=== PATIENT | female | born 1945 | race Caucasian/White ===

== ENCOUNTER → 2020-03-20 09:36 | Outpatient (CLI) | payer OTHER, SELFPAY ==
--- NOTE | ~2020-03-20 | MR_ITS ---
EXAMINATION: MR lumbar spine wo con EXAM DATE: 03/20/2020 10:17 INDICATION: Low pain for several months. TECHNIQUE: Multi-sequential, multiplanar MR images of the lumbar spine were obtained without contrast . Sagittal T1, T2, T2 fat saturation images. Axial T2 weighted images. There is no prior study for comparison. FINDINGS: The right kidney is not identified. There is heterogeneous signal intensity right adrenal m ass measuring about 3 x 5 cm (measurements in 2016 about 3.5 x 2.7 cm). This has been a chronic mass, but adrenal masses are sometimes resected if reaching the size. There is moderate to severe disc disease L1-L4, moderate at L4-5. Multilevel endplate degenerative si gnal change mostly at L2-3. Small to moderate endplate osteophytes. The conus medullaris terminates a t the L1/2 level and has normal signal intensity and morphology. There is 4 mm anterolisthesis L4 on L5. Level by level evaluation: T12-L1: Disc does not extend beyond the endplate margin. Facet arthropathy: Mild. Neural foraminal stenosis: No stenosis. Central canal stenosis: No stenosis. L1-L2: There is a moderate diffuse disc bulge. Facet arthropathy: Mild to moderate. Neural foraminal stenosis: Moderate right, mild to moderate left. Central canal stenosis: Mild. L2-L3: There is a moderate to large diffuse disc bulge. Facet arthropathy: Moderate. Neural foraminal stenosis: Mild to moderate bilateral. Central canal stenosis: Mild to moderate. L3-L4: There is a moderate to large diffuse disc bulge, with superimposed left central extrusion, karen e inferior migration causing mass effect on the left lateral recess. Facet arthropathy: Moderate. Neural foraminal stenosis: Moderate left, mild to moderate right. Central canal stenosis: Mild to moderate, mostly left lateral recess. L4-L5: There is a moderate diffuse disc bulge. Facet arthropathy: Moderate to severe . Ligamentum flavum enlargement. Neural foraminal stenosis: Moderate left, mild to moderate right. Central canal stenosis: Moderate. L5-S1: There is a mild diffuse disc bulge. Facet arthropathy: Severe. Neural foraminal stenosis: Mild right. Central canal stenosis: No stenosis. IMPRESSION: 1. Increase in size of right adrenal 5 cm mass, most likely benign histology but adrenal masses are sometimes resected if reaching this size. 2. Moderate to severe lumbar spondylosis. Reviewed, dictated and finalized at location A. IMPRESSION: 1. Increase in size of right adrenal 5 cm mass, most likely benign histology b ut adrenal masses are sometimes resected if reaching this size. 2. Moderate to severe lumbar spondylosis.
== END ==
PROVIDERS: PCP Emergency Medicine; Visit Provider Nurse Practitioner Adult Health
DX: M47.816 Spondylosis without myelopathy or radiculopathy, lumbar region (principal); E27.9 Disorder of adrenal gland, unspecified
CPT/HCPCS: 72148

== ENCOUNTER → 2020-10-05 05:04 | Outpatient (CLI) | payer OTHER, SELFPAY ==
[2020-10-05 19:22] LABS: SARS-CoV-2 RNA PCR Negative
== END ==
PROVIDERS: PCP Emergency Medicine; Visit Provider Specialist
DX: Z01.812 Encounter for preprocedural laboratory examination (principal); Z20.822 Contact with and (suspected) exposure to COVID-19
CPT/HCPCS: C9803; U0003; U0005

== ENCOUNTER 2020-10-08 02:12 | Day surgery (SDC) | payer OTHER, SELFPAY ==
[2020-10-08] VITALS (8 sets, daily range): BP systolic 109–170; BP diastolic 49–103; PULSE 61–118; RESP 14–19; TEMP 36.9; O2SAT 95–100; BMI 27.8
--- NOTE | 2020-10-08 | ECG_ITS ---
Measurements Intervals [place] Rate: 65 P: 57 [place]: 154 QRS: 5 QRSD: 97 T: 53 QT: 440 QTc: 458 Interpretive Statements SINUS RHYTHM SUPRAVENTRICULAR TRIGEMINY ANTEROSEPTAL INFARCT, AGE INDETERMINATE ABNORMAL ECG Electronically Signed On 10-08-2020 10:49:22 CDT by Raymond Hamlin D.O.
--- NOTE | 2020-10-08 08:30 | ECG_ITS ---
Measurements Intervals [place] Rate: 93 P: [place]: 0 QRS: -1 QRSD: 100 T: 33 QT: 350 QTc: 436 Interpretive Statements ATRIAL FIBRILLATION ANTEROSEPTAL INFARCT, AGE INDETERMINATE BORDERLINE ST-T WAVE ABNORMALITY- HIGH LATERAL LEADS BASELINE ARTIFACT- I, III, AVL, AVF ABNORMAL ECG Electronically Signed On 10-08-2020 10:05:34 CDT by Raymond Hamlin D.O.
[2020-10-08 09:44] LABS: Anion Gap 3 mmol/L (8-16); Blood Urea Nitrogen 9 mg/dL (7-17); Calcium 9.1 mg/dL (8.4-10.2); Carbon Dioxide 28 mmol/L (22-30); Chloride 107 mmol/L (98-107); Estimated Glomerular Filt Rate 48; Glucose 95 mg/dL (65-105); Magnesium 1.8 mg/dL (1.6-2.3); Sodium 138 mmol/L (137-145)
--- NOTE | 2020-10-08 10:10 | WPDMODSED ---
Moderate Sedation Note-Pt Data Patient Data Diagnosis: Recurrent/persistent atrial fibrillation Present Complaint: Fatigue/dyspnea Procedure to be performed/Plan: DC cardioversion Allergies Allergy/AdvReac Type Severity Reaction Status Date / Time nitrofurantoin Allergy Mild Hives Verified 10/05/20 17:10 Home Medications Medication Instructions Recorded Confirmed Type apixaban [Eliquis] 5 mg PO BID 05/14/19 10/05/20 History clopidogrel [Plavix] 75 mg PO DAILY 05/14/19 10/05/20 History levothyroxine 88 mcg tablet See Rx Instructions .ROUTE 04/23/20 10/05/20 Rx .COMPLEX #90 tablet losartan 100 mg tablet 100 mg PO DAILY #90 tablet 05/28/20 10/05/20 Rx isosorbide mononitrate 30 mg 30 mg PO DAILY 09/07/20 10/05/20 History tablet,extended release 24 hr rosuvastatin 10 mg tablet 10 mg PO QHS tablet 09/07/20 10/05/20 History sotalol 120 mg PO BID 10/05/20 10/08/20 History Current Medications: Active Medications Sodium Chloride (Normal Saline Iv) 1,000 mls @ 30 mls/hr IV CONT .Q24H SHIRLEY Sedation/Anesthesia: No previous sedation/anesthesia problems (including family history). [facility] Past Medical History Medical History (Updated 08/06/20 @ 11:18 by Juan Whyte MD) ASHD (arteriosclerotic heart disease) Chronic back pain HLD (hyperlipidemia) HTN (hypertension) Hypothyroidism (acquired) PVD (peripheral vascular disease) Surgical History Surgical History History of vascular surgery Rt Leg Family History Family History Mother Family history of Parkinson's disease Patient's mother is Father Family history of heart disease in male family member before age 55, Onset Age: 82 Patient's father is Family history of cardiovascular disease, Onset Age: 81 Family history of kidney disease Social History Social History Smoking status: Never smoker Alcohol intake: never Mod Sed Physical Exam Physical Exam Pre Procedural Exam: Normal: Appearance, Neck, Throat, Airway, Lungs, Heart Size, Neuro Exam and Extremities and Variation: Heart Rate and Heart Rhythm (Tachycardic irregularly irregular) Hours since solid foods: 12 Hours since liquid intake: 12 Internal Medicine - PN: Obj Da Vital Signs Vital Signs: Vital Signs - 24 hr 10/08/20 09:00 Temperature 36.9 C Pulse Rate 100 Respiratory Rate 15 Blood Pressure 160/94 H Pulse Oximetry 95 Meds/Results Medications: Active Medications Generic Name Dose Route Start Last Admin Trade Name Freq PRN Reason Stop Dose Admin Sodium Chloride 1,000 mls @ 30 mls/hr 10/08/20 08:20 Normal Saline Iv IV CONT .Q24H SHIRLEY Labs CBC & Chem 7: 10/08/20 09:17 Labs: Laboratory Results - last 24 hr 10/08/20 09:17 Sodium 138 Potassium 4.0 Chloride 107 Carbon Dioxide 28 Anion Gap 3 L BUN 9 Creatinine 1.10 H Estim Creat Clear Calc Not Reportable Estimated GFR 48 L Glucose 95 Calcium 9.1 Magnesium 1.8 ASA Classification/Sedation ASA Classification/Sedation ASA Class: II Emergent: No Risks: Risks, benefits and alternatives explained and patient/family accepted plan for sedation. Patient re-evaluated immediately prior to sedation.
--- NOTE | 2020-10-08 10:18 | WPDCARDPROC ---
Cardiac Cath Procedure Note Date of procedure:: 10/08/20 Performing physician:: Juan Mckeon MD Indication:: Recurrent persistent atrial fibrillation. Brief clinical history:: This is a 75-year-old woman with a history of atrial fibrillation which has been treated with sotalol with success in maintaining sinus rhythm. She was hospitalized elsewhere recently and was taken off of her medication replaced with rate control with metoprolol. With metoprolol she has not been feeling well reports symptoms of fatigue and some exertional dyspnea desires to attempt to restore sinus rhythm. She has been placed back on sotalol and admitted this morning for an attempt at electrical cardioversion Procedure Procedure performed:: DC cardioversion Sedation/Medication given:: Propofol in aliquots total dosage of 70 mg Estimated blood loss:: No blood loss Procedure note:: Patient was brought to the cardiac catheterization lab preop holding area where she was in the postabsorptive state placed in the supine position and had defibrillator patches placed in the AP position. Following this she was since sedated with propofol in aliquots a total of 70 mg was given which provided excellent procedural sedation. After this I delivered 1 electrical countershock at 200 joules x1 shock in a synchronized fashion which restored normal sinus rhythm. Findings:: Successful uncomplicated DC cardioversion of atrial fib to sinus rhythm using 1 shock at 200 joules. Conclusion:: As above. Patient will be recovered from sedation and followed up in the office next week to see if sinus rhythm is being maintained Juan Mckeon MD [facility]
--- NOTE | 2020-10-08 10:19 | SUR.PHASEII ---
BEGIN PHASE II RECOVERY S/P CV W/ DR. CHAPA. POST EKG BEING OBTAINED. WAKING UP AT THIS TIME. AROUSABLE. DENIES PAIN OR SOB. VSS. MONITOR SR W/ PAC'S. WILL CONTINUE TO MONITOR.
--- NOTE | 2020-10-08 12:15 | SUR.PHASEII ---
DISCHARGE INSTRUCTIONS GIVEN AND REVIEWED W/ PT. QUESTIONS ANSWERED. VOICED UNDERSTANDING OF ALL. DISCHARGED HOME, OUT VIA WC TO 'S WAITING CAR W/ ALL PERSONAL BELONGINGS AND DISCHARGE PACKET. VOICES NO C/O. NO DISTRESS NOTED.
== END 2020-10-08 12:15 | disposition home or self-care (01) ==
PROVIDERS: PCP Emergency Medicine; Visit Provider Specialist
PROC: 5A2204Z Restoration of Cardiac Rhythm, Single (ICD-10-PCS; principal; 2020-10-08 10:00)
DX: I48.19 Other persistent atrial fibrillation (principal); Z79.01 Long term (current) use of anticoagulants; I25.10 Atherosclerotic heart disease of native coronary artery without angina pectoris; E78.5 Hyperlipidemia, unspecified; I73.9 Peripheral vascular disease, unspecified; E03.9 Hypothyroidism, unspecified; I25.2 Old myocardial infarction; I47.1 Supraventricular tachycardia; R53.83 Other fatigue
CPT/HCPCS: 36415; 80048; 83735; 92960; 93005; C9803; J2704; J7040; U0003; U0005

== ENCOUNTER → 2020-12-14 06:51 | Outpatient (CLI) | payer OTHER, SELFPAY ==
[2020-12-14 19:50] LABS: SARS-CoV-2 RNA PCR Negative
== END ==
PROVIDERS: PCP Emergency Medicine; Visit Provider Emergency Medicine
DX: Z01.812 Encounter for preprocedural laboratory examination (principal); Z20.822 Contact with and (suspected) exposure to COVID-19
CPT/HCPCS: C9803; U0003; U0005

== ENCOUNTER 2021-04-19 10:45 | Emergency (ER) | payer OTHER, SELFPAY ==
--- NOTE | ~2021-04-19 | XR_ITS ---
EXAMINATION: XR chest 2V DATE: 04/19/2021 11:46 INDICATION: Chest pain. Atrial fibrillation. TECHNIQUE: PA and lateral views of the chest were obtained. COMPARISON: Chest radiograph dated 05/03/2019 FINDINGS: The lungs remain clear with no focal airspace opacities, pulmonary edema, pleural effusion or pneumot horax. The cardiomediastinal silhouette is normal. Coronary artery calcifications and possible stenti ng. Dense capsular calcification of bilateral breast implants. Cholecystectomy clips in right upper q uadrant. Moderate thoracic and lower cervical spondylosis. IMPRESSION: 1. No acute cardiopulmonary disease. Reviewed, dictated and finalized at location A.
[2021-04-19 10:57] VITALS: BP 148/84; PULSE 87; RESP 20; TEMP 36.7; O2SAT 99
--- NOTE | 2021-04-19 11:03 | ECG_ITS ---
Measurements Intervals [place] Rate: 82 P: [place]: 0 QRS: 35 QRSD: 98 T: 62 QT: 346 QTc: 406 Interpretive Statements SINUS RHYTHM CHANGES TO ATRIAL FIBRILLATION ATRIAL AND VENTRICULAR PREMATURE COMPLEXES CANNOT RULE OUT SEPTAL INFARCT, AGE INDETERMINATE ABNORMAL ECG Electronically Signed On 04-19-2021 11:26:56 CDT by Raymond Hamlin D.O.
[2021-04-19 11:29] LABS: Basophils Percent Auto 0.3 % (0.2-1.2); Eosinophils Absolute Auto 0.1 K/mm3 (0-0.3); Eosinophils Percent Auto 1.5 % (0-4.4); Hematocrit 34.1 % (37.0-47.0); Hemoglobin 10.8 g/dL (12.0-15.0); Immature Granulocyte Absolute 0.04 K/mm3 (0.00-0.031); Immature Granulocyte Percent A 0.4 % (0-0.5); Lymphocytes Absolute Auto 1.15 K/mm3 (0.9-3.2); Lymphocytes Percent Auto 12.9 % (18.3-44.2); Mean Corpuscular HGB Conc 31.7 g/dl (32-36); Mean Corpuscular Hemoglobin 27.3 pg (26-34); Mean Corpuscular Volume 86.1 fl (80-100); Mean Platelet Volume 9.3 fl (7.4-10.4); Monocytes Absolute Auto 0.7 K/mm3 (0.1-0.6); Monocytes Percent Auto 7.6 % (2.6-8.5); Neutrophils Absolute Auto 6.9 K/mm3 (1.3-6.7); Neutrophils Percent Auto 77.3 % (45.5-73.1); Platelet Count Result 316 k/mm3 (150-375); Red Blood Count 3.96 M/mm3 (4.2-5.4); Red Cell Distribution Width 16.6 % (11.5-14.5); White Blood Count 8.9 K/mm3 (4.5-10.0)
[2021-04-19 11:37] LABS: INR 1.2; Prothrombin Time 15.3 Seconds (11.1-14.7)
[2021-04-19 11:38] LABS: Partial Thromboplastin Time 29.2 SECONDS (22.3-36.8)
[2021-04-19 11:47] LABS: Anion Gap 7 mmol/L (8-16); Blood Urea Nitrogen 10 mg/dL (7-17); Calcium 9.1 mg/dL (8.4-10.2); Carbon Dioxide 26 mmol/L (22-30); Chloride 103 mmol/L (98-107); Estimated CRCL calculation 40 ml/min; Estimated Glomerular Filt Rate 54; Glucose 121 mg/dL (65-110); Potassium 3.9 mmol/L (3.4-5.0); Sodium 136 mmol/L (137-145)
[2021-04-19 11:59] LABS: Troponin I < 0.012 ng/mL (0.000-0.034)
--- NOTE | 2021-04-19 12:39 | ED.ARRPALP ---
HPI - Arrhythmia/Palpitations General Chief Complaint: Arrhythmia/Palpitations Stated Complaint: fast heart rate Time Seen by Provider: 04/19/21 11:05 Source: patient History of Present Illness HPI narrative: Patient presents with palpitations. She reports a history of A. fib with RVR she has had a prior ablation several months ago was doing well recently discontinued her beta-megan in discussion with her pole shaver helper. Since then she has been having intermittent episodes of palpitations and had a plan to see her pole shaver helper this afternoon and have an EKG performed. this morning she had 2 episodes of a racing heart and feeling lightheaded which were more severe so she came to the ER for evaluation. She rested and her symptoms improved and she is feeling much better on arrival to the ER. She denies any chest pain, shortness of breath, active lightheadedness. She thinks she had a A. fib attack as she has had those before. Related Data Home Medications Medication Instructions Recorded Confirmed Eliquis 5 mg PO BID 05/14/19 03/28/21 clopidogrel [Plavix] 75 mg PO DAILY 05/14/19 03/28/21 isosorbide mononitrate 30 mg 30 mg PO DAILY 09/07/20 03/28/21 tablet,extended release 24 hr rosuvastatin 10 mg tablet 10 mg PO QHS tablet 09/07/20 03/28/21 sotalol 120 mg PO BID 10/05/20 03/28/21 Allergies Allergy/AdvReac Type Severity Reaction Status Date / Time nitrofurantoin Allergy Mild Hives Verified 03/27/21 13:38 Review of Systems Review of Systems: CONSTITUTIONAL: Denies fever, chills, or sweats. EYES: Denies visual changes, redness, or discharge. ENT: Denies rhinorrhea, congestion, sore throat, or otalgia. CARDIOVASCULAR: Denies chest pain, palpitations, or edema. RESPIRATORY: Denies cough GASTROINTESTINAL: Denies abdominal pain, nausea, vomiting, or diarrhea. GENITOURINARY: Denies dysuria or hematuria. SKIN: Denies rash or itching. MUSCULOSKELETAL: Denies back pain, joint pain, or myalgia. NEUROLOGIC: Denies headache, numbness, or weakness. PSYCHIATRIC: Denies anxiety or depression. [facility] Past Medical History Medical History (Updated 04/19/21 @ 12:46 by Shukri Bravo MD) ASHD (arteriosclerotic heart disease) Chronic back pain HLD (hyperlipidemia) HTN (hypertension) Hypothyroidism (acquired) PVD (peripheral vascular disease) Surgical History Surgical History History of vascular surgery Rt Leg Family History Family History Mother Family history of Parkinson's disease Patient's mother is Father Family history of heart disease in male family member before age 55, Onset Age: 82 Patient's father is Family history of cardiovascular disease, Onset Age: 81 Family history of kidney disease Social History Social History Smoking status: Never smoker Alcohol intake: never Exam Narrative: GENERAL: Well-appearing, well-nourished, and in no acute distress. HEAD: Normocephalic, atraumatic. EYES: PERRLA and EOMI. ENT: Nares clear, no rhinorrhea or epistaxis. Mucous membranes moist. NECK: Supple. No masses. No JVD CHEST: Clear to auscultation. No respiratory distress. No wheezes rales or rhonchi HEART: Regular rhythm normal rate. No murmur heard. Normal peripheral pulses. EXTREMITIES: Normal range of motion. No edema. SKIN: Warm, dry, no rash. NEURO: No focal deficits. Alert and oriented x3. PSYCH: Normal mood and affect. Course Reevaluation(s) Reevaluation #1: Patient continues to feel well results and plan reviewed with patient. Patient comfortable outpatient plan will follow up with her pole shaver helper. Date: 04/19/21 Time: 12:44 Vital Signs Vital signs: Vital Signs Temperature 36.7 C 04/19/21 10:57 Pulse Rate 87 04/19/21 10:57 Respiratory Rate 20 04/19/21 10:57 Blood Pressure 148/84 H 04/19/21 10:5
[2021-04-19 12:58] VITALS: BP 146/56; PULSE 84; RESP 18; O2SAT 100
== END 2021-04-19 13:00 | disposition home or self-care (01) ==
PROVIDERS: Emergency Provider Emergency Medicine; PCP Emergency Medicine
DX: I48.20 Chronic atrial fibrillation, unspecified (principal); I25.10 Atherosclerotic heart disease of native coronary artery without angina pectoris; E78.5 Hyperlipidemia, unspecified; I10 Essential (primary) hypertension; E03.9 Hypothyroidism, unspecified; I73.9 Peripheral vascular disease, unspecified; Z79.01 Long term (current) use of anticoagulants; Z79.02 Long term (current) use of antithrombotics/antiplatelets; I49.3 Ventricular premature depolarization; I49.1 Atrial premature depolarization; R94.31 Abnormal electrocardiogram [ECG] [EKG]
CPT/HCPCS: 36415; 71046; 80048; 84484; 85025; 85610; 85730; 93005; 99284

== ENCOUNTER → 2022-05-16 12:22 | Outpatient (CLI) | payer OTHER, SELFPAY ==
--- NOTE | ~2022-05-16 | MR_ITS ---
. EXAMINATION: MR lumbar spine wo con DATE: 05/16/2022 12:54 INDICATION: Lumbar radiculopathy. TECHNIQUE: Magnetic resonance imaging (MRI) of the lumbar spine was performed without intravenous con trast. Sequences included sagittal T2-weighted FSE, sagittal T2-weighted FS FSE, sagittal T1-weighted FSE, and axial T2-weighted FSE. COMPARISON: Lumbar spine MRI 03/20/2020, CT abdomen and pelvis 08/29/2015 FINDINGS: There is no areas dextroscoliosis of lumbar spine. There is 5 mm anterolisthesis of L4 on L 5. Vertebral body heights are normal. There is severely decreased disc height from L1-L2 through L4-L 5. The distal spinal cord signal intensity is normal. The conus medullaris is at L1. There is a 5.1 c m mass of right adrenal gland that previously measured 3.7 cm on 08/29/15, consistent with an adenoma. The following disc levels are specifically discussed: L1-L2: The disc is bulging and has an annular fissure. There is severe right and mild left facet join t osteoarthritis. There is moderate right and mild left neural foraminal stenosis. There is mild cent ral canal stenosis. L2-L3: The disc is bulging and has an annular fissure. There is moderate bilateral facet joint osteoa rthritis. There is moderate right and mild left neural foraminal stenosis. There is mild central gita l stenosis. L3-L4: The disc is bulging and has an annular fissure. There is severe bilateral facet joint osteoart hritis. There is mild right and moderate left neural foraminal stenosis. There is mild central canal stenosis. L4-L5: The disc is bulging and has an annular fissure. There is severe bilateral facet joint osteoart hritis. There is mild bilateral neural foraminal stenosis. There is mild central canal stenosis. L5-S1: The disc does not extend beyond the endplate margin. There is severe bilateral facet joint ost eoarthritis. There is mild bilateral neural foraminal stenosis. There is no central canal stenosis. IMPRESSION: 1. Severe lumbar spondylosis, stable from 03/20/2020. 2. 5.1 cm right adrenal mass, increased from 3.7 cm on 08/29/2015, consistent with an adenoma. Reviewed, dictated and finalized at location A. A IMPRESSION: 1. Severe lumbar spondylosis, stable from 03/20/2020. 2. 5.1 cm right adrenal mass, increased from 3.7 cm on 08/29/2015, consistent wi th an adenoma.
== END ==
PROVIDERS: PCP Emergency Medicine; Visit Provider Nurse Practitioner Family
DX: M54.16 Radiculopathy, lumbar region (principal); M43.06 Spondylolysis, lumbar region; E27.9 Disorder of adrenal gland, unspecified
CPT/HCPCS: 72148

== ENCOUNTER 2023-11-02 12:43 | Outpatient (CLI) | payer OTHER, SELFPAY ==
--- NOTE | ~2023-11-02 | XR_ITS ---
Right Knee Technique: AP, lateral, and sunrise views were obtained. Clinical History: Osteoarthritis Findings: No fracture or dislocation is seen. Osseous alignment is anatomic. Minimal spurring of the patella and medial joint line. Extensive vascular stent present in the distal thigh and popliteal reg ion. No joint effusion is seen. Impression: Mild degenerative change, as above. Extensive vascular stenting the distal thigh and knee. Reviewed, dictated and finalized at location M. Impression: Mild degenerative change, as above. Extensive vascular stenting the distal thigh and knee.
== END 2023-11-02 12:44 | disposition home or self-care (01) ==
PROVIDERS: PCP Emergency Medicine; Visit Provider Orthopaedic Surgery
DX: M17.0 Bilateral primary osteoarthritis of knee (principal)
CPT/HCPCS: 73564

== ENCOUNTER 2023-11-16 08:12 | Outpatient (CLI) | payer OTHER, SELFPAY ==
[2023-11-16 11:40] LABS: Vitamin D 25 Hydroxy 33.4 ng/mL
[2023-11-16 13:52] LABS: Alanine Aminotransferase 18 U/L (6-35); Alkaline Phosphatase 108 U/L (38-126); Anion Gap 5 mmol/L (4-12); Aspartate Amino Transferase 31 U/L (14-36); Bilirubin,Total 0.8 mg/dL (0.2-1.3); Blood Urea Nitrogen 13 mg/dL (7-17); Calcium 9.2 mg/dL (8.4-10.2); Carbon Dioxide 25 mmol/L (22-30); Chloride 103 mmol/L (98-107); Cholesterol 111 mg/dL (0-200); Estimated Glomerular Filt Rate 60; Glucose 86 mg/dL (65-110); HDL Direct 61 mg/dL; Potassium 4.2 mmol/L (3.4-5.0); Sodium 133 mmol/L (137-145); Triglycerides 76 mg/dL (<150)
[2023-11-16 14:00] LABS: LDL Cholesterol Direct 49 mg/dL
== END 2023-11-16 08:13 | disposition home or self-care (01) ==
PROVIDERS: PCP Emergency Medicine; Visit Provider Internal Medicine Hematology & Oncology
DX: E55.9 Vitamin D deficiency, unspecified (principal); E78.5 Hyperlipidemia, unspecified
CPT/HCPCS: 36415; 80053; 80061; 82306; 84443

== ENCOUNTER 2023-11-24 16:31 | Outpatient (CLI) | payer OTHER, SELFPAY ==
--- NOTE | ~2023-11-24 | CT_ITS ---
EXAMINATION: CT abdomen pelvis wo con DATE: 11/24/2023 16:49 INDICATION: Unspecified abdominal pain TECHNIQUE: Computed tomography (CT) of the abdomen and pelvis was performed without intravenous contr ast. Automated exposure control and iterative reconstruction technique were employed. The dose-length product was 424.09 mGy-cm. COMPARISON: No prior imaging studies available for comparison. Correlation is made with reports from abdomen MRI study dated 12/24/2013 and PET/CT dated 05/01/2011 FINDINGS: Mild discoid atelectasis at the bilateral lung bases. Heart size normal. Atherosclerotic coronary art iram calcifications. Dense capsular calcifications at the periphery of a partially visualized bilatera l breast implants. A couple low-attenuation hepatic cysts the largest measuring 3.4 cm. Calcified gal lstone within the normal nondilated gallbladder with no wall thickening or pericholecystic inflammato ry stranding to suggest acute cholecystitis. Spleen and left kidney are normal. Postoperative change of prior right nephrectomy. There is a 5.3 x 3.7 cm right adrenal mass with heterogeneous attenuation , in places of less than 10 HU and with scattered coarse calcifications. There is similar to the desc ription on the prior PET/CT in 2010 at which time the mass measured 2.9 cm which increased to 3.4 cm on MRI dated 12/24/2013 at which time macroscopic fat was observed consistent with an adenoma. Additio nal unchanged relatively low-density thickening of the left adrenal gland consistent with additional small adenoma/adenomas. Atherosclerotic calcification versus more likely postoperative suture line al carine the right side of the head of the otherwise normal pancreas. There is moderate colonic diverticul osis with a sigmoid predominance. There is no adjacent inflammatory change to suggest diverticulitis . The junction of the descending and sigmoid colon extends into a small indirect left inguinal hernia . No associated obstruction or inflammatory changes. Small bowel and appendix are normal. Bladder is normal. The uterus is not identified and has likely been surgically resected. No free intraperitoneal gas or fluid. No pathologically enlarged abdominal or pelvic lymphadenopathy. There is calcified ath erosclerosis of the aorta and many of the other arteries. Severe lumbar spondylosis. IMPRESSION: 1. No acute intra-abdominal/pelvic process. 2. Cholelithiasis. 3. Bilateral adrenal adenomas, the larger on the right which has increased from 3.4 cm in 2013 to cur rently measuring 5.3 cm. 4. Short segment of nonobstructed colon at the junction of the descending and sigmoid colon extends i nto a small left inguinal hernia. 5. Diverticulosis. Reviewed, dictated and finalized at location A. IMPRESSION: 1. No acute intra-abdominal/pelvic process. 2. Cholelithiasis. 3. Bilateral adrenal adenomas, the larger on the right which has increased from 3.4 cm in 2014 to currently measuring 5.3 cm. 4. Short segment of nonobstructed colon at the junction of the descending and s igmoid colon extends into a small left inguinal hernia. 5. Diverticulosis.
== END 2023-11-24 16:32 | disposition home or self-care (01) ==
PROVIDERS: PCP Emergency Medicine; Visit Provider Emergency Medicine
DX: K80.20 Calculus of gallbladder without cholecystitis without obstruction (principal); K57.30 Diverticulosis of large intestine without perforation or abscess without bleeding; K40.90 Unilateral inguinal hernia, without obstruction or gangrene, not specified as recurrent; D35.02 Benign neoplasm of left adrenal gland; D35.01 Benign neoplasm of right adrenal gland
CPT/HCPCS: 74176

== ENCOUNTER 2024-01-12 08:03 | Outpatient (CLI) | payer OTHER, SELFPAY ==
[2024-01-12 12:50] LABS: Thyroid Stimulating Hormone 0.264 uIU/mL (0.465-4.680)
== END 2024-01-12 08:04 | disposition home or self-care (01) ==
PROVIDERS: PCP Emergency Medicine; Visit Provider Internal Medicine Hematology & Oncology
DX: E03.9 Hypothyroidism, unspecified (principal)
CPT/HCPCS: 36415; 84443

== ENCOUNTER 2024-02-08 08:02 | Outpatient (CLI) | payer OTHER, SELFPAY | END 2024-02-08 08:03 | disposition home or self-care (01) | LOC: ANHLAB 08:05 | PROVIDERS: PCP Emergency Medicine; Visit Provider Internal Medicine Hematology & Oncology | DX: E03.9 Hypothyroidism, unspecified (principal); R79.89 Other specified abnormal findings of blood chemistry | CPT/HCPCS: 36415; 84443 ==

== ENCOUNTER 2024-04-12 08:17 | Outpatient (CLI) | payer OTHER, SELFPAY ==
[2024-04-12 09:50] LABS: Alanine Aminotransferase 17 U/L (6-35); Albumin Level 3.8 g/dL (3.5-5.1); Alkaline Phosphatase 78 U/L (38-126); Anion Gap 4 mmol/L (4-12); Aspartate Amino Transferase 23 U/L (14-36); Bilirubin,Total 0.6 mg/dL (0.2-1.3); Blood Urea Nitrogen 12 mg/dL (7-17); Carbon Dioxide 29 mmol/L (22-30); Chloride 100 mmol/L (98-107); Cholesterol 103 mg/dL (0-200); Estimated Glomerular Filt Rate 60; Glucose 92 mg/dL (65-110); HDL Direct 50 mg/dL; Sodium 133 mmol/L (137-145); Triglycerides 102 mg/dL (<150)
[2024-04-12 10:20] LABS: Thyroid Stimulating Hormone 0.495 uIU/mL (0.465-4.680)
[2024-04-12 11:03] LABS: LDL Cholesterol Direct < 30 mg/dL
[2024-04-12 11:23] LABS: Vitamin D 25 Hydroxy 35.1 ng/mL
== END 2024-04-12 08:18 | disposition home or self-care (01) ==
LOC: ANHLAB 08:20
PROVIDERS: PCP Emergency Medicine; Visit Provider Internal Medicine Hematology & Oncology
DX: E55.9 Vitamin D deficiency, unspecified (principal); E03.9 Hypothyroidism, unspecified; E78.2 Mixed hyperlipidemia
CPT/HCPCS: 36415; 80053; 80061; 82306; 84443

== ENCOUNTER 2024-04-14 05:46 | Emergency (ER) | payer OTHER, SELFPAY ==
--- NOTE | ~2024-04-14 | XR_ITS ---
Clinical Indication: Chest pain PA and lateral views of the chest: Comparison: 04/19/2021 Findings: The lungs are clear, without evidence of focal consolidation or pleural effusion. Cardiome diastinal silhouette is within normal limits. Bones and soft tissues are unremarkable. Impression: Normal chest. Reviewed, dictated and finalized at location . Impression: Normal chest.
--- NOTE | 2024-04-14 05:47 | ECG_ITS ---
Test Date: 2024-04-14 05:55:11 Measurements Intervals [place] Rate: 74 P: 0 [place]: 0 QRS: 12 QRSD: 102 T: 77 QT: 374 QTc: 417 Interpretive Statements SINUS RHYTHM WITH PACS PREVIOUS ANTEROSEPTAL INFARCTION ABNORMAL ECG No previous ECG available for comparison Electronically Signed On 04-14-2024 07:58:27 CDT by Juan Mckeon M.D.
[2024-04-14 05:48] VITALS: BP 148/69; PULSE 66; RESP 15; TEMP 36.1; O2SAT 100
[2024-04-14 06:05] VITALS: PULSE 66
[2024-04-14 06:08] LABS: Basophils Percent Auto 0.3 % (0.2-1.2); Eosinophils Absolute Auto 0.2 K/mm3 (0-0.3); Eosinophils Percent Auto 1.9 % (0-4.4); Hematocrit 40.7 % (37.0-47.0); Hemoglobin 13.8 g/dL (12.0-15.0); Immature Granulocyte Absolute 0.02 K/mm3 (0.00-0.031); Immature Granulocyte Percent A 0.2 % (0-0.5); Lymphocytes Absolute Auto 1.15 K/mm3 (0.9-3.2); Lymphocytes Percent Auto 12.1 % (18.3-44.2); Mean Corpuscular HGB Conc 33.9 g/dl (32-36); Mean Corpuscular Hemoglobin 32.1 pg (26-34); Mean Corpuscular Volume 94.7 fl (80-100); Mean Platelet Volume 9.4 fl (7.4-10.4); Monocytes Percent Auto 10.6 % (2.6-8.5); Neutrophils Absolute Auto 7.1 K/mm3 (1.3-6.7); Neutrophils Percent Auto 74.9 % (45.5-73.1); Platelet Count Result 301 k/mm3 (150-375); Red Cell Distribution Width 13.3 % (11.5-14.5); White Blood Count 9.5 K/mm3 (4.5-10.0)
[2024-04-14 06:20] LABS: Alanine Aminotransferase 17 U/L (6-35); Albumin Level 3.8 g/dL (3.5-5.1); Alkaline Phosphatase 71 U/L (38-126); Anion Gap 5 mmol/L (4-12); Aspartate Amino Transferase 30 U/L (14-36); Blood Urea Nitrogen 9 mg/dL (7-17); Calcium 8.9 mg/dL (8.4-10.2); Carbon Dioxide 27 mmol/L (22-30); Chloride 100 mmol/L (98-107); Estimated CRCL calculation 54 ml/min; Estimated Glomerular Filt Rate > 60; Glucose 101 mg/dL (65-110); Lipase 144 U/L (23-300); Potassium 4.6 mmol/L (3.4-5.0); Sodium 132 mmol/L (137-145)
[2024-04-14 06:22] LABS: INR 1.1; Prothrombin Time 14.4 Seconds (11.1-14.7)
[2024-04-14 06:23] LABS: Partial Thromboplastin Time 25.3 Seconds (22.3-36.8)
[2024-04-14 06:31] LABS: Troponin I < 0.012 ng/mL (0.000-0.034)
[2024-04-14 06:34] VITALS: BP 150/66; PULSE 67; RESP 14; O2SAT 100
[2024-04-14 06:35] VITALS: O2SAT 100
[2024-04-14 07:25] VITALS: BP 144/60; PULSE 58; RESP 20; O2SAT 100
--- NOTE | 2024-04-14 07:40 | ED.CHESTPAIN ---
HPI - Chest Pain General Chief Complaint: Chest Pain Stated Complaint: chest pain Time Seen by Provider: 04/14/24 07:03 History of Present Illness HPI narrative: Patient presents here with intermittent chest over last 3 days, usually when she wakes up she will have some tightness with some heaviness of her arms, but when she sits up the pain goes away. Sometimes it will come back while she is moving around throughout the day, and then overweight. Not in any pain right now. Has been taking her medications as prescribed. Related Data Home Medications Medication Instructions Recorded Confirmed apixaban 5 mg tablet (Eliquis) 5 mg PO BID 05/14/19 11/17/23 clopidogrel 75 mg tablet (Plavix) 75 mg PO DAILY 05/14/19 11/17/23 isosorbide mononitrate 30 mg 30 mg PO DAILY 09/07/20 11/17/23 tablet,extended release 24 hr rosuvastatin 10 mg tablet 10 mg PO QHS 09/07/20 11/17/23 amlodipine 10 mg tablet 10 mg PO DAILY 04/30/21 11/17/23 sotalol 80 mg tablet See Rx Instructions .Route .COMPLEX 10/29/21 11/17/23 nitroglycerin 0.4 mg sublingual 0.4 mg sublingual Q5M PRN 08/11/22 11/17/23 tablet Allergies Allergy/AdvReac Type Severity Reaction Status Date / Time nitrofurantoin Allergy Mild Hives Verified 04/14/24 05:47 Review of Systems Review of Systems: All systems reviewed & are unremarkable except as noted in HPI and below PMFSH Past Medical History Medical History (Updated 04/14/24 @ 09:38 by Gin Fish MD) Arterial occlusive disease ASHD (arteriosclerotic heart disease) CAD in [place] artery Chronic a-fib Chronic back pain Chronic diastolic heart failure Colon cancer screening Dysuria Emphysema, unspecified Gastroesophageal reflux disease without esophagitis Hematuria, unspecified History of smoking 30 or more pack years HLD (hyperlipidemia) HTN (hypertension) Hypothyroidism (acquired) 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 current use of antithrombotics/antiplatelets [place], acute, non ST segment elevation Other obesity due to excess calories PAD (peripheral artery disease) Patient had no falls in past year PVD (peripheral vascular disease) Right anterior knee pain Spinal stenosis of lumbar region without neurogenic claudication Synovial cyst of popliteal space [Noel], right knee Tear of meniscus of right knee Tobacco abuse Surgical History Surgical History (Updated 01/19/24 @ 15:49 by Dulce Dinh MA) H/O heart artery stent H/O kidney removal H/O thyroidectomy History of vascular surgery Rt Leg Family History Family History Mother Family history of Parkinson's disease Patient's mother is Father Family history of heart disease in male family member before age 55, Onset Age: 82 Patient's father is Family history of cardiovascular disease, Onset Age: 81 Family history of kidney disease Social History Social History Smoking status: Never smoker Alcohol intake: never Do You Feel Safe in your Home?: Yes Lack of Transportation: No Lack of Food: Never True Current Housing: I Have Housing Concerned About Future Housing: No Difficulty Paying Gas/Electric Bills: No Difficulty Paying for Meds: No Currently Unemployed: No Education: High School Diploma/GED Difficulty w/ Childcare or Family Care: No Exam Narrative: EXAMINATION OF ORGAN SYSTEMS/BODY AREAS: Constitutional: Vital signs per nursing GENERAL:[No acute distress, non-toxic appearing.] HEAD: Normal with no signs of head trauma. EYES: EOMI, conjunctiva normal ENT: Hearing grossly intact LUNGS: Nonlabored breathing. clear to auscultation bilaterally HEART: [Regular rate and rhythm] ABD: [Soft], [nontender to palpation] EXT: Normal range of motion SKIN: [No rashes or lesions.] NEURO: [Alert and oriented x 3. No gross focal sensory or strength deficits.] PSYCH: Normal affect Course Vital Signs
--- NOTE | 2024-04-14 08:37 | ECG_ITS ---
Test Date: 2024-04-14 08:43:46 Measurements Intervals [place] Rate: 93 P: 95 TX: 189 QRS: -5 QRSD: 104 T: 88 QT: 350 QTc: 437 Interpretive Statements SINUS RHYTHM PREVIOUS ANTEROSEPTAL INFARCTION ABNORMAL ECG Compared to ECG 04/14/2024 05:55:11 NO DIFFERENCE Electronically Signed On 04-14-2024 16:03:33 CDT by Juan Mckeon M.D.
[2024-04-14 09:15] LABS: Troponin I 0.016 ng/mL (0.000-0.034)
[2024-04-14 09:21] VITALS: BP 104/74; PULSE 62; RESP 19; O2SAT 99
== END 2024-04-14 09:53 | disposition home or self-care (01) ==
PROVIDERS: Emergency Medicine; Emergency Provider Emergency Medicine; PCP Emergency Medicine
DX: I25.10 Atherosclerotic heart disease of native coronary artery without angina pectoris (principal); I48.20 Chronic atrial fibrillation, unspecified; I50.32 Chronic diastolic (congestive) heart failure; I11.0 Hypertensive heart disease with heart failure; I25.2 Old myocardial infarction; I73.9 Peripheral vascular disease, unspecified; J43.9 Emphysema, unspecified; E89.0 Postprocedural hypothyroidism; E78.5 Hyperlipidemia, unspecified; Z95.5 Presence of coronary angioplasty implant and graft; Z79.01 Long term (current) use of anticoagulants; Z79.02 Long term (current) use of antithrombotics/antiplatelets; Z79.899 Other long term (current) drug therapy; R94.31 Abnormal electrocardiogram [ECG] [EKG]
CPT/HCPCS: 36415; 71046; 80053; 83690; 84484; 85025; 85610; 85730; 93005; 99284

== ENCOUNTER 2024-07-02 18:38 | Inpatient (IN) | payer OTHER, SELFPAY ==
--- NOTE | ~2024-07-02 | XR_ITS ---
Clinical Indication: Pneumonia PA and lateral views of the chest: Comparison: 07/02/2024 Findings: Interval improvement in pulmonary edema pattern since prior exam. Cardiomediastinal silhou ette is within normal limits. Bones and soft tissues are unremarkable. Impression: Interval improvement in pulmonary edema pattern since prior exam. Reviewed, dictated and finalized at [facility]. EAN GROWER Impression: Interval improvement in pulmonary edema pattern since prior exam.
--- NOTE | ~2024-07-02 | XR_ITS ---
XR chest 1V portable Ordering provider: Yunior Rodriges MD History: 78 years Female with . dyspnea . Comparison: April 14, 2024 FINDINGS: Bilateral Breast implants. MEDIASTINUM: The cardiac silhouette is not enlarged. LUNGS: No effusions or pneumothorax. Opacification in the perihilar and in the lower lobe areas is se en suggestive of pneumonia. Underlying fibrotic changes is not excluded. OTHER: No free air under the diaphragm. IMPRESSION: Bilateral pneumonia. Reviewed, dictated and finalized at location A. IR MILLER IMPRESSION: Bilateral pneumonia.
[2024-07-02 18:41] VITALS: BP 197/70; PULSE 84; RESP 24; TEMP 36.8; O2SAT 95
--- NOTE | 2024-07-02 18:41 | ECG_ITS ---
Test Date: 2024-07-02 18:56:07 Measurements Intervals [place] Rate: 78 P: 69 ID: [id number] QRS: 42 QRSD: 106 T: 17 QT: 356 QTc: 407 Interpretive Statements SINUS RHYTHM WITH OCCASIONAL SUPRAVENTRICULAR PREMATURE COMPLEXES ANTEROSEPTAL MYOCARDIAL INFARCTION , OF INDETERMINATE AGE [40+ ms Q WAVE IN V1-V4] ABNORMAL ECG Electronically Signed On 07-03-2024 08:57:08 [employer] by Dutch Salazar M.D.
[2024-07-02 19:27] VITALS: O2SAT 95
[2024-07-02 19:27] LABS: Basophils Percent Auto 0.1 % (0.2-1.2); Eosinophils Percent Auto 0.2 % (0-4.4); Hematocrit 35.1 % (37.0-47.0); Immature Granulocyte Absolute 0.06 K/mm3 (0.00-0.031); Immature Granulocyte Percent A 0.4 % (0-0.5); Lymphocytes Absolute Auto 0.74 K/mm3 (0.9-3.2); Lymphocytes Percent Auto 4.9 % (18.3-44.2); Mean Corpuscular HGB Conc 34.2 g/dl (32-36); Mean Corpuscular Hemoglobin 31.5 pg (26-34); Mean Corpuscular Volume 92.1 fl (80-100); Mean Platelet Volume 9.2 fl (7.4-10.4); Monocytes Absolute Auto 1.8 K/mm3 (0.1-0.6); Monocytes Percent Auto 11.9 % (2.6-8.5); Neutrophils Absolute Auto 12.5 K/mm3 (1.3-6.7); Neutrophils Percent Auto 82.5 % (45.5-73.1); Platelet Count Result 248 k/mm3 (150-375); Red Blood Count 3.81 M/mm3 (4.2-5.4); Red Cell Distribution Width 13.3 % (11.5-14.5); White Blood Count 15.1 K/mm3 (4.5-10.0)
[2024-07-02 19:36] LABS: Alanine Aminotransferase 16 U/L (6-35); Albumin Level 3.5 g/dL (3.5-5.1); Alkaline Phosphatase 84 U/L (38-126); Anion Gap 1 mmol/L (4-12); Aspartate Amino Transferase 22 U/L (14-36); Bilirubin,Total 1.2 mg/dL (0.2-1.3); Blood Urea Nitrogen 13 mg/dL (7-17); Calcium 8.4 mg/dL (8.4-10.2); Carbon Dioxide 26 mmol/L (22-30); Chloride 100 mmol/L (98-107); Estimated CRCL calculation 54 ml/min; Estimated Glomerular Filt Rate > 60; Glucose 117 mg/dL (65-110); Potassium 3.9 mmol/L (3.4-5.0); Sodium 127 mmol/L (137-145)
[2024-07-02 19:44] LABS: INR 1.3; Prothrombin Time 16.8 Seconds (11.1-14.7)
[2024-07-02 19:45] LABS: Partial Thromboplastin Time 34.7 Seconds (22.3-36.8)
[2024-07-02 19:48] LABS: NT Pro B Type Natriuretic Pept 2820 pg/mL (19.9-100); Troponin I < 0.012 ng/mL (0.000-0.034)
[2024-07-02 20:03] LABS: Influenza A QL RT-PCR Negative (Negative); Influenza B QL RT-PCR Negative (Negative); RSV RNA, RT-PCR Negative (Negative); SARS-CoV-2 RNA PCR Negative (Negative)
--- NOTE | 2024-07-02 20:28 | ED_ITS ---
HPI - General Adult General Chief complaint: Shortness of Breath/Dyspnea Stated complaint: i cant breath Time Seen by Provider: 07/02/24 19:03 History of Present Illness HPI narrative: Patient is a 78-year-old female who presents emergency department with chief complaint of shortness of breath. The patient reports he has been having and dyspnea on exertion reports that she only walk about 2 steps without getting winded the patient reports that she can no longer lay flat reports that she has had a dry cough denies fever reports that she has prior history of cardiac disease has 5 stents in her heart Related Data Home Medications ?Medication ?Instructions ?Recorded ?Confirmed ?Last Taken ?Type apixaban 5 mg tablet (Eliquis) 5 mg PO BID 05/14/19 07/02/24 07/01/24 History clopidogrel 75 mg tablet (Plavix) 75 mg PO DAILY 05/14/19 07/02/24 07/01/24 History isosorbide mononitrate 30 mg 60 mg PO DAILY 09/07/20 07/02/24 07/01/24 History tablet,extended release 24 hr rosuvastatin 10 mg tablet 10 mg PO QHS 09/07/20 07/02/24 07/01/24 History amlodipine 10 mg tablet 10 mg PO DAILY 04/30/21 07/02/24 07/01/24 History sotalol 80 mg tablet 40 mg PO BID 10/29/21 07/02/24 07/01/24 History nitroglycerin 0.4 mg sublingual 0.4 mg sublingual Q5M PRN chest 08/11/22 07/02/24 Unknown History tablet pain losartan 100 mg tablet 100 mg PO QNOON 07/02/24 07/02/24 07/01/24 History triamcinolone acetonide 0.1 % See Rx Instructions .Route 07/02/24 07/02/24 Unknown History topical cream .COMPLEX PRN pain Allergies Allergy/AdvReac Type Severity Reaction Status Date / Time nitrofurantoin Allergy Mild Hives Verified 05/27/24 08:44 Review of Systems 2 Review of Systems: A 10 system review of systems was completed on the patient and is negative except for what is stated in the HPI. Nursing and ancillary documentation was reviewed. 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/antiplatelets History of smoking 30 or more pack years Hematuria, unspecified Gastroesophageal reflux disease without esophagitis Dysuria Colon cancer screening Chronic diastolic heart failure Chronic a-fib CAD in [place] artery Arterial occlusive disease HTN (hypertension) HLD (hyperlipidemia) Hypothyroidism (acquired) PVD (peripheral vascular disease) ASHD (arteriosclerotic heart disease) Surgical History Surgical History H/O thyroidectomy H/O kidney removal H/O heart artery stent History of vascular surgery Rt Leg Family History Family History Mother Family history of Parkinson's disease Patient's mother is Father Family history of heart disease in male family member before age 55, Onset Age: 82 Patient's father is Family history of cardiovascular disease, Onset Age: 81 Family history of kidney disease Social History Social History Smoking packs per day: 0.5 Smoking cigarettes per day: 10.0 Smoking status: Current every day smoker Tobacco type: cigarettes Alcohol intake: never Substance use: never Do You Feel Safe in your Home?: Yes Lack of Transportation: No Lack of Food: Never True Current Housing: I Have Housing Concerned About Future Housing: No Difficulty Paying Gas/Electric Bills: No Difficulty Paying for Meds: No Currently Unemployed: No Education: High School Diploma/GED Difficulty w/ Childcare or Family Care: No Spiritual care concerns: No Exam 2 Narrative: GENERAL: Well-appearing, well-nourished, and in no acute distress. HEAD: Normocephalic, atraumatic. EYES: PERRLA and EOMI. ENT: Nares clear, no rhinorrhea or epistaxis. Mucous membranes moist. NECK: Supple. CHEST: Clear to auscultation. No respiratory distress. HEART: Regular rate and rhythm. No murmur heard. Normal peripheral pulses. ABDOMEN: Soft, nontender, nondistended, normal active bowel sounds. EXTREMITIES: Normal range of motion. No edema. SKIN: Warm, dry, no rash. NEURO: No focal deficits. Alert and oriented x3. PSYCH: Normal mood and affect. Course Vital Signs Vital signs: Vital Signs Temperature 36.8 C 07/02/24 18:41 Pulse Rate 84 07/02/24 18:41 Respiratory Rate 24 H 07/02/24 18:41 Blood Pressure 197/70 H 07/02/24 18:41 Pulse Oximetry 95 07/02/24 18:41 Oxygen Delivery Room Air 07/02/24 18:41 Temperature 36.7 C 07/03/24 14:00 Pulse Rate 93 07/03/24 16:00 Respiratory Rate 16 07/03/24 14:00 Blood Pressure 136/86 07/03/24 14:00 Pulse Oximetry 100 07/03/24 14:00 Oxygen Delivery Room Air 07/03/24 09:30 Medical Decision Making MDM Narrative Medical decision making narrative: Differential diagnosis includes CHF, pneumonia, upper respiratory infection, ACS EKG showed sinus rhythm without evidence of ST elevation or ST depression. COVID flu RSV were negative troponin was negative BNP was 2820 CBC showed white count of 15.1 Chest x-ray showed findings that the radiologist was concerned for possible pneumonia Vital Signs Vital Signs: Vital Signs Temperature 36.8 C 07/02/24 18:41 Pulse Rate 84 07/02/24 18:41 Respiratory Rate 24 H 07/02/24 18:41 Blood Pressure 197/70 H 07/02/24 18:41 Pulse Oximetry 95 07/02/24 18:41 Oxygen Delivery Room Air 07/02/24 18:41 Temperature 36.7 C 07/03/24 14:00 Pulse Rate 93 07/03/24 16:00 Respiratory Rate 16 07/03/24 14:00 Blood Pressure 136/86 07/03/24 14:00 Pulse Oximetry 100 07/03/24 14:00 Oxygen Delivery Room Air 07/03/24 09:30 Lab Data 07/02/24 19:21 07/02/24 19:21 Labs: Lab Results 07/02/24 Range/Units 19:21 WBC 15.1 H (4.5-10.0) K/mm3 RBC 3.81 L (4.2-5.4) M/mm3 Hgb 12.0 (12.0-15.0) g/dL Hct 35.1 L (37.0-47.0) % MCV 92.1 (80-100) fl MCH 31.5 (26-34) pg MCHC 34.2 (32-36) g/dl RDW 13.3 (11.5-14.5) % Plt Count 248 (150-375) k/mm3 MPV 9.2 (7.4-10.4) fl Immature Gran % (Auto) 0.4 (0-0.5) % Neut % (Auto) 82.5 H (45.5-73.1) % Lymph % (Auto) 4.9 L (18.3-44.2) % [place] % (Auto) 11.9 H (2.6-8.5) % Eos % (Auto) 0.2 (0-4.4) % Baso % (Auto) 0.1 L (0.2-1.2) % Lymph # (Auto) 0.74 L (0.9-3.2) K/mm3 [place] # (Auto) 1.8 H (0.1-0.6) K/mm3 Eos # (Auto) 0.0 (0-0.3) K/mm3 Baso # (Auto) 0.0 (0.0-0.1) K/mm3 Abs Immat Gran (auto) 0.06 H (0.00-0.031) K/mm3 Absolute Neuts (auto) 12.5 H (1.3-6.7) K/mm3 Absolute Nucleated RBC 0.000 (0.0-0.012) K/mm3 Nucleated RBC % 0.0 (0.0-0.2) % PT 16.8 H (11.1-14.7) Seconds INR 1.3 APTT 34.7 (22.3-36.8) Seconds Sodium 127 L (137-145) mmol/L Potassium 3.9 (3.4-5.0) mmol/L Chloride 100 (98-107) mmol/L Carbon Dioxide 26 (22-30) mmol/L Anion Gap 1 L (4-12) mmol/L BUN 13 (7-17) mg/dL Creatinine 0.70 (0.7-1.0) mg/dL Estim Creat Clear Calc 54 ml/min Estimated GFR > 60 (59 - ) Glucose 117 H (65-110) mg/dL Calcium 8.4 (8.4-10.2) mg/dL Total Bilirubin 1.2 (0.2-1.3) mg/dL AST 22 (14-36) U/L ALT 16 (6-35) U/L Alkaline Phosphatase 84 (38-126) U/L Troponin I < 0.012 (0.000-0.034) ng/mL NT-Pro-B Natriuret Pep 2820 H (19.9-100) pg/mL Total Protein 6.0 L (6.3-8.2) g/dL Albumin 3.5 (3.5-5.1) g/dL Influenza A (RT-PCR) Negative (Negative) Influenza B (RT-PCR) Negative (Negative) RSV (RT-PCR) Negative (Negative) SARS-CoV-2 RNA (RT-PCR) Negative (Negative) Discharge Plan Discharge Clinical Impression: Pneumonia Patient Disposition: Still a Patient Condition: Stable
--- NOTE | 2024-07-02 20:29 | PC.NURSE ---
pt 94% on room air with walking spO2
--- NOTE | 2024-07-02 20:59 | P.HP_ITS ---
H&P: HPI History of Present Illness Date/Time: 07/02/24 20:59 Chief Complaint: Shortness of breath Narrative: This is an 78-year-old female with past medical history significant for hypertension, atrial fibrillation rate controlled anticoagulated, emphysema, spinal stenosis tobacco dependence, peripheral artery disease, GERD, coronary artery disease, chronic back pain. Patient presents to the emergency room due to worsening shortness of breath for the last 2 days or so. Patient has some chills, denies sputum production, has had poor per orally intake. Preliminary workup was significant for chest x-ray with bilateral infiltrates. Patient has been admitted for further evaluation management and treatment. XR chest 1V portable Ordering provider: Yunior Rodriges MD History: 78 years Female with . dyspnea . Comparison: April 14, 2024 FINDINGS: Bilateral Breast implants. MEDIASTINUM: The cardiac silhouette is not enlarged. LUNGS: No effusions or pneumothorax. Opacification in the perihilar and in the lower lobe areas is seen suggestive of pneumonia. Underlying fibrotic changes is not excluded. OTHER: No free air under the diaphragm. IMPRESSION: Bilateral pneumonia. Review of Systems Review of Systems: Shortness of breath, bilateral ankle edema FOR[facility]LY [facility], LAT[facility] Past Medical History Medical History (Updated 07/03/24 @ 01:51 by Erick Early MD) Chronic back pain Atypical chest pain Emphysema, unspecified Spinal stenosis of lumbar region without neurogenic claudication Tear of meniscus of right knee Tobacco abuse Synovial cyst of popliteal space [Noel], right knee Right anterior knee pain Patient had no falls in past year PAD (peripheral artery disease) Other obesity due to excess calories [place], acute, non ST segment elevation [facility] current use of antithrombotics/antiplatelets History of smoking 30 or more pack years Hematuria, unspecified Gastroesophageal reflux disease without esophagitis Dysuria Colon cancer screening Chronic diastolic heart failure Chronic a-fib CAD in [place] artery Arterial occlusive disease HTN (hypertension) HLD (hyperlipidemia) Hypothyroidism (acquired) PVD (peripheral vascular disease) ASHD (arteriosclerotic heart disease) Surgical History Surgical History H/O thyroidectomy H/O kidney removal H/O heart artery stent History of vascular surgery Rt Leg Family History Family History Mother Family history of Parkinson's disease Patient's mother is Father Family history of heart disease in male family member before age 55, Onset Age: 82 Patient's father is Family history of cardiovascular disease, Onset Age: 81 Family history of kidney disease Social History Social History Smoking status: Never smoker Alcohol intake: never Do You Feel Safe in your Home?: Yes Lack of Transportation: No Lack of Food: Never True Current Housing: I Have Housing Concerned About Future Housing: No Difficulty Paying Gas/Electric Bills: No Difficulty Paying for Meds: No Currently Unemployed: No Education: High School Diploma/GED Difficulty w/ Childcare or Family Care: No Meds Home Medications and Allergies Home Medications ?Medication ?Instructions ?Recorded ?Confirmed ?Type apixaban 5 mg tablet (Eliquis) 5 mg PO BID 05/14/19 07/02/24 History clopidogrel 75 mg tablet (Plavix) 75 mg PO DAILY 05/14/19 07/02/24 History isosorbide mononitrate 30 mg 60 mg PO DAILY 09/07/20 07/02/24 History tablet,extended release 24 hr rosuvastatin 10 mg tablet 10 mg PO QHS 09/07/20 07/02/24 History amlodipine 10 mg tablet 10 mg PO DAILY 04/30/21 07/02/24 History sotalol 80 mg tablet 40 mg PO BID 10/29/21 07/02/24 History nitroglycerin 0.4 mg sublingual 0.4 mg sublingual Q5M PRN chest 08/11/22 07/02/24 History tablet pain tramadol 50 mg tablet 50 mg PO Q6H PRN pain #30 tabs 04/14/24 07/02/24 Rx levothyroxine 75 mcg tablet See Rx Instructions .Route 05/13/24 07/02/24 Rx .COMPLEX #90 tabs losartan 100 mg tablet 100 mg PO QNOON 07/02/24 07/02/24 History triamcinolone acetonide 0.1 % See Rx Instructions .Route 07/02/24 07/02/24 History topical cream .COMPLEX PRN pain Allergies Allergy/AdvReac Type Severity Reaction Status Date / Time nitrofurantoin Allergy Mild Hives Verified 05/27/24 08:44 Vital Signs Vital Signs - 24 hr 07/02/24 18:41 07/02/24 19:27 Temperature 98.3 F Pulse Rate 84 Respiratory Rate 24 H Blood Pressure 197/70 H Pulse Oximetry 95 95 Oxygen Delivery Room Air Room Air Exam Narrative: Patient is sitting by the edge of the stretcher Const: General: comfortable, no acute distress, well developed, alert, awake and average body habitus Nutritional Appearance: average body habitus Orientation/consciousness: patient oriented x3 Other: Well-appearing HENMT: Head: normal to inspection, normocephalic and atraumatic Ears: hearing grossly normal bilaterally Face/Nose/Sinus: normal facial exam Face and sinus: normal facial exam Eyes: General: appearance normal, both eyes and all related structures Pupils: Equal, round and reactive pupils present EOM: EOMs intact bilaterally Neck: Neck: full ROM, no lymphadenopathy and no JVD Thyroid: thyroid normal Lymphatic: no lymphadenopathy noted Resp: Effort & Inspection: normal respiratory effort and able to speak in complete sentences Auscultation: crackles bilateral at the base Cardio: Jugular venous distension: no JVD Rate: regular rate Rhythm: regular rhythm Heart sounds: S1 normal heart sound present and S2 normal heart sound present GI: GI Palp: Yes Soft to palpation and Yes No hepatosplenomegaly present : General: Yes deferred Skin: Rashes: no rashes Wounds: no wounds Neuro: General: patient oriented x3 and CN's II-XI intact bilaterally Cranial nerves: Yes CN's II-XII intact bilaterally and Yes Equal, round and reactive pupils present Cognition (Neuro): normal cognition Speech: normal speech Gait exam (Neuro): Normal gait present Motor exam (neuro): 5/5 motor strength present throughout Extrem: General: normal to inspection, full ROM, no joint enlargement and no pedal edema H&P: Results Labs Labs: Short CBC 07/02/24 Range/Units 19:21 WBC 15.1 H (4.5-10.0) K/mm3 Hgb 12.0 (12.0-15.0) g/dL Hct 35.1 L (37.0-47.0) % Plt Count 248 (150-375) k/mm3 BMP 07/02/24 19:21 Sodium 127 L Potassium 3.9 Chloride 100 Carbon Dioxide 26 BUN 13 Creatinine 0.70 Glucose 117 H Calcium 8.4 Cardiac Enzymes 07/02/24 Range/Units 19:21 Troponin I < 0.012 (0.000-0.034) ng/mL Liver Function 07/02/24 Range/Units 19:21 Total Bilirubin 1.2 (0.2-1.3) mg/dL AST 22 (14-36) U/L ALT 16 (6-35) U/L Alkaline Phosphatase 84 (38-126) U/L Albumin 3.5 (3.5-5.1) g/dL Assessment and Plan Assessment and plan (1) Pneumonia: Code(s): J18.9 - Pneumonia, unspecified organism Status: Acute Assessment and Plan: Admit to general medical floor Patient started on Rocephin Zithromax Await cultures (2) CAD in [place] artery: Code(s): I25.10 - Atherosclerotic heart disease of [place] coronary artery without angina pectoris Status: Acute Assessment and Plan: Chest pain-free (3) Chronic a-fib: Code(s): I48.20 - Chronic atrial fibrillation, unspecified Status: Acute Assessment and Plan: Continue sotalol Continue Eliquis (4) Tobacco abuse: Code(s): Z72.0 - Tobacco use Status: Acute Assessment and Plan: Nicotine patch as needed (5) Emphysema, unspecified: Code(s): J43.9 - Emphysema, unspecified Status: Acute Assessment and Plan: Breathing treatments p.r.n. (6) Chronic diastolic heart failure: Code(s): I50.32 - Chronic diastolic (congestive) heart failure Status: Acute Assessment and Plan: Daily intake and output Diurese as needed (7) Chronic back pain: Code(s): M54.9 - Dorsalgia, unspecified; G89.29 - Other chronic pain Status: Acute Assessment and Plan: Tylenol p.r.n. Hospitalist MIPS Advance Care Plan I have confirmed that the patient's Advanced Care Plan is present, code status is documented, or surrogate decision maker is listed in patient medical record.: Yes Medication Reconciliation I have utilized all available resources to obtain, update and review the patients current medications (includes all prescriptions, OTC, herbals, cannabis, and nutritional supplements).: Yes
[2024-07-02] MEDS: FUROSEMIDE INJ 40 MG/4 ML VIAL IV PUSH (21:02)
[2024-07-02] MEDS: AZITHROMYCIN 500 MG/NS 250 ML 500 MG/250 ML BAG 250 MG IVPB (21:02)
[2024-07-02 22:25] VITALS: BMI 24.8
[2024-07-02 22:40] VITALS: BP 167/84; PULSE 77; RESP 16; TEMP 37.3; O2SAT 95
[2024-07-02 23:11] VITALS: BP 167/84; PULSE 77; RESP 16; TEMP 37.3
[2024-07-03] VITALS (9 sets, daily range): BP systolic 136–155; BP diastolic 74–86; PULSE 68–123; RESP 16–20; TEMP 36.7–37.6; O2SAT 95–100
[2024-07-03] MEDS: FUROSEMIDE INJ 40 MG/4 ML VIAL IV PUSH ×2 (09:24→21:16)
--- NOTE | 2024-07-03 09:30 | PM.IMPN ---
Progress Note: A&P Assessment and Plan (1) Pneumonia: Code(s): J18.9 - Pneumonia, unspecified organism Status: Acute Assessment and Plan: Admit to general medical floor Patient started on Rocephin Zithromax QTc 407 Await cultures (2) CAD in [place] artery: Code(s): I25.10 - Atherosclerotic heart disease of [place] coronary artery without angina pectoris Status: Acute Assessment and Plan: Chest pain-free (3) Chronic a-fib: Code(s): I48.20 - Chronic atrial fibrillation, unspecified Status: Acute Assessment and Plan: Continue sotalol Continue Eliquis (4) Tobacco abuse: Code(s): Z72.0 - Tobacco use Status: Acute Assessment and Plan: Nicotine patch as needed (5) Emphysema, unspecified: Code(s): J43.9 - Emphysema, unspecified Status: Acute Assessment and Plan: Breathing treatments p.r.n. (6) Chronic diastolic heart failure: Code(s): I50.32 - Chronic diastolic (congestive) heart failure Status: Acute Assessment and Plan: Daily intake and output Diurese as needed (7) Chronic back pain: Code(s): M54.9 - Dorsalgia, unspecified; G89.29 - Other chronic pain Status: Acute Assessment and Plan: Tylenol p.r.n. Plan if stable overnight-anticipate discharge home tomorrow Time Spent With Patient Time with patient: Greater than 35 minutes Subjective Date/time seen: 07/03/24 09:30 Interval history: This is an 78-year-old female with past medical history significant for hypertension, atrial fibrillation rate controlled anticoagulated, emphysema, spinal stenosis tobacco dependence, peripheral artery disease, GERD, coronary artery disease, chronic back pain. Patient presents to the emergency room due to worsening shortness of breath for the last 2 days or so. Patient has some chills, denies sputum production, has had poor per orally intake. Preliminary workup was significant for chest x-ray with bilateral infiltrates. Patient has been admitted for further evaluation management and treatment. pt is seen and examined. She reports improvement in sob. overall feeling somewhat better still weak though Review of Systems Review of Systems: Shortness of breath, bilateral ankle edema-both improving Exam Narrative: Patient is sitting in bed Const: General: comfortable, no acute distress, well developed, alert, awake and average body habitus Nutritional Appearance: average body habitus Orientation/consciousness: patient oriented x3 Other: Well-appearing HENMT: Head: normal to inspection, normocephalic and atraumatic Ears: hearing grossly normal bilaterally Face/Nose/Sinus: normal facial exam Face and sinus: normal facial exam Eyes: General: appearance normal, both eyes and all related structures Pupils: Equal, round and reactive pupils present EOM: EOMs intact bilaterally Neck: Neck: full ROM, no lymphadenopathy and no JVD Thyroid: thyroid normal Lymphatic: no lymphadenopathy noted Resp: Effort & Inspection: normal respiratory effort and able to speak in complete sentences Auscultation: crackles bilateral at the base Cardio: Jugular venous distension: no JVD Rate: regular rate Rhythm: regular rhythm Heart sounds: S1 normal heart sound present and S2 normal heart sound present : General: Yes deferred Skin: Rashes: no rashes Wounds: no wounds Neuro: General: patient oriented x3 and CN's II-XI intact bilaterally Cranial nerves: Yes CN's II-XII intact bilaterally and Yes Equal, round and reactive pupils present Cognition (Neuro): normal cognition Speech: normal speech Gait exam (Neuro): Normal gait present Motor exam (neuro): 5/5 motor strength present throughout Extrem: General: normal to inspection, full ROM, no joint enlargement and no pedal edema Objective Data Vital Signs Vital Signs: Vital Signs - 24 hr 07/02/24 18:41 07/02/24 19:27 07/02/24 22:40 Temperature 98.3 F 99.1 F Pulse Rate 84 77 Respiratory Rate 24 H 16 Blood Pressure 197/70 H 167/84 H Pulse Oximetry 95 95 95 Oxygen Delivery Room Air Room Air 07/02/24 23:11 07/02/24 23:13 07/03/24 00:00 Temperature 99.1 F Pulse Rate 77 123 H Respiratory Rate 16 Blood Pressure 167/84 H Pulse Oximetry Oxygen Delivery Room Air 07/03/24 04:00 07/03/24 05:00 Temperature 99.6 F Pulse Rate 111 H 92 Respiratory Rate 20 Blood Pressure 155/81 H Pulse Oximetry 95 Oxygen Delivery Intake/Output Intake/Output: Intake & Output 06/30/24 07/01/24 07/02/24 07/03/24 23:59 23:59 23:59 23:59 Intake Total 300 100 Output Total 900 Balance 300 -800 Meds/Results Medications: Active Medications Generic Name Dose Route Start Last Admin Trade Name Freq PRN Reason Stop Dose Admin Acetaminophen 650 mg 07/02/24 20:40 Acetaminophen 325 Mg Tablet PO Q4H PRN Mild Pain (1-3) or Fever Furosemide 40 mg 07/03/24 09:00 07/03/24 09:24 Furosemide Inj 40 Mg/4 Ml Vial IV PUSH 40 mg Q12HR SHIRLEY Administration Hydralazine HCl 10 mg 07/02/24 20:40 Hydralazine Hcl 20 Mg/Ml Vial IV PUSH Q8H PRN Blood Pressure - High Ceftriaxone Sodium 1 gm in 50 mls @ 100 mls/hr 07/03/24 21:00 Rocephin 1 Gm/Ns 50 Ml IVPB Q24H SHIRLEY Azithromycin 500 mg in 250 mls @ 250 mls/hr 07/03/24 21:00 Zithromax IVPB Q24H SHIRLEY Perflutren Lipid Microsphere 0 ml 07/02/24 20:40 Perflutren Lipid Microspheres 1.5 Ml Vial Diluted To 10 Ml Total Volume IV PUSH 07/05/24 20:41 ONCE PRN adequate visualization Protocol Radiology Results: ITS Impressions Chest X-Ray 07/02/24 19:29 IMPRESSION: Bilateral pneumonia. Labs Labs: Laboratory Results - last 24 hr 07/02/24 19:21 WBC 15.1 H RBC 3.81 L Hgb 12.0 Hct 35.1 L MCV 92.1 MCH 31.5 MCHC 34.2 RDW 13.3 Plt Count 248 MPV 9.2 Immature Gran % (Auto) 0.4 Neut % (Auto) 82.5 H Lymph % (Auto) 4.9 L Emanuel % (Auto) 11.9 H Eos % (Auto) 0.2 Baso % (Auto) 0.1 L Lymph # (Auto) 0.74 L Emanuel # (Auto) 1.8 H Eos # (Auto) 0.0 Baso # (Auto) 0.0 Abs Immat Gran (auto) 0.06 H Absolute Neuts (auto) 12.5 H Absolute Nucleated RBC 0.000 Nucleated RBC % 0.0 PT 16.8 H INR 1.3 APTT 34.7 Sodium 127 L Potassium 3.9 Chloride 100 Carbon Dioxide 26 Anion Gap 1 L BUN 13 Creatinine 0.70 Estim Creat Clear Calc 54 Estimated GFR > 60 Glucose 117 H Calcium 8.4 Total Bilirubin 1.2 AST 22 ALT 16 Alkaline Phosphatase 84 Troponin I < 0.012 NT-Pro-B Natriuret Pep 2820 H Total Protein 6.0 L Albumin 3.5 Influenza A (RT-PCR) Negative Influenza B (RT-PCR) Negative RSV (RT-PCR) Negative SARS-CoV-2 RNA (RT-PCR) Negative
[2024-07-03] MEDS: APIXABAN 5 MG TABLET PO ×2 (09:57→21:16)
[2024-07-03] MEDS: SOTALOL HCL 40 MG TABLET PO ×2 (09:57→21:15)
[2024-07-03] MEDS: LEVOTHYROXINE SODIUM 75 MCG TABLET BY MOUTH (09:57)
[2024-07-03] MEDS: LOSARTAN POTASSIUM 100 MG TABLET PO (12:18)
[2024-07-03] MEDS: ROSUVASTATIN 10 MG TABLET PO (21:16)
[2024-07-03] MEDS: AZITHROMYCIN 500 MG/NS 250 ML 500 MG/250 ML BAG 250 MG IVPB (21:16)
[2024-07-04] VITALS (10 sets, daily range): BP systolic 123–140; BP diastolic 74–89; PULSE 72–118; RESP 16–20; TEMP 36.7–37.2; O2SAT 97–99
[2024-07-04] MEDS: LEVOTHYROXINE SODIUM 75 MCG TABLET BY MOUTH (05:25)
--- NOTE | 2024-07-04 06:00 | ECHO_ITS ---
Patient Info Name: Gladys Alvarez Age: 78 years : 1945 Gender: Female Ht: 67 in Wt: 158 lbs BSA: 1.85 m2 HR: 107 bpm BP: 140 / 89 mmHg Technical Quality: Poor Exam Date: 07/04/2024 3:27 PM Exam Location: Echo Lab Patient Status: Inpatient Admit Date: 07/03/2024 Staff Ordering Physician: Sanjay Gifford MD Dba Manager: Izaiah Bustamante RDCS Attending Provider: Vale Hilliard Referring Physician: Ирина DELATORRE; Exam Type: CA echo dop color flow w con Study Info Indications - HX OF CAD - DYSPNEA ON EXERTION Complete two-dimensional, color flow and Doppler transthoracic echocardiogram is performed with contrast to opacify the left ventricle and to improve the deliniation of the left ventricle endocardial borders. Contrast/Agitated Saline Contrast/Ag. Saline: Definity Amount: 2.00 ml Existing IV Access: Yes Reason for Poor Study: poor echocardiographic windows Summary 1. Left ventricular systolic function is normal, estimated at 60-65%. 2. There is moderately increased left ventricular wall thickness. 3. The left ventricular diastolic function is abnormal. 4. Left atrial chamber dimension is mildly enlarged. 5. There is mild to moderate mitral valve regurgitation. 6. Technically difficult study due to breast implants. Left Ventricle Left ventricular chamber dimension is normal. Left ventricular systolic function is normal, estimated at 60-65%. There is moderately increased left ventricular wall thickness. Left ventricular septal wall motion is normal. The left ventricular diastolic function is abnormal. Right Ventricle Right ventricular chamber dimension is normal. Right ventricular systolic function is normal. Left Atria Left atrial chamber dimension is mildly enlarged. Right Atria Right atrial chamber dimension is normal. Aortic Valve The aortic valve is not well visualized. There is no aortic valve sclerosis. There is no aortic valve stenosis. There is no aortic valve regurgitation. Pulmonic Valve The pulmonic valve is not well visualized. There is no pulmonic valve stenosis. There is no pulmonic regurgitation. Mitral Valve The mitral valve has normal leaflets. There is no mitral valve stenosis. There is mild to moderate mitral valve regurgitation. Tricuspid Valve The tricuspid valve leaflets are normal. There is no significant tricuspid valve stenosis. There is no tricuspid valve regurgitation. Pericardium/Pleural The pericardium appears normal. There is no pericardial effusion. Inferior Vena Cava Normal inferior vena cava with >50% collapse upon inspiration consistent with Empty right atrial pressure, 10 mmHg. Aorta The aortic root size at the sinus of Valsalva is normal. The prox ascending aorta size is normal. Left Ventricular Outflow Tract Name Value Normal LVOT 2D LVOT Diameter 1.62 cm LVOT Doppler LVOT Peak Velocity 76.10 cm/s LVOT Peak Gradient 2 mmHg LVOT Mean Gradient 1 mmHg LVOT VTI 16.93 cm LVOT VTI/AV VTI Ratio 0.59 LVOT Stroke Volume 35.02 ml LVOT CO 2.90 l/min LVOT CI 1.57 L/min/m2 Pulmonic Valve Name Value Normal RVOT Doppler RVOT Peak Gradient 4 mmHg PV Doppler PV Peak Velocity 85.70 cm/s PV Peak Gradient 3 mmHg Mitral Valve Name Value Normal MV Doppler MV Peak Gradient 4 mmHg MV Mean Gradient 2 mmHg MV Decel [place] 468.77 cm/s2 MV PHT 0 s MV Area (PHT) 4.27 cm2 4.00-5.00 MV Area (Cont Eq VTI) 1.88 cm2 MV Diastolic Function MV E Peak Velocity 83.32 cm/s MV A Peak Velocity 87.25 cm/s MV E/A 0.95 MV Decel Time 0 s MV Annular TDI MV Septal e' Velocity 8.09 cm/s >=8.00 MV E/e' (Septal) 10.30 <=8.00 MV Lateral e' Velocity 2.78 cm/s >=10.00 MV E/e' (Lateral) 29.95 <=8.00 MV e' Average 5.43 MV E/e' (Average) 20.13 Tricuspid Valve Name Value Normal Estimated PAP/RSVP RA Pressure 10 mmHg <=5 TV Annular TDI TV Lateral Griselda s' Velocity 15.40 cm/s 9.50-18.70 Aortic Valve Name Value Normal AV Doppler AV Peak Velocity 138.00 cm/s AV Peak Gradient 6 mmHg AV Mean Gradient 4 mmHg AV VTI 28.45 cm AV Area (Cont Eq VTI) 1.23 cm2 >=3.00 AV Area (Cont Eq Tylor) 1.14 cm2 AV V1/V2 Ratio 0.55 AV Regurgitation 2D LVOT Area 2.07 cm2 Ventricles Name Value Normal LV Dimensions 2D/MM IVS Diastolic Thickness (2D) 1.37 cm 0.60-1.00 LVID Diastole (2D) 3.13 cm 3.80-5.20 LVIW Diastolic Thickness (2D) 1.68 cm 0.60-0.90 LVID Systole (2D) 2.40 cm 2.20-3.50 LVOT Diameter 1.62 cm LV Mass (2D Cubed) 171.61 g 67.00-162.00 LV Mass Index (2D Cubed) 0.01 g/cm2 0.00-0.01 Relative Wall Thickness (2D) 1.08 LV Fractional Shortening/Ejection Fraction 2D/MM LV Fractional Shortening (2D) 23 % 27-45 LV EF (2D [place]) 48 % 54-74 LV Diastolic Volume (4C MOD) 41.85 ml LV EF (4C MOD) 38 % LV Diastolic Volume (2C MOD) 47.24 ml LV EF (2C MOD) 50 % LV Diastolic Volume (BP MOD) 46.22 ml 46.00-106.00 LV Diastolic Volume Index (BP MOD) 0.02 l/m2 0.03-0.06 LV Systolic Volume (BP MOD) 25.15 ml 14.00-42.00 LV Systolic Volume Index (BP MOD) 0.01 l/m2 0.01-0.02 LV EF (BP MOD) 46 % 54-74 LV Diastolic Length (4C) 6.27 cm LV Systolic Length (4C) 5.33 cm LV Stroke Volume (4C MOD) 15.95 ml Atria Name Value Normal LA Dimensions LA Volume (4C A-L) 61.44 ml LA Volume (BP A-L) 55.40 ml RA Dimensions RA Area (4C) 18.89 cm2 <=18.00 Report Signatures
[2024-07-04 06:46] LABS: Hematocrit 38.4 % (37.0-47.0); Hemoglobin 12.7 g/dL (12.0-15.0); Mean Corpuscular HGB Conc 33.1 g/dl (32-36); Mean Corpuscular Hemoglobin 30.9 pg (26-34); Mean Corpuscular Volume 93.4 fl (80-100); Mean Platelet Volume 9.4 fl (7.4-10.4); Platelet Count Result 291 k/mm3 (150-375); Red Blood Count 4.11 M/mm3 (4.2-5.4); Red Cell Distribution Width 13.2 % (11.5-14.5); White Blood Count 8.6 K/mm3 (4.5-10.0)
[2024-07-04 07:07] LABS: Anion Gap 0 mmol/L (4-12); Blood Urea Nitrogen 14 mg/dL (7-17); Calcium 8.3 mg/dL (8.4-10.2); Carbon Dioxide 29 mmol/L (22-30); Chloride 102 mmol/L (98-107); Estimated CRCL calculation 47 ml/min; Estimated Glomerular Filt Rate > 60; Glucose 91 mg/dL (65-110); Potassium 3.3 mmol/L (3.4-5.0); Sodium 131 mmol/L (137-145)
[2024-07-04] MEDS: amLODIPine BESYLATE 10 MG TABLET PO (08:29)
[2024-07-04] MEDS: ISOSORBIDE MONONITRATE 60 MG TAB.ER.24H PO (08:29)
[2024-07-04] MEDS: APIXABAN 5 MG TABLET PO ×2 (08:29→21:43)
[2024-07-04] MEDS: SOTALOL HCL 40 MG TABLET PO ×2 (08:29→21:43)
[2024-07-04] MEDS: CLOPIDOGREL BISULFATE 75 MG TABLET PO (08:30)
[2024-07-04] MEDS: FUROSEMIDE INJ 40 MG/4 ML VIAL IV PUSH ×2 (08:30→21:44)
[2024-07-04] MEDS: LOSARTAN POTASSIUM 100 MG TABLET PO (11:56)
--- NOTE | 2024-07-04 14:45 | P.PNIM_ITS ---
Progress Note: A&P Assessment and Plan (1) Pneumonia: Code(s): J18.9 - Pneumonia, unspecified organism Status: Acute Assessment and Plan: Admit to general medical floor Patient started on Rocephin Zithromax QTc 407 Await cultures 07/04/24: * Continue Rocephin and azithromycin. * Blood cultures preliminarily negative * Legionella, mycoplasma pneumonia and strep pneumonia testing are ordered * Continue to monitor and trend labs and vital signs. * Chest x-ray in a.m. to evaluate progression versus resolution versus improvement is ordered (2) CAD in [place] artery: Code(s): I25.10 - Atherosclerotic heart disease of [place] coronary artery without angina pectoris Status: Chronic Assessment and Plan: Chest pain-free 07/04/24: * No current complaints of chest pain. * ACS was ruled out with 2 negative troponins. * Continue Plavix 75 mg daily * Continue cardiovascular antihypertensive this and antihyperlipidemic. * Continue telemetry (3) Chronic a-fib: Code(s): I48.20 - Chronic atrial fibrillation, unspecified Status: Acute Assessment and Plan: Continue sotalol Continue Eliquis 07/04/24: * Continue rate control * Continue Eliquis * Continue telemetry (4) Tobacco abuse: Code(s): Z72.0 - Tobacco use Status: Acute Assessment and Plan: Nicotine patch as needed 07/04/24: * Patient counseled for smoking cessation and nicotine patch is ordered. (5) Emphysema, unspecified: Code(s): J43.9 - Emphysema, unspecified Status: Chronic Assessment and Plan: Breathing treatments p.r.n. 07/04/24: * Patient may have p.r.n. albuterol for shortness of breath. It is ordered at this time. * Again encouraged cessation of smoking. (6) Chronic diastolic heart failure: Code(s): I50.32 - Chronic diastolic (congestive) heart failure Status: Chronic Assessment and Plan: Daily intake and output Diurese as needed 07/04/24: * Accurate intake and output * Weigh patient daily * No echocardiogram noted to be on file in our EMR for this patient. (7) Chronic back pain: Code(s): M54.9 - Dorsalgia, unspecified; G89.29 - Other chronic pain Status: Chronic Assessment and Plan: Tylenol p.r.n. 12/30/24: * Patient have Tylenol or tramadol p.r.n.. Plan Patient will likely be stable for discharge on 07/05/2024. Time Spent With Patient Time with patient: 25 - 35 minutes Subjective Date/time seen: 07/04/24 0830 Interval history: This very pleasant 78 year old female pt is examined today at the bedside after being admitted to the hospital with chills and increased dyspnea for several days. She was found to have bilateral PNA and was admitted to the hospital for IV abx and started on Azithromycin and Rocephin. In addition she endorsed poor intake. This AM the pt reports she is feeling a lot better, but is still nauseated. She is agreeable to staying another day for more abx and follow up CXR in AM. Patient's blood cultures are preliminarily negative. Her troponins were negative. Additional lab testing is ordered for Legionella, mycoplasma pneumonia and strep pneumo. She denies any overt chest pain, overt dyspnea for feeling as though she is worsening in any way. Patient will likely be ready for discharge home tomorrow. Review of Systems Review of Systems: All systems reviewed & are unremarkable except as noted in HPI and below Exam Const: General: comfortable and no acute distress HENMT: Mouth: Yes moist mucous membranes Other: Head is atraumatic and normocephalic. ENT is unremarkable. Eyes: General: appearance normal, both eyes and all related structures Neck: Neck: supple and no JVD Resp: Effort & Inspection: normal respiratory effort Auscultation: clear to auscultation bilaterally Cardio: Rate: regular rate Heart sounds: no gallops, no murmurs and no rubs Other: Patient in AFib which is a normal variant for her. Rate is normal. GI: Inspection: non-distended GI Palp: Yes Soft to palpation, No Tenderness to palpation present (GI) and No Guarding due to palpation present (GI) Auscultation: normal bowel sounds Skin: General skin exam: normal color and no rashes or lesions noted Neuro: General: gait normal Speech: normal speech Motor exam (neuro): 5/5 motor strength present throughout and Normal motor muscle tone present throughout Extrem: General: normal to inspection and no edema Psych: Mental Status: mental status grossly normal Affect: normal affect Objective Data Vital Signs Vital Signs: Vital Signs - 24 hr 07/03/24 16:00 07/03/24 20:00 07/03/24 20:00 Temperature Pulse Rate 93 110 H Respiratory Rate Blood Pressure Pulse Oximetry Oxygen Delivery Room Air 07/03/24 20:35 07/04/24 00:00 07/04/24 04:00 Temperature 98.4 F Pulse Rate 100 100 94 Respiratory Rate 18 Blood Pressure 141/74 H Pulse Oximetry 100 Oxygen Delivery 07/04/24 04:35 07/04/24 08:00 07/04/24 08:00 Temperature 98.9 F Pulse Rate 107 H 102 H Respiratory Rate 16 Blood Pressure 140/89 Pulse Oximetry 99 Oxygen Delivery Room Air 07/04/24 08:29 07/04/24 12:00 Temperature Pulse Rate 72 105 H Respiratory Rate Blood Pressure Pulse Oximetry Oxygen Delivery Intake/Output Intake/Output: Intake & Output 07/01/24 07/02/24 07/03/24 07/04/24 23:59 23:59 23:59 23:59 Intake Total 300 1160 1650 Output Total 1400 3200 Balance 300 -240 -1550 Meds/Results Medications: Active Medications Generic Name Dose Route Start Last Admin Trade Name Freq PRN Reason Stop Dose Admin Acetaminophen 650 mg 07/02/24 20:40 Acetaminophen 325 Mg Tablet PO Q4H PRN Mild Pain (1-3) or Fever Amlodipine Besylate 10 mg 07/04/24 09:00 07/04/24 08:29 Amlodipine Besylate 10 Mg Tablet PO 10 mg DAILY SHIRLEY Administration Apixaban 5 mg 07/03/24 09:00 07/04/24 08:29 Apixaban 5 Mg Tablet PO 5 mg Q12HR SHIRLEY Administration Clopidogrel Bisulfate 75 mg 07/04/24 09:00 07/04/24 08:30 Clopidogrel Bisulfate 75 Mg Tablet PO 75 mg DAILY SHIRLEY Administration Furosemide 40 mg 07/03/24 09:00 07/04/24 08:30 Furosemide Inj 40 Mg/4 Ml Vial IV PUSH 40 mg Q12HR SHIRLEY Administration Hydralazine HCl 10 mg 07/02/24 20:40 Hydralazine Hcl 20 Mg/Ml Vial IV PUSH Q8H PRN Blood Pressure - High Ceftriaxone Sodium 1 gm in 50 mls @ 100 mls/hr 07/03/24 21:00 07/03/24 21:47 Rocephin 1 Gm/Ns 50 Ml IVPB Infused Q24H SHIRLEY Infusion Azithromycin 500 mg in 250 mls @ 250 mls/hr 07/03/24 21:00 07/03/24 22:16 Zithromax IVPB Infused Q24H SHIRLEY Infusion Isosorbide Mononitrate 60 mg 07/04/24 09:00 07/04/24 08:29 Isosorbide Mononitrate 60 Mg Tab.Er.24h PO 60 mg DAILY SHIRLEY Administration Levothyroxine Sodium 75 mcg 07/03/24 09:35 07/04/24 05:25 Levothyroxine Sodium 75 Mcg Tablet BY MOUTH 75 mcg DAILY@0630 [facility] Administration Losartan Potassium 100 mg 07/03/24 12:00 07/04/24 11:56 Losartan Potassium 100 Mg Tablet PO 100 mg NOON [facility] Administration Nitroglycerin 0.4 mg 07/03/24 09:31 Nitroglycerin Sl 0.4 Mg Tablet SUBLINGUAL Q5MIN PRN chest pain Perflutren Lipid Microsphere 0 ml 07/02/24 20:40 Perflutren Lipid Microspheres 1.5 Ml Vial Diluted To 10 Ml Total Volume IV PUSH 07/05/24 20:41 ONCE PRN adequate visualization Protocol Rosuvastatin Calcium 10 mg 07/03/24 21:00 07/03/24 21:16 Rosuvastatin 10 Mg Tablet PO 10 mg QHS SHIRLEY Administration Sotalol HCl 40 mg 07/03/24 09:00 07/04/24 08:29 Sotalol Hcl 40 Mg Tablet PO 40 mg Q12HR SHIRLEY Administration Tramadol HCl 50 mg 07/03/24 09:31 Tramadol Hcl (*Crx) 50 Mg Tablet PO Q6H PRN pain 4-6 Radiology Results: ITS Impressions Chest X-Ray 07/02/24 19:29 IMPRESSION: Bilateral pneumonia. Labs Labs: Laboratory Results - last 24 hr 07/04/24 06:10 WBC 8.6 RBC 4.11 L Hgb 12.7 Hct 38.4 MCV 93.4 MCH 30.9 MCHC 33.1 RDW 13.2 Plt Count 291 MPV 9.4 Sodium 131 L Potassium 3.3 L Chloride 102 Carbon Dioxide 29 Anion Gap 0 L BUN 14 Creatinine 0.80 Estim Creat Clear Calc 47 Estimated GFR > 60 Glucose 91 Calcium 8.3 L Quality VTE Prophylaxis VTE prophylaxis: pharmacologic ordered
[2024-07-04] MEDS: PERFLUTREN LIPID MICROSPHERES 1.5 ML VIAL DILUTED TO 10 ML TOTAL VOLUME IV PUSH (16:10)
[2024-07-04] MEDS: POTASSIUM CHLORIDE 20 MEQ PACKET (FOR LIQUID) 40 MEQ PO (17:16)
--- NOTE | 2024-07-04 17:25 | IVDEFINITY ---
Prior to administration of IV Definity the patient was educated on the risks and benefits of the imaging enhancing agent including potential adverse side effects. The patient verbalized understanding. Allergies were verified. No exclusion criteria were identified and at least one of the following inclusion criteria were met: 1) physician request, 2) patient technically difficult to image (per the [place] [employer] guidelines of two or more segments not discernable within the apical view), or 3) questionable left ventricular function. ?
[2024-07-04] MEDS: ROSUVASTATIN 10 MG TABLET PO (21:43)
[2024-07-04] MEDS: AZITHROMYCIN 500 MG/NS 250 ML 500 MG/250 ML BAG 250 MG IVPB (21:45)
[2024-07-04] MEDS: diphenhydrAMINE HCl INJ 50 MG/ML VIAL 25 MG IV PUSH (23:02)
[2024-07-05] VITALS (8 sets, daily range): BP systolic 112–132; BP diastolic 68–83; PULSE 89–110; RESP 17–18; TEMP 36.4–37.1; O2SAT 93–100
[2024-07-05] MEDS: LEVOTHYROXINE SODIUM 75 MCG TABLET BY MOUTH (05:52)
[2024-07-05 07:45] LABS: Hematocrit 36.6 % (37.0-47.0); Hemoglobin 12.2 g/dL (12.0-15.0); Mean Corpuscular HGB Conc 33.3 g/dl (32-36); Mean Corpuscular Hemoglobin 31.2 pg (26-34); Mean Corpuscular Volume 93.6 fl (80-100); Mean Platelet Volume 9.2 fl (7.4-10.4); Platelet Count Result 315 k/mm3 (150-375); Red Blood Count 3.91 M/mm3 (4.2-5.4); Red Cell Distribution Width 13.4 % (11.5-14.5)
[2024-07-05 07:59] LABS: Anion Gap 0 mmol/L (4-12); Blood Urea Nitrogen 15 mg/dL (7-17); Calcium 8.3 mg/dL (8.4-10.2); Carbon Dioxide 28 mmol/L (22-30); Chloride 102 mmol/L (98-107); Estimated CRCL calculation 43 ml/min; Estimated Glomerular Filt Rate 60; Glucose 89 mg/dL (65-110); Potassium 3.6 mmol/L (3.4-5.0); Sodium 130 mmol/L (137-145)
[2024-07-05] MEDS: SOTALOL HCL 40 MG TABLET PO (08:52)
[2024-07-05] MEDS: ISOSORBIDE MONONITRATE 60 MG TAB.ER.24H PO (08:53)
[2024-07-05] MEDS: amLODIPine BESYLATE 10 MG TABLET PO (08:53)
[2024-07-05] MEDS: FUROSEMIDE INJ 40 MG/4 ML VIAL IV PUSH (08:53)
[2024-07-05] MEDS: CLOPIDOGREL BISULFATE 75 MG TABLET PO (08:53)
[2024-07-05] MEDS: APIXABAN 5 MG TABLET PO (08:53)
--- NOTE | 2024-07-05 09:35 | PM.DS ---
DS: Admitting Diagnosis Discharge Date 07/05 Admitting Diagnosis sob DS: Discharge Diagnosis Discharge Diagnosis (1) Pneumonia: Code(s): J18.9 - Pneumonia, unspecified organism Status: Acute (2) CAD in [place] artery: Code(s): I25.10 - Atherosclerotic heart disease of [place] coronary artery without angina pectoris Status: Chronic (3) Chronic a-fib: Code(s): I48.20 - Chronic atrial fibrillation, unspecified Status: Acute (4) Tobacco abuse: Code(s): Z72.0 - Tobacco use Status: Acute (5) Emphysema, unspecified: Code(s): J43.9 - Emphysema, unspecified Status: Chronic (6) Chronic diastolic heart failure: Code(s): I50.32 - Chronic diastolic (congestive) heart failure Status: Chronic (7) Chronic back pain: Code(s): M54.9 - Dorsalgia, unspecified; G89.29 - Other chronic pain Status: Chronic DS: Summary Hospital Course Hospital Course: This very pleasant 78 year old female pt is examined today at the bedside after being admitted to the hospital with chills and increased dyspnea for several days. She was found to have bilateral PNA and was admitted to the hospital for IV abx and started on Azithromycin and Rocephin. In addition she endorsed poor intake. This AM the pt reports she is feeling a lot better, but is still nauseated. She is agreeable to staying another day for more abx and follow up CXR in AM. Patient's blood cultures negative. several problems were addressed: #pneumonia- Patient started on Rocephin Zithromax. she was switched to po on 07/05 and discharged to finish the course. augmentin 875/125 q12h x 4 more doses , azithromycin 2 more doses. She improved and sob resolved. # cad- no current chest pain. 2 neg trops. # afib- on sotalol and eliquis. fall/bleeding precautions # tobacco abuse- counselled on smoking cessation Status at Discharge Functional status at discharge: independent ambulation Overall status at discharge: patient is progressing back to baseline Time Spent with Patient Time attestation: Total time spent providing and/or coordinating discharge services: Time spent: Greater than 30 minutes Exam Narrative: Patient is sitting in bed, in no distress, alert, oriented Const: General: comfortable, no acute distress, well developed, alert, awake and average body habitus Nutritional Appearance: average body habitus Orientation/consciousness: patient oriented x3 Other: Well-appearing HENMT: Head: normal to inspection, normocephalic and atraumatic Ears: hearing grossly normal bilaterally Face/Nose/Sinus: normal facial exam Face and sinus: normal facial exam Mouth: Yes moist mucous membranes Other: Head is atraumatic and normocephalic. ENT is unremarkable. Eyes: General: appearance normal, both eyes and all related structures Pupils: Equal, round and reactive pupils present EOM: EOMs intact bilaterally Neck: Neck: full ROM, no lymphadenopathy, supple and no JVD Thyroid: thyroid normal Lymphatic: no lymphadenopathy noted Resp: Effort & Inspection: normal respiratory effort and able to speak in complete sentences Auscultation: clear to auscultation bilaterally Cardio: Jugular venous distension: no JVD Rate: regular rate Rhythm: regular rhythm Heart sounds: S1 normal heart sound present, S2 normal heart sound present, no gallops, no murmurs and no rubs Other: Patient in AFib which is a normal variant for her. Rate is normal. GI: Inspection: non-distended Auscultation: normal bowel sounds : General: Yes deferred Skin: General skin exam: normal color and no rashes or lesions noted Rashes: no rashes Wounds: no wounds Neuro: General: patient oriented x3, gait normal and CN's II-XI intact bilaterally Cranial nerves: Yes CN's II-XII intact bilaterally and Yes Equal, round and reactive pupils present Cognition (Neuro): normal cognition Speech: normal speech Gait exam (Neuro): Normal gait present Motor exam (neuro): 5/5 motor strength present throughout and Normal motor muscle tone present throughout Extrem: General: normal to inspection, full ROM, no pedal edema and no edema Psych: Mental Status: mental status grossly normal Affect: normal affect DS: Data Data Completed and Pending Completed studies during hospitalization: chest xray Labs on day of discharge: Labs from last 24 hours 07/05/24 07/04/24 07:18 16:51 WBC 9.0 RBC 3.91 L Hgb 12.2 Hct 36.6 L MCV 93.6 MCH 31.2 MCHC 33.3 RDW 13.4 Plt Count 315 MPV 9.2 Sodium 130 L Potassium 3.6 Chloride 102 Carbon Dioxide 28 Anion Gap 0 L BUN 15 Creatinine 0.90 Estim Creat Clear Calc 43 Estimated GFR 60 Glucose 89 Calcium 8.3 L Ur L.pneumophila Ag Pending M. pneumoniae Source Pending M.pneumoniae DNA (PCR) Pending Urine Pneumococcal Ag Pending Preliminary micro results at discharge 07/02/24 21:24 Blood Culture - Preliminary Blood 07/02/24 21:24 Blood Culture - Preliminary Blood Discharge Plan Discharge Attending physician on discharge: Alonso Pandya Discharging Clinician: Sydnee Pino Patient Disposition: Home, Self-Care Activity: may shower Diet: as tolerated and heart healthy Discharge Instructions: you were admitted for pneumonia. You recieved iV antibitoics and were discharged home with a scrip for 4 more doses. PLease take Augmentin tonight, 07/05 at 9 pm and then 3 more doses, am and pm until all 4 doses are gone. with azithromiacin- you only have 2 more doses left 07/05 at 9 pm and 07/06 9 am. Please make sure you quit smoking and f/u wit your PCP with in 1-2 weeks to ensure you are feeling better. Patient Instructions: Antibiotic Form Patient Language: Tanzanian Stand Alone Forms: General Discharge Information Follow-up/Referrals: Juan Whyte MD [Primary Care Provider] - 2 Weeks Discharge Medications: New azithromycin [Zithromax] 250 mg Tablet 500 mg PO DAILY@2100 Qty: 2 0RF amoxicillin-pot clavulanate 875-125 mg tablet 1 tablet PO Q12H Qty: 4 0RF Continued clopidogrel [Plavix] 75 mg Tablet 75 mg PO DAILY Eliquis 5 mg Tablet 5 mg PO BID isosorbide mononitrate 30 mg tablet extended release 24 hr 60 mg PO DAILY rosuvastatin 10 mg tablet 10 mg PO QHS nitroglycerin 0.4 mg tablet, sublingual 0.4 mg sublingual Q5M PRN (Reason: chest pain) Rx Instructions: do not exceed 3 doses per episode amlodipine 10 mg tablet 10 mg PO DAILY sotalol 80 mg tablet 40 mg PO BID triamcinolone acetonide 0.1 % cream See Rx Instructions .ROUTE .COMPLEX PRN (Reason: pain) Rx Instructions: APPLY 1 APPLICATION TOPICALLY THREE TIMES A DAY PRN; losartan 100 mg tablet 100 mg PO QNOON tramadol 50 mg tablet 50 mg PO Q6H PRN (Reason: pain) Qty: 30 2RF levothyroxine 75 mcg tablet See Rx Instructions .ROUTE .COMPLEX Qty: 90 2RF Dose Instruction: TAKE 1 TABLET BY MOUTH EVERY DAY Rx Instructions: TAKE 1 TABLET BY MOUTH EVERY DAY Date of admission: 07/03/24 07:32 Primary Care Provider: Juan Whyte Admitting Provider: Erick Early V. Attending physician on admission: Vale Hilliard Condition: Stable Quality VTE Prophylaxis VTE prophylaxis: pharmacologic ordered Hospitalist MIPS Heart Failure (Exclusion) Patient has history of Heart Transplant or Left Ventricular Assistive Device?: No IF YES, STOP HERE Heart Failure (Qualifier) Patient has current or prior documentation of LVEF less than or equal to 40%, or mod/servere depressed LVSF?: No IF NO, STOP HERE
[2024-07-05] MEDS: LOSARTAN POTASSIUM 100 MG TABLET PO (12:27)
[2024-07-07 18:12] LABS: Pneumococcal Antigen Urine NOT DETECTED
[2024-07-08 21:33] LABS: Legionella pneumophila Ag Ur NOT DETECTED
== END 2024-07-05 15:00 | disposition home or self-care (01) | DRG 194 ==
LOC: ANHED 19:43 → ANH3MEDSUR 21:42
PROVIDERS: Emergency Medicine; Nurse Practitioner Adult Health; Admitting Provider Internal Medicine; Emergency Provider Emergency Medicine; PCP Emergency Medicine; Visit Provider Nurse Practitioner
DX: J18.9 Pneumonia, unspecified organism (principal); I48.20 Chronic atrial fibrillation, unspecified; I50.32 Chronic diastolic (congestive) heart failure; I25.10 Atherosclerotic heart disease of native coronary artery without angina pectoris; J43.9 Emphysema, unspecified; M54.9 Dorsalgia, unspecified; G89.29 Other chronic pain; M48.061 Spinal stenosis, lumbar region without neurogenic claudication; I73.9 Peripheral vascular disease, unspecified; K21.9 Gastro-esophageal reflux disease without esophagitis; I11.0 Hypertensive heart disease with heart failure; E78.5 Hyperlipidemia, unspecified; E03.9 Hypothyroidism, unspecified; F17.210 Nicotine dependence, cigarettes, uncomplicated; Z95.5 Presence of coronary angioplasty implant and graft; I25.2 Old myocardial infarction; Z79.02 Long term (current) use of antithrombotics/antiplatelets
CPT/HCPCS: 36415; 71045; 71046; 80048; 80053; 83880; 84484; 85025; 85027; 85610; 85730; 87040; 87449; 87637; 87899; 93005; 96365; 96367; 96375; 99285; A9270; C8929; G0378; J0456; J0696; J1200; J1940; Q9957

== ENCOUNTER 2024-11-14 09:45 | Outpatient (CLI) | payer OTHER, SELFPAY ==
--- OUTSIDE RECORDS SUMMARY | 2024-11-14 09:54 | XMS_ITS | Encounter Summary ---
Author Organization [facility] Facility Care Team Providers Care Information Management Manager Name Role Phone Juan Whyte MD Primary Care Provide r Juan Mckeon MD Unavailable [phone] Markel Peralta MD Unavailable [phone] Encounter Details Date Type Department Care Team (Latest Contact Info) Description 03/05/2017 Orders Only [facility] ProviderRosa Isela MD [address] [place] [id number] Social History Tobacco Use Types Packs/Day Years Used Date Smoking Tobacco: Light Smoker Comments:Smoking History Pac ks/day: 3 Cigarettes Alcohol Use Standard Drinks/Week Comments No 0 (1 standard drink = 0.6 oz pur e alcohol) Comments Unknown Sex and Gender Information Value Date Recorded Sex Assigned at Not on file Legal Sex Female 3:57 AM [employer] PROF[employer] Gender Identity Not on file Sexual Orientation Not on file documented as of this encounter Plan of Treatment Not on file documented as of this encounter Procedures Procedure Name Priority Date/Time Associated Diagnosis Comments PROCEDURE - RESULT 03/02/2017 12 :00 AM CDT PROCEDURE - RESULT 02/27/2017 12 :00 AM CDT documented in this encounter Results * PROCEDURE - RESULT (03/02/2017 12:00 AM CDT) Narrative 03/02/2017 12:00 AM CDT Ordered by an unspecified provider. Historical Provider Final Res ult * PROCEDURE - RESULT (02/27/2017 12:00 AM CDT) Narrative 02/27/2017 12:00 AM CDT Ordered by an unspecified provider. us Historical Provider Final Res ult documented in this encounter Visit Diagnoses Not on filedocumented in this encounter Care Teams Information Management Manager Relationship Specialty Start Date End Date Juan Whyte MD [address] [facility] [place] [address] PCP - General 10/03/16 Juan Mckeon MD [address] [facility] [address] [place] [address] Cardiology 12/09/16 Markel Peralta MD [address] [facility] [address] [facility] [place] [address] Surgeon Vascular Surgery 02/08/19 documented as of this encounter
--- OUTSIDE RECORDS SUMMARY | 2024-11-14 09:54 | XMS_ITS | Clinical Summary ---
Author Organization [facility] [address] Address [address] [place] [address] Care Team Providers Care Spanish Medical Interpreter Name Role Phone Juan Whyte MD Primary Care Provide r Juan Mckeon MD Unavailable [phone] Markel Peralta MD Unavailable [phone] Allergies Active Allergy Reactions Criticality Noted Date Comments Nitrofurantoin Hives Medium 09/03/2020 Medications traMADol (ULTRAM) 50 mg tablet Take 1 tablet (50 mg total) by mouth every 6 (six) hours as needed 0 10/07/2017 Active losartan (COZAAR) 100 mg tablet Take 1 tablet (100 mg total) by mouth daily after lunch 2 04/20/2018 Active sotaloL (BETAPACE) 80 mg tablet TAKE 1/2 TABLET TWICE A DAY BY MOUTH 90 tablet 3 10/06/2023 Active nitroglycerin (NITROSTAT) 0.[address] 1 TABLET UNDER THE TONGUE EVERY 5 MINUTES NEEDED FOR CHEST PAIN. 25 tablet 3 04/14/2024 Active levothyroxine (SYNTHROID) 75 mcg tablet Take 1 tablet (75 mcg total) by mouth daily 02/11/2024 Active isosorbide mononitrate ER (IMDUR) 30 mg 24 hr tabletIndication s:Coronary artery disease involving paiute-shoshone coronary artery of paiute-shoshone heart without angina pectoris TAKE 1 TABLET BY MOUTH EVERY DAY 90 tablet 1 07/13/2024 Active amLODIPine (NORVASC) 10 mg tablet TAKE 1 TABLET BY MOUTH EVERY DAY 90 tablet 1 07/13/2024 Active rosuvastatin (CRESTOR) 10 mg tablet TAKE 1 TABLET BY MOUTH EVERY DAY 90 tablet 1 07/13/2024 Active Eliquis 5 mg tablet TAKE 1 TABLET BY MOUTH TWICE A DAY 60 tablet 5 09/16/2024 Active clopidogreL (PLAVIX) 75 mg tablet TAKE 1 TABLET BY MOUTH EVERY DAY 90 tablet 3 10/10/2024 Active Active Problems Problem Noted Date Diagnosed Date Pain in both upper extremities 10/07/2024 Assessment & Plan (10/07/2024 11:22 AM CDT): Per previous office visits patient has bilateral upper extremity pain has resolved. Denies any exertional pain. The right radial pulse is palpable but diminished comparatively to the left. Current Doppler of the upper extremities is normal shows normal ABIs. No need for further workup or follow-up. CAD (coronary artery disease) 05/16/2024 PVD (peripheral vascular disease) with claudicat ion 08/27/2023 Primary hypertension 06/27/2021 Assessment & Plan (03/16/2024 12:11 PM CDT): Impression: Chronic stable. Plan: Continue amlodipine, sotalol, isosorbide, and losartan. Assessment & Plan (08/26/2023 11:45 AM GEOTECHNICAL INTERN): Impression: Chronic stable. Plan: Continue amlodipine, losartan, isosorbide, Assessment & Plan (09/23/2022 2:18 PM CDT): Hypertension remains chronic and controlled. Continue current medical therapy Assessment & Plan (07/15/2022 1:37 PM GEOTECHNICAL INTERN): Hypertension chronic and controlled. Continue current medical therapy. Assessment & Plan (06/27/2021 9:25 AM GEOTECHNICAL INTERN): Hypertension chronic and controlled. Continue current medical therapy FDC current use of antiarrhythmic drug Assessment & Plan (12/02/2020 12:33 PM CDT): 12-lead ECG today does not demonstrate any changes that would prohibit continued use of sotalol. We will continue the patient on the same dose and schedule. It will be my intention to discontinue this medication 1 month post ablation. As long as the patient continues on this medication, an ECG should be performed at least every 6 months to monitor for toxicity. Anticoagulation management encounter 12/02/2020 Assessment & Plan (12/02/2020 12:34 PM CDT): The patient has a [id number] score of 5 (annualized risk of stroke 6.7 %). I have therefore recommended that she remain anticoagulated for thromboprophylaxis. Hypothyroid 09/19/2020 Stage 3a chronic kidney disease 09/19/2020 Vascular claudication 09/19/2020 Assessment & Plan (03/31/2023 9:30 AM CDT): Patient continues to do well. Stents are patent with normal perfusion lower extremities. Continue anti-platelet therapy follow-up 1 year for duplex surveillance. Ischemic ulcer, limited to breakdown of skin Assessment & Plan (10/02/2020 9:05 AM CDT): Patient doing well following left femoral endarterectomy. Wound is healing rest pain has resolved. Will remove pankaj continue risk factor modification follow-up 1 month for re-evaluation Assessment & Plan (08/30/2020 9:27 AM GEOTECHNICAL INTERN): Ulceration stable. Continue dressing changes and plan for femoral endarterectomy. Assessment & Plan (08/23/2020 10:20 AM GEOTECHNICAL INTERN): New ischemic left great toe ulceration nonhealing. Patient has severe occlusive disease left lower extremity wound healing potential is poor. Have recommended left lower extremity angiogram possible intervention. The procedure and all associated risks have been thoroughly discussed with her in detail. She understands and agrees to proceed Tobacco abuse 08/23/2020 Assessment & Plan (08/30/2020 9:27 AM GEOTECHNICAL INTERN): Patient was again recommended to stop smoking different modalities were discussed. She hopes to quit within 3 months. Assessment & Plan (08/23/2020 10:23 AM GEOTECHNICAL INTERN): Patient unfortunately continues to smoke. We again discussed the ill effects of ongoing tobacco abuse on her cardiovascular system. She understands that this places her higher risk for complications and potential limb loss. Different modalities were discussed she will try to quit again. Mixed hyperlipidemia 08/22/2019 Assessment & Plan (03/16/2024 12:11 PM CDT): Impression: Chronic stable. Plan: Continue rosuvastatin. Assessment & Plan (08/26/2023 11:45 AM GEOTECHNICAL INTERN): Impression: Chronic and stable. Plan: Continue rosuvastatin Assessment & Plan (03/31/2023 9:30 AM CDT): Hyperlipidemia chronic and controlled. Continue Crestor. Assessment & Plan (07/15/2022 1:41 PM GEOTECHNICAL INTERN): Hyperlipidemia chronic and controlled. Continue Crestor. Assessment & Plan (06/27/2021 9:25 AM GEOTECHNICAL INTERN): Hyperlipidemia chronic and controlled. Continue Crestor. Assessment & Plan (08/30/2020 9:26 AM GEOTECHNICAL INTERN): Currently controlled. Continue current statin therapy Assessment & Plan (08/23/2020 10:19 AM GEOTECHNICAL INTERN): Currently controlled. Continue statin therapy Assessment & Plan (08/22/2019 11:44 AM GEOTECHNICAL INTERN): Patient states cholesterol levels are well controlled. She is tolerating statin therapy continue per primary care physician Coronary artery disease invo lving paiute-shoshone coronary artery of paiute-shoshone heart without angina pectoris 05/12/2017 History of coronary artery stent placement 05/12 Paroxysmal atrial fibrillation 05/12/2017 Assessment & Plan (03/31/2023 9:30 AM CDT): Controlled. Continue anticoagulation and medical management. Assessment & Plan (09/23/2022 2:19 PM CDT): Currently controlled. Continue medical management. Assessment & Plan (12/02/2020 12:33 PM CDT): Symptomatic persistent atrial fibrillation, resistant to sotalol. We discussed options for management, and the patient is interested in catheter ablation. We discussed the rationale for atrial fibrillation ablation, including the steps involved in ablation. I detailed the risks of the procedure, including vascular injury/hematoma, myocardial injury/perforation, stroke, myocardial infarction, pulmonary vein stenosis, thermal esophageal injury, phrenic nerve injury, and . I estimated a 70% chance of freedom from long-term atrial arrhythmia, and the patient understands that occasionally a second procedure is necessary. If she wishes to proceed, my office will make the appropriate arrangements. From: July, Adonay LS, Cesario JS, Juan C H, Beto ANABELLE, Lew JE, Cristhian CHEIKH, Patricia PT, Leo CASPER, ME, Jorge Luis KT, Namrata RL, Toney WG, Morteza PJ, Miriam CM, Breana CW. 2014 AHA/ACC/HRS guideline for the management of patients with atrial fibrillation: a report of the [place] College of Cardiology/French Heart Association Task Force on Practice Guidelines and the Heart Rhythm Society. J Am Jessenia Cardiol 2014. 6.3. AF Catheter Ablation to Maintain Sinus Rhythm: Recommendations Class I AF catheter ablation is useful for symptomatic paroxysmal AF refractory or intolerant to at least 1 class I or III antiarrhythmic medication when a rhythm control strategy is desired ([phone]). (Level of Evidence: A) Assessment & Plan (08/30/2020 9:28 AM GEOTECHNICAL INTERN): Will hold Eliquis 2 days prior to surgery. 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 They are warm well perfused no rest pain or ischemic ulcerations. Plan: Continue Eliquis and Plavix statin therapy and follow-up in the next 6 months with lower extremity arterial duplex. Assessment & Plan (03/16/2024 12:09 PM CDT): Impression: Patient has underwent multiple endovascular interventions bilateral lower extremity for treatment of limiting claudication. She denies any symptoms of claudication, ischemic rest pain or ulcerations to her lower extremity at this time. Lower extremity arterial duplex reveals patent stents to the right lower extremity with biphasic waveforms to bilateral lower extremities. Plan: Continue ongoing risk factor modifications. -continue Plavix. -patient to follow-up in 6 months for re-evaluation with repeat lower extremity arterial duplex. Encouraged patient make a sooner appointment if she develops any symptoms of claudication, ischemic rest pain or ulcerations. Assessment & Plan (08/26/2023 11:44 AM GEOTECHNICAL INTERN): Impression: Patient has had multiple endovascular and surgical interventions to bilateral lower extremities. Patient has worsening right calf claudication since her last office visit. Elevated velocities are noted to the right popliteal artery. Plan: Patient was seen and evaluated with Dr. Virginia Peralta. Recommend right lower extremity angiogram with possible intervention. Risks of the procedure communicate with the patient to include bleeding, infection, injury, requiring further surgery, limb loss and . Patient voices understanding of these risks and wishes to proceed. Assessment & Plan (05/22/2023 9:32 AM GEOTECHNICAL INTERN): Bilateral lower extremity arterial occlusive disease with non limiting claudication non rest pain. Current duplex shows stents are patent. No worsening symptoms from previous visit. Plan: Follow-up in 3 months for routine surveillance with a lower extremity arterial duplex. Assessment & Plan (05/08/2023 11:02 AM CDT): History of lower extremity arterial occlusive disease status post multiple interventions to bilateral lower extremity. Has been having worsening claudication since was last seen in March. Denies any rest pain. Lower extremities are warm. Distal signals obtained. Plan: Obtain lower extremity arterial duplex follow-up in 1 week. Assessment & Plan (09/23/2022 2:19 PM CDT): Status post atherectomy balloon angioplasty and stenting left superficial femoral and popliteal arteries. Patient's symptoms have resolved completely has a normal exam. Follow-up 3-6 months with ongoing surveillance duplex. Assessment & Plan (08/10/2022 9:42 PM GEOTECHNICAL INTERN): Patient is 2 week postop follow-up visit status post balloon angioplasty of left TP trunk and atherectomy balloon angioplasty and stenting of left SFA and popliteal arteries. She is recovering well. States all her symptoms have resolved. She denies any rest pain or claudication. Left lower extremities warm well perfused with palpable distal pulses. Plan: Return in the next 4 weeks to obtain a baseline duplex. Assessment & Plan (07/15/2022 1:37 PM GEOTECHNICAL INTERN): Patient has ongoing disabling claudication left lower extremity. Duplex findings suggest high-grade SFA stenosis. I have recommended left lower extremity angiogram with possible intervention. The procedure indications and all risks have been explained. She understands and agrees to proceed. Assessment & Plan (06/27/2021 9:24 AM GEOTECHNICAL INTERN): Patient continues to do well with no recurrence symptoms. Continue 6 month noninvasive study surveillance. Continue anti-platelet therapy and exercise. Assessment & Plan (08/30/2020 9:26 AM GEOTECHNICAL INTERN): Disabling claudication left lower extremity has worsened over the last 6 months. Have recommended left femoral endarterectomy with patch angioplasty the procedure, indications and all associated risks have been thoroughly discussed with the patient she understands and agrees to proceed Assessment & Plan (08/22/2019 11:42 AM GEOTECHNICAL INTERN): Patient has stable non disabling claudication of the left calf. No indication at this point to move forward with further workup or intervention. Continue exercise, risk factor modification and close surveillance. Atherosclerosis of paiute-shoshone ar viktoriya of right lower extremity with rest pain 11/14/2015 Assessment & Plan (09/28/2023 3:43 PM CDT): Symptoms have resolved after undergoing atherectomy balloon angioplasty and stenting of the right SFA and popliteal artery on 09/07/2023. Denies any claudication symptoms or rest pain. Denies any current concerns. Lower extremity is warm well perfused. Follow-up in 1 month for new baseline study with a lower extremity arterial duplex. Assessment & Plan (08/23/2020 10:19 AM GEOTECHNICAL INTERN): Continues to do well with no recurrence symptoms. Stent is patent with normal perfusion right foot. Continue anti-platelet therapy and ongoing risk factor modification with 6 months duplex surveillance Assessment & Plan (08/22/2019 11:44 AM GEOTECHNICAL INTERN): Patient has no recurrence symptoms of rest pain right leg. She continues to do well. Continue exercise smoking cessation follow-up 6 months for duplex surveillance Assessment & Plan (02/17/2019 7:38 AM CDT): Patient continues to do well with no recurrence claudication or rest pain right foot. Continue anti-platelet therapy follow-up 6 months with surveillance duplex. 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; Pain in both upper extremities 10/06/2024 Orders Only [facility] Vascular and Vein Surgery [address] [place] [phone] Markel Peralta MD Carotid bruit, unspecified laterality (Primary Dx) 10/06/2024 Orders Only [facility] Vascular and Vein Surgery [address] [place] [phone] Markel Peralta MD Carotid bruit, unspecified laterality (Primary Dx); 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 10/03/2024 9:46 AM CDT - 10/03/2024 11:59 PM CDT Hospital Encounter [facility] Cardiac Testing [address] [place] [phone] Bilateral carotid artery stenosis Discharge Disposition: Discharge to home or self care 10/03/2024 9:46 AM CDT - 10/03/2024 11:59 PM CDT Hospital Encounter [facility] Cardiac Testing [address] [place] [phone] Subclavian artery stenosis, left; Subclavian artery stenosis, right Discharge Disposition: Discharge to home or self care 09/28/2024 2:00 PM CDT Office Visit [facility] [address] [facility] [address] [place] [phone] Davida Valdez NP Coronary artery disease involving paiute-shoshone coronary artery of paiute-shoshone heart without angina pectoris (Primary Dx); History of coronary artery stent placement; Paroxysmal atrial fibrillation (HCC); 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; 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; Anticoagulation management encounter 09/21/2024 11:15 AM CDT Office Visit [facility] Vascular and Vein Surgery [facility] [address] [place] [phone] Janna Santizo PA Claudication of upper extremity (Primary Dx); Carotid bruit, unspecified laterality; 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; Mixed hyperlipidemia; Primary hypertension 09/21/2024 9:50 AM CDT - 09/21/2024 11:59 PM CDT Hospital Encounter [facility] Cardiac Testing [facility] [place] [address] Intermittent claudication Discharge Disposition: Discharge to home or self care 09/21/2024 9:49 AM CDT - 09/21/2024 11:59 PM CDT Hospital Encounter [facility] Cardiac Testing [facility] [place] [address] Aftercare following surgery of the circulatory system Discharge Disposition: Discharge to home or self care 09/21/2024 Orders Only [facility] Vascular and Vein Surgery [facility] [address] [place] [phone] Markel Peralta MD Subclavian artery stenosis, left (Primary Dx); Subclavian artery stenosis, right; Bilateral carotid artery stenosis 09/01/2024 Telephone [facility] Vascular and Vein Surgery [facility] [address] [phone] Norma Zamudio from Last 3 Months Immunizations Immunization Administration Dates Next Due Influenza, Quadrivalent, Hig h Dose, Preservative Free, Intrr 04/23/2020 Influenza, Trivalent, High D ose, Split, Preservative Free, Intramuscular 06/07/2019,04/26/2018,04/29/2016,05/14 Influenza, Unspecified 05/05/2014,04/13/2013,06/2013 ZOSTER LIVE 04/13/2013 Surgical History Surgery Date Site/Laterality Comments KIDNEY SURGERY Right CARDIAC STENT PLACEMENT x3 THYROIDECTOMY graves disease ATHERECTOMY 03/05/2017 Right Aortogram. RLE angiogram. Orbital Atherectomy RT pop & peroneal arteries. DCBA RT pop artery. Stent placement RT MARKO. FEMORAL ENDARTERECTOMY 10/10/2015 Right RT com-fem endar w/ bovine pericardial DIRECTOR OF PSYCHIATRY. FEMORAL ENDARTERECTOMY 2020 Left LT com-fem endar w/ bovine pericardial patch angioplasty. AORTIC ILIAC FEMORIAL ANGIOG CHRISTINE INTERVENTION 09/17/2015 Bilateral Aortogram. BLE angiogram w/ runoff AORTIC ILIAC FEMORIAL ANGIOG CHRISTINE INTERVENTION 08/29/2020 Left Aortogram. LLE angiogram w/ runoff. ABLATION OF AFIB FLUTTER HYSTERECTOMY ANGIOPLASTY 07/15/2022 Left Aortogram w/ LLE angiogram.BA LT TPT. Atherectomy, BA & stenting SFA & POP. ATHERECTOMY 09/07/2023 Right Atherectomy, BA & stenting of the SFA & pop CARDIAC CATHETERIZATION [address] in [facility] Medical History Medical History Date Comments Hyperthyroidism thyroid removed HTN (hypertension) GERD (gastroesophageal reflux disease) Heart attack (HCC) HLD (hyperlipidemia) Allergic rhinitis Family History Medical History Relation Name Comments Other Brother 2 Alive and well; Other Father heart; Cause of : heart Other Mother heart; Parkinsonism Mother Parkinson's dis ease; Relation Name Status Comments Brother 1 Alive Brother 2 Father (Age 81) Mother (Age 81) Social History Tobacco Use Types Packs/Day Years Used Date Smoking Tobacco: Former Cigarettes Q uit: 05/12/2016 Smokeless Tobacco: Never Tobacco Cessation:Counseling Given: Not Answered Comments:Smoking History Packs/day: 3 Cigarettes Alcohol Use Standard Drinks/Week Comments No 0 (1 standard drink = 0.6 oz pur e alcohol) AUDIT-C Answer Date Recorded Q1: How often do you have a drink containing alc ohol? Never 07/15/2022 Average Number of Drinks Not on file 023 Frequency of Binge Drinking Not on file 07/06 Personal Safety Answer Date Recorded Have you ever been in or are you currently in a harmful physical or emotional relationship or is someone making you feel afraid or unsafe? Denies 05/16/2024 Comments Unknown Sex and Gender Information Value Date Recorded Sex Assigned at Not on file Legal Sex Female 3:57 AM GEOTECHNICAL INTERN Gender Identity Not on file Sexual Orientation Not on file Obstetrics History Last Filed Vital Signs Vital Sign Reading Time Taken Comments Blood Pressure 179/69 10/06/2024 2:05 PM CDT Pulse 67 10/06/2024 2:05 PM CDT Temperature 36.8 C (98.2 F) 05/17/2024 3:30 PM GEOTECHNICAL INTERN Respiratory Rate 18 05/17/2024 3:30 PM GEOTECHNICAL INTERN Oxygen Saturation 98% 09/28/2024 1:49 PM CDT Inhaled Oxygen Concentration - - Weight 67.1 kg (148 lb) 10/06/2024 2:05 PM CDT Height 170.2 cm (5' 7 ) 10/06/2024 2:05 PM CDT Body Mass Index 23.18 10/06/2024 2:05 PM CDT Plan of Treatment Health Maintenance Due Date Last Done Comments Depression Screening 1945 Osteoporosis Screening-Bone Density Scan 1945 DTaP/Tdap/Td Vaccine (1 - Tdap) 09/10/1954 Hepatitis B Screening 09/10/1961 Pneumococcal vaccine 65+ (1 of 2 - PCV) 09/10/1962 Well Visit 65+ 09/10/2008 Zoster Vaccine (2 of 3) 06/08/2013 04/13/2013 Influenza Vaccine (Season Ended) 2025 04/23/2020, 06/07/2019, 04/26/2018, Additional history exists Fall Risk Assessment 05/17/2025 05/17/2024 Medical Devices Implanted Type Area Purchasing Engineer Device Identifier Shelf Expiration Date Model / Serial / Lot ACTV8 Inc [id number] System 6-12fr Mvp Venous Closure Vascade - [id number] - [id number] Implanted:Qty: 1 on 12/18/2020 by Rui Valdez MD at [facility] [employer] 2022 800-612C-1 [id number] / [id number] / [id number] [employer] [id number] System 6-12fr Mvp Venous Closure Vascade - [id number] - [id number] Implanted:Qty: 1 on 12/18/2020 by Rui Valdez MD at [facility] [employer] 03/27/2022 800-612C-1 0U / [id number] / [id number] [employer] [id number] System 6-12fr Mvp Venous Closure Vascade - [id number] - [id number] Implanted:Qty: 1 on 12/18/2020 by Rui Valdez MD at [facility] [employer] 10/08/2022 800-612C-1 0U / [id number] / [id number] [employer] [id number] Vascade 6/7fr Bioabsorbable Vascular System Compression Collagen - [id number] - [id number] Implanted:Qty: 1 on 12/18/2020 by Rui Valdez MD at [facility] [employer] 10/02/2022 700-580I-0 5U / [id number] / [id number] [employer] Long Synergy Xd 3.5mm 48mm System Coronary Stent Everolimus [id number] - S0 - [id number] Implanted:Qty: 1 on 05/16/2024 by Wilfredo Craig MD at [facility] Stent [employer] 11/02/2025 [id number] / 0 / [id number] [employer] Long Stent Drug Eluting S Megatron Us Mr 4.61a81wo [id number] - S0 - [id number] Implanted:Qty: 1 on 05/16/2024 by Wilfredo Craig MD at [facility] Stent [employer] 09/09/2025 [id number] / 0 / [id number] [employer] Stent System Biomimics 3d Vascular 6x80mm [id number] - [id number] Implanted:Qty: 1 on 07/15/2022 by Markel Peralta MD at [facility] [employer] 03/27/2023 [id number] / / [id number] [employer] Vascular Device Clsr Perclose Prostyle Sut-Mediatd Closure-Repair Sys 19197-97 - [id number] Implanted:Qty: 1 on 07/15/2022 by Markel Peralta MD at [facility] [employer] 03/05/2024 [id number] / / [id number] Bard Peripheral Vascular Lifestent 6mm 6fr 200mm 135cm Self Expand Catheter Guidewire .035 [id number] - [id number] Implanted:Qty: 1 on 09/07/2023 by Markel Peralta MD at [facility] Peripheral Vascular 03/27/2025 [id number] / / [id number] [employer] Vascular Device Clsr Perclose Prostyle Sut-Mediatd Closure-Repair Sys 35864-99 - [id number] Implanted:Qty: 1 on 09/07/2023 by Markel Peralta MD at [facility] [employer] V[employer] 11/02/2024 [id number] / / [id number] Bard Peripheral Vascular Lifestent 6mm 6fr 120mm 130cm Self Expand Catheter Helical [id number] - [id number] Implanted:Qty: 1 on 09/07/2023 by Markel Peralta MD at [facility] Peripheral Vascular 10/14/2024 [id number] / / [id number] Procedures Procedure Name Priority Date/Time Associated Diagnosis Comments US CAROTIDS DUPLEX BILATERAL Schedule Routine, Read Routine (OP Routine) 10/03/2024 11:00 AM CDT Bilateral carotid artery stenosis US ARTERIAL DOPPLER UPPER EXTREMITY BILATERAL Schedule Routine, Read Routine (OP Routine) 10/03/2024 10:32 AM CDT Subclavian artery stenosis, left Subclavian artery stenosis, right ECG 12-LEAD Routine 09/28/2024 4:19 PM CDT 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 US FLORIAN Schedule Routine, Read Routine (OP Routine) 09/21/2024 11:04 AM CDT Intermittent claudication VL US ARTERIAL DUPLEX LOWER EXTREMITY BILATERAL Schedule Routine, Read Routine (OP Routine) 09/21/2024 11:04 AM CDT Aftercare following surgery of the circulatory system from Last 3 Months Results * US Carotids Duplex Bilateral (10/03/2024 11:00 AM CDT) Anatomical Region Laterality Modality Vascular Bilateral Ultrasound 10/03/2024 9:57 AM CDT Narrative 10/03/2024 4:27 PM CDT Carotid Duplex Ultrasound Report Patient Name: GLADYS CASTILLO L : 1945 (79y ) Study Date: 10/03/2024 9:57:37 AM Gender: F Entry Analyst: JULES Barbosa Ref Provider: MARKEL PERALTA Quality: Adequate PROCEDURES: Carotid Report: Carotid duplex examination of the extracranial arteries was performed using 2D, color and spectral Doppler. Blood Pressure: Right: 155/58 mmHg. Left: 158/57 mmHg. INDICATIONS: Bilateral Carotid Artery Stenosis. HISTORY: HTN, HLD, and Current Smoking. MEASUREMENTS: Right Value Left Value RT Prox CCA PSV 79 cm/sec LT Prox CCA PSV 67 cm/sec RT Prox CCA EDV 18 cm/sec LT Prox CCA EDV 12 cm/sec RT Distal CCA PSV 95 cm/sec LT Distal CCA PSV 74 cm/sec RT Distal CCA EDV 16 cm/sec LT Distal CCA EDV 9 cm/sec RT Prox ICA PSV 102 cm/sec LT Prox ICA PSV 198 cm/sec RT Prox ICA EDV 21 cm/sec LT Prox ICA EDV 30 cm/sec RT Mid ICA PSV 101 cm/sec LT Mid ICA PSV 135 cm/sec RT Mid ICA EDV 20 cm/sec LT Mid ICA EDV 25 cm/sec RT Distal ICA PSV 69 cm/sec LT Distal ICA PSV 118 cm/sec RT Distal ICA EDV 15 cm/sec LT Distal ICA EDV 23 cm/sec RT ECA Mid PSV 338 cm/sec LT ECA Mid PSV 194 cm/sec RT ECA EDV 26 cm/sec LT ECA EDV 10 cm/sec RT ICA/CCA 1.07 ratio LT ICA/CCA 2.68 ratio Rt Vert PSV 39 cm/sec Lt Vert PSV 80 cm/sec FINDINGS: Rt Common Carotid Artery: The plaque in the right CCA appears to be heterogeneous and irregular. Rt Internal Carotid Artery: The plaque in the right internal carotid artery appears to be heterogeneous, calcified and irregular. Atherosclerotic changes of the right internal carotid artery without hemodynamically significant Doppler findings. <50% stenosis. Rt External Carotid Artery: Patent right external carotid artery with evidence of atherosclerotic disease present. Increased velocities seen. Rt Vertebral Artery: The right vertebral artery is patent with antegrade flow. Lt Common Carotid Artery: The plaque in the left CCA appears to be heterogeneous and irregular. Lt Internal Carotid Artery: The plaque in the left internal carotid artery appears to be heterogeneous and calcified. Significant atherosclerotic changes of the left internal carotid artery with elevated peak systolic velocity and end diastolic velocity, as above. 50-69% stenosis. Lt External Carotid Artery: Patent left external carotid artery with evidence of atherosclerotic disease present. Lt Vertebral Artery: The left vertebral artery is patent with antegrade flow. CONCLUSIONS: 1. The right internal carotid artery disease is consistent with a less than 50% stenosis. 2. The left internal carotid artery disease is consistent with moderate 50-69% stenosis. 3. Normal, antegrade flow is noted in bilateral vertebral arteries. ATTESTATION: I have reviewed and interpreted the pertinent images and measurements of this study. I attest to the conclusions in the final report that is provided above. Electronically Signed By: Markel Peralta MD 10/03/2024 3:30:56 PM CDT Procedure Note Markel Peralta MD - 10/03/2024 Carotid Duplex Ultrasound Report Patient Name: GLADYS CASTILLO L : 1945 (79y ) Study Date: 10/03/2024 9:57:37 AM Gender: F Entry Analyst: JULES Barbosa Ref Provider: MARKEL PERALTA Quality: Adequate PROCEDURES: Carotid Report: Carotid duplex examination of the extracranial arterieswas performed using 2D, color and spectral Doppler. Blood Pressure: Right: 155/58 mmHg. Left: 158/57 mmHg. INDICATIONS: Bilateral Carotid Artery Stenosis. HISTORY: HTN, HLD, and Current Smoking. MEASUREMENTS: Right Value Left Value RT Prox CCA PSV 79 cm/sec LT Prox CCA PSV 67 cm/sec RT Prox CCA EDV 18 cm/sec LT Prox CCA EDV 12 cm/sec RT Distal CCA PSV 95 cm/sec LT Distal CCA PSV 74 cm/sec RT Distal CCA EDV 16 cm/sec LT Distal CCA EDV 9 cm/sec RT Prox ICA PSV 102 cm/sec LT Prox ICA PSV 198 cm/sec RT Prox ICA EDV 21 cm/sec LT Prox ICA EDV 30 cm/sec RT Mid ICA PSV 101 cm/sec LT Mid ICA PSV 135 cm/sec RT Mid ICA EDV 20 cm/sec LT Mid ICA EDV 25 cm/sec RT Distal ICA PSV 69 cm/sec LT Distal ICA PSV 118 cm/sec RT Distal ICA EDV 15 cm/sec LT Distal ICA EDV 23 cm/sec RT ECA Mid PSV 338 cm/sec LT ECA Mid PSV 194 cm/sec RT ECA EDV 26 cm/sec LT ECA EDV 10 cm/sec RT ICA/CCA 1.07 ratio LT ICA/CCA 2.68 ratio Rt Vert PSV 39 cm/sec Lt Vert PSV 80 cm/sec FINDINGS: Rt Common Carotid Artery: The plaque in the right CCA appears to beheterogeneous and irregular. Rt Internal Carotid Artery: The plaque in the right internal carotidartery appears to be heterogeneous, calcified and irregular. Atherosclerotic changes of theright internal carotid artery without hemodynamically significant Doppler findings. <50%stenosis. Rt External Carotid Artery: Patent right external carotid artery withevidence of atherosclerotic disease present. Increased velocities seen. Rt Vertebral Artery: The right vertebral artery is patent with antegradeflow. Lt Common Carotid Artery: The plaque in the left CCA appears to beheterogeneous and irregular. Lt Internal Carotid Artery: The plaque in the left internal carotid arteryappears to be heterogeneous and calcified. Significant atherosclerotic changes of theleft internal carotid artery with elevated peak systolic velocity and end diastolicvelocity, as above. 50-69% stenosis. Lt External Carotid Artery: Patent left external carotid artery withevidence of atherosclerotic disease present. Lt Vertebral Artery: The left vertebral artery is patent with antegradeflow. CONCLUSIONS: 1. The right internal carotid artery disease is consistent with a lessthan 50% stenosis. 2. The left internal carotid artery disease is consistent with phllewmw12-29% stenosis. 3. Normal, antegrade flow is noted in bilateral vertebral arteries. ATTESTATION: I have reviewed and interpreted the pertinent images and measurements ofthis study. I attest to the conclusions in the final report that is provided above. Electronically Signed By: Markel Peralta MD 10/03/2024 3:30:56 PM CDT us Markel Peralta MD IMG US PROCEDURES Final Re sult * US Arterial Doppler Upper Extremity Bilateral (10/03/2024 10:32 AM CDT) Anatomical Region Laterality Modality Vascular Bilateral Ultrasound 10/03/2024 9:48 AM CDT Narrative 10/04/2024 7:55 AM CDT Upper Extremity Arterial Report Patient Name: GLADYS CASTILLO L : 1945 (79y ) Gender: F Study Date: 10/03/2024 09:48:00 AM Entry Analyst: Trena Lujan Rdms,rvt Order Provider: MARKEL PERALTA Quality: Adequate Ref Provider: MARKEL PERALTA PROCEDURES: Arterial Report: A non-invasive vascular physiologic study of the bilateral upper extremity arteries was performed using CW Doppler. INDICATIONS: I77.1 Stricture of artery and I77.1 Stricture of artery. HISTORY: Smoker, HTN, HDL. COMPARISONS: No prior exams. MEASUREMENTS: Right Value Left Value Rt Brachial Pressure 156 mmHg Lt Brachial Pressure 165 mmHg Rt Radial Pressure 168 mmHg Lt Radial Pressure 178 mmHg Rt Ulnar Pressure 177 mmHg Lt Ulnar Pressure 184 mmHg Rt Digit Pressure 183 mmHg Lt Digit Pressure 167 mmHg Rt Radial Index 1.02 Lt Radial Index 1.08 Rt Ulnar Index 1.07 Lt Ulnar Index 1.12 Rt WBI 1.07 Lt WBI 1.12 Rt DBI 1.11 Lt DBI 1.01 - FINDINGS: Right: Triphasic waveforms in the right subclavian artery, brachial artery, radial artery and ulnar artery. Biphasic waveforms in the right subclavian artery. The right WBI is 1.07. The right DBI is 1.11. Left: Triphasic waveforms in the left brachial artery, radial artery and ulnar artery. Biphasic waveforms in the left subclavian artery. The left WBI is 1.12. The left DBI is 1.01. CONCLUSIONS: 1. There is no evidence of arterial insufficiency in the bilateral upper extremities. ATTESTATION: I have reviewed and interpreted the pertinent images and measurements of this study. I attest to the conclusions in the final report that is provided above. Electronically Signed By: Markel Peralta MD 10/04/2024 7:28:24 AM CDT Procedure Note Markel Peralta MD - 10/04/2024 Upper Extremity Arterial Report Patient Name: GLADYS CASTILLO L : 1945 (79y ) Gender: F Study Date: 10/03/2024 09:48:00 AM Entry Analyst: Trena Lujan Rdms,rvt Order Provider: MARKEL PERALTA Quality: Adequate Ref Provider: MARKEL PERALTA PROCEDURES: Arterial Report: A non-invasive vascular physiologic study of thebilateral upper extremity arteries was performed using CW Doppler. INDICATIONS: I77.1 Stricture of artery and I77.1 Stricture of artery. HISTORY: Smoker, HTN, HDL. COMPARISONS: No prior exams. MEASUREMENTS: Right Value Left Value Rt Brachial Pressure 156 mmHg Lt Brachial Pressure 165 mmHg Rt Radial Pressure 168 mmHg Lt Radial Pressure 178 mmHg Rt Ulnar Pressure 177 mmHg Lt Ulnar Pressure 184 mmHg Rt Digit Pressure 183 mmHg Lt Digit Pressure 167 mmHg Rt Radial Index 1.02 Lt Radial Index 1.08 Rt Ulnar Index 1.07 Lt Ulnar Index 1.12 Rt WBI 1.07 Lt WBI 1.12 Rt DBI 1.11 Lt DBI 1.01 - FINDINGS: Right: Triphasic waveforms in the right subclavian artery, brachialartery, radial artery and ulnar artery. Biphasic waveforms in the right subclavian artery. Theright WBI is 1.07. The right DBI is 1.11. Left: Triphasic waveforms in the left brachial artery, radial artery andulnar artery. Biphasic waveforms in the left subclavian artery. The left WBI is 1.12.The left DBI is 1.01. CONCLUSIONS: 1. There is no evidence of arterial insufficiency in the bilateral upperextremities. ATTESTATION: I have reviewed and interpreted the pertinent images and measurements ofthis study. I attest to the conclusions in the final report that is provided above. Electronically Signed By: Markel Peralta MD 10/04/2024 7:28:24 AM CDT Markel Peralta MD IMG US PROCEDURES Final Re sult * ECG 12 lead (09/28/2024 4:19 PM CDT) us Davida Valdez NP ECG ORDERABLES Final Result * US FLORIAN (09/21/2024 11:04 AM CDT) Anatomical Region Laterality Modality Vascular N/A Ultrasound 09/21/2024 10:1 1 AM CDT Narrative 09/22/2024 1:11 PM CDT Lower Extremity Arterial Doppler Report Patient Name: GLADYS CASTILLO Melinda : 1945 Study Date: 09/21/2024 10:11:00 AM Gender: F Entry Analyst: Joselyn Swenson Ref Provider: MARKEL PERALTA Quality: Adequate Order Provider: MARKEL PERALTA PROCEDURES: Arterial Report: Ankle - Brachial Index Doppler exam. INDICATIONS: I73.9 Peripheral vascular disease, unspecified. HISTORY: s/p ATHER/BA/STSENT RT SFA & POP 09/07/23 S/P ATHER/BA/STENT LT SFA & POP, BA LT TPT 07/15/22 S/P ENDART LT WIRE FRAME LAMP SHADE MAKER 09/11/20 S/P STENT RT MARKO, ATHER/DCBA RT POP 03/05/17 S/P ENDART RT WIRE [employer]AME LAMP SHADE MAKER 10/10/15. COMPARISONS: No change compared to prior study. The previous exam was completed on 03/16/24. MEASUREMENTS: Right Value Left Value Rt Brachial Pressure 194 mmHg Lt Brachial Pressure 199 mmHg Rt DIRECTOR OF PSYCHIATRY Pressure 186 mmHg Lt DIRECTOR OF PSYCHIATRY Pressure 177 mmHg Rt DPA Pressure 180 mmHg Lt DPA Pressure 166 mmHg Rt PT FLORIAN Resting 0.93 Lt PT FLORIAN Resting 0.89 Rt DP FLORIAN Resting 0.9 Lt DP FLORIAN Resting 0.83 FINDINGS: Right Posterior Tibial Artery Analysis: The posterior tibial waveform is biphasic. Right Dorsalis Pedis Artery Analysis: The dorsalis pedis waveform is biphasic. Left Posterior Tibial Artery Analysis: The posterior tibial waveform is biphasic. Left Dorsalis Pedis Artery Analysis: The dorsalis pedis waveform is biphasic. - CONCLUSIONS: 1. Ankle-brachial index of 0.9-1.3 is within normal limits in the right lower extremity. 2. Ankle-brachial index of 0.8-0.9 is consistent with mild occlusive arterial disease in the left lower extremity. ATTESTATION: I have reviewed and interpreted the pertinent images and measurements of this study. I attest to the conclusions in the final report that is provided above. Electronically Signed By: Markel Peralta MD 09/22/2024 1:10:54 PM CDT Procedure Note Markel Peralta MD - 09/22/2024 Lower Extremity Arterial Doppler Report Patient Name: GLADYS CASTILLO L : 1945 Study Date: 09/21/2024 10:11:00 AM Gender: F Entry Analyst: Joselyn Swenson RVS Ref Provider: MARKEL PERALTA Quality: Adequate Order Provider: MARKEL PERALTA PROCEDURES: Arterial Report: Ankle - Brachial Index Doppler exam. INDICATIONS: I73.9 Peripheral vascular disease, unspecified. HISTORY: s/p ATHER/BA/STSENT RT SFA & POP 09/07/23 S/P ATHER/BA/STENT LT SFA & POP, BA LT TPT 07/15/22 S/P ENDART LT WIRE [employer]AME LAMP SHADE MAKER 09/11/20 S/P STENT RT MARKO, ATHER/DCBA RT POP 03/05/17 S/P ENDART RT WIRE [employer]AME LAMP SHADE MAKER 10/10/15. COMPARISONS: No change compared to prior study. The previous exam was completed on 03/16/24. MEASUREMENTS: Right Value Left Value Rt Brachial Pressure 194 mmHg Lt Brachial Pressure 199 mmHg Rt DIRECTOR OF PSYCHIATRY Pressure 186 mmHg Lt DIRECTOR OF PSYCHIATRY Pressure 177 mmHg Rt DPA Pressure 180 mmHg Lt DPA Pressure 166 mmHg Rt PT FLORIAN Resting 0.93 Lt PT FLORIAN Resting 0.89 Rt DP FLORIAN Resting 0.9 Lt DP FLORIAN Resting 0.83 FINDINGS: Right Posterior Tibial Artery Analysis: The posterior tibial waveform is biphasic. Right Dorsalis Pedis Artery Analysis: The dorsalis pedis waveform is biphasic. Left Posterior Tibial Artery Analysis: The posterior tibial waveform is biphasic. Left Dorsalis Pedis Artery Analysis: The dorsalis pedis waveform is biphasic. - CONCLUSIONS: 1. Ankle-brachial index of 0.9-1.3 is within normal limits in the rightlower extremity. 2. Ankle-brachial index of 0.8-0.9 is consistent with mild occlusivearterial disease in the left lower extremity. ATTESTATION: I have reviewed and interpreted the pertinent images and measurements ofthis study. I attest to the conclusions in the final report that is provided above. Electronically Signed By: Markel Peralta MD 09/22/2024 1:10:54 PM CDT us Markel Peralta MD IMG US PROCEDURES Final Re sult * US Arterial Duplex Lower Extremity Bilateral (09/21/2024 11:04 AM CDT) Anatomical Region Laterality Modality Vascular Bilateral Ultrasound 09/21/2024 10:3 3 AM CDT Narrative 09/22/2024 2:49 PM CDT Lower Extremity Arterial Duplex Report Patient Name: GLADYS CASTILLO L : 1945 (79y ) Gender: F Study Date: 09/21/2024 10:33:17 AM Ht(Inch): Wt(Lb): BSA: Entry Analyst: PEREZ VENCES Provider: MARKEL PERALTA Quality: Adequate Ref Provider: MARKEL PERALTA PROCEDURES: Arterial Report: A non-invasive vascular imaging study of the bilateral lower extremity arteries was performed using B-mode ultrasound, color flow, and spectral Doppler. A non-invasive vascular imaging study of the bilateral lower extremity arteries and stents was performed using B-mode ultrasound, color flow, and spectral Doppler. INDICATIONS: Z48.812 Encounter for surgical aftercare following surgery on the circulatory system. HISTORY: S/P ATHER/BA/STENT RT SFA & POP 09/07/23 S/P ATHER/BA/STENT LT SFA & POP, BA LT TPT 07/15/22 S/PENDRT LT WIRE FRAME LAMP SHADE MAKER 09/11/20 S/P STENT RT MARKO, ATHER/DCBA RT POP 03/05/17 S/P ENDART RT WIRE [employer]AME LAMP SHADE MAKER 10/10/15. COMPARISONS: No change compared to prior study. The previous exam was completed on 03/16/24. MEASUREMENTS: Right Value Left Value Rt WIRE FRAME LAMP SHADE MAKER Prx PSV 127.70 cm/sec Lt WIRE FRAME LAMP SHADE MAKER Prx PSV 223.30 cm/sec Rt Profunda Prx PSV 103.70 cm/sec Lt Profunda Prx PSV 126.10 cm/sec Rt SFA Prx PSV 100.90 cm/sec Lt SFA Prx PSV 157.30 cm/sec Lt SFA Mid PSV 144.60 cm/sec STENTS: Right Value Left Value Location RT MID SFA & POP Location LT DIST SFA & POP Rt Stent Prx [place] PSV 66.00 cm/sec Lt Stent Prx [place] PSV 99.00 cm/sec Rt Stent Prx PSV 80.00 cm/sec Lt Stent Prx PSV 64.00 cm/sec Rt Stent Mid PSV 100.00 cm/sec Lt Stent Mid PSV 116.00 cm/sec Rt Stent Dst PSV 102.00 cm/sec Lt Stent Dst PSV 92.00 cm/sec Rt Stent Dst Attachment PSV 72.00 cm/sec Lt Stent Dst [place] PSV 55.00 cm/sec Rt Stent Dst [place] PSV 147.00 cm/sec FINDINGS: Right: Biphasic arteries include the right common femoral artery, profunda femoral artery, proximal superficial femoral artery, mid superficial femoral artery, distal superficial femoral artery, popliteal artery and anterior tibial artery. Left: Biphasic arteries include the left common femoral artery, profunda femoral artery, proximal superficial femoral artery, mid superficial femoral artery, distal superficial femoral artery and popliteal artery. CONCLUSION: 1. No evidence of significant atherosclerotic plaque or stenosis in the right lower extremity. Right the SFA and popliteal artery stents were patent. 2. No evidence of significant atherosclerotic plaque or stenosis in the left lower extremity. Left SFA and popliteal artery stents are patent. ATTESTATION: I have reviewed and interpreted the pertinent images and measurements of this study. I attest to the conclusions in the final report that is provided above. Electronically Signed By: Markel Peralta MD 09/22/2024 1:28:41 PM CDT Procedure Note Markel Peralta MD - 09/22/2024 Lower Extremity Arterial Duplex Report Patient Name: GLADYS CASTILLO L : 1945 (79y ) Gender: F Study Date: 09/21/2024 10:33:17 AM Ht(Inch): Wt(Lb): BSA: Entry Analyst: PEREZ VENCES Provider: MARKEL PERALTA Quality: Adequate Ref Provider: MARKEL PERALTA PROCEDURES: Arterial Report: A non-invasive vascular imaging study of the bilaterallower extremity arteries was performed using B-mode ultrasound, color flow, and spectralDoppler. A non-invasive vascular imaging study of the bilateral lower extremityarteries and stents was performed using B-mode ultrasound, color flow, and spectral Doppler. INDICATIONS: Z48.812 Encounter for surgical aftercare following surgery on thecirculatory system. HISTORY: S/P ATHER/BA/STENT RT SFA & POP 09/07/23 S/P ATHER/BA/STENT LT SFA & POP, BA LT TPT 07/15/22 S/PENDRT LT WIRE FRAME LAMP SHADE MAKER 09/11/20 S/P STENT RT [place], ATHER/DCBA RT POP 03/05/17 S/P ENDART RT WIRE FRAME LAMP SHADE MAKER 10/10/15. COMPARISONS: No change compared to prior study. The previous exam was completed on03/16/24. MEASUREMENTS: Right Value Left Value Rt WIRE FRAME LAMP SHADE MAKER Prx PSV 127.70 cm/sec Lt WIRE FRAME LAMP SHADE MAKER Prx PSV 223.30 cm/sec Rt Profunda Prx PSV 103.70 cm/sec Lt Profunda Prx PSV 126.10 cm/sec Rt SFA Prx PSV 100.90 cm/sec Lt SFA Prx PSV 157.30 cm/sec Lt SFA Mid PSV 144.60 cm/sec STENTS: Right Value Left Value Location RT MID SFA & POP Location LT DIST SFA & POP Rt Stent Prx [place] PSV 66.00 cm/sec Lt Stent Prx [place] PSV 99.00cm/sec Rt Stent Prx PSV 80.00 cm/sec Lt Stent Prx PSV 64.00 cm/sec Rt Stent Mid PSV 100.00 cm/sec Lt Stent Mid PSV 116.00 cm/sec Rt Stent Dst PSV 102.00 cm/sec Lt Stent Dst PSV 92.00 cm/sec Rt Stent Dst Attachment PSV 72.00 cm/sec Lt Stent Dst [place] PSV 55.00cm/sec Rt Stent Dst [place] PSV 147.00 cm/sec FINDINGS: Right: Biphasic arteries include the right common femoral artery, profundafemoral artery, proximal superficial femoral artery, mid superficial femoralartery, distal superficial femoral artery, popliteal artery and anterior tibial artery. Left: Biphasic arteries include the left common femoral artery, profundafemoral artery, proximal superficial femoral artery, mid superficial femoral artery,distal superficial femoral artery and popliteal artery. CONCLUSION: 1. No evidence of significant atherosclerotic plaque or stenosis in theright lower extremity. Right the SFA and popliteal artery stents were patent. 2. No evidence of significant atherosclerotic plaque or stenosis in theleft lower extremity. Left SFA and popliteal artery stents are patent. ATTESTATION: I have reviewed and interpreted the pertinent images and measurements ofthis study. I attest to the conclusions in the final report that is provided above. Electronically Signed By: Markel Peralta MD 09/22/2024 1:28:41 PM CDT Markel Peralta MD [facility] PROCEDURES Final Re sult from Last 3 Months Insurance [facility] [employer] CHO[employer] PPO Advance Directives For more information, please contact: [phone] * Full Code (Latest Code Status on File) Date Activated Date Inactivated Comments 05/16/2024 4:04 PM 05/17/2024 8:34 PM Care Teams Spanish Medical Interpreter Relationship Specialty Start Date End Date Juan Whyte MD [address] [place] [address] PCP - General 10/03/16 Juan Mckeon MD [address] [place] [id number] Cardiology 12/09/16 Markel Peralta MD [address] [facility] [address] [facility] [address] [place] [address] Surgeon Vascular Surgery 02/08/19
--- OUTSIDE RECORDS SUMMARY | 2024-11-14 09:54 | XMS_ITS | Encounter Summary ---
Author Organization [facility] Facility Care Team Providers Care Last Model Department Supervisor Name Role Phone Juan Whyte MD Primary Care Provide r Juan Mckeon MD Unavailable [phone] Markel Peralta MD Unavailable [phone] Encounter Details Date Type Department Care Team (Latest Contact Info) Description 11/25/2017 Orders Only [facility] CLINCONV ProviderRosa Isela MD [address] [place] [id number] Social History Tobacco Use Types Packs/Day Years Used Date Smoking Tobacco: Former Cigarettes Q uit: 05/12/2016 Smokeless Tobacco: Never Comments:Smoking History Pac ks/day: 3 Cigarettes Alcohol Use Standard Drinks/Week Comments No 0 (1 standard drink = 0.6 oz pur e alcohol) Comments Unknown Sex and Gender Information Value Date Recorded Sex Assigned at Not on file 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 Historical Provider Final Res ult documented in this encounter Visit Diagnoses Not on filedocumented in this encounter Care Teams Last Model Department Supervisor Relationship Specialty Start Date End Date Juan Whyte MD [address] [place] [address] PCP - General 10/03/16 Juan Mckeon MD [address] [facility] [address] [place] [address] Cardiology 12/09/16 Markel Peralta MD [address] [facility] [address] [place] [address] Surgeon Vascular Surgery 02/08/19 documented as of this encounter
--- OUTSIDE RECORDS SUMMARY | 2024-11-14 09:54 | XMS_ITS | Referral Summary ---
Author Organization [facility] [address] [place] [address] Care Team Providers Care Export Administrator Name Role Phone Juan Whyte MD Primary Care Provide r Juan Mckeon MD Unavailable [phone] Markel Peralta MD Unavailable [phone] Encounters Date Type Department Care Team Description 10/06/[address] [facility] Vascular and Vein Surgery [address] [place] [address] [place] [phone] Markel Peralta MD Carotid bruit, unspecified laterality (Primary Dx) 10/06/[address] [facility] Medical [facility] Vascular and Vein Surgery [address] [place] [phone] Markel Peralta MD Carotid bruit, unspecified laterality (Primary Dx); Atheroscler of [place] artery of both legs with intermit claudication 10/06/2024 2:15 PM CDT Office Visit [facility] Vascular and Vein Surgery [address] [place] [phone] Hannah Fried NP Primary hypertension (Primary Dx); Mixed hyperlipidemia; Atheroscler of [place] artery of both legs with intermit claudication; Pain in both upper extremities 10/03/2024 9:46 AM CDT - 10/03/2024 11:59 PM CDT Hospital Encounter [facility] Cardiac Testing [facility] [place] [address] Subclavian artery stenosis, left; Subclavian artery stenosis, right Discharge Disposition: Discharge to home or self care 10/03/2024 9:46 AM CDT - 10/03/2024 11:59 PM CDT Hospital Encounter [facility] Cardiac Testing [address] [place] [phone] Bilateral carotid artery stenosis Discharge Disposition: Discharge to home or self care 09/28/2024 2:00 PM CDT Office Visit [facility] Cardiology [address] [facility] [address] [place] [phone] Davida Valdez NP Coronary artery disease involving [place] coronary artery of [place] heart without angina pectoris (Primary Dx); History of coronary artery stent placement; Paroxysmal atrial fibrillation (HCC); Atheroscler of [place] artery of both legs with intermit claudication; retirement current use of antiarrhythmic drug; Anticoagulation management encounter 09/21/2024 Orders Only [facility] Vascular and Vein Surgery [address] [place] [phone] Markel Peralta MD Subclavian artery stenosis, left (Primary Dx); Subclavian artery stenosis, right; Bilateral carotid artery stenosis 09/21/2024 9:50 AM CDT - 09/21/2024 11:59 PM CDT Hospital Encounter [facility] Cardiac Testing [address] [place] [address] Intermittent claudication Discharge Disposition: Discharge to home or self care 09/21/2024 11:15 AM CDT Office Visit [facility] Vascular and Vein Surgery [address] [place] [phone] Janna Santizo PA Claudication of upper extremity (Primary Dx); Carotid bruit, unspecified laterality; Atheroscler of [place] artery of both legs with intermit claudication; Mixed hyperlipidemia; Primary hypertension 09/21/2024 9:49 AM CDT - 09/21/2024 11:59 PM CDT Hospital Encounter [facility] Cardiac Testing [address] [place] [phone] Aftercare following surgery of the circulatory system Discharge Disposition: Discharge to home or self care 09/01/2024 Telephone [facility] Vascular and Vein Surgery [address] [place] [phone] Norma Zamudio from Last 3 Months Allergies Active Allergy Reactions Criticality Noted Date [...] 24 hr tabletIndication s:Coronary artery disease involving [place] coronary artery of [place] heart without angina pectoris TAKE 1 TABLET [...] losartan. Assessment & Plan (08/26/2023 11:45 AM PREASSEMBLER AND INSPECTOR): Impression: Chronic stable. Plan: Continue amlodipine, losartan, isosorbide, Assessment & Plan (09/23/2022 2:18 PM CDT): Hypertension remains chronic and controlled. Continue current medical therapy Assessment & Plan (07/15/2022 1:37 PM PREASSEMBLER AND INSPECTOR): Hypertension chronic and controlled. Continue current medical therapy. Assessment & Plan (06/27/2021 9:25 AM PREASSEMBLER AND INSPECTOR): Hypertension chronic and controlled. Continue current medical therapy retirement current use of antiarrhythmic drug Assessment & [...] 12:34 PM CDT): The patient has a [id number] score of 5 (annualized risk of stroke [...] re-evaluation Assessment & Plan (08/30/2020 9:27 AM PREASSEMBLER AND INSPECTOR): Ulceration stable. Continue dressing changes and plan for femoral endarterectomy. Assessment & Plan (08/23/2020 10:20 AM PREASSEMBLER AND INSPECTOR): New ischemic left great toe ulceration nonhealing. Patient has severe occlusive disease left lower extremity wound healing potential is poor. Have recommended left lower extremity angiogram possible intervention. The procedure and all associated risks have been thoroughly discussed with her in detail. She understands and agrees to proceed Tobacco abuse 08/23/2020 Assessment & Plan (08/30/2020 9:27 AM PREASSEMBLER AND INSPECTOR): Patient was again recommended to stop smoking different modalities were discussed. She hopes to quit within 3 months. Assessment & Plan (08/23/2020 10:23 AM PREASSEMBLER AND INSPECTOR): Patient unfortunately continues to smoke. We again [...] rosuvastatin. Assessment & Plan (08/26/2023 11:45 AM PREASSEMBLER AND INSPECTOR): Impression: Chronic and stable. Plan: Continue rosuvastatin Assessment & Plan (03/31/2023 9:30 AM CDT): Hyperlipidemia chronic and controlled. Continue Crestor. Assessment & Plan (07/15/2022 1:41 PM PREASSEMBLER AND INSPECTOR): Hyperlipidemia chronic and controlled. Continue Crestor. Assessment & Plan (06/27/2021 9:25 AM PREASSEMBLER AND INSPECTOR): Hyperlipidemia chronic and controlled. Continue Crestor. Assessment & Plan (08/30/2020 9:26 AM PREASSEMBLER AND INSPECTOR): Currently controlled. Continue current statin therapy Assessment & Plan (08/23/2020 10:19 AM PREASSEMBLER AND INSPECTOR): Currently controlled. Continue statin therapy Assessment & Plan (08/22/2019 11:44 AM PREASSEMBLER AND INSPECTOR): Patient states cholesterol levels are well controlled. She is tolerating statin therapy continue per primary care physician Coronary artery disease invo lving [place] coronary artery of [place] heart without angina pectoris 05/12/2017 History of [...] with atrial fibrillation: a report of the [place] [employer]/[place] [employer] Task Force on Practice Guidelines [...] A) Assessment & Plan (08/30/2020 9:28 AM PREASSEMBLER AND INSPECTOR): Will hold Eliquis 2 days prior to surgery. Otherwise continue current treatment Atheroscler of [place] artery of both legs with intermit claudication [...] ulcerations. Assessment & Plan (08/26/2023 11:44 AM PREASSEMBLER AND INSPECTOR): Impression: Patient has had multiple endovascular and [...] proceed. Assessment & Plan (05/22/2023 9:32 AM PREASSEMBLER AND INSPECTOR): Bilateral lower extremity arterial occlusive disease with [...] duplex. Assessment & Plan (08/10/2022 9:42 PM PREASSEMBLER AND INSPECTOR): Patient is 2 week postop follow-up visit [...] duplex. Assessment & Plan (07/15/2022 1:37 PM PREASSEMBLER AND INSPECTOR): Patient has ongoing disabling claudication left lower extremity. Duplex findings suggest high-grade SFA stenosis. I have recommended left lower extremity angiogram with possible intervention. The procedure indications and all risks have been explained. She understands and agrees to proceed. Assessment & Plan (06/27/2021 9:24 AM PREASSEMBLER AND INSPECTOR): Patient continues to do well with no recurrence symptoms. Continue 6 month noninvasive study surveillance. Continue anti-platelet therapy and exercise. Assessment & Plan (08/30/2020 9:26 AM PREASSEMBLER AND INSPECTOR): Disabling claudication left lower extremity has worsened over the last 6 months. Have recommended left femoral endarterectomy with patch angioplasty the procedure, indications and all associated risks have been thoroughly discussed with the patient she understands and agrees to proceed Assessment & Plan (08/22/2019 11:42 AM PREASSEMBLER AND INSPECTOR): Patient has stable non disabling claudication of the left calf. No indication at this point to move forward with further workup or intervention. Continue exercise, risk factor modification and close surveillance. Atherosclerosis of [place] ar viktoriya of right lower extremity with [...] duplex. Assessment & Plan (08/23/2020 10:19 AM PREASSEMBLER AND INSPECTOR): Continues to do well with no recurrence symptoms. Stent is patent with normal perfusion right foot. Continue anti-platelet therapy and ongoing risk factor modification with 6 months duplex surveillance Assessment & Plan (08/22/2019 11:44 AM PREASSEMBLER AND INSPECTOR): Patient has no recurrence symptoms of rest [...] Resolved Date Peripheral vascular disease 08/27/2016 08/26/2023 Immunizations Immunization Administration Dates Next Due Influenza, Quadrivalent, Hig h Dose, Preservative Free, Intrr 04/23/2020 Influenza, Trivalent, High D ose, Split, Preservative Free, Intramuscular 06/07/2019,04/26/2018,04/29/2016,05/14 Influenza, Unspecified 05/05/2014,04/13/2013,06/2013 [facility]OSTER [facility] 04/13/2013 Social History Tobacco Use Types Packs/Day Years [...] on file Legal Sex Female 3:57 AM PREASSEMBLER AND INSPECTOR Gender Identity Not on file Sexual Orientation Not on file Last Filed Vital Signs Vital Sign Reading Time Taken Comments Blood Pressure 179/69 10/06/2024 2:05 PM CDT Pulse 67 10/06/2024 2:05 PM CDT Temperature 36.8 C (98.2 F) 05/17/2024 3:30 PM PREASSEMBLER AND INSPECTOR Respiratory Rate 18 05/17/2024 3:30 PM PREASSEMBLER AND INSPECTOR Oxygen Saturation 98% 09/28/2024 1:49 PM CDT Inhaled Oxygen Concentration - - Weight 67.1 kg (148 lb) 10/06/2024 2:05 PM CDT Height 170.2 cm (5' 7 ) 10/06/2024 2:05 PM CDT Body Mass Index 23.18 10/06/2024 2:05 PM CDT Plan of Treatment Not on file Medical Devices Implanted Type Area [employer] [place]eter Device Identifier Shelf Expiration Date Model / Serial / Lot vBrand Inc [id number] System 6-12fr Mvp Venous Closure Vascade - [id number] - [id number] Implanted:Qty: 1 on 12/18/2020 by Rui Valdez MD at [facility] Collagen [employer] 2022 800-612C-1 0U / [id number] / [id number] [employer] [id number] System 6-12fr Mvp Venous Closure Vascade - [id number] - [id number] Implanted:Qty: 1 on 12/18/2020 by Rui Valdez MD at [facility] Collagen [employer] 03/27/2022 800-612C-1 0U / [id number] / [id number] [employer] [id number] System 6-12fr Mvp Venous Closure Vascade - [id number] - [id number] Implanted:Qty: 1 on 12/18/2020 by Rui Valdez MD at [facility] Collagen [employer] 10/08/2022 800-612C-1 0U / [id number] / [id number] [employer] [id number] Vascade 6/7fr Bioabsorbable Vascular System Compression Collagen - [id number] - [id number] Implanted:Qty: 1 on 12/18/2020 by Rui Valdez MD at [facility] Collagen [employer] 10/02/2022 [id number]-0 5U / [id number] / [id number] [employer] Long Synergy Xd 3.5mm 48mm System Coronary Stent Everolimus [id number] - S0 - [id number] Implanted:Qty: 1 on 05/16/2024 by Wilfredo Craig MD at [facility] Stent [employer] Long 11/02/2025 [id number] / 0 / [id number] [employer] Long Stent Drug Eluting S Megatron Us Mr 4.79u53my [id number] - S0 - [id number] Implanted:Qty: 1 on 05/16/2024 by Wilfredo Craig MD at [facility] Stent [employer] Long 09/09/2025 [id number] / 0 / [id number] El[employer] Inc Stent System Biomimics 3d Vascular 6x80mm [id number] - [id number] Implanted:Qty: 1 on 07/15/2022 by Markel Peralta MD at [facility] [employer] 03/27/2023 [id number] / / [id number] Banegas Vascular Device Clsr Perclose Prostyle Sut-Mediatd Closure-Repair Sys 21245-09 - [id number] Implanted:Qty: 1 on 07/15/2022 by Markel Peralta MD at [facility] [employer] 03/05/2024 [id number] / / [id number] Bard Peripheral Vascular Lifestent 6mm 6fr 200mm 135cm Self Expand Catheter Guidewire .035 [id number] - [id number] Implanted:Qty: 1 on 09/07/2023 by Markel Peralta MD at [facility] Peripheral Vascular 03/27/2025 [id number] / / [id number] Banegas Vascular Device Clsr Perclose Prostyle Sut-Mediatd Closure-Repair Sys [id number] - [id number] Implanted:Qty: 1 on 09/07/2023 by Markel Peralta MD at [facility] [employer] Vascular 11/02/2024 [id number] / / [id number] Bard Peripheral Vascular Lifestent 6mm 6fr 120mm 130cm Self Expand Catheter Helical [id number] - [id number] Implanted:Qty: 1 on 09/07/2023 by Markel Peralta MD at [facility] Bard Peripheral Vascular 10/14/2024 [id number] / / [id number] Procedures Procedure Name Priority Date/Time Associated Diagnosis Comments US CAROTIDS DUPLEX BILATERAL Schedule Routine, Read Routine (OP Routine) 10/03/2024 11:00 AM CDT Bilateral carotid artery stenosis US ARTERIAL DOPPLER UPPER EXTREMITY BILATERAL Schedule Routine, Read Routine (OP Routine) 10/03/2024 10:32 AM CDT Subclavian artery stenosis, left Subclavian artery stenosis, right ECG 12-LEAD Routine 09/28/2024 4:19 PM CDT retirement current use of antiarrhythmic drug US FLORIAN [...] Study Date: 10/03/2024 9:57:37 AM Gender: F Foam Cutting Supervisor: JULES Barbosa Ref Provider: MARKEL PERALTA Quality: [...] Study Date: 10/03/2024 9:57:37 AM Gender: F Foam Cutting Supervisor: JULES Babrosa Ref Provider: MARKEL PERALTA Quality: Adequate PROCEDURES: [...] internal carotid artery disease is consistent with -67% stenosis. 3. Normal, antegrade flow is noted [...] Gender: F Study Date: 10/03/2024 09:48:00 AM Foam Cutting Supervisor: Trena Lujan Rdms,rvt Order Provider: MARKEL PERALTA [...] Gender: F Study Date: 10/03/2024 09:48:00 AM Foam Cutting Supervisor: Trena Lujan Rdms,rvt Order Provider: MARKEL PERALTA [...] Markel Peralta MD 10/04/2024 7:28:24 AM CDT us Markel Peralta MD IMG US [...] Study Date: 09/21/2024 10:11:00 AM Gender: F Foam Cutting Supervisor: Joselyn Swenson RVS Ref Provider: MARKEL PERALTA Quality: Adequate Order Provider: MARKEL PERALTA PROCEDURES: Arterial Report: Ankle - Brachial Index Doppler exam. INDICATIONS: I73.9 Peripheral vascular disease, unspecified. HISTORY: s/p ATHER/BA/STSENT RT SFA & POP 09/07/23 S/P ATHER/BA/STENT LT SFA & POP, BA LT TPT 07/15/22 S/P ENDART LT CLASSIFICATION CLERK 09/11/20 S/P STENT RT MARKO, ATHER/DCBA RT POP 03/05/17 S/P ENDART RT CLASSIFICATION CLERK 10/10/15. COMPARISONS: No change compared to prior study. The previous exam was completed on 03/16/24. MEASUREMENTS: Right Value Left Value Rt Brachial Pressure 194 mmHg Lt Brachial Pressure 199 mmHg Rt CLINICAL SERVICES CONSULTANT Pressure 186 mmHg Lt CLINICAL SERVICES CONSULTANT Pressure 177 mmHg Rt DPA Pressure 180 [...] Study Date: 09/21/2024 10:11:00 AM Gender: F Foam Cutting Supervisor: Joselyn Swenson RVS Ref Provider: MARKEL PERALTA Quality: Adequate Order Provider: MARKEL PERALTA PROCEDURES: Arterial Report: Ankle - Brachial Index Doppler exam. INDICATIONS: I73.9 Peripheral vascular disease, unspecified. HISTORY: s/p ATHER/BA/STSENT RT SFA & POP 09/07/23 S/P ATHER/BA/STENT LT SFA & POP, BA LT TPT 07/15/22 S/P ENDART LT CLASSIFICATION CLERK 09/11/20 S/P STENT RT MARKO, ATHER/DCBA RT POP 03/05/17 S/P ENDART RT CLASSIFICATION CLERK 10/10/15. COMPARISONS: No change compared to prior study. The previous exam was completed on 03/16/24. MEASUREMENTS: Right Value Left Value Rt Brachial Pressure 194 mmHg Lt Brachial Pressure 199 mmHg Rt CLINICAL SERVICES CONSULTANT Pressure 186 mmHg Lt CLINICAL SERVICES CONSULTANT Pressure 177 mmHg Rt DPA Pressure 180 [...] Date: 09/21/2024 10:33:17 AM Ht(Inch): Wt(Lb): BSA: Foam Cutting Supervisor: PEREZ VENCES Provider: MARKEL PERALTA Quality: Adequate [...] POP, BA LT TPT 07/15/22 S/PENDRT LT CLASSIFICATION CLERK 09/11/20 S/P STENT RT MARKO, ATHER/DCBA RT POP 03/05/17 S/P ENDART RT CLASSIFICATION CLERK 10/10/15. COMPARISONS: No change compared to prior study. The previous exam was completed on 03/16/24. MEASUREMENTS: Right Value Left Value Rt CLASSIFICATION CLERK Prx PSV 127.70 cm/sec Lt CLASSIFICATION CLERK Prx PSV 223.30 cm/sec Rt Profunda Prx PSV 103.70 cm/sec Lt Profunda Prx PSV 126.10 cm/sec Rt SFA Prx PSV 100.90 cm/sec Lt SFA Prx PSV 157.30 cm/sec Lt SFA Mid PSV 144.60 cm/sec STENTS: Right Value Left Value Location RT MID SFA & POP Location LT DIST SFA & POP Rt Stent Prx [place] PSV 66.00 cm/sec Lt Stent Prx [place] PSV 99.00 cm/sec Rt Stent Prx PSV 80.00 cm/sec Lt Stent Prx PSV 64.00 cm/sec Rt Stent Mid PSV 100.00 cm/sec Lt Stent Mid PSV 116.00 cm/sec Rt Stent Dst PSV 102.00 cm/sec Lt Stent Dst PSV 92.00 cm/sec Rt Stent Dst Attachment PSV 72.00 cm/sec Lt Stent Dst [place] PSV 55.00 cm/sec Rt Stent Dst [place] PSV 147.00 cm/sec FINDINGS: Right: Biphasic arteries [...] Date: 09/21/2024 10:33:17 AM Ht(Inch): Wt(Lb): BSA: Foam Cutting Supervisor: PEREZ VENCES Provider: MARKEL PERALTA Quality: Adequate [...] POP, BA LT TPT 07/15/22 S/PENDRT LT CLASSIFICATION CLERK 09/11/20 S/P STENT RT MARKO, ATHER/DCBA RT POP 03/05/17 S/P ENDART RT CLASSIFICATION CLERK 10/10/15. COMPARISONS: No change compared to prior study. The previous exam was completed on03/16/24. MEASUREMENTS: Right Value Left Value Rt CLASSIFICATION CLERK Prx PSV 127.70 cm/sec Lt CLASSIFICATION CLERK Prx PSV 223.30 cm/sec Rt Profunda Prx PSV 103.70 cm/sec Lt Profunda Prx PSV 126.10 cm/sec Rt SFA Prx PSV 100.90 cm/sec Lt SFA Prx PSV 157.30 cm/sec Lt SFA Mid PSV 144.60 cm/sec STENTS: Right Value Left Value Location RT MID SFA & POP Location LT DIST SFA & POP Rt Stent Prx [place] PSV 66.00 cm/sec Lt Stent Prx [place] PSV 99.00cm/sec Rt Stent Prx PSV 80.00 cm/sec Lt Stent Prx PSV 64.00 cm/sec Rt Stent Mid PSV 100.00 cm/sec Lt Stent Mid PSV 116.00 cm/sec Rt Stent Dst PSV 102.00 cm/sec Lt Stent Dst PSV 92.00 cm/sec Rt Stent Dst [place] PSV 72.00 cm/sec Lt Stent Dst [place] PSV 55.00cm/sec Rt Stent Dst [place] PSV 147.00 cm/sec FINDINGS: Right: Biphasic arteries [...] 09/22/2024 1:28:41 PM CDT Markel Peralta MD [facility] PROCEDURES Final Re sult from Last 3 Months Insurance [employer] ADVANTAGE CHOICE PPO Advance Directives For more information, please contact: [phone] * Full Code (Latest Code Status on File) Date Activated Date Inactivated Comments 05/16/2024 4:04 PM 05/17/2024 8:34 PM Care Teams Export Administrator Relationship Specialty Start Date End Date Juan Whyte MD [address] [facility] [place] [address] PCP - General 10/03/16 Juan Mckeon MD [address] [address] Cardiology 12/09/16 Markel Peralta MD [address] [facility] [id number] [place] [address] Surgeon Vascular Surgery 02/08/19
[2024-11-14 11:12] LABS: Alanine Aminotransferase 20 U/L (6-35); Albumin Level 3.7 g/dL (3.5-5.1); Alkaline Phosphatase 87 U/L (38-126); Anion Gap 5 mmol/L (4-12); Aspartate Amino Transferase 32 U/L (14-36); Bilirubin,Total 0.7 mg/dL (0.2-1.3); Blood Urea Nitrogen 13 mg/dL (7-17); Calcium 8.8 mg/dL (8.4-10.2); Carbon Dioxide 27 mmol/L (22-30); Chloride 104 mmol/L (98-107); Cholesterol 111 mg/dL (0-200); Estimated Glomerular Filt Rate > 60; Glucose 88 mg/dL (65-110); HDL Direct 58 mg/dL; Potassium 3.6 mmol/L (3.4-5.0); Sodium 136 mmol/L (137-145); Triglycerides 91 mg/dL (<150)
[2024-11-14 11:32] LABS: Vitamin D 25 Hydroxy 39.6 ng/mL
[2024-11-14 11:43] LABS: Thyroid Stimulating Hormone 0.261 uIU/mL (0.465-4.680)
[2024-11-14 11:48] LABS: LDL Cholesterol Direct < 30 mg/dL
== END 2024-11-14 09:46 | disposition home or self-care (01) ==
LOC: ANHLAB 09:48
PROVIDERS: PCP Emergency Medicine; Visit Provider Emergency Medicine
DX: E78.5 Hyperlipidemia, unspecified (principal); E03.9 Hypothyroidism, unspecified; E55.9 Vitamin D deficiency, unspecified; E78.2 Mixed hyperlipidemia
CPT/HCPCS: 36415; 80053; 80061; 82306; 84443

== ENCOUNTER 2024-12-11 15:25 | Emergency (ER) | payer OTHER, SELFPAY ==
--- NOTE | ~2024-12-11 | XR_ITS ---
EXAM: XR elbow LT min 3V, XR forearm LT 2V, XR wrist LT min 3V DATE: 12/11/2024 18:15 (accession [id number]), 12/11/2024 17:18 (accession [id number]), 12/11 18:15 (accession [id number]) HISTORY: fall . COMPARISON: None available. FINDINGS: Osteopenia. No fracture or dislocation. No lytic or blastic lesion. Joint spaces are maint ained. No erosion or periosteal change. A peripheral IV projects over the left antecubital fossa. Lar ge left elbow joint effusion. Mild scattered vascular calcifications degenerative changes in the wris t and elbow. IMPRESSION: No definite acute osseous finding detected in the left elbow, forearm, or wrist. Large el bow joint effusion, which can accompany occult fractures, likely of the radial head in a patient of t his age. Reviewed, dictated and finalized at location K. IMPRESSION: No definite acute osseous finding detected in the left elbow, forea rm, or wrist. Large elbow joint effusion, which can accompany occult fractures, likely of the radial head in a patient of this age. IMPRESSION: No definite acute osseous finding detected in the left elbow, forea rm, or wrist. Large elbow joint effusion, which can accompany occult fractures, likely of the radial head in a patient of this age.
--- NOTE | ~2024-12-11 | CT_ITS ---
EXAMINATION: CT diagnostic chest w con DATE: 12/11/2024 17:50 INDICATION: breast implants, fall, right breast contusion TECHNIQUE: Computed tomography (CT) of the chest was performed with 100 mL Omnipaque-350 intravenous contrast. Automated exposure control and iterative reconstruction technique were employed. The dose-l ength product was 240.67 mGy-cm. COMPARISON: CT abdomen pelvis 11/24/2023. FINDINGS: CHEST: Thoracic aorta: Moderate atherosclerotic plaque/calcification. Mild dilation of the descending thorac ic aorta to 3.1 cm. Lung parenchyma and airways: Lungs and airways are clear. Thoracic inlet, axillae and chest wall: Calcified bilateral breast implants. No thyroid or soft tissu e mass. No axillary lymphadenopathy. Mediastinum: No mass or lymphadenopathy. Heart and pericardium: Cardiomegaly. No pericardial effusion. Coronary artery calcifications: Moderate. Pleura: No effusion or mass. Upper abdomen: Multiple liver cysts. Cholelithiasis. Large calcified right adrenal adenoma. Likely le ft adrenal adenomas. Status post right nephrectomy. Thoracic bones: No acute osseous finding in the chest. IMPRESSION: No acute thoracic process detected. Reviewed, dictated and finalized at location K.
--- NOTE | ~2024-12-11 | CT_ITS ---
EXAMINATION: CT brain wo con DATE: 12/11/2024 17:50 INDICATION: fall . TECHNIQUE: Computed tomography (CT) of the head was performed without intravenous contrast. The mA wa s adjusted according to patient size. Iterative reconstruction technique was employed. The dose-lengt h product was 605.33 mGy-cm. COMPARISON: 10/23/2015. FINDINGS: No acute intracranial hemorrhage or extra-axial fluid collection. No hydrocephalus, mass, or herniation. No acute ischemic infarct. Unremarkable dural venous sinus attenuation. No acute osseous abnormality. The aerated spaces are clear. Moderate atrophy and chronic white matter change. Atherosclerotic intracranial calcification. Bilater al lens replacements. 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 IMPRESSION: No acute intracranial process. Reviewed, dictated and finalized at location K.
--- NOTE | ~2024-12-11 | XR_ITS ---
EXAM: XR elbow RT min 3V, XR forearm RT 2V, XR wrist RT min 3V DATE: 12/11/2024 18:15 (accession [id number]), 12/11/2024 17:18 (accession [id number]), 12/11 18:15 (accession [id number]) HISTORY: fall . COMPARISON: None available. FINDINGS: Osteopenia. No fracture or dislocation. No lytic or blastic lesion. Mild degenerative miner ges in the elbow and wrist. No erosion or periosteal change. Soft tissue irregularity over the elbow with bandage material, likely representing soft tissue injury. IMPRESSION: No acute osseous finding in the right elbow, forearm, or wrist. Reviewed, dictated and finalized at location K. IMPRESSION: No acute osseous finding in the right elbow, forearm, or wrist. IMPRESSION: No acute osseous finding in the right elbow, forearm, or wrist.
--- NOTE | ~2024-12-11 | CT_ITS ---
EXAMINATION: CT facial & cervical spine wo DATE: 12/11/2024 17:50 INDICATION: fall TECHNIQUE: Computed tomography (CT) of the maxillofacial region and cervical spine was performed with out intravenous contrast. Automated exposure control and iterative reconstruction technique were empl oyed. The dose-length product was 223.41 mGy-cm. COMPARISON: None FINDINGS: CERVICAL: Vertebral Body Alignment: Reversed lordosis centered at C5. Multilevel trace listheses, presumably on a degenerative basis. Craniocervical and atlantoaxial alignment: Moderate degenerative change. Alignment intact. Osseous structures/fracture: No evidence of a lytic or blastic process in the visualized spine. No e vidence of acute fracture. Cervical soft tissues: The paraspinal soft tissues planes are maintained. Degenerative changes: Degenerative disc and facet changes, without severe central canal narrowing. Mu ltilevel neural foraminal narrowing in the lower cervical spine secondary to degenerative changes. FACE: Soft Tissues: No significant superficial soft tissue swelling. Facial bones: No acute fracture. No lytic or blastic process. Eyes: The globes are intact. Bilateral lens replacements. The soft tissue planes of the orbits are m aintained. Paranasal Sinuses: The visualized aerated spaces are clear. Foreign Bodies: No radiopaque foreign bodies. Other Findings: None. IMPRESSION: No acute fracture or traumatic malalignment in the cervical spine. No acute facial bone fracture. Reviewed, dictated and finalized at location K. IMPRESSION: No acute fracture or traumatic malalignment in the cervical spine. No acute fac ial bone fracture.
[2024-12-11 15:25] VITALS: BP 164/81; PULSE 93; RESP 14; TEMP 36.6; O2SAT 99
--- OUTSIDE RECORDS SUMMARY | 2024-12-11 15:27 | XMS_ITS | Referral Summary ---
Author Organization [facility] [address] [facility] [address] Address [address] [place] [address] Care Team Providers Care Optical Instrument Assembler Name Role Phone Juan Whyte MD Primary Care Provide r Juan Mckeon MD Unavailable [phone] Markel Peralta MD Unavailable [phone] Encounters Date Type Department Care Team Description 11/24/2024 Telephone [facility] Medical Group Cardiology [address] [place] [address] Juan Mckeon MD 10/06/2024 Orders Only [facility] Medical [facility] Vascular and Vein Surgery [facility] [address] [place] [address] Markel Peralta MD Carotid bruit, unspecified laterality (Primary Dx) 10/06/2024 Orders Only [facility] Vascular and Vein Surgery [address] [facility] [address] [place] [address] Markel Peralta MD Carotid bruit, unspecified laterality (Primary Dx); Atheroscler of [place] artery of both legs with intermit claudication 10/06/2024 2:15 PM CDT Office Visit [facility] Medical [facility] Vascular and Vein Surgery [facility] [address] [place] [address] Hannah Fried NP Primary hypertension (Primary Dx); Mixed hyperlipidemia; Atheroscler of [place] artery of both legs with intermit claudication; Pain in both upper extremities 10/03/2024 9:46 AM CDT - 10/03/2024 11:59 PM CDT Hospital Encounter [facility] Cardiac Testing [address] [place] [address] Subclavian artery stenosis, left; Subclavian artery stenosis, right Discharge Disposition: Discharge to home or self care 10/03/2024 9:46 AM CDT - 10/03/2024 11:59 PM CDT Hospital Encounter [facility] Cardiac Testing [address] [place] [address] Bilateral carotid artery stenosis Discharge Disposition: Discharge to home or self care 09/28/2024 2:00 PM CDT Office Visit [facility] Medical [facility] Cardiology [address] [place] [phone] Davida Valdez NP Coronary artery disease involving [place] coronary artery of [place] heart without angina pectoris (Primary Dx); History of coronary artery stent placement; Paroxysmal atrial fibrillation (HCC); Atheroscler of [place] artery of both legs with intermit claudication; custodial current use of antiarrhythmic drug; Anticoagulation management encounter 09/21/2024 Orders Only [facility] Medical Group Vascular and Vein Surgery [address] [place] [address] [place] [phone] Markel Peralta MD Subclavian artery stenosis, left (Primary Dx); Subclavian artery stenosis, right; Bilateral carotid artery stenosis 09/21/2024 9:50 AM CDT - 09/21/2024 11:59 PM CDT Hospital Encounter [facility] Cardiac Testing [address] [place] [address] Intermittent claudication Discharge Disposition: Discharge to home or self care 09/21/2024 11:15 AM CDT Office Visit [facility] Group Vascular and Vein Surgery [facility] [address] [place] [phone] Janna Santizo PA Claudication of upper extremity (Primary Dx); Carotid bruit, unspecified laterality; Atheroscler of [place] artery of both legs with intermit claudication; Mixed hyperlipidemia; Primary hypertension 09/21/2024 9:49 AM CDT - 09/21/2024 11:59 PM CDT Hospital Encounter [facility] Cardiac Testing [address] [place] [address] Aftercare following surgery of the circulatory system Discharge Disposition: Discharge to home or self care from Last 3 Months Allergies Active Allergy Reactions Criticality Noted Date Comments Nitrofurantoin Hives Medium 09/03/2020 Medications traMADol (ULTRAM) 50 mg tablet Take 1 tablet (50 mg total) by mouth every 6 (six) hours as needed 0 8 Active losartan (COZAAR) 100 mg tablet Take 1 tablet (100 mg total) by mouth daily after lunch 2 8 Active nitroglycerin (NITROSTAT) 0.[address] 1 TABLET UNDER THE TONGUE EVERY 5 MINUTES NEEDED FOR CHEST PAIN. 25 tablet 3 4 Active levothyroxine (SYNTHROID) 75 mcg tablet Take 1 tablet (75 mcg total) by mouth daily 4 Active isosorbide mononitrate ER (IMDUR) 30 mg 24 hr tabletIndication s:Coronary artery disease involving [place] coronary artery of [place] heart without angina pectoris TAKE 1 TABLET BY MOUTH EVERY DAY 90 tablet 1 5 Active amLODIPine (NORVASC) 10 mg tablet TAKE 1 TABLET BY MOUTH EVERY DAY 90 tablet 1 5 Active rosuvastatin (CRESTOR) 10 mg tablet TAKE 1 TABLET BY MOUTH EVERY DAY 90 tablet 1 5 Active Eliquis 5 mg tablet TAKE 1 TABLET BY MOUTH TWICE A DAY 60 tablet 5 5 Active clopidogreL (PLAVIX) 75 mg tablet TAKE 1 TABLET BY MOUTH EVERY DAY 90 tablet 3 5 Active sotaloL (BETAPACE) 80 mg tablet Take 0.5 tablets (40 mg total) by mouth 2 (two) times a day 90 tablet 3 5 Active sotaloL (BETAPACE) 80 mg tablet TAKE 1/2 TABLET TWICE A DAY BY MOUTH 90 tablet 3 4 11/25/19 25 Discontinu ed(Reorder ) Active Problems Problem Noted Date Diagnosed Date [...] losartan. Assessment & Plan (08/26/2023 11:45 AM HOUSE ADMIN): Impression: Chronic stable. Plan: Continue amlodipine, losartan, isosorbide, Assessment & Plan (09/23/2022 2:18 PM CDT): Hypertension remains chronic and controlled. Continue current medical therapy Assessment & Plan (07/15/2022 1:37 PM HOUSE ADMIN): Hypertension chronic and controlled. Continue current medical therapy. Assessment & Plan (06/27/2021 9:25 AM HOUSE ADMIN): Hypertension chronic and controlled. 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 Continue dressing changes and plan for femoral endarterectomy. Assessment & Plan (08/23/2020 10:20 AM HOUSE ADMIN): New ischemic left great toe ulceration nonhealing. Patient has severe occlusive disease left lower extremity wound healing potential is poor. Have recommended left lower extremity angiogram possible intervention. The procedure and all associated risks have been thoroughly discussed with her in detail. She understands and agrees to proceed Tobacco abuse 08/23/2020 Assessment & Plan (08/30/2020 9:27 AM HOUSE ADMIN): Patient was again recommended to stop smoking different modalities were discussed. She hopes to quit within 3 months. Assessment & Plan (08/23/2020 10:23 AM HOUSE ADMIN): Patient unfortunately continues to smoke. We again [...] rosuvastatin. Assessment & Plan (08/26/2023 11:45 AM HOUSE ADMIN): Impression: Chronic and stable. Plan: Continue rosuvastatin Assessment & Plan (03/31/2023 9:30 AM CDT): Hyperlipidemia chronic and controlled. Continue Crestor. Assessment & Plan (07/15/2022 1:41 PM HOUSE ADMIN): Hyperlipidemia chronic and controlled. Continue Crestor. Assessment & Plan (06/27/2021 9:25 AM HOUSE ADMIN): Hyperlipidemia chronic and controlled. Continue Crestor. Assessment & Plan (08/30/2020 9:26 AM HOUSE ADMIN): Currently controlled. Continue current statin therapy Assessment & Plan (08/23/2020 10:19 AM HOUSE ADMIN): Currently controlled. Continue statin therapy Assessment & Plan (08/22/2019 11:44 AM HOUSE ADMIN): Patient states cholesterol levels are well controlled. She is tolerating statin therapy continue per primary care physician Coronary artery disease invo lving y[place]ut[place] coronary artery of [place] heart without angina pectoris 05/12/2017 History of [...] office will make the appropriate arrangements. From: July CT, Adonay LS, Cesario JS, Juan C H, Beto ANABELLE, Lew JE, Cristhian CHEIKH, Patricia PT, Leo CASPER, [place], Jorge Luis KT, Namrata RL, Toney WG, Morteza PJ, Miriam CM, Breana CW. 2014 AHA/ACC/HRS guideline for the management of patients with atrial fibrillation: a report of the [place] [employer]/[place] Heart Association Task Force on Practice Guidelines [...] A) Assessment & Plan (08/30/2020 9:28 AM HOUSE ADMIN): Will hold Eliquis 2 days prior to surgery. Otherwise continue current treatment Atheroscler of [place] artery of both legs with intermit claudication [...] ulcerations. Assessment & Plan (08/26/2023 11:44 AM HOUSE ADMIN): Impression: Patient has had multiple endovascular and [...] proceed. Assessment & Plan (05/22/2023 9:32 AM HOUSE ADMIN): Bilateral lower extremity arterial occlusive disease with [...] duplex. Assessment & Plan (08/10/2022 9:42 PM HOUSE ADMIN): Patient is 2 week postop follow-up visit [...] duplex. Assessment & Plan (07/15/2022 1:37 PM HOUSE ADMIN): Patient has ongoing disabling claudication left lower extremity. Duplex findings suggest high-grade SFA stenosis. I have recommended left lower extremity angiogram with possible intervention. The procedure indications and all risks have been explained. She understands and agrees to proceed. Assessment & Plan (06/27/2021 9:24 AM HOUSE ADMIN): Patient continues to do well with no recurrence symptoms. Continue 6 month noninvasive study surveillance. Continue anti-platelet therapy and exercise. Assessment & Plan (08/30/2020 9:26 AM HOUSE ADMIN): Disabling claudication left lower extremity has worsened over the last 6 months. Have recommended left femoral endarterectomy with patch angioplasty the procedure, indications and all associated risks have been thoroughly discussed with the patient she understands and agrees to proceed Assessment & Plan (08/22/2019 11:42 AM HOUSE ADMIN): Patient has stable non disabling claudication of the left calf. No indication at this point to move forward with further workup or intervention. Continue exercise, risk factor modification and close surveillance. Atherosclerosis of [place] ar viktoriya of right lower extremity with [...] duplex. Assessment & Plan (08/23/2020 10:19 AM HOUSE ADMIN): Continues to do well with no recurrence symptoms. Stent is patent with normal perfusion right foot. Continue anti-platelet therapy and ongoing risk factor modification with 6 months duplex surveillance Assessment & Plan (08/22/2019 11:44 AM HOUSE ADMIN): Patient has no recurrence symptoms of rest [...] on file Legal Sex Female 3:57 AM HOUSE ADMIN Gender Identity Not on file Sexual Orientation Not on file Last Filed Vital Signs Vital Sign Reading Time Taken Comments Blood Pressure 179/69 10/06/2024 2:05 PM CDT Pulse 67 10/06/2024 2:05 PM CDT Temperature 36.8 C (98.2 F) 05/17/2024 3:30 PM HOUSE ADMIN Respiratory Rate 18 05/17/2024 3:30 PM HOUSE ADMIN Oxygen Saturation 98% 09/28/2024 1:49 PM CDT Inhaled Oxygen Concentration - - Weight 67.1 kg (148 lb) 10/06/2024 2:05 PM CDT Height 170.2 cm (5' 7) 10/06/2024 2:05 PM CDT Body Mass Index 23.18 10/06/2024 2:05 PM CDT Plan of Treatment Not on file Medical Devices Implanted Type Area Spool Hauler Device Identifier Shelf Expiration Date Model / Serial / Lot [employer] [id number] System 6-12fr Mvp Venous Closure Vascade - [id number] - [id number] Implanted:Qty: 1 on 12/18/2020 by Rui Valdez MD at [facility] Collagen [employer] 2022 800-612C-1 0U / [id number] / [id number] [employer] [id number] System 6-12fr Mvp Venous Closure Vascade - [id number] - [id number] Implanted:Qty: 1 on 12/18/2020 by Rui Valdez MD at [facility] [employer] 03/27/2022 800-612C-1 0U / [id number] / [id number] [employer] [id number] System 6-12fr Mvp Venous Closure Vascade - [id number] - [id number] Implanted:Qty: 1 on 12/18/2020 by Rui Valdez MD at [facility] Coll[employer] 10/08/2022 800-612C-1 0U / [id number] / [id number] [employer] [id number] Vascade 6/7fr Bioabsorbable Vascular System Compression Collagen - [id number] - [id number] Implanted:Qty: 1 on 12/18/2020 by Rui Valdez MD at [facility] [employer] 10/02/2022 700-580I-0 5U / [id number] / [id number] [employer] Long Synergy Xd 3.5mm 48mm System Coronary Stent Everolimus [id number] - S0 - [id number] Implanted:Qty: 1 on 05/16/2024 by Wilfredo Craig MD at [facility] Stent [employer] 11/02/2025 [id number] / 0 / [id number] [employer] Long Stent Drug Eluting S Angela Us Mr 4.89g19er [id number] - S0 - [id number] Implanted:Qty: 1 on 05/16/2024 by Wilfredo Craig MD at [facility] Stent [employer] 09/09/2025 [id number] / 0 / [id number] [employer] Inc Stent System Biomimics 3d Vascular 6x80mm [id number] - [id number] Implanted:Qty: 1 on 07/15/2022 by Markel Peralta MD at [facility] [employer] 03/27/2023 [id number] / / [id number] [employer] Vascular Device Clsr Perclose Prostyle Sut-Mediatd Closure-Repair Sys 25568-52 - [id number] Implanted:Qty: 1 on 07/15/2022 by Markel Peralta MD at [facility] [employer] Vascular 03/05/2024 [id number] / / [id number] Bard Peripheral Vascular Lifestent 6mm 6fr 200mm 135cm Self Expand Catheter Guidewire .035 [id number] - [id number] Implanted:Qty: 1 on 09/07/2023 by Markel Peralta MD at [facility] [employer] Peripheral Vascular 03/27/2025 [id number] / / [id number] [employer] Vascular Device Clsr Perclose Prostyle Sut-Mediatd Closure-Repair Sys 78639-67 - [id number] Implanted:Qty: 1 on 09/07/2023 by Markel Peralta MD at [facility] [employer] V[employer] 11/02/2024 [id number] / / [id number] Bard Peripheral Vascular Lifestent 6mm 6fr 120mm 130cm Self Expand Catheter Helical [id number] - [id number] Implanted:Qty: 1 on 09/07/2023 by Markel Peralta MD at [facility] [employer] Peripheral Vascular 10/14/2024 [id number] / / [id number] Procedures Procedure Name Priority Date/Time Associated Diagnosis Comments US CAROTIDS DUPLEX BILATERAL Schedule Routine, Read Routine (OP Routine) 10/03/2024 11:00 AM CDT Bilateral carotid artery stenosis US ARTERIAL DOPPLER UPPER EXTREMITY BILATERAL Schedule Routine, Read Routine (OP Routine) 10/03/2024 10:32 AM CDT Subclavian artery stenosis, left Subclavian artery stenosis, right ECG 12-LEAD Routine 09/28/2024 4:19 PM CDT 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 3. Normal, antegrade flow is noted [...] Upper Extremity Arterial Report Patient Name: GLADYS ALVAREZ L : 1945 (79y ) Gender: F Study Date: 10/03/2024 09:48:00 AM Metal Precision Machine Assembler: Trena Lujan Rd,rvt Order Provider: MARKEL PERALTA Quality: Adequate Ref [...] Upper Extremity Arterial Report Patient Name: GLADYS ALVAREZ L : 1945 (79y ) Gender: F Study Date: 10/03/2024 09:48:00 AM Metal Precision Machine Assembler: Trena Lujan Rdms,rvt Order Provider: MARKEL PERALTA [...] (09/28/2024 4:19 PM CDT) us Davida Valdez BUTTERMAKER HELPER ECG ORDERABLES Final Result * US FLORIAN (09/21/2024 11:04 AM CDT) Anatomical Region Laterality Modality Vascular N/A Ultrasound 09/21/2024 10:1 1 AM CDT Narrative 09/22/2024 1:11 PM CDT Lower Extremity Arterial Doppler Report Patient Name: GLADYS ALVAREZ L : 1945 Study Date: 09/21/2024 10:11:00 AM Gender: F Metal Precision Machine Assembler: Joselyn Swenson Ref Provider: MARKEL PERALTA Quality: Adequate Order Provider: MARKEL PERALTA PROCEDURES: Arterial Report: Ankle - Brachial Index Doppler exam. INDICATIONS: I73.9 Peripheral vascular disease, unspecified. HISTORY: s/p ATHER/BA/STSENT RT SFA & POP 09/07/23 S/P ATHER/BA/STENT LT SFA & POP, BA LT TPT 07/15/22 S/P ENDART LT COST CONTROL ANALYST 09/11/20 S/P STENT RT MARKO, ATHER/DCBA RT POP 03/05/17 S/P ENDART RT COST CONTROL ANALYST 10/10/15. COMPARISONS: No change compared to prior study. The previous exam was completed on 03/16/24. MEASUREMENTS: Right Value Left Value Rt Brachial Pressure 194 mmHg Lt Brachial Pressure 199 mmHg Rt VETERINARY MEDICAL OFFICER Pressure 186 mmHg Lt VETERINARY MEDICAL OFFICER Pressure 177 mmHg Rt DPA Pressure 180 [...] Extremity Arterial Doppler Report Patient Name: GLADYS ALVAREZ L : 1945 Study Date: 09/21/2024 10:11:00 AM Gender: F Metal Precision Machine Assembler: Joselyn Swenson Ref Provider: MARKEL PERALTA Quality: Adequate Order Provider: MARKEL PERALTA PROCEDURES: Arterial Report: Ankle - Brachial Index Doppler exam. INDICATIONS: I73.9 Peripheral vascular disease, unspecified. HISTORY: s/p ATHER/BA/STSENT RT SFA & POP 09/07/23 S/P ATHER/BA/STENT LT SFA & POP, BA LT TPT 07/15/22 S/P ENDART LT COST CONTROL ANALYST 09/11/20 S/P STENT RT MARKO, ATHER/DCBA RT POP 03/05/17 S/P ENDART RT COST CONTROL ANALYST 10/10/15. COMPARISONS: No change compared to prior study. The previous exam was completed on 03/16/24. MEASUREMENTS: Right Value Left Value Rt Brachial Pressure 194 mmHg Lt Brachial Pressure 199 mmHg Rt VETERINARY MEDICAL OFFICER Pressure 186 mmHg Lt VETERINARY MEDICAL OFFICER Pressure 177 mmHg Rt DPA Pressure 180 [...] 1:10:54 PM CDT us Markel Peralta MD [facility] [place] PROCEDURES Final Re sult * US Arterial Duplex Lower Extremity Bilateral (09/21/2024 11:04 AM CDT) Anatomical Region Laterality Modality Vascular Bilateral Ultrasound 09/21/2024 10:3 3 AM CDT Narrative 09/22/2024 2:49 PM CDT Lower Extremity Arterial Duplex Report Patient Name: GLADYS ALVAREZ L : 1945 (79y ) Gender: F Study Date: 09/21/2024 10:33:17 AM Ht(Inch): Wt(Lb): BSA: Metal Precision Machine Assembler: PEREZ VENCES Provider: MARKEL PREALTA Quality: Adequate Ref Provider: MARKEL PERALTA PROCEDURES: [...] POP, BA LT TPT 07/15/22 S/PENDRT LT COST CONTROL ANALYST 09/11/20 S/P STENT RT MARKO, ATHER/DCBA RT POP 03/05/17 S/P ENDART RT COST CONTROL ANALYST 10/10/15. COMPARISONS: No change compared to prior study. The previous exam was completed on 03/16/24. MEASUREMENTS: Right Value Left Value Rt COST CONTROL ANALYST Prx PSV 127.70 cm/sec Lt COST CONTROL ANALYST Prx PSV 223.30 cm/sec Rt Profunda Prx PSV 103.70 cm/sec Lt Profunda Prx PSV 126.10 cm/sec Rt SFA Prx PSV 100.90 cm/sec Lt SFA Prx PSV 157.30 cm/sec Lt SFA Mid PSV 144.60 cm/sec STENTS: Right Value Left Value Location RT MID SFA & POP Location LT DIST SFA & POP Rt Stent Prx [place] PSV 66.00 cm/sec Lt Stent Prx [place] PSV 99.00 cm/sec Rt Stent Prx PSV 80.00 cm/sec Lt Stent Prx PSV 64.00 cm/sec Rt Stent Mid PSV 100.00 cm/sec Lt Stent Mid PSV 116.00 cm/sec Rt Stent Dst PSV 102.00 cm/sec Lt Stent Dst PSV 92.00 cm/sec Rt Stent Dst Attachment PSV 72.00 cm/sec Lt Stent Dst [place] PSV 55.00 cm/sec Rt Stent Dst [place] PSV 147.00 cm/sec FINDINGS: Right: Biphasic arteries [...] Extremity Arterial Duplex Report Patient Name: GLADYS ALVAREZ L : 1945 (79y ) Gender: F Study Date: 09/21/2024 10:33:17 AM Ht(Inch): Wt(Lb): BSA: Metal Precision Machine Assembler: PEREZ VENCES Provider: MARKEL PERALTA Quality: Adequate [...] POP, BA LT TPT 07/15/22 S/PENDRT LT COST CONTROL ANALYST 09/11/20 S/P STENT RT MARKO, ATHER/DCBA RT POP 03/05/17 S/P ENDART RT COST CONTROL ANALYST 10/10/15. COMPARISONS: No change compared to prior study. The previous exam was completed on03/16/24. MEASUREMENTS: Right Value Left Value Rt COST CONTROL ANALYST Prx PSV 127.70 cm/sec Lt COST CONTROL ANALYST Prx PSV 223.30 cm/sec Rt Profunda Prx PSV 103.70 cm/sec Lt Profunda Prx PSV 126.10 cm/sec Rt SFA Prx PSV 100.90 cm/sec Lt SFA Prx PSV 157.30 cm/sec Lt SFA Mid PSV 144.60 cm/sec STENTS: Right Value Left Value Location RT MID SFA & POP Location LT DIST SFA & POP Rt Stent Prx [place] PSV 66.00 cm/sec Lt Stent Prx [place] PSV 99.00cm/sec Rt Stent Prx PSV 80.00 cm/sec Lt Stent Prx PSV 64.00 cm/sec Rt Stent Mid PSV 100.00 cm/sec Lt Stent Mid PSV 116.00 cm/sec Rt Stent Dst PSV 102.00 cm/sec Lt Stent Dst PSV 92.00 cm/sec Rt Stent Dst Attachment PSV 72.00 cm/sec Lt Stent Dst [place] PSV 55.00cm/sec Rt Stent Dst [place] PSV 147.00 cm/sec FINDINGS: Right: Biphasic arteries [...] 09/22/2024 1:28:41 PM CDT Markel Peralta MD IM US PROCEDURES Final Re sult from Last 3 Months Insurance [employer] PPO Advance Directives For more information, please contact: [phone] * Full Code (Latest Code Status on File) Date Activated Date Inactivated Comments 05/16/2024 4:04 PM 05/17/2024 8:34 PM Care Teams Optical Instrument Assembler Relationship Specialty Start Date End Date Juan Whyte MD [address] [facility] [place] [address] PCP - General 10/03/16 Juan Mckeon MD [address] [place] [address] [address] [place] [address] Cardiology 12/09/16 Markel Peralta MD [address] [facility] [address] [facility] [address] [place] [address] Surgeon Vascular Surgery 02/08/19
--- OUTSIDE RECORDS SUMMARY | 2024-12-11 15:27 | XMS_ITS | Clinical Summary ---
Author Organization [facility] [address] Address [address] [place] [address] Care Team Providers Care Visual Education Teacher Name Role Phone Juan Whyte MD Primary Care Provide r Juan Mckeon MD Unavailable [phone] Markel Peralta MD Unavailable [phone] Allergies Active Allergy Reactions Criticality Noted [...] 24 hr tabletIndication s:Coronary artery disease involving [place] coronary artery of [place] heart without angina pectoris TAKE 1 TABLET [...] losartan. Assessment & Plan (08/26/2023 11:45 AM SPIN TABLE OPERATOR): Impression: Chronic stable. Plan: Continue amlodipine, losartan, isosorbide, Assessment & Plan (09/23/2022 2:18 PM CDT): Hypertension remains chronic and controlled. Continue current medical therapy Assessment & Plan (07/15/2022 1:37 PM SPIN TABLE OPERATOR): Hypertension chronic and controlled. Continue current medical therapy. Assessment & Plan (06/27/2021 9:25 AM SPIN TABLE OPERATOR): Hypertension chronic and controlled. Continue current medical therapy termite helper current use of antiarrhythmic drug Assessment & [...] 12:34 PM CDT): The patient has a [id number] score of 5 (annualized risk of stroke [...] re-evaluation Assessment & Plan (08/30/2020 9:27 AM SPIN TABLE OPERATOR): Ulceration stable. Continue dressing changes and plan for femoral endarterectomy. Assessment & Plan (08/23/2020 10:20 AM SPIN TABLE OPERATOR): New ischemic left great toe ulceration nonhealing. Patient has severe occlusive disease left lower extremity wound healing potential is poor. Have recommended left lower extremity angiogram possible intervention. The procedure and all associated risks have been thoroughly discussed with her in detail. She understands and agrees to proceed Tobacco abuse 08/23/2020 Assessment & Plan (08/30/2020 9:27 AM SPIN TABLE OPERATOR): Patient was again recommended to stop smoking different modalities were discussed. She hopes to quit within 3 months. Assessment & Plan (08/23/2020 10:23 AM SPIN TABLE OPERATOR): Patient unfortunately continues to smoke. We again [...] rosuvastatin. Assessment & Plan (08/26/2023 11:45 AM SPIN TABLE OPERATOR): Impression: Chronic and stable. Plan: Continue rosuvastatin Assessment & Plan (03/31/2023 9:30 AM CDT): Hyperlipidemia chronic and controlled. Continue Crestor. Assessment & Plan (07/15/2022 1:41 PM SPIN TABLE OPERATOR): Hyperlipidemia chronic and controlled. Continue Crestor. Assessment & Plan (06/27/2021 9:25 AM SPIN TABLE OPERATOR): Hyperlipidemia chronic and controlled. Continue Crestor. Assessment & Plan (08/30/2020 9:26 AM SPIN TABLE OPERATOR): Currently controlled. Continue current statin therapy Assessment & Plan (08/23/2020 10:19 AM SPIN TABLE OPERATOR): Currently controlled. Continue statin therapy Assessment & Plan (08/22/2019 11:44 AM SPIN TABLE OPERATOR): Patient states cholesterol levels are well controlled. She is tolerating statin therapy continue per primary care physician Coronary artery disease invo lving selawik coronary artery of [place] heart without angina pectoris 05/12/2017 History of [...] with atrial fibrillation: a report of the [employer] Association Task Force on Practice Guidelines [...] A) Assessment & Plan (08/30/2020 9:28 AM SPIN TABLE OPERATOR): Will hold Eliquis 2 days prior to surgery. 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 Assessment & Plan (08/26/2023 11:44 AM SPIN TABLE OPERATOR): Impression: Patient has had multiple endovascular and [...] proceed. Assessment & Plan (05/22/2023 9:32 AM SPIN TABLE OPERATOR): Bilateral lower extremity arterial occlusive disease with [...] duplex. Assessment & Plan (08/10/2022 9:42 PM SPIN TABLE OPERATOR): Patient is 2 week postop follow-up visit [...] duplex. Assessment & Plan (07/15/2022 1:37 PM SPIN TABLE OPERATOR): Patient has ongoing disabling claudication left lower extremity. Duplex findings suggest high-grade SFA stenosis. I have recommended left lower extremity angiogram with possible intervention. The procedure indications and all risks have been explained. She understands and agrees to proceed. Assessment & Plan (06/27/2021 9:24 AM SPIN TABLE OPERATOR): Patient continues to do well with no recurrence symptoms. Continue 6 month noninvasive study surveillance. Continue anti-platelet therapy and exercise. Assessment & Plan (08/30/2020 9:26 AM SPIN TABLE OPERATOR): Disabling claudication left lower extremity has worsened over the last 6 months. Have recommended left femoral endarterectomy with patch angioplasty the procedure, indications and all associated risks have been thoroughly discussed with the patient she understands and agrees to proceed Assessment & Plan (08/22/2019 11:42 AM SPIN TABLE OPERATOR): Patient has stable non disabling claudication of the left calf. No indication at this point to move forward with further workup or intervention. Continue exercise, risk factor modification and close surveillance. Atherosclerosis of sel[place] ar viktoriya of right lower extremity with [...] duplex. Assessment & Plan (08/23/2020 10:19 AM SPIN TABLE OPERATOR): Continues to do well with no recurrence symptoms. Stent is patent with normal perfusion right foot. Continue anti-platelet therapy and ongoing risk factor modification with 6 months duplex surveillance Assessment & Plan (08/22/2019 11:44 AM SPIN TABLE OPERATOR): Patient has no recurrence symptoms of rest [...] Type Department Care Team Description 11/24/2024 Telephone [facility] Cardiology [address] [facility] [address] [place] [phone] Juan Mckeon MD 10/06/2024 2:15 PM CDT Office Visit [facility] Medical [facility] Vascular and Vein Surgery [address] [place] [address] [place] [phone] Hannah Fried NP Primary hypertension (Primary Dx); Mixed hyperlipidemia; Atheroscler of [place] artery of both legs with intermit claudication; Pain in both upper extremities 10/06/[address] 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 Medical Group Cardiology [address] [facility] [address] [place] [phone] Davida Valdez NP Coronary artery disease involving sel[place] coronary artery of sel[place] heart without angina pectoris (Primary Dx); History of coronary artery stent placement; Paroxysmal atrial fibrillation (HCC); Atheroscler of [place] artery of both legs with intermit claudication; termite helper current use of antiarrhythmic drug; Anticoagulation management encounter 09/21/2024 11:15 AM CDT Office Visit [facility] Medical Group Vascular and Vein Surgery [address] [facility] [address] [place] [phone] Janna Santizo PA Claudication of upper extremity (Primary Dx); Carotid bruit, unspecified laterality; Atheroscler of [place] artery of both legs with intermit claudication; Mixed hyperlipidemia; Primary hypertension 09/21/2024 9:50 AM CDT - 09/21/2024 11:59 PM CDT Hospital Encounter [facility] Cardiac Testing [address] [place] [address] Intermittent claudication Discharge Disposition: Discharge to home or self care 09/21/2024 9:49 AM CDT - 09/21/2024 11:59 PM CDT Hospital Encounter [facility] Cardiac Testing [address] [place] [address] Aftercare following surgery of the circulatory system Discharge Disposition: Discharge to home or self care 09/21/[address] [facility] Medical Group Vascular and Vein Surgery [address] [facility] [address] [place] [phone] Markel Peralta MD Subclavian artery stenosis, left (Primary Dx); Subclavian artery stenosis, right; Bilateral carotid artery stenosis from Last 3 Months Immunizations Immunization Administration [...] Right RT com-fem endar w/ bovine pericardial WALL CLEANER. FEMORAL ENDARTERECTOMY 2020 Left LT com-fem endar [...] on file Legal Sex Female 3:57 AM SPIN TABLE OPERATOR Gender Identity Not on file Sexual Orientation Not on file Obstetrics History Last Filed Vital Signs Vital Sign Reading Time Taken Comments Blood Pressure 179/69 10/06/2024 2:05 PM CDT Pulse 67 10/06/2024 2:05 PM CDT Temperature 36.8 C (98.2 F) 05/17/2024 3:30 PM SPIN TABLE OPERATOR Respiratory Rate 18 05/17/2024 3:30 PM SPIN TABLE OPERATOR Oxygen Saturation 98% 09/28/2024 1:49 PM CDT [...] 05/17/2025 05/17/2024 Medical Devices Implanted Type Area Director Of Corporate Communications Device Identifier Shelf Expiration Date Model / Serial / Lot [employer] [id number] System 6-12fr Mvp Venous Closure Vascade - [id number] - [id number] Implanted:Qty: 1 on 12/18/2020 by Rui Valdez MD at [facility] Collagen [employer] 2022 800-612C-1 0U / [id number] / [id number] [employer] [id number] System 6-12fr Mvp Venous Closure Vascade - [id number] - [id number] Implanted:Qty: 1 on 12/18/2020 by Rui Valdez MD at [facility] [employer] 03/27/2022 800-612C-1 0U / [id number] / [id number] [employer] [id number] System 6-12fr Mvp Venous Closure Vascade - [id number] - [id number] Implanted:Qty: 1 on 12/18/2020 by Rui Valdez MD at [facility] Coll[employer] 10/08/2022 800-612C-1 0U / [id number] / [id number] [employer] [id number] Vascade 6/7fr Bioabsorbable Vascular System Compression Collagen - [id number] - [id number] Implanted:Qty: 1 on 12/18/2020 by Rui Valdez MD at [facility] Coll[employer] 10/02/2022 [id number]-0 5U / [id number] / [id number] [employer] Long Synergy Xd 3.5mm 48mm System Coronary Stent Everolimus [id number] - S0 - [id number] Implanted:Qty: 1 on 05/16/2024 by Wilfredo Craig MD at [facility] Stent [employer] Long 11/02/2025 [id number] / 0 / [id number] [employer] Long Stent Drug Eluting S Megatron Us Mr 4.15p19as [id number] - S0 - [id number] Implanted:Qty: 1 on 05/16/2024 by Wilfredo Craig MD at [facility] Stent [employer] Long 09/09/2025 [id number] / 0 / [id number] [employer] Stent System Biomimics 3d Vascular 6x80mm [id number] - [id number] Implanted:Qty: 1 on 07/15/2022 by Markel Peralta MD at [facility] [employer] 03/27/2023 [id number] / / [id number] [employer] Vascular Device Clsr Perclose Prostyle Sut-Mediatd Closure-Repair Sys 13642-70 - [id number] Implanted:Qty: 1 on 07/15/2022 by Markel Peralta MD at [facility] [employer] 03/05/2024 [id number] / / [id number] Bard Peripheral Vascular Lifestent 6mm 6fr 200mm 135cm Self Expand Catheter Guidewire .035 [id number] - [id number] Implanted:Qty: 1 on 09/07/2023 by Markel Peralta MD at [facility] [employer] Peripheral Vascular 03/27/2025 [id number] / / [id number] [employer] Vascular Device Clsr Perclose Prostyle Sut-Mediatd Closure-Repair Sys 45692-26 - [id number] Implanted:Qty: 1 on 09/07/2023 by Markel Peralta MD at [facility] [employer] 11/02/2024 [id number] / / [id number] Bard Peripheral Vascular Lifestent 6mm 6fr 120mm 130cm Self Expand Catheter Helical [id number] - [id number] Implanted:Qty: 1 on 09/07/2023 by Markel Peralta MD at [facility] Peripheral Vascular 10/14/2024 [id number] / / [id number] Procedures Procedure Name Priority Date/Time Associated Diagnosis Comments US CAROTIDS DUPLEX BILATERAL Schedule Routine, Read Routine (OP Routine) 10/03/2024 11:00 AM CDT Bilateral carotid artery stenosis US ARTERIAL DOPPLER UPPER EXTREMITY BILATERAL Schedule Routine, Read Routine (OP Routine) 10/03/2024 10:32 AM CDT Subclavian artery stenosis, left Subclavian artery stenosis, right ECG 12-LEAD Routine 09/28/2024 4:19 PM CDT care home current use of antiarrhythmic drug US FLORIAN [...] Study Date: 10/03/2024 9:57:37 AM Gender: F [facility] Director: JULES Barbosa Ref Provider: MARKEL PERALTA Quality: [...] Study Date: 10/03/2024 9:57:37 AM Gender: F [facility] Director: JULES Barbosa Ref Provider: MARKEL PERALTA Quality: [...] internal carotid artery disease is consistent with rovoibpf02-50% stenosis. 3. Normal, antegrade flow is noted [...] Gender: F Study Date: 10/03/2024 09:48:00 AM [facility] Director: Trena Lujan Rdms,rvt Order Provider: MARKEL PERALTA [...] Gender: F Study Date: 10/03/2024 09:48:00 AM [facility] Director: Trena Lujan Rdut,rvt Order Provider: MARKEL PERALTA Quality: Adequate Ref [...] Study Date: 09/21/2024 10:11:00 AM Gender: F [facility] Director: Joselyn Swenson Ref Provider: MARKEL PERALTA Quality: Adequate Order Provider: MARKEL PERALTA PROCEDURES: Arterial Report: Ankle - Brachial Index Doppler exam. INDICATIONS: I73.9 Peripheral vascular disease, unspecified. HISTORY: s/p ATHER/BA/STSENT RT SFA & POP 09/07/23 S/P ATHER/BA/STENT LT SFA & POP, BA LT TPT 07/15/22 S/P ENDART LT DESIGN PAINTER 09/11/20 S/P STENT RT MARKO, ATHER/DCBA RT POP 03/05/17 S/P ENDART RT DESIGN PAINTER 10/10/15. COMPARISONS: No change compared to prior study. The previous exam was completed on 03/16/24. MEASUREMENTS: Right Value Left Value Rt Brachial Pressure 194 mmHg Lt Brachial Pressure 199 mmHg Rt WALL CLEANER Pressure 186 mmHg Lt WALL CLEANER Pressure 177 mmHg Rt DPA Pressure 180 [...] Study Date: 09/21/2024 10:11:00 AM Gender: F [facility] Director: Joselyn Swenson RVS Ref Provider: MARKEL PERALTA Quality: Adequate Order Provider: MARKEL PERALTA PROCEDURES: Arterial Report: Ankle - Brachial Index Doppler exam. INDICATIONS: I73.9 Peripheral vascular disease, unspecified. HISTORY: s/p ATHER/BA/STSENT RT SFA & POP 09/07/23 S/P ATHER/BA/STENT LT SFA & POP, BA LT TPT 07/15/22 S/P ENDART LT DESIGN PAINTER 09/11/20 S/P STENT RT MARKO, ATHER/DCBA RT POP 03/05/17 S/P ENDART RT DESIGN PAINTER 10/10/15. COMPARISONS: No change compared to prior study. The previous exam was completed on 03/16/24. MEASUREMENTS: Right Value Left Value Rt Brachial Pressure 194 mmHg Lt Brachial Pressure 199 mmHg Rt WALL CLEANER Pressure 186 mmHg Lt WALL CLEANER Pressure 177 mmHg Rt DPA Pressure 180 [...] 1:10:54 PM CDT us Markel Peralta MD IM US PROCEDURES Final Re sult * US Arterial Duplex Lower Extremity Bilateral (09/21/2024 11:04 AM CDT) Anatomical Region Laterality Modality Vascular Bilateral Ultrasound 09/21/2024 10:3 3 AM CDT Narrative 09/22/2024 2:49 PM CDT Lower Extremity Arterial Duplex Report Patient Name: GLADYS CASTILLO L : 1945 (79y ) Gender: F Study Date: 09/21/2024 10:33:17 AM Ht(Inch): Wt(Lb): BSA: Speech And Hearing Clinic Director: PEREZ VENCES Provider: MARKEL PERALTA Quality: Adequate [...] POP, BA LT TPT 07/15/22 S/PENDRT LT DESIGN PAINTER 09/11/20 S/P STENT RT MARKO, ATHER/DCBA RT POP 03/05/17 S/P ENDART RT DESIGN PAINTER 10/10/15. COMPARISONS: No change compared to prior study. The previous exam was completed on 03/16/24. MEASUREMENTS: Right Value Left Value Rt DESIGN PAINTER Prx PSV 127.70 cm/sec Lt DESIGN PAINTER Prx PSV 223.30 cm/sec Rt Profunda Prx PSV 103.70 cm/sec Lt Profunda Prx PSV 126.10 cm/sec Rt SFA Prx PSV 100.90 cm/sec Lt SFA Prx PSV 157.30 cm/sec Lt SFA Mid PSV 144.60 cm/sec STENTS: Right Value Left Value Location RT MID SFA & POP Location LT DIST SFA & POP Rt Stent Prx [place] PSV 66.00 cm/sec Lt Stent Prx [place] PSV 99.00 cm/sec Rt Stent Prx PSV 80.00 cm/sec Lt Stent Prx PSV 64.00 cm/sec Rt Stent Mid PSV 100.00 cm/sec Lt Stent Mid PSV 116.00 cm/sec Rt Stent Dst PSV 102.00 cm/sec Lt Stent Dst PSV 92.00 cm/sec Rt Stent Dst Attachment PSV 72.00 cm/sec Lt Stent Dst [place] PSV 55.00 cm/sec Rt Stent Dst [place] PSV 147.00 cm/sec FINDINGS: Right: Biphasic arteries [...] Date: 09/21/2024 10:33:17 AM Ht(Inch): Wt(Lb): BSA: Speech [facility] Hearing Clinic Director: PEREZ VENCES Provider: MARKEL PERALTA Quality: Adequate [...] POP, BA LT TPT 07/15/22 S/PENDRT LT DESIGN PAINTER 09/11/20 S/P STENT RT MARKO, ATHER/DCBA RT POP 03/05/17 S/P ENDART RT DESIGN PAINTER 10/10/15. COMPARISONS: No change compared to prior study. The previous exam was completed on03/16/24. MEASUREMENTS: Right Value Left Value Rt DESIGN PAINTER Prx PSV 127.70 cm/sec Lt DESIGN PAINTER Prx PSV 223.30 cm/sec Rt Profunda Prx PSV 103.70 cm/sec Lt Profunda Prx PSV 126.10 cm/sec Rt SFA Prx PSV 100.90 cm/sec Lt SFA Prx PSV 157.30 cm/sec Lt SFA Mid PSV 144.60 cm/sec STENTS: Right Value Left Value Location RT MID SFA & POP Location LT DIST SFA & POP Rt Stent Prx [place] PSV 66.00 cm/sec Lt Stent Prx [place] PSV 99.00cm/sec Rt Stent Prx PSV 80.00 cm/sec Lt Stent Prx PSV 64.00 cm/sec Rt Stent Mid PSV 100.00 cm/sec Lt Stent Mid PSV 116.00 cm/sec Rt Stent Dst PSV 102.00 cm/sec Lt Stent Dst PSV 92.00 cm/sec Rt Stent Dst Attachment PSV 72.00 cm/sec Lt Stent Dst [place] PSV 55.00cm/sec Rt Stent Dst [place] PSV 147.00 cm/sec FINDINGS: Right: Biphasic arteries [...] 09/22/2024 1:28:41 PM CDT Markel Peralta MD [facility] PROCEDURES Final Re sult from Last 3 Months Insurance [employer] ADVANTAGE CHOICE PPO Advance Directives For more information, please contact: [phone] * Full Code (Latest Code Status on File) Date Activated Date Inactivated Comments 05/16/2024 4:04 PM 05/17/2024 8:34 PM Care Teams Visual Education Teacher Relationship Specialty Start Date End Date Juan Whyte MD [address] [place] [address] PCP - General 10/03/16 Juan Mckeon MD [address] [facility] [address] [place] [address] Cardiology 12/09/16 Markel Peralta MD [address] [facility] [address] [facility] [address] [place] [address] Surgeon Vascular Surgery 02/08/19
--- OUTSIDE RECORDS SUMMARY | 2024-12-11 15:27 | XMS_ITS | Encounter Summary ---
Author Organization [facility] Facility Care Team Providers Care Pad Extractor Tender Name Role Phone Juan Whyte MD Primary Care Provide r Juan Mckeon MD Unavailable [phone] Markel Peralta MD Unavailable [phone] Encounter Details Date Type Department Care Team (Latest Contact Info) Description 03/05/2017 Orders Only [facility] ProviderRosa Isela MD [address] [place] [address] Social History Tobacco Use Types Packs/Day Years Used Date Smoking Tobacco: Light Smoker Comments:Smoking History Pac ks/day: 3 Cigarettes Alcohol Use Standard Drinks/Week Comments No 0 (1 standard drink = 0.6 oz pur e alcohol) Comments Unknown Sex and Gender Information Value Date Recorded Sex Assigned at Not on file Legal Sex Female 3:57 AM WAITER/WAITRESS BAR Gender Identity Not on file Sexual Orientation [...] on filedocumented in this encounter Care Teams Pad Extractor Tender Relationship Specialty Start Date End Date Juan Whyte MD [address] [place] [address] PCP - General 10/03/16 Juan Mckeon MD [address] [facility] [address] [place] [address] Cardiology 12/09/16 Markel Peralta MD [address] [facility] [address] [facility] [address] [place] [address] Surgeon Vascular Surgery 02/08/19 documented as of this encounter
--- OUTSIDE RECORDS SUMMARY | 2024-12-11 15:27 | XMS_ITS | Encounter Summary ---
Author Organization [facility] Facility Care Team Providers Care Data Support Specialist Name Role Phone Juan Whyte MD Primary Care Provide r Juan Mckeon MD Unavailable [phone] Markel Peralta MD Unavailable [phone] Encounter Details Date Type Department Care Team (Latest Contact Info) Description 11/25/2017 Orders Only [facility] ProviderRosa Isela MD [address] [place] [address] Social History Tobacco Use Types Packs/Day Years Used Date Smoking Tobacco: Former Cigarettes Q uit: 05/12/2016 Smokeless Tobacco: Never Comments:Smoking History Pac ks/day: 3 Cigarettes Alcohol Use Standard Drinks/Week Comments No 0 (1 standard drink = 0.6 oz pur e alcohol) Comments Unknown Sex and Gender Information Value Date Recorded Sex Assigned at Not on file Legal Sex Female 3:57 AM QUALITY ASSURANCE CALIBRATOR Gender Identity Not on file Sexual Orientation [...] on filedocumented in this encounter Care Teams Data Support Specialist Relationship Specialty Start Date End Date Juan Whyte MD [address] [place] [address] PCP - General 10/03/16 Juan Mckeon MD [address] [facility] [address] [place] [address] Cardiology 12/09/16 Markel Peralta MD [address] [facility] [address] [facility] [address] [place] [address] Surgeon Vascular Surgery 02/08/19 documented as of this encounter
--- OUTSIDE RECORDS SUMMARY | 2024-12-11 16:07 | XMS_ITS | Clinical Summary ---
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 Assessment & Plan (08/26/2023 11:45 AM EIGHT SECTION BLOWER): Impression: Chronic stable. Plan: Continue amlodipine, losartan, isosorbide, Assessment & Plan (09/23/2022 2:18 PM CDT): Hypertension remains chronic and controlled. Continue current medical therapy Assessment & Plan (07/15/2022 1:37 PM EIGHT SECTION BLOWER): Hypertension chronic and controlled. Continue current medical therapy. Assessment & Plan (06/27/2021 9:25 AM EIGHT SECTION BLOWER): Hypertension chronic and controlled. Continue current medical therapy oil heaterman current use of antiarrhythmic drug Assessment & [...] 12:34 PM CDT): The patient has a [id number] score of 5 (annualized risk of stroke [...] re-evaluation Assessment & Plan (08/30/2020 9:27 AM EIGHT SECTION BLOWER): Ulceration stable. Continue dressing changes and plan for femoral endarterectomy. Assessment & Plan (08/23/2020 10:20 AM EIGHT SECTION BLOWER): New ischemic left great toe ulceration nonhealing. Patient has severe occlusive disease left lower extremity wound healing potential is poor. Have recommended left lower extremity angiogram possible intervention. The procedure and all associated risks have been thoroughly discussed with her in detail. She understands and agrees to proceed Tobacco abuse 08/23/2020 Assessment & Plan (08/30/2020 9:27 AM EIGHT SECTION BLOWER): Patient was again recommended to stop smoking different modalities were discussed. She hopes to quit within 3 months. Assessment & Plan (08/23/2020 10:23 AM EIGHT SECTION BLOWER): Patient unfortunately continues to smoke. We again [...] rosuvastatin. Assessment & Plan (08/26/2023 11:45 AM EIGHT SECTION BLOWER): Impression: Chronic and stable. Plan: Continue rosuvastatin Assessment & Plan (03/31/2023 9:30 AM CDT): Hyperlipidemia chronic and controlled. Continue Crestor. Assessment & Plan (07/15/2022 1:41 PM EIGHT SECTION BLOWER): Hyperlipidemia chronic and controlled. Continue Crestor. Assessment & Plan (06/27/2021 9:25 AM EIGHT SECTION BLOWER): Hyperlipidemia chronic and controlled. Continue Crestor. Assessment & Plan (08/30/2020 9:26 AM EIGHT SECTION BLOWER): Currently controlled. Continue current statin therapy Assessment & Plan (08/23/2020 10:19 AM EIGHT SECTION BLOWER): Currently controlled. Continue statin therapy Assessment & Plan (08/22/2019 11:44 AM EIGHT SECTION BLOWER): Patient states cholesterol levels are well controlled. She is tolerating statin therapy continue per primary care physician Coronary artery disease invo lving kashia coronary artery of kashia heart without angina pectoris 05/12/2017 History of [...] with atrial fibrillation: a report of the [place] [employer]/[place] [employer] Task Force on Practice Guidelines [...] A) Assessment & Plan (08/30/2020 9:28 AM EIGHT SECTION BLOWER): Will hold Eliquis 2 days prior to surgery. 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 Assessment & Plan (08/26/2023 11:44 AM EIGHT SECTION BLOWER): Impression: Patient has had multiple endovascular and [...] proceed. Assessment & Plan (05/22/2023 9:32 AM EIGHT SECTION BLOWER): Bilateral lower extremity arterial occlusive disease with [...] duplex. Assessment & Plan (08/10/2022 9:42 PM EIGHT SECTION BLOWER): Patient is 2 week postop follow-up visit [...] duplex. Assessment & Plan (07/15/2022 1:37 PM EIGHT SECTION BLOWER): Patient has ongoing disabling claudication left lower extremity. Duplex findings suggest high-grade SFA stenosis. I have recommended left lower extremity angiogram with possible intervention. The procedure indications and all risks have been explained. She understands and agrees to proceed. Assessment & Plan (06/27/2021 9:24 AM EIGHT SECTION BLOWER): Patient continues to do well with no recurrence symptoms. Continue 6 month noninvasive study surveillance. Continue anti-platelet therapy and exercise. Assessment & Plan (08/30/2020 9:26 AM EIGHT SECTION BLOWER): Disabling claudication left lower extremity has worsened over the last 6 months. Have recommended left femoral endarterectomy with patch angioplasty the procedure, indications and all associated risks have been thoroughly discussed with the patient she understands and agrees to proceed Assessment & Plan (08/22/2019 11:42 AM EIGHT SECTION BLOWER): Patient has stable non disabling claudication of the left calf. No indication at this point to move forward with further workup or intervention. Continue exercise, risk factor modification and close surveillance. Atherosclerosis of kashia ar viktoriya of right lower extremity with [...] duplex. Assessment & Plan (08/23/2020 10:19 AM EIGHT SECTION BLOWER): Continues to do well with no recurrence symptoms. Stent is patent with normal perfusion right foot. Continue anti-platelet therapy and ongoing risk factor modification with 6 months duplex surveillance Assessment & Plan (08/22/2019 11:44 AM EIGHT SECTION BLOWER): Patient has no recurrence symptoms of rest [...] Type Department Care Team Description 11/24/2024 Telephone [facility] Cardiology [address] [facility] [address] [place] [phone] Juan Mckeon MD 10/06/2024 2:15 PM CDT Office Visit [facility] [address] [place] [address] [place] [phone] Hannah Fried NP Primary hypertension (Primary Dx); Mixed hyperlipidemia; 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; Pain in both upper extremities 10/06/2024 Orders Only [facility] [address] [place] [address] [place] [phone] Markel Peralta MD Carotid bruit, unspecified laterality (Primary Dx) 10/06/2024 Orders Only [facility] V[facility] and Vein Surgery [address] [place] [address] [place] [phone] Markel Peralta MD Carotid bruit, unspecified laterality (Primary Dx); 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 10/03/2024 9:46 AM CDT - 10/03/2024 11:59 PM CDT Hospital Encounter [facility] Cardiac Testing [address] [place] [address] Bilateral carotid artery stenosis Discharge Disposition: Discharge to home or self care 10/03/2024 9:46 AM CDT - 10/03/2024 11:59 PM CDT Hospital Encounter [facility] [address] [place] [address] Subclavian artery stenosis, left; Subclavian artery stenosis, right Discharge Disposition: Discharge to home or self care 09/28/2024 2:00 PM CDT Office Visit [facility] Card[facility] [address] [facility] [address] [place] [phone] Davida Valdez NP 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 (Primary Dx); History of coronary artery stent placement; Paroxysmal atrial fibrillation (HCC); 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; oil heaterman current use of antiarrhythmic drug; Anticoagulation management encounter 09/21/2024 11:15 AM CDT Office Visit [facility] [address] [facility] [address] [place] [phone] Janna Santizo PA Claudication of upper extremity (Primary Dx); Carotid bruit, unspecified laterality; 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; Mixed hyperlipidemia; Primary hypertension 09/21/2024 9:50 AM CDT - 09/21/2024 11:59 PM CDT Hospital Encounter [facility] [address] [place] [address] Intermittent claudication Discharge Disposition: Discharge to home or self care 09/21/2024 9:49 AM CDT - 09/21/2024 11:59 PM CDT Hospital Encounter [facility] [address] [place] [address] Aftercare following surgery of the circulatory system Discharge Disposition: Discharge to home or self care 09/21/2024 Orders Only [facility] [address] [facility] [address] [place] [phone] Markel Peralta MD Subclavian artery stenosis, left [...] Right RT com-fem endar w/ bovine pericardial SENIOR ORACLE APPLICATIONS DEVELOPER. FEMORAL ENDARTERECTOMY 2020 Left LT com-fem endar [...] on file Legal Sex Female 3:57 AM EIGHT SECTION BLOWER Gender Identity Not on file Sexual Orientation Not on file Obstetrics History Last Filed Vital Signs Vital Sign Reading Time Taken Comments Blood Pressure 179/69 10/06/2024 2:05 PM CDT Pulse 67 10/06/2024 2:05 PM CDT Temperature 36.8 C (98.2 F) 05/17/2024 3:30 PM EIGHT SECTION BLOWER Respiratory Rate 18 05/17/2024 3:30 PM EIGHT SECTION BLOWER Oxygen Saturation 98% 09/28/2024 1:49 PM CDT [...] 05/17/2025 05/17/2024 Medical Devices Implanted Type Area Lobby Porter Device Identifier Shelf Expiration Date Model / Serial / Lot [employer] [id number] System 6-12fr Mvp Venous Closure Vascade - [id number] - [id number] Implanted:Qty: 1 on 12/18/2020 by Rui Valdez MD at [facility] Collagen [employer] 2022 800-612C-1 0U / [id number] / [id number] [employer] [id number] System 6-12fr Mvp Venous Closure Vascade - [id number] - [id number] Implanted:Qty: 1 on 12/18/2020 by Rui Valdez MD at [facility] Collagen [employer] 03/27/2022 800-612C-1 0U / [id number] / [id number] [employer] [id number] System 6-12fr Mvp Venous Closure Vascade - [id number] - [id number] Implanted:Qty: 1 on 12/18/2020 by Rui Valdez MD at [facility] Collagen [employer] 10/08/2022 800-612C-1 0U / [id number] / [id number] [employer] [id number] Vascade 6/7fr Bioabsorbable Vascular System Compression Collagen - [id number] - [id number] Implanted:Qty: 1 on 12/18/2020 by Rui Valdez MD at [facility] Collagen [employer] 10/02/2022 [id number]-0 5U / [id number] / [id number] [employer] Long Synergy Xd 3.5mm 48mm System Coronary Stent Everolimus [id number] - S0 - [id number] Implanted:Qty: 1 on 05/16/2024 by Wilfredo Craig MD at [facility] Stent [employer] Long 11/02/2025 [id number] / 0 / [id number] [employer] Long Stent Drug Eluting S Megatron Us Mr 4.67v07en [id number] - S0 - [id number] Implanted:Qty: 1 on 05/16/2024 by Wilfredo Craig MD at [facility] Stent [employer] Long 09/09/2025 [id number] / 0 / [id number] Very[employer] Medical Inc Stent System Biomimics 3d Vascular 6x80mm [id number] - [id number] Implanted:Qty: 1 on 07/15/2022 by Markel Peralta MD at [facility] [employer] 03/27/2023 [id number] / / [id number] Banegas Vascular Device Clsr Perclose Prostyle Sut-Mediatd Closure-Repair Sys [id number] - [id number] Implanted:Qty: 1 on 07/15/2022 by Markel Peralta MD at [facility] [employer] Vascular 03/05/2024 [id number] / / [id number] Bard Peripheral Vascular Lifestent 6mm 6fr 200mm 135cm Self Expand Catheter Guidewire .035 [id number] - [id number] Implanted:Qty: 1 on 09/07/2023 by Markel Peralta MD at [facility] Bard Peripheral Vascular 03/27/2025 [id number] / / [id number] Banegas Vascular Device Clsr Perclose Prostyle Sut-Mediatd Closure-Repair Sys [id number] - [id number] Implanted:Qty: 1 on 09/07/2023 by Markel Peralta MD at [facility] [employer] Vascular 11/02/2024 [id number] / / [id number] Bard Peripheral Vascular Lifestent 6mm 6fr 120mm 130cm Self Expand Catheter Helical [id number] - [id number] Implanted:Qty: 1 on 09/07/2023 by Markel Peralta MD at [facility] Peripheral Vascular 10/14/2024 [id number] / / [id number] Procedures Procedure Name Priority Date/Time Associated Diagnosis Comments US CAROTIDS DUPLEX BILATERAL Schedule Routine, Read Routine (OP Routine) 10/03/2024 11:00 AM CDT Bilateral carotid artery stenosis US ARTERIAL DOPPLER UPPER EXTREMITY BILATERAL Schedule Routine, Read Routine (OP Routine) 10/03/2024 10:32 AM CDT Subclavian artery stenosis, left Subclavian artery stenosis, right ECG 12-LEAD Routine 09/28/2024 4:19 PM CDT nursing home current use of antiarrhythmic drug US [...] Study Date: 10/03/2024 9:57:37 AM Gender: F Laborer Marine Terminal: JULES Barbosa Ref Provider: MARKEL PERALTA Quality: [...] Study Date: 10/03/2024 9:57:37 AM Gender: F Laborer [employer] Terminal: JULES Barbosa Ref Provider: MARKEL PERALTA Quality: [...] internal carotid artery disease is consistent with [id number]% stenosis. 3. Normal, antegrade flow is noted [...] Gender: F Study Date: 10/03/2024 09:48:00 AM Laborer [employer]: Trena Lujan Rdms,rvt Order Provider: MARKEL PERALTA [...] Gender: F Study Date: 10/03/2024 09:48:00 AM Laborer [employer]: Trena Lujan Rdks,rvt Order Provider: MARKEL PERALTA Quality: Adequate Ref [...] Study Date: 09/21/2024 10:11:00 AM Gender: F Laborer [employer]: Joselyn Swenson Ref Provider: MARKEL PERALTA Quality: Adequate Order Provider: MARKEL PERALTA PROCEDURES: Arterial Report: Ankle - Brachial Index Doppler exam. INDICATIONS: I73.9 Peripheral vascular disease, unspecified. HISTORY: s/p ATHER/BA/STSENT RT SFA & POP 09/07/23 S/P ATHER/BA/STENT LT SFA & POP, BA LT TPT 07/15/22 S/P ENDART LT INSTITUTION LIBRARIAN 09/11/20 S/P STENT RT MARKO, ATHER/DCBA RT POP 03/05/17 S/P ENDART RT INSTITUTION LIBRARIAN 10/10/15. COMPARISONS: No change compared to prior study. The previous exam was completed on 03/16/24. MEASUREMENTS: Right Value Left Value Rt Brachial Pressure 194 mmHg Lt Brachial Pressure 199 mmHg Rt SENIOR ORACLE APPLICATIONS DEVELOPER Pressure 186 mmHg Lt SENIOR ORACLE APPLICATIONS DEVELOPER Pressure 177 mmHg Rt DPA Pressure 180 [...] Study Date: 09/21/2024 10:11:00 AM Gender: F Laborer [employer]: Joselyn Swenson RVS Ref Provider: MARKEL PERALTA Quality: Adequate Order Provider: MARKEL PERALTA PROCEDURES: Arterial Report: Ankle - Brachial Index Doppler exam. INDICATIONS: I73.9 Peripheral vascular disease, unspecified. HISTORY: s/p ATHER/BA/STSENT RT SFA & POP 09/07/23 S/P ATHER/BA/STENT LT SFA & POP, BA LT TPT 07/15/22 S/P ENDART LT INSTITUTION LIBRARIAN 09/11/20 S/P STENT RT MARKO, ATHER/DCBA RT POP 03/05/17 S/P ENDART RT INSTITUTION LIBRARIAN 10/10/15. COMPARISONS: No change compared to prior study. The previous exam was completed on 03/16/24. MEASUREMENTS: Right Value Left Value Rt Brachial Pressure 194 mmHg Lt Brachial Pressure 199 mmHg Rt SENIOR ORACLE APPLICATIONS DEVELOPER Pressure 186 mmHg Lt SENIOR ORACLE APPLICATIONS DEVELOPER Pressure 177 mmHg Rt DPA Pressure 180 [...] Date: 09/21/2024 10:33:17 AM Ht(Inch): Wt(Lb): BSA: Laborer [employer]: PEREZ VENCES Provider: MARKEL PERALTA Quality: Adequate [...] POP, BA LT TPT 07/15/22 S/PENDRT LT INSTITUTION LIBRARIAN 09/11/20 S/P STENT RT MARKO, ATHER/DCBA RT POP 03/05/17 S/P ENDART RT INSTITUTION LIBRARIAN 10/10/15. COMPARISONS: No change compared to prior study. The previous exam was completed on 03/16/24. MEASUREMENTS: Right Value Left Value Rt INSTITUTION LIBRARIAN Prx PSV 127.70 cm/sec Lt INSTITUTION LIBRARIAN Prx PSV 223.30 cm/sec Rt Profunda Prx PSV 103.70 cm/sec Lt Profunda Prx PSV 126.10 cm/sec Rt SFA Prx PSV 100.90 cm/sec Lt SFA Prx PSV 157.30 cm/sec Lt SFA Mid PSV 144.60 cm/sec STENTS: Right Value Left Value Location RT MID SFA & POP Location LT DIST SFA & POP Rt Stent Prx [place] PSV 66.00 cm/sec Lt Stent Prx [place] PSV 99.00 cm/sec Rt Stent Prx PSV 80.00 cm/sec Lt Stent Prx PSV 64.00 cm/sec Rt Stent Mid PSV 100.00 cm/sec Lt Stent Mid PSV 116.00 cm/sec Rt Stent Dst PSV 102.00 cm/sec Lt Stent Dst PSV 92.00 cm/sec Rt Stent Dst Attachment PSV 72.00 cm/sec Lt Stent Dst [place] PSV 55.00 cm/sec Rt Stent Dst [place] PSV 147.00 cm/sec FINDINGS: Right: Biphasic arteries [...] Date: 09/21/2024 10:33:17 AM Ht(Inch): Wt(Lb): BSA: Laborer [employer]: PEREZ VENCES Provider: MARKEL PERALTA Quality: Adequate [...] POP, BA LT TPT 07/15/22 S/PENDRT LT INSTITUTION LIBRARIAN 09/11/20 S/P STENT RT MARKO, ATHER/DCBA RT POP 03/05/17 S/P ENDART RT INSTITUTION LIBRARIAN 10/10/15. COMPARISONS: No change compared to prior study. The previous exam was completed on03/16/24. MEASUREMENTS: Right Value Left Value Rt INSTITUTION LIBRARIAN Prx PSV 127.70 cm/sec Lt INSTITUTION LIBRARIAN Prx PSV 223.30 cm/sec Rt Profunda Prx PSV 103.70 cm/sec Lt Profunda Prx PSV 126.10 cm/sec Rt SFA Prx PSV 100.90 cm/sec Lt SFA Prx PSV 157.30 cm/sec Lt SFA Mid PSV 144.60 cm/sec STENTS: Right Value Left Value Location RT MID SFA & POP Location LT DIST SFA & POP Rt Stent Prx [place] PSV 66.00 cm/sec Lt Stent Prx [place] PSV 99.00cm/sec Rt Stent Prx PSV 80.00 cm/sec Lt Stent Prx PSV 64.00 cm/sec Rt Stent Mid PSV 100.00 cm/sec Lt Stent Mid PSV 116.00 cm/sec Rt Stent Dst PSV 102.00 cm/sec Lt Stent Dst PSV 92.00 cm/sec Rt Stent Dst [place] PSV 72.00 cm/sec Lt Stent Dst [place] PSV 55.00cm/sec Rt Stent Dst [place] PSV 147.00 cm/sec FINDINGS: Right: Biphasic arteries [...] 09/22/2024 1:28:41 PM CDT Markel Peralta MD [facility] PROCEDURES Final Re sult from Last 3 Months Insurance [employer] ADVANTAGE CHOICE PPO Advance Directives For more information, please contact: [phone] * Full Code (Latest Code Status on File) Date Activated Date Inactivated Comments 05/16/2024 4:04 PM 05/17/2024 8:34 PM Care Teams Office Rental Clerk Relationship Specialty Start Date End Date Juan Whyte MD [address] [place] [address] PCP - General 10/03/16 Juan Mckeon MD [address] [facility] [address] [place] [address] Cardiology 12/09/16 Markel Peralta MD [address] [facility] [address] [facility] [address] [place] [address] Surgeon Vascular Surgery 02/08/19
--- OUTSIDE RECORDS SUMMARY | 2024-12-11 16:07 | XMS_ITS | Encounter Summary ---
Author Organization [facility] Facility Care Team Providers Care Under Seal Operator Name Role Phone Juan Whyte MD Primary Care Provide r Juan Mckeon MD Unavailable [phone] Markel Peralta MD Unavailable [phone] Encounter Details Date Type Department Care Team (Latest Contact Info) Description 03/05/2017 Orders Only [facility] ProviderRosa Isela MD [address] [place] [address] Social History Tobacco Use Types Packs/Day Years Used Date Smoking Tobacco: Light Smoker Comments:Smoking History Pac ks/day: 3 Cigarettes Alcohol Use Standard Drinks/Week Comments No 0 (1 standard drink = 0.6 oz pur e alcohol) Comments Unknown Sex and Gender Information Value Date Recorded Sex Assigned at Not on file Legal Sex Female 3:57 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
--- OUTSIDE RECORDS SUMMARY | 2024-12-11 16:07 | XMS_ITS | Encounter Summary ---
Author Organization [facility] Facility Care Team Providers Care Truck Loader Overhead Crane Name Role Phone Juan Whyte MD Primary Care Provide r Juan Mckeon MD Unavailable [phone] Markel Peralta MD Unavailable [phone] Encounter Details Date Type Department Care Team (Latest Contact Info) Description 11/25/2017 Orders Only [facility] ProviderRosa Isela MD [address] [place] [address] Social History Tobacco Use Types Packs/Day Years Used Date Smoking Tobacco: Former Cigarettes Q uit: 05/12/2016 Smokeless Tobacco: Never Comments:Smoking History Pac ks/day: 3 Cigarettes Alcohol Use Standard Drinks/Week Comments No 0 (1 standard drink = 0.6 oz pur e alcohol) Comments Unknown Sex and Gender Information Value Date Recorded Sex Assigned at Not on file Legal Sex Female 3:57 AM OBJECTS 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
--- OUTSIDE RECORDS SUMMARY | 2024-12-11 16:07 | XMS_ITS | Referral Summary ---
Author Organization [facility] [place] [facility] [address] [facility] [address] [place] [address] Care Team Providers Care Usability Engineer Name Role Phone Juan Whyte MD Primary Care Provide r Juan Mckeon MD Unavailable [phone] Markel Peralta MD Unavailable [phone] Encounters Date Type Department Care Team Description 11/24/2024 Telephone [facility] Medical Group Cardiology [address] [place] [address] Juan Mckeon MD 10/06/2024 Orders Only [facility] Medical [facility] Vascular and Vein Surgery [facility] [address] [place] [address] Markel Peralta MD Carotid bruit, unspecified laterality (Primary Dx) 10/06/2024 Orders Only [facility] Vascular and Vein Surgery [address] [facility] [address] [place] [address] Markel Peralta MD Carotid bruit, unspecified laterality (Primary Dx); 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 10/06/2024 2:15 PM CDT Office Visit [facility] Medical [facility] Vascular and Vein Surgery [facility] [address] [place] [address] Hannah Fried NP Primary hypertension (Primary Dx); Mixed hyperlipidemia; 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; Pain in both upper extremities 10/03/2024 9:46 AM CDT - 10/03/2024 11:59 PM CDT Hospital Encounter [facility] Cardiac Testing [address] [place] [address] Subclavian artery stenosis, left; Subclavian artery stenosis, right Discharge Disposition: Discharge to home or self care 10/03/2024 9:46 AM CDT - 10/03/2024 11:59 PM CDT Hospital Encounter [facility] Cardiac Testing [address] [place] [address] Bilateral carotid artery stenosis Discharge Disposition: Discharge to home or self care 09/28/2024 2:00 PM CDT Office Visit [facility] Medical [facility] Cardiology [address] [place] [phone] Davida Valdez NP 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 (Primary Dx); History of coronary artery stent placement; Paroxysmal atrial fibrillation (HCC); 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; [facility] current use of antiarrhythmic drug; Anticoagulation management encounter 09/21/2024 Orders Only [facility] Medical Group Vascular and Vein Surgery [address] [place] [address] [place] [phone] Markel Peralta MD Subclavian artery stenosis, left (Primary Dx); Subclavian artery stenosis, right; Bilateral carotid artery stenosis 09/21/2024 9:50 AM CDT - 09/21/2024 11:59 PM CDT Hospital Encounter [facility] Cardiac Testing [address] [place] [address] Intermittent claudication Discharge Disposition: Discharge to home or self care 09/21/2024 11:15 AM CDT [facility] Visit [facility] Vascular [facility] Vein [facility] [address] [place] [phone] Janna Santizo PA Claudication of upper extremity (Primary Dx); Carotid bruit, unspecified laterality; 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 Assessment & Plan (08/26/2023 11:45 AM ADMINISTRATIVE ASSISTANT OFFICE MANAGER): Impression: Chronic stable. Plan: Continue amlodipine, losartan, isosorbide, Assessment & Plan (09/23/2022 2:18 PM CDT): Hypertension remains chronic and controlled. Continue current medical therapy Assessment & Plan (07/15/2022 1:37 PM ADMINISTRATIVE ASSISTANT OFFICE MANAGER): Hypertension chronic and controlled. Continue current medical therapy. Assessment & Plan (06/27/2021 9:25 AM ADMINISTRATIVE ASSISTANT OFFICE MANAGER): Hypertension chronic and controlled. Continue current medical therapy roasterman current use of antiarrhythmic drug Assessment & [...] 12:34 PM CDT): The patient has a [id number] score of 5 (annualized risk of stroke [...] re-evaluation Assessment & Plan (08/30/2020 9:27 AM ADMINISTRATIVE ASSISTANT OFFICE MANAGER): Ulceration stable. Continue dressing changes and plan for femoral endarterectomy. Assessment & Plan (08/23/2020 10:20 AM ADMINISTRATIVE ASSISTANT OFFICE MANAGER): New ischemic left great toe ulceration nonhealing. Patient has severe occlusive disease left lower extremity wound healing potential is poor. Have recommended left lower extremity angiogram possible intervention. The procedure and all associated risks have been thoroughly discussed with her in detail. She understands and agrees to proceed Tobacco abuse 08/23/2020 Assessment & Plan (08/30/2020 9:27 AM ADMINISTRATIVE ASSISTANT OFFICE MANAGER): Patient was again recommended to stop smoking different modalities were discussed. She hopes to quit within 3 months. Assessment & Plan (08/23/2020 10:23 AM ADMINISTRATIVE ASSISTANT OFFICE MANAGER): Patient unfortunately continues to smoke. We again [...] rosuvastatin. Assessment & Plan (08/26/2023 11:45 AM ADMINISTRATIVE ASSISTANT OFFICE MANAGER): Impression: Chronic and stable. Plan: Continue rosuvastatin Assessment & Plan (03/31/2023 9:30 AM CDT): Hyperlipidemia chronic and controlled. Continue Crestor. Assessment & Plan (07/15/2022 1:41 PM ADMINISTRATIVE ASSISTANT OFFICE MANAGER): Hyperlipidemia chronic and controlled. Continue Crestor. Assessment & Plan (06/27/2021 9:25 AM ADMINISTRATIVE ASSISTANT OFFICE MANAGER): Hyperlipidemia chronic and controlled. Continue Crestor. Assessment & Plan (08/30/2020 9:26 AM ADMINISTRATIVE ASSISTANT OFFICE MANAGER): Currently controlled. Continue current statin therapy Assessment & Plan (08/23/2020 10:19 AM ADMINISTRATIVE ASSISTANT OFFICE MANAGER): Currently controlled. Continue statin therapy Assessment & Plan (08/22/2019 11:44 AM ADMINISTRATIVE ASSISTANT OFFICE MANAGER): Patient states cholesterol levels are well controlled. She is tolerating statin therapy continue per primary care physician Coronary artery disease invo lving wampanoag coronary artery of wampanoag heart without angina pectoris 05/12/2017 History of [...] with atrial fibrillation: a report of the [place] [employer]/[place] [employer] Task Force on Practice Guidelines [...] A) Assessment & Plan (08/30/2020 9:28 AM ADMINISTRATIVE ASSISTANT OFFICE MANAGER): Will hold Eliquis 2 days prior to surgery. 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 Assessment & Plan (08/26/2023 11:44 AM ADMINISTRATIVE ASSISTANT OFFICE MANAGER): Impression: Patient has had multiple endovascular and [...] proceed. Assessment & Plan (05/22/2023 9:32 AM ADMINISTRATIVE ASSISTANT OFFICE MANAGER): Bilateral lower extremity arterial occlusive disease with [...] duplex. Assessment & Plan (08/10/2022 9:42 PM ADMINISTRATIVE ASSISTANT OFFICE MANAGER): Patient is 2 week postop follow-up visit [...] duplex. Assessment & Plan (07/15/2022 1:37 PM ADMINISTRATIVE ASSISTANT OFFICE MANAGER): Patient has ongoing disabling claudication left lower extremity. Duplex findings suggest high-grade SFA stenosis. I have recommended left lower extremity angiogram with possible intervention. The procedure indications and all risks have been explained. She understands and agrees to proceed. Assessment & Plan (06/27/2021 9:24 AM ADMINISTRATIVE ASSISTANT OFFICE MANAGER): Patient continues to do well with no recurrence symptoms. Continue 6 month noninvasive study surveillance. Continue anti-platelet therapy and exercise. Assessment & Plan (08/30/2020 9:26 AM ADMINISTRATIVE ASSISTANT OFFICE MANAGER): Disabling claudication left lower extremity has worsened over the last 6 months. Have recommended left femoral endarterectomy with patch angioplasty the procedure, indications and all associated risks have been thoroughly discussed with the patient she understands and agrees to proceed Assessment & Plan (08/22/2019 11:42 AM ADMINISTRATIVE ASSISTANT OFFICE MANAGER): Patient has stable non disabling claudication of the left calf. No indication at this point to move forward with further workup or intervention. Continue exercise, risk factor modification and close surveillance. Atherosclerosis of wamp[place]ag ar viktoriya of right lower extremity with [...] duplex. Assessment & Plan (08/23/2020 10:19 AM ADMINISTRATIVE ASSISTANT OFFICE MANAGER): Continues to do well with no recurrence symptoms. Stent is patent with normal perfusion right foot. Continue anti-platelet therapy and ongoing risk factor modification with 6 months duplex surveillance Assessment & Plan (08/22/2019 11:44 AM ADMINISTRATIVE ASSISTANT OFFICE MANAGER): Patient has no recurrence symptoms of rest [...] on file Legal Sex Female 3:57 AM ADMINISTRATIVE ASSISTANT OFFICE MANAGER Gender Identity Not on file Sexual Orientation Not on file Last Filed Vital Signs Vital Sign Reading Time Taken Comments Blood Pressure 179/69 10/06/2024 2:05 PM CDT Pulse 67 10/06/2024 2:05 PM CDT Temperature 36.8 C (98.2 F) 05/17/2024 3:30 PM ADMINISTRATIVE ASSISTANT OFFICE MANAGER Respiratory Rate 18 05/17/2024 3:30 PM ADMINISTRATIVE ASSISTANT OFFICE MANAGER Oxygen Saturation 98% 09/28/2024 1:49 PM CDT Inhaled Oxygen Concentration - - Weight 67.1 kg (148 lb) 10/06/2024 2:05 PM CDT Height 170.2 cm (5' 7) 10/06/2024 2:05 PM CDT Body Mass Index 23.18 10/06/2024 2:05 PM CDT Plan of Treatment Not on file Medical Devices Implanted Type Area Director Of Market Research Device Identifier Shelf Expiration Date Model / Serial / Lot [employer] [id number] System 6-12fr Mvp Venous Closure Vascade - [id number] - [id number] Implanted:Qty: 1 on 12/18/2020 by Rui Valdez MD at [facility] [employer] 2022 800-612C-1 0U / [id number] / [id number] [employer] [id number] System 6-12fr Mvp Venous Closure Vascade - [id number] - [id number] Implanted:Qty: 1 on 12/18/2020 by Rui Valdez MD at [facility] [employer] 03/27/2022 800-612C-1 0U / [id number] / [id number] [employer] [id number] System 6-12fr Mvp Venous Closure Vascade - [id number] - [id number] Implanted:Qty: 1 on 12/18/2020 by Rui Valdez MD at [facility] Collagen [employer] 10/08/2022 800-612C-1 0U / [id number] / [id number] [employer] [id number] Vascade 6/7fr Bioabsorbable Vascular System Compression Collagen - [id number] - [id number] Implanted:Qty: 1 on 12/18/2020 by Rui Vadlez MD at [facility] [employer] 10/02/2022 [id number]-0 5U / [id number] / [id number] [employer] Long Synergy Xd 3.5mm 48mm System Coronary Stent Everolimus [id number] - S0 - [id number] Implanted:Qty: 1 on 05/16/2024 by Wilfredo Craig MD at [facility] Stent [employer] Long 11/02/2025 [id number] / 0 / [id number] [employer] Long Stent Drug Eluting S Angela Us Mr [id number] - S0 - [id number] Implanted:Qty: 1 on 05/16/2024 by Wilfredo Craig MD at [facility] Stent [employer] Long 09/09/2025 [id number] / 0 / [id number] [employer] Stent System Biomimics 3d Vascular 6x80mm [id number] - [id number] Implanted:Qty: 1 on 07/15/2022 by Markel Peralta MD at [facility] [employer] 03/27/2023 [id number] / / [id number] [employer] V[employer] Device Clsr Perclose Prostyle Sut-Mediatd Closure-Repair Sys 29769-82 - [id number] Implanted:Qty: 1 on 07/15/2022 by Markel Peralta MD at [facility] [employer] 03/05/2024 [id number] / / [id number] [employer] Peripheral Vascular Lifestent 6mm 6fr 200mm 135cm Self Expand Catheter Guidewire .035 [id number] - [id number] Implanted:Qty: 1 on 09/07/2023 by Markel Peralta MD at [facility] [employer] 03/27/2025 [id number] / / [id number] [employer] Vascular Device Clsr Perclose Prostyle Sut-Mediatd Closure-Repair Sys 21695-50 - [id number] Implanted:Qty: 1 on 09/07/2023 by Markel Peralta MD at [facility] [employer] 11/02/2024 [id number] / / [id number] [employer] Peripheral Vascular Lifestent 6mm 6fr 120mm 130cm Self Expand Catheter Helical [id number] - [id number] Implanted:Qty: 1 on 09/07/2023 by Markel Peralta MD at [facility] [employer] 10/14/2024 [id number] / / [id number] Procedures Procedure Name Priority Date/Time Associated Diagnosis Comments US CAROTIDS DUPLEX BILATERAL Schedule Routine, Read Routine (OP Routine) 10/03/2024 11:00 AM CDT Bilateral carotid artery stenosis US ARTERIAL DOPPLER UPPER EXTREMITY BILATERAL Schedule Routine, Read Routine (OP Routine) 10/03/2024 10:32 AM CDT Subclavian artery stenosis, left Subclavian artery stenosis, right ECG 12-LEAD Routine 09/28/2024 4:19 PM CDT roasterman current use of antiarrhythmic drug US FLORIAN [...] CDT Carotid Duplex Ultrasound Report Patient Name: GLADSY ALVAREZ L : 1945 (79y ) Study Date: 10/03/2024 9:57:37 AM Gender: F Immigration Law Specialist: JULES Barbosa Ref Provider: MARKEL PERALTA Quality: [...] Study Date: 10/03/2024 9:57:37 AM Gender: F Immigration Law Specialist: JULES Barbosa Ref Provider: MAKREL PERALTA Quality: Adequate PROCEDURES: Carotid Report: Carotid [...] internal carotid artery disease is consistent with sybduqcy04-53% stenosis. 3. Normal, antegrade flow is noted [...] Gender: F Study Date: 10/03/2024 09:48:00 AM Immigration Law Specialist: Trena Lujan Rd,rvt Order Provider: MARKEL PERALTA [...] Gender: F Study Date: 10/03/2024 09:48:00 AM Immigration Law Specialist: Trena Lujan Rdms,rvt Order Provider: MARKEL PERALTA [...] (09/28/2024 4:19 PM CDT) us Davida Valdez CAP AND STUD MACHINE OPERATOR ECG ORDERABLES Final Result * US FLORIAN (09/21/2024 11:04 AM CDT) Anatomical Region Laterality Modality Vascular N/A Ultrasound 09/21/2024 10:1 1 AM CDT Narrative 09/22/2024 1:11 PM CDT Lower Extremity Arterial Doppler Report Patient Name: GLADYS ALVAREZ L : 1945 Study Date: 09/21/2024 10:11:00 AM Gender: F Immigration Law Specialist: Joselyn Swenson Ref Provider: MARKEL PERALTA Quality: Adequate Order Provider: MARKEL PERALTA PROCEDURES: Arterial Report: Ankle - Brachial Index Doppler exam. INDICATIONS: I73.9 Peripheral vascular disease, unspecified. HISTORY: s/p ATHER/BA/STSENT RT SFA & POP 09/07/23 S/P ATHER/BA/STENT LT SFA & POP, BA LT TPT 07/15/22 S/P ENDART LT UPHOLSTERED GOODS CRAFTER 09/11/20 S/P STENT RT MARKO, ATHER/DCBA RT POP 03/05/17 S/P ENDART RT UPHOLSTERED [employer] CRAFTER 10/10/15. COMPARISONS: No change compared to prior study. The previous exam was completed on 03/16/24. MEASUREMENTS: Right Value Left Value Rt Brachial Pressure 194 mmHg Lt Brachial Pressure 199 mmHg Rt MANAGER PRODUCT DESIGN Pressure 186 mmHg Lt MANAGER PRODUCT DESIGN Pressure 177 mmHg Rt DPA Pressure 180 [...] Study Date: 09/21/2024 10:11:00 AM Gender: F Immigration Law Specialist: Joselyn Swenson Ref Provider: MARKEL PERALTA Quality: Adequate Order Provider: MARKEL PERALTA PROCEDURES: Arterial Report: Ankle - Brachial Index Doppler exam. INDICATIONS: I73.9 Peripheral vascular disease, unspecified. HISTORY: s/p ATHER/BA/STSENT RT SFA & POP 09/07/23 S/P ATHER/BA/STENT LT SFA & POP, BA LT TPT 07/15/22 S/P ENDART LT UPHOLSTERED [employer] CRAFTER 09/11/20 S/P STENT RT MARKO, ATHER/DCBA RT POP 03/05/17 S/P ENDART RT UPHOLSTERED [employer] CRAFTER 10/10/15. COMPARISONS: No change compared to prior study. The previous exam was completed on 03/16/24. MEASUREMENTS: Right Value Left Value Rt Brachial Pressure 194 mmHg Lt Brachial Pressure 199 mmHg Rt MANAGER PRODUCT DESIGN Pressure 186 mmHg Lt MANAGER PRODUCT DESIGN Pressure 177 mmHg Rt DPA Pressure 180 [...] 1:10:54 PM CDT us Markel Peralta MD [facility] US PROCEDURES Final Re sult * US Arterial Duplex Lower Extremity Bilateral (09/21/2024 11:04 AM CDT) Anatomical Region Laterality Modality Vascular Bilateral Ultrasound 09/21/2024 10:3 3 AM CDT Narrative 09/22/2024 2:49 PM CDT Lower Extremity Arterial Duplex Report Patient Name: GLADYS ALVAREZ L : 1945 (79y ) Gender: F Study Date: 09/21/2024 10:33:17 AM Ht(Inch): Wt(Lb): BSA: Immigration Law Specialist: PEREZ VENCES Provider: MARKEL PERALTA Quality: Adequate [...] POP, BA LT TPT 07/15/22 S/PENDRT LT UPHOLSTERED GOODS CRAFTER 09/11/20 S/P STENT RT MARKO, ATHER/DCBA RT POP 03/05/17 S/P ENDART RT UPHOL[employer]ED [employer] CRAFTER 10/10/15. COMPARISONS: No change compared to prior study. The previous exam was completed on 03/16/24. MEASUREMENTS: Right Value Left Value Rt UPHOLSTERED GOODS CRAFTER Prx PSV 127.70 cm/sec Lt UPHOLSTERED GOODS CRAFTER Prx PSV 223.30 cm/sec Rt Profunda Prx PSV 103.70 cm/sec Lt Profunda Prx PSV 126.10 cm/sec Rt SFA Prx PSV 100.90 cm/sec Lt SFA Prx PSV 157.30 cm/sec Lt SFA Mid PSV 144.60 cm/sec STENTS: Right Value Left Value Location RT MID SFA & POP Location LT DIST SFA & POP Rt Stent Prx Quechan PSV 66.00 cm/sec Lt Stent Prx Quechan PSV 99.00 cm/sec Rt Stent Prx PSV 80.00 cm/sec Lt Stent Prx PSV 64.00 cm/sec Rt Stent Mid PSV 100.00 cm/sec Lt Stent Mid PSV 116.00 cm/sec Rt Stent Dst PSV 102.00 cm/sec Lt Stent Dst PSV 92.00 cm/sec Rt Stent Dst Attachment PSV 72.00 cm/sec Lt Stent Dst Quechan PSV 55.00 cm/sec Rt Stent Dst Quechan PSV 147.00 cm/sec FINDINGS: Right: Biphasic arteries [...] Date: 09/21/2024 10:33:17 AM Ht(Inch): Wt(Lb): BSA: Immigration Law Specialist: PEREZ VENCES Provider: MARKEL PERALTA Quality: Adequate [...] POP, BA LT TPT 07/15/22 S/PENDRT LT UPHOLSTERED [employer] CRAFTER 09/11/20 S/P STENT RT MARKO, ATHER/DCBA RT POP 03/05/17 S/P ENDART RT UPHOL[employer]ED [employer] CRAFTER 10/10/15. COMPARISONS: No change compared to prior study. The previous exam was completed on03/16/24. MEASUREMENTS: Right Value Left Value Rt UPHOLSTERED GOODS CRAFTER Prx PSV 127.70 cm/sec Lt UPHOLSTERED GOODS CRAFTER Prx PSV 223.30 cm/sec Rt Profunda Prx PSV 103.70 cm/sec Lt Profunda Prx PSV 126.10 cm/sec Rt SFA Prx PSV 100.90 cm/sec Lt SFA Prx PSV 157.30 cm/sec Lt SFA Mid PSV 144.60 cm/sec STENTS: Right Value Left Value Location RT MID SFA & POP Location LT DIST SFA & POP Rt Stent Prx Quechan PSV 66.00 cm/sec Lt Stent Prx Quechan PSV 99.00cm/sec Rt Stent Prx PSV 80.00 cm/sec Lt Stent Prx PSV 64.00 cm/sec Rt Stent Mid PSV 100.00 cm/sec Lt Stent Mid PSV 116.00 cm/sec Rt Stent Dst PSV 102.00 cm/sec Lt Stent Dst PSV 92.00 cm/sec Rt Stent Dst Attachment PSV 72.00 cm/sec Lt Stent Dst Quechan PSV 55.00cm/sec Rt Stent Dst Quechan PSV 147.00 cm/sec FINDINGS: Right: Biphasic arteries [...] Advance Directives For more information, please contact: [phone] * Full Code (Latest Code Status on File) Date Activated Date Inactivated Comments 05/16/2024 4:04 PM 05/17/2024 8:34 PM Care Teams Usability Engineer Relationship Specialty Start Date End Date Juan Whyte MD [address] [facility] [place] [address] PCP - General 10/03/16 Juan Mckeon MD [address] [place] [address] [address] [place] [address] Cardiology 12/09/16 Markel Peralta MD [address] [facility] [address] [facility] [address] [place] [address] Surgeon Vascular Surgery 02/08/19
--- NOTE | 2024-12-11 16:46 | ED_ITS ---
HPI - Fall General Chief Complaint: Fall Stated Complaint: fall, lip injury, arm injury Time Seen by Provider: 12/11/24 15:54 History of Present Illness HPI Narrative: 79-year-old female history of AFib on Eliquis, CAD on Plavix presents to the emergency department for mechanical fall that occurred prior to arrival. Patient states she her phone in her hand was walking on attack when she tripped on a garden hose and fell forward. She is uncertain if she hit her head but believes she hit her phone against her right upper lip and obtained a laceration to the right upper lobe. She denies loss of consciousness. She is reporting skin tears, ecchymosis and pain to her bilateral upper extremities from her elbows to her wrist. She has a large skin tear over the right proximal forearm which she has been having difficulty obtaining hemostasis. She also reports difficulty obtaining hemostasis to the lip laceration. She is reporting some tenderness to her right breast does have some ecchymosis on exam. She has a history of breast implants. She denies other injuries including abdominal pain, lower extremity injury, neck pain or back pain. Last Tdap unknown. Related Data Home Medications ?Medication ?Instructions ?Recorded ?Confirmed ?Last Taken ?Type apixaban 5 mg tablet (Eliquis) 5 mg PO BID 05/14/19 12/11/24 07/01/24 History clopidogrel 75 mg tablet (Plavix) 75 mg PO DAILY 05/14/19 12/11/24 07/01/24 History isosorbide mononitrate 30 mg 60 mg PO DAILY 09/07/20 12/11/24 07/01/24 History tablet,extended release 24 hr rosuvastatin 10 mg tablet 10 mg PO QHS 09/07/20 12/11/24 07/01/24 History amlodipine 10 mg tablet 10 mg PO DAILY 04/30/21 12/11/24 07/01/24 History sotalol 80 mg tablet 40 mg PO BID 10/29/21 12/11/24 07/01/24 History nitroglycerin 0.4 mg sublingual 0.4 mg sublingual Q5M PRN chest 08/11/22 12/11/24 Unknown History tablet pain triamcinolone acetonide 0.1 % See Rx Instructions .Route 07/02/24 12/11/24 Unknown History topical cream .COMPLEX PRN pain Allergies Allergy/AdvReac Type Severity Reaction Status Date / Time nitrofurantoin Allergy Mild Hives Verified 12/11/24 15:49 Review of Systems 2 Review of Systems: All systems reviewed & are unremarkable except as noted in HPI and below [facility] Past Medical History Medical History Pre-op testing Hypothyroidism (acquired) Conjunctivitis Pneumonia Pneumonia UTI (urinary tract infection) Chronic back pain Atypical chest pain Emphysema, unspecified Spinal stenosis of lumbar region without neurogenic claudication Tear of meniscus of right knee Tobacco abuse Synovial cyst of popliteal space [Noel], right knee Right anterior knee pain Patient had no falls in past year PAD (peripheral artery disease) Other obesity due to excess calories [place], acute, non 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 History of smoking 30 or more pack years Hematuria, unspecified Gastroesophageal reflux disease without esophagitis Dysuria Colon cancer screening Chronic diastolic heart failure Chronic a-fib CAD in creek artery Arterial occlusive disease HTN (hypertension) HLD (hyperlipidemia) Hypothyroidism (acquired) PVD (peripheral vascular disease) ASHD (arteriosclerotic heart disease) Surgical History Surgical History H/O thyroidectomy H/O kidney removal H/O heart artery stent History of vascular surgery Rt Leg Family History Family History Mother Family history of Parkinson's disease Patient's mother is Father Family history of heart disease in male family member before age 55, Onset Age: 82 Patient's father is Family history of cardiovascular disease, Onset Age: 81 Family history of kidney disease Social History Social History Smoking packs per day: 0.5 Smoking cigarettes per day: 10.0 Smoking status: Current every day smoker Tobacco type: cigarettes Alcohol intake: never Substance use: never Substance use type: does not use Do You Feel Safe in your Home?: Yes Lack of Transportation: No Lack of Food: Never True Current Housing: I Have Housing Concerned About Future Housing: No Difficulty Paying Gas/Electric Bills: No Difficulty Paying for Meds: No Currently Unemployed: No Education: High School Diploma/GED Difficulty w/ Childcare or Family Care: No Spiritual care concerns: No Exam 2 Narrative: GENERAL: Well-appearing, well-nourished, and in no acute distress. HEAD: Normocephalic, atraumatic. EYES: PERRLA and EOMI. ENT: Nares clear, no rhinorrhea or epistaxis. Mucous membranes moist. Edematous right upper lip with ecchymosis to the inner lip in a small puncture wound/irregular laceration measuring approximately 0.5 cm to the inner upper lip just right of the midline, no active bleeding, no deep structures or foreign bodies visualized. No lacerations or abrasions that affect the vermilion border. No other intraoral lacerations or abrasions, dentition intact. NECK: Mild midline cervical spinous tenderness, crepitus, step-offs or deformities. BACK: No midline thoracolumbar spinous tenderness, crepitus, step-offs or deformities CHEST: Clear to auscultation. No respiratory distress. Mild ecchymosis to the right breast with mild tenderness. Breast implants bilaterally. No tenderness to ribs, no other ecchymosis or evidence of trauma to chest wall HEART: Regular rate and rhythm. No murmur heard. Normal peripheral pulses. ABDOMEN: Soft, nontender, nondistended, normal active bowel sounds. No rebound, guarding or rigidity, no overlying ecchymosis or skin changes EXTREMITIES: Diffuse mild tenderness and ecchymosis to the bilateral elbows, forearms and distal radius with a skin tear to the right distal ulna. Patient has full active and passive range of motion of all extremities without difficulty. No obvious deformities. No tenderness to lower extremities. Extremities are pink, warm and dry. Pulses intact. Radial, median and ulnar nerves are intact bilaterally. Compartments are soft throughout SKIN: Large skin tear to the dorsum of the proximal right forearm with mild oozing, no deep structures or foreign bodies visualized. NEURO: No focal deficits. Alert and oriented x3 Course Vital Signs Vital signs: Vital Signs Temperature 97.8 F 12/11/24 15:25 Pulse Rate 93 12/11/24 15:25 Respiratory Rate 14 12/11/24 15:25 Blood Pressure 164/81 H 12/11/24 15:25 Pulse Oximetry 99 12/11/24 15:25 Oxygen Delivery Room Air 12/11/24 15:25 Temperature 97.8 F 12/11/24 15:25 Pulse Rate 93 12/11/24 15:25 Respiratory Rate 14 12/11/24 15:25 Blood Pressure 164/81 H 12/11/24 15:25 Pulse Oximetry 99 12/11/24 15:25 Oxygen Delivery Room Air 12/11/24 15:25 Procedures Laceration Laceration 1: Date: 12/11/24 Time: 19:15 Site: lip Size (cm): 0.5 Description: irregular Depth: simple, single layer Local Anesthetic: lidocaine 1% and with epi Amount of anesthesia used (mL): 1 Pre-repair: wound explored and irrigated ====== Skin Level ====== Skin layer closed with: nylon Size (cm): 5-0 Number of sutures: 2 Technique: simple, interrupted ====== Subcutaneous Layer ====== ====== Muscle Layer ====== ====== Tendon Layer ====== MDM - Fall MDM Narrative Medical decision making narrative: 79-year-old female with history of AFib on Eliquis and CAD on Plavix presents to the emergency department for mechanical fall that occurred prior to arrival. Patient uncertain if she hit her head, denies LOC. Presents with a right upper lip puncture wound, skin tear and ecchymosis to upper extremities, mild ecchymosis and pain in the right breast with breast implants. Vital stable. Exam is notable for the above. Given patient is on Eliquis and is having some ecchymosis to the right breast with breast implants, will obtain lab work, CT chest with contrast in addition to CT brain/cervicals spine/facial bones and x-rays of the upper extremities. Lab work shows nonspecific leukocytosis of 13.3. Hemoglobin is stable. Chemistries with chronic hyponatremia. Imaging noted below. Patient does have very minimal tenderness to the left proximal radius. She has no significant edema on exam, does have overlying ecchymosis to the proximal radius. She is neurovascularly intact in using her upper extremities spontaneously without difficulty or significant pain. I discussed imaging and exam findings with orthopedic surgeon, Dr. Sorto, who agrees to an arm sling and follow-up in clinic. Laceration/puncture of the lip was cleansed and closed with 2 sutures without complications. Bleeding controlled. Skin tear to the right proximal forearm was cleansed and bandaged by nursing staff with Surgicel, nonstick and Kerlix with successful hemostasis. Tdap updated. Patient was given wound care and return precautions and advised to follow-up with Dr. Sorto and her PCP. She is agreeable with the plan verbalized understanding. Discharged in stable condition. Lab Data 12/11/24 16:52 12/11/24 16:52 Labs: Lab Results 12/11/24 Range/Units 16:52 WBC 13.3 H (4.5-10.0) K/mm3 RBC 4.03 L (4.2-5.4) M/mm3 Hgb 12.8 (12.0-15.0) g/dL Hct 38.2 (37.0-47.0) % MCV 94.8 (80-100) fl MCH 31.8 (26-34) pg MCHC 33.5 (32-36) g/dl RDW 13.0 (11.5-14.5) % Plt Count 229 (150-375) k/mm3 MPV 9.5 (7.4-10.4) fl Immature Gran % (Auto) 0.5 (0-0.5) % Neut % (Auto) 80.5 H (45.5-73.1) % Lymph % (Auto) 8.0 L (18.3-44.2) % Clayton % (Auto) 10.0 H (2.6-8.5) % Eos % (Auto) 0.8 (0-4.4) % Baso % (Auto) 0.2 (0.2-1.2) % Lymph # (Auto) 1.06 (0.9-3.2) K/mm3 Clayton # (Auto) 1.3 H (0.1-0.6) K/mm3 Eos # (Auto) 0.1 (0-0.3) K/mm3 Baso # (Auto) 0.0 (0.0-0.1) K/mm3 Abs Immat Gran (auto) 0.06 H (0.00-0.031) K/mm3 Absolute Neuts (auto) 10.7 H (1.3-6.7) K/mm3 Absolute Nucleated RBC 0.000 (0.0-0.012) K/mm3 Nucleated RBC % 0.0 (0.0-0.2) % PT 16.4 H (11.1-14.7) Seconds INR 1.3 APTT 29.2 (22.3-36.8) Seconds Sodium 130 L (137-145) mmol/L Potassium 3.6 (3.4-5.0) mmol/L Chloride 100 (98-107) mmol/L Carbon Dioxide 24 (22-30) mmol/L Anion Gap 6 (4-12) mmol/L BUN 10 (7-17) mg/dL Creatinine 0.70 (0.7-1.0) mg/dL Estim Creat Clear Calc 53 ml/min Estimated GFR > 60 (59 - ) Glucose 113 H (65-110) mg/dL Calcium 9.1 (8.4-10.2) mg/dL Total Bilirubin 0.7 (0.2-1.3) mg/dL AST 25 (14-36) U/L ALT 18 (6-35) U/L Alkaline Phosphatase 100 (38-126) U/L Total Protein 6.0 L (6.3-8.2) g/dL Albumin 3.5 (3.5-5.1) g/dL Imaging Data Radiologist's impression: Impressions Head CT 12/11/24 17:58 IMPRESSION: No acute intracranial process. Head/Cervical Spine/Facial Bones CT 12/11/24 18:01 IMPRESSION: No acute fracture or traumatic malalignment in the cervical spine. No acute facial bone fracture. Chest CT 12/11/24 18:08 IMPRESSION: No acute thoracic process detected. Elbow X-Ray 12/11/24 18:15 IMPRESSION: No definite acute osseous finding detected in the left elbow, forearm, or wrist. Large elbow joint effusion, which can accompany occult fractures, likely of the radial head in a patient of this age. Forearm X-Ray 12/11/24 18:15 IMPRESSION: No definite acute osseous finding detected in the left elbow, forearm, or wrist. Large elbow joint effusion, which can accompany occult fractures, likely of the radial head in a patient of this age. Wrist X-Ray 12/11/24 18:15 IMPRESSION: No definite acute osseous finding detected in the left elbow, forearm, or wrist. Large elbow joint effusion, which can accompany occult fractures, likely of the radial head in a patient of this age. Elbow X-Ray 12/11/24 18:18 IMPRESSION: No acute osseous finding in the right elbow, forearm, or wrist. Forearm X-Ray 12/11/24 18:18 IMPRESSION: No acute osseous finding in the right elbow, forearm, or wrist. Wrist X-Ray 12/11/24 18:18 IMPRESSION: No acute osseous finding in the right elbow, forearm, or wrist. Discharge Plan Discharge Clinical Impression: Skin tear, Effusion of left elbow Laceration of lip Qualifiers: Encounter type: initial encounter Qualified Code(s): S01.511A - Laceration without foreign body of lip, initial encounter Chest wall contusion Qualifiers: Encounter type: initial encounter Laterality: right Qualified Code(s): S20.211A - Contusion of right front wall of thorax, initial encounter Patient Disposition: Home Condition: Stable Instructions: Antibiotic Form, Laceration (DC), Skin Tear (ED) Additional Instructions: Your evaluated in the emergency department after a fall. You had 2 stitches placed in your lip. These will dissolve. You had a bandage placed your right elbow. X-ray of her left elbow shows swelling or joint which may be due to an underlying radial head fracture. Please wear the sling as directed. Take Tylenol as needed for pain. Follow-up closely with her primary care provider. Return to the emergency department if you develop bleeding to any of her wounds that is uncontrollable, surrounding redness or drainage, fever, vision changes, focal numbness or weakness, loss of consciousness or altered mental status, significantly worsening pain your elbow or other concerning symptoms. Patient Language: Sammarinese Prescriptions: No Action clopidogrel [Plavix] 75 mg Tablet 75 mg PO DAILY Eliquis 5 mg Tablet 5 mg PO BID isosorbide mononitrate 30 mg tablet extended release 24 hr 60 mg PO DAILY rosuvastatin 10 mg tablet 10 mg PO QHS nitroglycerin 0.4 mg tablet, sublingual 0.4 mg sublingual Q5M PRN (Reason: chest pain) Rx Instructions: do not exceed 3 doses per episode amlodipine 10 mg tablet 10 mg PO DAILY sotalol 80 mg tablet 40 mg PO BID triamcinolone acetonide 0.1 % cream See Rx Instructions .ROUTE .COMPLEX PRN (Reason: pain) Rx Instructions: APPLY 1 APPLICATION TOPICALLY THREE TIMES A DAY PRN; tramadol 50 mg tablet 50 mg PO Q6H PRN (Reason: pain) Qty: 30 2RF levothyroxine 75 mcg tablet See Rx Instructions .ROUTE .COMPLEX Qty: 90 2RF Dose Instruction: TAKE 1 TABLET BY MOUTH EVERY DAY Rx Instructions: TAKE 1 TABLET BY MOUTH EVERY DAY losartan 100 mg tablet See Rx Instructions .ROUTE .COMPLEX Qty: 90 2RF Dose Instruction: TAKE 1 TABLET BY MOUTH EVERY DAY Rx Instructions: TAKE 1 TABLET BY MOUTH EVERY DAY Follow-up/Referrals: Juan Whyte MD [Primary Care Provider] - Reinier Sorto MD [Physician] -
[2024-12-11] MEDS: TETANUS,DIPHTHERIA,AC PERTUSSIS ADULT (0.5 ML) BOOSTRIX IM (16:57)
[2024-12-11] MEDS: ACETAMINOPHEN 325 MG TABLET 650 MG PO (16:57)
[2024-12-11 17:06] LABS: Basophils Percent Auto 0.2 % (0.2-1.2); Eosinophils Absolute Auto 0.1 K/mm3 (0-0.3); Eosinophils Percent Auto 0.8 % (0-4.4); Hematocrit 38.2 % (37.0-47.0); Hemoglobin 12.8 g/dL (12.0-15.0); Immature Granulocyte Absolute 0.06 K/mm3 (0.00-0.031); Immature Granulocyte Percent A 0.5 % (0-0.5); Lymphocytes Absolute Auto 1.06 K/mm3 (0.9-3.2); Mean Corpuscular HGB Conc 33.5 g/dl (32-36); Mean Corpuscular Hemoglobin 31.8 pg (26-34); Mean Corpuscular Volume 94.8 fl (80-100); Mean Platelet Volume 9.5 fl (7.4-10.4); Monocytes Absolute Auto 1.3 K/mm3 (0.1-0.6); Neutrophils Absolute Auto 10.7 K/mm3 (1.3-6.7); Neutrophils Percent Auto 80.5 % (45.5-73.1); Platelet Count Result 229 k/mm3 (150-375); Red Blood Count 4.03 M/mm3 (4.2-5.4); White Blood Count 13.3 K/mm3 (4.5-10.0)
[2024-12-11 17:15] LABS: Alanine Aminotransferase 18 U/L (6-35); Albumin Level 3.5 g/dL (3.5-5.1); Alkaline Phosphatase 100 U/L (38-126); Anion Gap 6 mmol/L (4-12); Aspartate Amino Transferase 25 U/L (14-36); Bilirubin,Total 0.7 mg/dL (0.2-1.3); Blood Urea Nitrogen 10 mg/dL (7-17); Calcium 9.1 mg/dL (8.4-10.2); Carbon Dioxide 24 mmol/L (22-30); Chloride 100 mmol/L (98-107); Estimated CRCL calculation 53 ml/min; Estimated Glomerular Filt Rate > 60; Glucose 113 mg/dL (65-110); Potassium 3.6 mmol/L (3.4-5.0); Sodium 130 mmol/L (137-145)
[2024-12-11 17:17] LABS: INR 1.3; Prothrombin Time 16.4 Seconds (11.1-14.7)
[2024-12-11 17:18] LABS: Partial Thromboplastin Time 29.2 Seconds (22.3-36.8)
== END 2024-12-11 19:46 | disposition home or self-care (01) ==
PROVIDERS: Emergency Provider Physician Assistant; PCP Emergency Medicine
DX: S01.511A Laceration without foreign body of lip, initial encounter (principal); S20.211A Contusion of right front wall of thorax, initial encounter; Z23 Encounter for immunization; I48.20 Chronic atrial fibrillation, unspecified; I73.9 Peripheral vascular disease, unspecified; I25.2 Old myocardial infarction; I25.10 Atherosclerotic heart disease of native coronary artery without angina pectoris; J43.9 Emphysema, unspecified; E89.0 Postprocedural hypothyroidism; E78.5 Hyperlipidemia, unspecified; K21.9 Gastro-esophageal reflux disease without esophagitis; F17.210 Nicotine dependence, cigarettes, uncomplicated; Z95.5 Presence of coronary angioplasty implant and graft; Z87.440 Personal history of urinary (tract) infections; Z87.01 Personal history of pneumonia (recurrent); Z90.5 Acquired absence of kidney; Z79.01 Long term (current) use of anticoagulants; W18.09XA Striking against other object with subsequent fall, initial encounter
CPT/HCPCS: 12011; 36415; 70450; 70486; 71260; 72125; 73070; 73080; 73090; 73100; 73110; 80053; 85025; 85610; 85730; 90471; 90715; 99284; A4565; A9270; Q9967

== ENCOUNTER 2024-12-20 14:40 | Outpatient (CLI) | payer OTHER, SELFPAY ==
--- NOTE | ~2024-12-20 | CT_ITS ---
CT scan of the left elbow CLINICAL HISTORY: Pain TECHNIQUE: Following intravenous administration of 100 cc of Omnipaque 350 contrast material, axial i maging of the left elbow was performed. Sagittal and coronal reformatted images were reconstructed. D ose reduction technique was used on this scan by utilizing automated exposure control and iterative r econstruction technique. The dose-length product (DLP) was 581.81 mGy-cm. Findings: No fracture or dislocation seen. Osseous alignment is anatomic. Joint spaces the elbow are intact. No degenerative or erosive change identified. There is moderate elbow joint effusion present posteriorly. Visualized musculature about the elbow appears unremarkable. No other soft tissue mass or fluid colle ction evident. IMPRESSION: Moderate elbow joint effusion posteriorly, nonspecific. Consider joint aspiration as indicated. No osseous or articular abnormality evident otherwise. Reviewed, dictated and finalized at [facility]. IMPRESSION: Moderate elbow joint effusion posteriorly, nonspecific. Consider joint aspirati on as indicated. No osseous or articular abnormality evident otherwise.
--- OUTSIDE RECORDS SUMMARY | 2024-12-20 15:38 | XMS_ITS | Encounter Summary ---
Author Organization [facility] Care Team Providers Care Carton Marker Machine Name Role Phone Juan Whyte MD Primary Care Provide r Juan Mckeon MD Unavailable [phone] Markel Peralta MD Unavailable [phone] Encounter Details Date Type Department Care Team (Latest Contact Info) Description 03/05/2017 Orders Only [facility] ProviderRosa Isela MD [address] [place] [id number] Social History Tobacco Use Types Packs/Day Years Used Date Smoking Tobacco: Light Smoker Comments:Smoking History Pac ks/day: 3 Cigarettes Alcohol Use Standard Drinks/Week Comments No 0 (1 standard drink = 0.6 oz pur e alcohol) Comments Unknown Sex and Gender Information Value Date Recorded Sex Assigned at Not on file 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
--- OUTSIDE RECORDS SUMMARY | 2024-12-20 15:38 | XMS_ITS | Clinical Summary ---
Author Organization [facility] [address] Address [address] [place] [address] Care Team Providers Care Curtain Stitcher Name Role Phone Juan Whyte MD Primary Care Provide r Juan Mckeon MD Unavailable [phone] Markel Peralta MD Unavailable [phone] Allergies Active Allergy Reactions Criticality Noted [...] 24 hr tabletIndication s:Coronary artery disease involving [place] coronary artery of [place] heart without angina pectoris TAKE 1 TABLET [...] losartan. Assessment & Plan (08/26/2023 11:45 AM COMMUNITY SERVICES MANAGER): Impression: Chronic stable. Plan: Continue amlodipine, losartan, isosorbide, Assessment & Plan (09/23/2022 2:18 PM CDT): Hypertension remains chronic and controlled. Continue current medical therapy Assessment & Plan (07/15/2022 1:37 PM COMMUNITY SERVICES MANAGER): Hypertension chronic and controlled. Continue current medical therapy. Assessment & Plan (06/27/2021 9:25 AM COMMUNITY SERVICES MANAGER): Hypertension chronic and controlled. Continue current medical therapy detention current use of antiarrhythmic drug Assessment & [...] 12:34 PM CDT): The patient has a [id number] score of 5 (annualized risk of stroke [...] re-evaluation Assessment & Plan (08/30/2020 9:27 AM COMMUNITY SERVICES MANAGER): Ulceration stable. Continue dressing changes and plan for femoral endarterectomy. Assessment & Plan (08/23/2020 10:20 AM COMMUNITY SERVICES MANAGER): New ischemic left great toe ulceration nonhealing. Patient has severe occlusive disease left lower extremity wound healing potential is poor. Have recommended left lower extremity angiogram possible intervention. The procedure and all associated risks have been thoroughly discussed with her in detail. She understands and agrees to proceed Tobacco abuse 08/23/2020 Assessment & Plan (08/30/2020 9:27 AM COMMUNITY SERVICES MANAGER): Patient was again recommended to stop smoking different modalities were discussed. She hopes to quit within 3 months. Assessment & Plan (08/23/2020 10:23 AM COMMUNITY SERVICES MANAGER): Patient unfortunately continues to smoke. We [...] rosuvastatin. Assessment & Plan (08/26/2023 11:45 AM COMMUNITY SERVICES MANAGER): Impression: Chronic and stable. Plan: Continue rosuvastatin Assessment & Plan (03/31/2023 9:30 AM CDT): Hyperlipidemia chronic and controlled. Continue Crestor. Assessment & Plan (07/15/2022 1:41 PM COMMUNITY SERVICES MANAGER): Hyperlipidemia chronic and controlled. Continue Crestor. Assessment & Plan (06/27/2021 9:25 AM COMMUNITY SERVICES MANAGER): Hyperlipidemia chronic and controlled. Continue Crestor. Assessment & Plan (08/30/2020 9:26 AM COMMUNITY SERVICES MANAGER): Currently controlled. Continue current statin therapy Assessment & Plan (08/23/2020 10:19 AM COMMUNITY SERVICES MANAGER): Currently controlled. Continue statin therapy Assessment & Plan (08/22/2019 11:44 AM COMMUNITY SERVICES MANAGER): Patient states cholesterol levels are well controlled. She is tolerating statin therapy continue per primary care physician Coronary artery disease invo lving [place] coronary artery of [place] heart without angina pectoris 05/12/2017 History of [...] with atrial fibrillation: a report of the [place] [employer]/[place] Task Force on Practice Guidelines [...] A) Assessment & Plan (08/30/2020 9:28 AM COMMUNITY SERVICES MANAGER): Will hold Eliquis 2 days prior to surgery. Otherwise continue current treatment Atheroscler of [place] artery of both legs with intermit claudication [...] ulcerations. Assessment & Plan (08/26/2023 11:44 AM COMMUNITY SERVICES MANAGER): Impression: Patient has had multiple endovascular [...] proceed. Assessment & Plan (05/22/2023 9:32 AM COMMUNITY SERVICES MANAGER): Bilateral lower extremity arterial occlusive disease [...] duplex. Assessment & Plan (08/10/2022 9:42 PM COMMUNITY SERVICES MANAGER): Patient is 2 week postop follow-up [...] duplex. Assessment & Plan (07/15/2022 1:37 PM COMMUNITY SERVICES MANAGER): Patient has ongoing disabling claudication left lower extremity. Duplex findings suggest high-grade SFA stenosis. I have recommended left lower extremity angiogram with possible intervention. The procedure indications and all risks have been explained. She understands and agrees to proceed. Assessment & Plan (06/27/2021 9:24 AM COMMUNITY SERVICES MANAGER): Patient continues to do well with no recurrence symptoms. Continue 6 month noninvasive study surveillance. Continue anti-platelet therapy and exercise. Assessment & Plan (08/30/2020 9:26 AM COMMUNITY SERVICES MANAGER): Disabling claudication left lower extremity has worsened over the last 6 months. Have recommended left femoral endarterectomy with patch angioplasty the procedure, indications and all associated risks have been thoroughly discussed with the patient she understands and agrees to proceed Assessment & Plan (08/22/2019 11:42 AM COMMUNITY SERVICES MANAGER): Patient has stable non disabling claudication of the left calf. No indication at this point to move forward with further workup or intervention. Continue exercise, risk factor modification and close surveillance. Atherosclerosis of [place] ar viktoriya of right lower extremity with [...] duplex. Assessment & Plan (08/23/2020 10:19 AM COMMUNITY SERVICES MANAGER): Continues to do well with no recurrence symptoms. Stent is patent with normal perfusion right foot. Continue anti-platelet therapy and ongoing risk factor modification with 6 months duplex surveillance Assessment & Plan (08/22/2019 11:44 AM COMMUNITY SERVICES MANAGER): Patient has no recurrence symptoms of [...] Type Department Care Team Description 11/24/2024 Telephone [facility] Cardiology [address] [facility] [address] [place] [phone] Juan Mckeon MD 10/06/2024 2:15 PM CDT Office Visit [facility] Medical [facility] Vascular and Vein Surgery [address] [place] [address] [place] [phone] Hannah Fried NP Primary hypertension (Primary Dx); Mixed hyperlipidemia; Atheroscler of [place] artery of both legs with intermit claudication; Pain in both upper extremities 10/06/2024 Orders Only [facility] Medical Group Vascular and Vein Surgery [address] [place] [address] [place] [phone] Markel Peralta MD Carotid bruit, unspecified laterality (Primary Dx) 10/06/2024 Orders Only [facility] Vascular and Vein Surgery [address] [place] [address] [place] [phone] Markel Peralta MD Carotid bruit, unspecified laterality (Primary Dx); Atheroscler of [place] artery of both legs with intermit claudication 10/03/2024 9:46 AM CDT - 10/03/2024 11:59 PM CDT Hospital Encounter [facility] Cardiac Testing [address] [place] [phone] Bilateral carotid artery stenosis Discharge Disposition: Discharge to home or self care 10/03/2024 9:46 AM CDT - 10/03/2024 11:59 PM CDT Hospital Encounter [facility] Cardiac Testing [address] [place] [phone] Subclavian artery stenosis, left; Subclavian artery stenosis, right Discharge Disposition: Discharge to home or self care 09/28/2024 2:00 PM CDT Office Visit [facility] Medical Group Cardiology [address] [facility] [address] [place] [phone] Davida Valdez NP Coronary artery disease involving [place] coronary artery of [place] heart without angina pectoris (Primary Dx); History of coronary artery stent placement; Paroxysmal atrial fibrillation (HCC); Atheroscler of [place] artery of both legs with intermit claudication; detention current use of antiarrhythmic drug; Anticoagulation management encounter 09/21/2024 11:15 AM CDT Office Visit [facility] Medical Group Vascular and Vein Surgery [address] [facility] [address] [place] [phone] Janna Santizo PA Claudication of upper extremity (Primary Dx); Carotid bruit, unspecified laterality; Atheroscler of [place] artery of both legs with intermit claudication; Mixed hyperlipidemia; Primary hypertension 09/21/2024 9:50 AM CDT - 09/21/2024 11:59 PM CDT Hospital Encounter [facility] Cardiac Testing [address] [place] [phone] Intermittent claudication Discharge Disposition: Discharge to home or self care 09/21/2024 9:49 AM CDT - 09/21/2024 11:59 PM CDT Hospital Encounter [facility] Cardiac Testing [address] [place] [phone] Aftercare following surgery of the circulatory system Discharge Disposition: Discharge to home or self care 09/21/2024 Orders Only [facility] Medical Group Vascular and Vein Surgery [address] [facility] [address] [place] [phone] Markel Peralta MD Subclavian artery stenosis, left [...] Right RT com-fem endar w/ bovine pericardial SCIENCE SPECIALIST. FEMORAL ENDARTERECTOMY 2020 Left LT com-fem endar [...] on file Legal Sex Female 3:57 AM COMMUNITY SERVICES MANAGER Gender Identity Not on file Sexual Orientation Not on file Obstetrics History Last Filed Vital Signs Vital Sign Reading Time Taken Comments Blood Pressure 179/69 10/06/2024 2:05 PM CDT Pulse 67 10/06/2024 2:05 PM CDT Temperature 36.8 C (98.2 F) 05/17/2024 3:30 PM COMMUNITY SERVICES MANAGER Respiratory Rate 18 05/17/2024 3:30 PM COMMUNITY SERVICES MANAGER Oxygen Saturation 98% 09/28/2024 1:49 PM [...] 05/17/2025 05/17/2024 Medical Devices Implanted Type Area Lace Sewer Device Identifier Shelf Expiration Date Model / Serial / Lot [employer] [id number] System 6-12fr Mvp Venous Closure Vascade - [id number] - [id number] Implanted:Qty: 1 on 12/18/2020 by Rui Valdez MD at [facility] Collagen [employer] 2022 800-612C-1 0U / [id number] / [id number] [employer] [id number] System 6-12fr Mvp Venous Closure Vascade - [id number] - [id number] Implanted:Qty: 1 on 12/18/2020 by Rui Valdez MD at [facility] [employer] 03/27/2022 800-612C-1 0U / [id number] / [id number] [employer] [id number] System 6-12fr Mvp Venous Closure Vascade - [id number] - [id number] Implanted:Qty: 1 on 12/18/2020 by Rui Valdez MD at [facility] Collagen [employer] 10/08/2022 800-612C-1 0U / [id number] / [id number] [employer] [id number] Vascade 6/7fr Bioabsorbable Vascular System Compression Collagen - [id number] - [id number] Implanted:Qty: 1 on 12/18/2020 by Rui Valdez MD at [facility] [employer] 10/02/2022 [id number]-0 5U / [id number] / [id number] [employer] Long Synergy Xd 3.5mm 48mm System Coronary Stent Everolimus [id number] - S0 - [id number] Implanted:Qty: 1 on 05/16/2024 by Wilfredo Craig MD at [facility] Stent [employer] Long 11/02/2025 [id number] / 0 / [id number] [employer] Long Stent Drug Eluting S Megatron Us Mr 4.43n45ys [id number] - S0 - [id number] Implanted:Qty: 1 on 05/16/2024 by Wilfredo Craig MD at [facility] Stent [employer] Long 09/09/2025 [id number] / 0 / [id number] Stent System Biomimics 3d Vascular 6x80mm [id number] - [id number] Implanted:Qty: 1 on 07/15/2022 by Markel Peralta MD at [facility] [employer] 03/27/2023 [id number] / / [id number] Baneg[employer] Vascular Device Clsr Perclose Prostyle Sut-Mediatd Closure-Repair Sys 03268-20 - [id number] Implanted:Qty: 1 on 07/15/2022 by Markel Peralta MD at [facility] [employer] 03/05/2024 [id number] / / [id number] Bard Peripheral Vascular Lifestent 6mm 6fr 200mm 135cm Self Expand Catheter Guidewire .035 [id number] - [id number] Implanted:Qty: 1 on 09/07/2023 by Markel Peralta MD at [facility] [employer] Peripheral Vascular 03/27/2025 [id number] / / [id number] [employer] Vascular Device Clsr Perclose Prostyle Sut-Mediatd Closure-Repair Sys 39806-90 - [id number] Implanted:Qty: 1 on 09/07/2023 by Markel Peralta MD at [facility] [employer] 11/02/2024 [id number] / / [id number] Bard Peripheral Vascular Lifestent 6mm 6fr 120mm 130cm Self Expand Catheter Helical [id number] - [id number] Implanted:Qty: 1 on 09/07/2023 by Markel Peralta MD at [facility] Peripheral Vascular 10/14/2024 [id number] / / [id number] Procedures Procedure Name Priority Date/Time Associated Diagnosis Comments US CAROTIDS DUPLEX BILATERAL Schedule Routine, Read Routine (OP Routine) 10/03/2024 11:00 AM CDT Bilateral carotid artery stenosis US ARTERIAL DOPPLER UPPER EXTREMITY BILATERAL Schedule Routine, Read Routine (OP Routine) 10/03/2024 10:32 AM CDT Subclavian artery stenosis, left Subclavian artery stenosis, right ECG 12-LEAD Routine 09/28/2024 4:19 PM CDT detention current use of antiarrhythmic drug US FLORIAN [...] Study Date: 10/03/2024 9:57:37 AM Gender: F Tripe Finisher: JULES Barbosa Ref Provider: MARKEL PERALTA Quality: [...] Study Date: 10/03/2024 9:57:37 AM Gender: F Tripe Finisher: JULES Barbosa Ref Provider: MARKEL PERALTA Quality: [...] internal carotid artery disease is consistent with [id number]% stenosis. 3. Normal, antegrade flow is noted [...] Gender: F Study Date: 10/03/2024 09:48:00 AM Tripe Finisher: Trena Lujan Rdms,rvt Order Provider: MARKEL PERALTA [...] Gender: F Study Date: 10/03/2024 09:48:00 AM Tripe Finisher: Trena Lujan Rdsd,rvt Order Provider: MARKEL PERALTA Quality: Adequate Ref [...] Study Date: 09/21/2024 10:11:00 AM Gender: F Tripe Finisher: Joselyn Swenson Ref Provider: MARKEL PERALTA Quality: Adequate Order Provider: MARKEL PERALTA PROCEDURES: Arterial Report: Ankle - Brachial Index Doppler exam. INDICATIONS: I73.9 Peripheral vascular disease, unspecified. HISTORY: s/p ATHER/BA/STSENT RT SFA & POP 09/07/23 S/P ATHER/BA/STENT LT SFA & POP, BA LT TPT 07/15/22 S/P ENDART LT LAST SORTER 09/11/20 S/P STENT RT MARKO, ATHER/DCBA RT POP 03/05/17 S/P ENDART RT LAST SORTER 10/10/15. COMPARISONS: No change compared to prior study. The previous exam was completed on 03/16/24. MEASUREMENTS: Right Value Left Value Rt Brachial Pressure 194 mmHg Lt Brachial Pressure 199 mmHg Rt SCIENCE SPECIALIST Pressure 186 mmHg Lt SCIENCE SPECIALIST Pressure 177 mmHg Rt DPA Pressure 180 [...] Study Date: 09/21/2024 10:11:00 AM Gender: F Tripe Finisher: Joselyn Swenson RVS Ref Provider: MARKEL PERALTA Quality: Adequate Order Provider: MARKEL PERALTA PROCEDURES: Arterial Report: Ankle - Brachial Index Doppler exam. INDICATIONS: I73.9 Peripheral vascular disease, unspecified. HISTORY: s/p ATHER/BA/STSENT RT SFA & POP 09/07/23 S/P ATHER/BA/STENT LT SFA & POP, BA LT TPT 07/15/22 S/P ENDART LT LAST SORTER 09/11/20 S/P STENT RT MARKO, ATHER/DCBA RT POP 03/05/17 S/P ENDART RT LAST SORTER 10/10/15. COMPARISONS: No change compared to prior study. The previous exam was completed on 03/16/24. MEASUREMENTS: Right Value Left Value Rt Brachial Pressure 194 mmHg Lt Brachial Pressure 199 mmHg Rt SCIENCE SPECIALIST Pressure 186 mmHg Lt SCIENCE SPECIALIST Pressure 177 mmHg Rt DPA Pressure 180 [...] Date: 09/21/2024 10:33:17 AM Ht(Inch): Wt(Lb): BSA: Tripe Finisher: PEREZ VENCES Provider: MARKEL PERALTA Quality: Adequate [...] POP, BA LT TPT 07/15/22 S/PENDRT LT LAST SORTER 09/11/20 S/P STENT RT MARKO, ATHER/DCBA RT POP 03/05/17 S/P ENDART RT LAST SORTER 10/10/15. COMPARISONS: No change compared to prior study. The previous exam was completed on 03/16/24. MEASUREMENTS: Right Value Left Value Rt LAST SORTER Prx PSV 127.70 cm/sec Lt LAST SORTER Prx PSV 223.30 cm/sec Rt Profunda Prx PSV 103.70 cm/sec Lt Profunda Prx PSV 126.10 cm/sec Rt SFA Prx PSV 100.90 cm/sec Lt SFA Prx PSV 157.30 cm/sec Lt SFA Mid PSV 144.60 cm/sec STENTS: Right Value Left Value Location RT MID SFA & POP Location LT DIST SFA & POP Rt Stent Prx [place] PSV 66.00 cm/sec Lt Stent Prx [place] PSV 99.00 cm/sec Rt Stent Prx PSV 80.00 cm/sec Lt Stent Prx PSV 64.00 cm/sec Rt Stent Mid PSV 100.00 cm/sec Lt Stent Mid PSV 116.00 cm/sec Rt Stent Dst PSV 102.00 cm/sec Lt Stent Dst PSV 92.00 cm/sec Rt Stent Dst Attachment PSV 72.00 cm/sec Lt Stent Dst [place] PSV 55.00 cm/sec Rt Stent Dst [place] PSV 147.00 cm/sec FINDINGS: Right: Biphasic arteries [...] Date: 09/21/2024 10:33:17 AM Ht(Inch): Wt(Lb): BSA: Tripe Finisher: PEREZ VENCES Provider: MARKEL PERALTA Quality: Adequate [...] POP, BA LT TPT 07/15/22 S/PENDRT LT LAST SORTER 09/11/20 S/P STENT RT MARKO, ATHER/DCBA RT POP 03/05/17 S/P ENDART RT LAST SORTER 10/10/15. COMPARISONS: No change compared to prior study. The previous exam was completed on03/16/24. MEASUREMENTS: Right Value Left Value Rt LAST SORTER Prx PSV 127.70 cm/sec Lt LAST SORTER Prx PSV 223.30 cm/sec Rt Profunda Prx PSV 103.70 cm/sec Lt Profunda Prx PSV 126.10 cm/sec Rt SFA Prx PSV 100.90 cm/sec Lt SFA Prx PSV 157.30 cm/sec Lt SFA Mid PSV 144.60 cm/sec STENTS: Right Value Left Value Location RT MID SFA & POP Location LT DIST SFA & POP Rt Stent Prx [place] PSV 66.00 cm/sec Lt Stent Prx [place] PSV 99.00cm/sec Rt Stent Prx PSV 80.00 cm/sec Lt Stent Prx PSV 64.00 cm/sec Rt Stent Mid PSV 100.00 cm/sec Lt Stent Mid PSV 116.00 cm/sec Rt Stent Dst PSV 102.00 cm/sec Lt Stent Dst PSV 92.00 cm/sec Rt Stent Dst Attachment PSV 72.00 cm/sec Lt Stent Dst [place] PSV 55.00cm/sec Rt Stent Dst [place] PSV 147.00 cm/sec FINDINGS: Right: Biphasic arteries [...] 09/22/2024 1:28:41 PM CDT Markel Peralta MD [facility] PROCEDURES Final Re sult from Last 3 Months [employer] ADVANTAGE CHOICE PPO Advance Directives For more information, please contact: [phone] * Full Code (Latest Code Status on File) Date Activated Date Inactivated Comments 05/16/2024 4:04 PM 05/17/2024 8:34 PM Care Teams Curtain Stitcher Relationship Specialty Start Date End Date Juan Whyte MD [address] [place] [address] PCP - General 10/03/16 Juan Mckeon MD [address] [facility] [address] [place] [address] Cardiology 12/09/16 Markel Peralta MD [address] [facility] [address] [facility] [address] [place] [address] Surgeon Vascular Surgery 02/08/19
--- OUTSIDE RECORDS SUMMARY | 2024-12-20 15:38 | XMS_ITS | Referral Summary ---
Author Organization [facility] [place] [address] [facility] [address] [place] [address] Care Team Providers Care Certified Indoor Environmentalist Name Role Phone Juan Whyte MD Primary Care Provide r Juan Mckeon MD Unavailable [phone] Markel Peralta MD Unavailable [phone] Encounters Date Type Department Care Team Description 11/24/2024 Telephone [facility] Cardiology [address] [place] [address] Juan Mckeon MD 10/06/2024 Orders Only [facility] Vascular and Vein Surgery [facility] [address] [place] [address] Markel Peralta MD Carotid bruit, unspecified laterality (Primary Dx) 10/06/2024 Orders Only [facility] Vascular and Vein Surgery [address] [facility] [address] [place] [address] Markel Peralta MD Carotid bruit, unspecified laterality (Primary Dx); 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 Cardiac Testing [address] [place] [address] Subclavian artery stenosis, left; Subclavian artery stenosis, right Discharge Disposition: Discharge to home or self care 10/03/2024 9:46 AM CDT - 10/03/2024 11:59 PM CDT Hospital Encounter 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 Assessment & Plan (08/26/2023 11:45 AM LEI MAKER): Impression: Chronic stable. Plan: Continue amlodipine, losartan, isosorbide, Assessment & Plan (09/23/2022 2:18 PM CDT): Hypertension remains chronic and controlled. Continue current medical therapy Assessment & Plan (07/15/2022 1:37 PM LEI MAKER): Hypertension chronic and controlled. Continue current medical therapy. Assessment & Plan (06/27/2021 9:25 AM LEI MAKER): Hypertension chronic and controlled. Continue current medical [...] 12:34 PM CDT): The patient has a [id number] score of 5 (annualized risk of stroke [...] re-evaluation Assessment & Plan (08/30/2020 9:27 AM LEI MAKER): Ulceration stable. Continue dressing changes and plan for femoral endarterectomy. Assessment & Plan (08/23/2020 10:20 AM LEI MAKER): New ischemic left great toe ulceration nonhealing. Patient has severe occlusive disease left lower extremity wound healing potential is poor. Have recommended left lower extremity angiogram possible intervention. The procedure and all associated risks have been thoroughly discussed with her in detail. She understands and agrees to proceed Tobacco abuse 08/23/2020 Assessment & Plan (08/30/2020 9:27 AM LEI MAKER): Patient was again recommended to stop smoking different modalities were discussed. She hopes to quit within 3 months. Assessment & Plan (08/23/2020 10:23 AM LEI MAKER): Patient unfortunately continues to smoke. We again [...] rosuvastatin. Assessment & Plan (08/26/2023 11:45 AM LEI MAKER): Impression: Chronic and stable. Plan: Continue rosuvastatin Assessment & Plan (03/31/2023 9:30 AM CDT): Hyperlipidemia chronic and controlled. Continue Crestor. Assessment & Plan (07/15/2022 1:41 PM LEI MAKER): Hyperlipidemia chronic and controlled. Continue Crestor. Assessment & Plan (06/27/2021 9:25 AM LEI MAKER): Hyperlipidemia chronic and controlled. Continue Crestor. Assessment & Plan (08/30/2020 9:26 AM LEI MAKER): Currently controlled. Continue current statin therapy Assessment & Plan (08/23/2020 10:19 AM LEI MAKER): Currently controlled. Continue statin therapy Assessment & Plan (08/22/2019 11:44 AM LEI MAKER): Patient states cholesterol levels are well controlled. She is tolerating statin therapy continue per primary care physician Coronary artery disease invo lving hughes coronary artery of hughes heart without angina pectoris 05/12/2017 History of [...] with atrial fibrillation: a report of the [place] [employer]/[place] [employer] Task Force on Practice Guidelines [...] A) Assessment & Plan (08/30/2020 9:28 AM LEI MAKER): Will hold Eliquis 2 days prior to surgery. 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 Assessment & Plan (08/26/2023 11:44 AM LEI MAKER): Impression: Patient has had multiple endovascular and [...] proceed. Assessment & Plan (05/22/2023 9:32 AM LEI MAKER): Bilateral lower extremity arterial occlusive disease with [...] duplex. Assessment & Plan (08/10/2022 9:42 PM LEI MAKER): Patient is 2 week postop follow-up visit [...] duplex. Assessment & Plan (07/15/2022 1:37 PM LEI MAKER): Patient has ongoing disabling claudication left lower extremity. Duplex findings suggest high-grade SFA stenosis. I have recommended left lower extremity angiogram with possible intervention. The procedure indications and all risks have been explained. She understands and agrees to proceed. Assessment & Plan (06/27/2021 9:24 AM LEI MAKER): Patient continues to do well with no recurrence symptoms. Continue 6 month noninvasive study surveillance. Continue anti-platelet therapy and exercise. Assessment & Plan (08/30/2020 9:26 AM LEI MAKER): Disabling claudication left lower extremity has worsened over the last 6 months. Have recommended left femoral endarterectomy with patch angioplasty the procedure, indications and all associated risks have been thoroughly discussed with the patient she understands and agrees to proceed Assessment & Plan (08/22/2019 11:42 AM LEI MAKER): Patient has stable non disabling claudication of the left calf. No indication at this point to move forward with further workup or intervention. Continue exercise, risk factor modification and close surveillance. Atherosclerosis of hughes ar viktoriya of right lower extremity with [...] duplex. Assessment & Plan (08/23/2020 10:19 AM LEI MAKER): Continues to do well with no recurrence symptoms. Stent is patent with normal perfusion right foot. Continue anti-platelet therapy and ongoing risk factor modification with 6 months duplex surveillance Assessment & Plan (08/22/2019 11:44 AM LEI MAKER): Patient has no recurrence symptoms of rest [...] on file Legal Sex Female 3:57 AM LEI MAKER Gender Identity Not on file Sexual Orientation Not on file Last Filed Vital Signs Vital Sign Reading Time Taken Comments Blood Pressure 179/69 10/06/2024 2:05 PM CDT Pulse 67 10/06/2024 2:05 PM CDT Temperature 36.8 C (98.2 F) 05/17/2024 3:30 PM LEI MAKER Respiratory Rate 18 05/17/2024 3:30 PM LEI MAKER Oxygen Saturation 98% 09/28/2024 1:49 PM CDT Inhaled Oxygen Concentration - - Weight 67.1 kg (148 lb) 10/06/2024 2:05 PM CDT Height 170.2 cm (5' 7) 10/06/2024 2:05 PM CDT Body Mass Index 23.18 10/06/2024 2:05 PM CDT Plan of Treatment Not on file Medical Devices Implanted Type Area Director Records Management Device Identifier Shelf Expiration Date Model / Serial / Lot [employer] [id number] System 6-12fr Mvp Venous Closure Vascade - [id number] - [id number] Implanted:Qty: 1 on 12/18/2020 by Rui Valdez MD at [facility] Collagen [employer] 2022 800-612C-1 0U / [id number] / [id number] [employer] [id number] System 6-12fr Mvp Venous Closure Vascade - [id number] - [id number] Implanted:Qty: 1 on 12/18/2020 by Rui Valdez MD at [facility] [employer] 03/27/2022 800-612C-1 0U / [id number] / [id number] [employer] [id number] System 6-12fr Mvp Venous Closure Vascade - [id number] - [id number] Implanted:Qty: 1 on 12/18/2020 by Rui Valdez MD at [facility] Collagen [employer] 10/08/2022 800-612C-1 0U / [id number] / [id number] [employer] [id number] Vascade 6/7fr Bioabsorbable Vascular System Compression Collagen - [id number] - [id number] Implanted:Qty: 1 on 12/18/2020 by Rui Valdez MD at [facility] [employer] 10/02/2022 700-580I-0 5U / [id number] / [id number] [employer] Long Synergy Xd 3.5mm 48mm System Coronary Stent Everolimus [id number] - S0 - [id number] Implanted:Qty: 1 on 05/16/2024 by Wilfredo Craig MD at [facility] Stent [employer] Long 11/02/2025 [id number] / 0 / [id number] [employer] Long Stent Drug Eluting S Angela Us Mr 4.99f61wk [id number] - S0 - [id number] Implanted:Qty: 1 on 05/16/2024 by Wilfredo Craig MD at [facility] Stent [employer] Long 09/09/2025 [id number] / 0 / [id number] [employer] Stent System Biomimics 3d Vascular 6x80mm [id number] - [id number] Implanted:Qty: 1 on 07/15/2022 by Markel Peralta MD at [facility] [employer] 03/27/2023 [id number] / / [id number] [employer] Vascular Device Clsr Perclose Prostyle Sut-Mediatd Closure-Repair Sys 76470-06 - [id number] Implanted:Qty: 1 on 07/15/2022 by Markel Peralta MD at [facility] [employer] 03/05/2024 [id number] / / [id number] Bard Peripheral Vascular Lifestent 6mm 6fr 200mm 135cm Self Expand Catheter Guidewire .035 [id number] - [id number] Implanted:Qty: 1 on 09/07/2023 by Markel Peralta MD at [facility] [employer] 03/27/2025 [id number] / / [id number] [employer] Vascular Device Clsr Perclose Prostyle Sut-Mediatd Closure-Repair Sys 80258-99 - [id number] Implanted:Qty: 1 on 09/07/2023 by Markel Peralta MD at [facility] [employer] 11/02/2024 [id number] / / [id number] [employer] Peripheral Vascular Lifestent 6mm 6fr 120mm 130cm Self Expand Catheter Helical [id number] - [id number] Implanted:Qty: 1 on 09/07/2023 by Markel Peralta MD at [facility] [employer] Vascular 10/14/2024 [id number] / / [id number] Procedures Procedure Name Priority Date/Time Associated Diagnosis Comments US CAROTIDS DUPLEX BILATERAL Schedule Routine, Read Routine (OP Routine) 10/03/2024 11:00 AM CDT Bilateral carotid artery stenosis US ARTERIAL DOPPLER UPPER EXTREMITY BILATERAL Schedule Routine, Read Routine (OP Routine) 10/03/2024 10:32 AM CDT Subclavian artery stenosis, left Subclavian artery stenosis, right ECG 12-LEAD Routine 09/28/2024 4:19 PM CDT oil heaterman current use of antiarrhythmic drug US FLORIAN [...] Study Date: 10/03/2024 9:57:37 AM Gender: F Batch Operator: JULES Barbosa Ref Provider: MARKEL PERALTA Quality: [...] Study Date: 10/03/2024 9:57:37 AM Gender: F Batch Operator: JULES Barbosa Ref Provider: MARKEL PERALTA Quality: [...] internal carotid artery disease is consistent with [id number]% stenosis. 3. Normal, antegrade flow is noted [...] Gender: F Study Date: 10/03/2024 09:48:00 AM Batch Operator: Trena Lujan Rd,rvt Order Provider: MARKEL PERALTA [...] Gender: F Study Date: 10/03/2024 09:48:00 AM Batch Operator: Trena Lujan Rdms,rvt Order Provider: MARKEL PERALTA [...] (09/28/2024 4:19 PM CDT) us Davida Valdez GAS SHOVEL OPERATOR ECG ORDERABLES Final Result * US FLORIAN (09/21/2024 11:04 AM CDT) Anatomical Region Laterality Modality Vascular N/A Ultrasound 09/21/2024 10:1 1 AM CDT Narrative 09/22/2024 1:11 PM CDT Lower Extremity Arterial Doppler Report Patient Name: GLADYS ALVAREZ L : 1945 Study Date: 09/21/2024 10:11:00 AM Gender: F Batch Operator: Joselyn Swenson Ref Provider: MARKEL PERALTA Quality: Adequate Order Provider: MARKEL PERALTA PROCEDURES: Arterial Report: Ankle - Brachial Index Doppler exam. INDICATIONS: I73.9 Peripheral vascular disease, unspecified. HISTORY: s/p ATHER/BA/STSENT RT SFA & POP 09/07/23 S/P ATHER/BA/STENT LT SFA & POP, BA LT TPT 07/15/22 S/P ENDART LT DATA ENTRY REPRESENTATIVE 09/11/20 S/P STENT RT MARKO, ATHER/DCBA RT POP 03/05/17 S/P ENDART RT DATA ENTRY REPRESENTATIVE 10/10/15. COMPARISONS: No change compared to prior study. The previous exam was completed on 03/16/24. MEASUREMENTS: Right Value Left Value Rt Brachial Pressure 194 mmHg Lt Brachial Pressure 199 mmHg Rt ACUTE CARE SURGEON Pressure 186 mmHg Lt ACUTE CARE SURGEON Pressure 177 mmHg Rt DPA Pressure 180 [...] Study Date: 09/21/2024 10:11:00 AM Gender: F Batch Operator: Joselyn Swenson Ref Provider: MARKEL PERALTA Quality: Adequate Order Provider: MARKEL PERALTA PROCEDURES: Arterial Report: Ankle - Brachial Index Doppler exam. INDICATIONS: I73.9 Peripheral vascular disease, unspecified. HISTORY: s/p ATHER/BA/STSENT RT SFA & POP 09/07/23 S/P ATHER/BA/STENT LT SFA & POP, BA LT TPT 07/15/22 S/P ENDART LT DATA ENTRY REPRESENTATIVE 09/11/20 S/P STENT RT MARKO, ATHER/DCBA RT POP 03/05/17 S/P ENDART RT DATA ENTRY REPRESENTATIVE 10/10/15. COMPARISONS: No change compared to prior study. The previous exam was completed on 03/16/24. MEASUREMENTS: Right Value Left Value Rt Brachial Pressure 194 mmHg Lt Brachial Pressure 199 mmHg Rt ACUTE CARE SURGEON Pressure 186 mmHg Lt ACUTE CARE SURGEON Pressure 177 mmHg Rt DPA Pressure 180 [...] 1:10:54 PM CDT us Markel Peralta MD [facility] US PROCEDURES Final Re sult * US Arterial Duplex Lower Extremity Bilateral (09/21/2024 11:04 AM CDT) Anatomical Region Laterality Modality Vascular Bilateral Ultrasound 09/21/2024 10:3 3 AM CDT Narrative 09/22/2024 2:49 PM CDT Lower Extremity Arterial Duplex Report Patient Name: GLADYS ALVAREZ L : 1945 (79y ) Gender: F Study Date: 09/21/2024 10:33:17 AM Ht(Inch): Wt(Lb): BSA: Batch Operator: PEREZ VENCES Provider: MARKEL PERALTA Quality: Adequate [...] POP, BA LT TPT 07/15/22 S/PENDRT LT DATA ENTRY REPRESENTATIVE 09/11/20 S/P STENT RT MARKO, ATHER/DCBA RT POP 03/05/17 S/P ENDART RT DATA ENTRY REPRESENTATIVE 10/10/15. COMPARISONS: No change compared to prior study. The previous exam was completed on 03/16/24. MEASUREMENTS: Right Value Left Value Rt DATA ENTRY REPRESENTATIVE Prx PSV 127.70 cm/sec Lt DATA ENTRY REPRESENTATIVE Prx PSV 223.30 cm/sec Rt Profunda Prx PSV 103.70 cm/sec Lt Profunda Prx PSV 126.10 cm/sec Rt SFA Prx PSV 100.90 cm/sec Lt SFA Prx PSV 157.30 cm/sec Lt SFA Mid PSV 144.60 cm/sec STENTS: Right Value Left Value Location RT MID SFA & POP Location LT DIST SFA & POP Rt Stent Prx [place] PSV 66.00 cm/sec Lt Stent Prx [place] PSV 99.00 cm/sec Rt Stent Prx PSV 80.00 cm/sec Lt Stent Prx PSV 64.00 cm/sec Rt Stent Mid PSV 100.00 cm/sec Lt Stent Mid PSV 116.00 cm/sec Rt Stent Dst PSV 102.00 cm/sec Lt Stent Dst PSV 92.00 cm/sec Rt Stent Dst Attachment PSV 72.00 cm/sec Lt Stent Dst [place] PSV 55.00 cm/sec Rt Stent Dst [place] PSV 147.00 cm/sec FINDINGS: Right: Biphasic arteries [...] Date: 09/21/2024 10:33:17 AM Ht(Inch): Wt(Lb): BSA: Batch Operator: PEREZ VENCES Provider: MARKEL PERALTA Quality: Adequate [...] POP, BA LT TPT 07/15/22 S/PENDRT LT DATA ENTRY REPRESENTATIVE 09/11/20 S/P STENT RT MARKO, ATHER/DCBA RT POP 03/05/17 S/P ENDART RT DATA ENTRY REPRESENTATIVE 10/10/15. COMPARISONS: No change compared to prior study. The previous exam was completed on03/16/24. MEASUREMENTS: Right Value Left Value Rt DATA ENTRY REPRESENTATIVE Prx PSV 127.70 cm/sec Lt DATA ENTRY REPRESENTATIVE Prx PSV 223.30 cm/sec Rt Profunda Prx PSV 103.70 cm/sec Lt Profunda Prx PSV 126.10 cm/sec Rt SFA Prx PSV 100.90 cm/sec Lt SFA Prx PSV 157.30 cm/sec Lt SFA Mid PSV 144.60 cm/sec STENTS: Right Value Left Value Location RT MID SFA & POP Location LT DIST SFA & POP Rt Stent Prx [place] PSV 66.00 cm/sec Lt Stent Prx [place] PSV 99.00cm/sec Rt Stent Prx PSV 80.00 cm/sec Lt Stent Prx PSV 64.00 cm/sec Rt Stent Mid PSV 100.00 cm/sec Lt Stent Mid PSV 116.00 cm/sec Rt Stent Dst PSV 102.00 cm/sec Lt Stent Dst PSV 92.00 cm/sec Rt Stent Dst Attachment PSV 72.00 cm/sec Lt Stent Dst [place] PSV 55.00cm/sec Rt Stent Dst [place] PSV 147.00 cm/sec FINDINGS: Right: Biphasic arteries [...] Advance Directives For more information, please contact: [phone] * Full Code (Latest Code Status on File) Date Activated Date Inactivated Comments 05/16/2024 4:04 PM 05/17/2024 8:34 PM Care Teams Certified Indoor Environmentalist Relationship Specialty Start Date End Date Juan Whyte MD [address] [facility] [place] [address] PCP - General 10/03/16 Juan Mckeon MD [address] [place] [address] [address] [place] [address] Cardiology 12/09/16 Markel Peralta MD [address] [facility] [address] [facility] [address] [place] [address] Surgeon Vascular Surgery 02/08/19
--- OUTSIDE RECORDS SUMMARY | 2024-12-20 15:38 | XMS_ITS | Encounter Summary ---
Author Organization [facility] Care Team Providers Care Sheep Shearer Name Role Phone Juan Whyte MD Primary Care Provide r Juan Mckeon MD Unavailable [phone] Markel Peralta MD Unavailable [phone] Encounter Details Date Type Department Care Team (Latest Contact Info) Description 11/25/2017 Orders Only [facility] ProviderRosa Isela MD [address] [place] [address] Social History Tobacco Use Types Packs/Day Years Used Date Smoking Tobacco: Former Cigarettes Q uit: 05/12/2016 Smokeless Tobacco: Never Comments:Smoking History Pac ks/day: 3 Cigarettes Alcohol Use Standard Drinks/Week Comments No 0 (1 standard drink = 0.6 oz pur e alcohol) Comments Unknown Sex and Gender Information Value Date Recorded Sex Assigned at Not on file Legal Sex Female 3:57 AM PROBATION OFFICER Gender Identity Not on file Sexual Orientation [...] on filedocumented in this encounter Care Teams Sheep Shearer Relationship Specialty Start Date End Date Juan Whyte MD [address] [place] [address] PCP - General 10/03/16 Juan Mckeon MD [address] [facility] [address] [place] [address] Cardiology 12/09/16 Markel Peralta MD [address] [facility] [address] [facility] [address] [place] [address] Surgeon Vascular Surgery 02/08/19 documented as of this encounter
== END 2024-12-20 14:41 | disposition home or self-care (01) ==
PROVIDERS: PCP Emergency Medicine; Visit Provider Emergency Medicine
DX: M25.422 Effusion, left elbow (principal)
CPT/HCPCS: 73201; Q9967

== ENCOUNTER 2025-05-29 09:07 | Outpatient (CLI) | payer OTHER, SELFPAY ==
--- OUTSIDE RECORDS SUMMARY | 2025-05-29 09:56 | XMS_ITS | Clinical Summary ---
Author Organization [facility] [address] Address [address] [place] [address] Care Team Providers Care [employer] Name Role Phone Juan Whyte MD Primary Care Provide r Juan Mckeon MD Unavailable [phone] Markel Peralta MD Unavailable [phone] Allergies Active Allergy Reactions Criticality Noted Date Comments Nitrofurantoin Hives Medium 09/03/2020 Medications traMADol (ULTRAM) 50 mg tablet Take 1 tablet (50 mg total) by mouth every 6 (six) hours as needed 0 10/07/2017 Active losartan (COZAAR) 100 mg tablet Take 1 tablet (100 mg total) by mouth daily after lunch 2 04/20/2018 Active levothyroxine (SYNTHROID) 75 mcg tablet Take 1 tablet (75 mcg total) by mouth daily 02/11/2024 Active clopidogreL (PLAVIX) 75 mg tablet TAKE 1 TABLET BY MOUTH EVERY DAY 90 tablet 3 10/10/2024 Active sotaloL (BETAPACE) 80 mg tablet Take 0.5 tablets (40 mg total) by mouth 2 (two) times a day 90 tablet 3 11/24/2024 Active isosorbide mononitrate ER (IMDUR) 30 mg 24 hr tabletIndication s: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 25 tablet 3 04/25/2025 Active Active Problems Problem Noted Date Diagnosed Date Bilateral carotid artery stenosis 04/21/2025 Assessment & Plan (04/21/2025 10:27 AM CDT): Patient remains asymptomatic discussed current duplex. Follow up in 1 year for annual surveillance with carotid duplex. Continue Plavix and statin therapy. Pain in both upper extremities 10/07/2024 Assessment [...] 08/27/2023 Primary hypertension 06/27/2021 Assessment & Plan (04/21/2025 10:26 AM CDT): Stable and controlled. Continue amlodipine, isosorbide, losartan sotalol Assessment & Plan (03/16/2024 12:11 PM CDT): Impression: Chronic stable. Plan: Continue amlodipine, sotalol, isosorbide, and losartan. Assessment & Plan (08/26/2023 11:45 AM CANDY CUTTER MACHINE): Impression: Chronic stable. Plan: Continue amlodipine, losartan, isosorbide, Assessment & Plan (09/23/2022 2:18 PM CDT): Hypertension remains chronic and controlled. Continue current medical therapy Assessment & Plan (07/15/2022 1:37 PM CANDY CUTTER MACHINE): Hypertension chronic and controlled. Continue current medical therapy. Assessment & Plan (06/27/2021 9:25 AM CANDY CUTTER MACHINE): Hypertension chronic and controlled. 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 Continue dressing changes and plan for femoral endarterectomy. Assessment & Plan (08/23/2020 10:20 AM CANDY CUTTER MACHINE): New ischemic left great toe ulceration nonhealing. Patient has severe occlusive disease left lower extremity wound healing potential is poor. Have recommended left lower extremity angiogram possible intervention. The procedure and all associated risks have been thoroughly discussed with her in detail. She understands and agrees to proceed Tobacco abuse 08/23/2020 Assessment & Plan (08/30/2020 9:27 AM CANDY CUTTER MACHINE): Patient was again recommended to stop smoking different modalities were discussed. She hopes to quit within 3 months. Assessment & Plan (08/23/2020 10:23 AM CANDY CUTTER MACHINE): Patient unfortunately continues to smoke. We again discussed the ill effects of ongoing tobacco abuse on her cardiovascular system. She understands that this places her higher risk for complications and potential limb loss. Different modalities were discussed she will try to quit again. Mixed hyperlipidemia 08/22/2019 Assessment & Plan (04/21/2025 10:26 AM CDT): Stable and controlled. Continue Crestor Assessment & Plan (03/16/2024 12:11 PM CDT): Impression: Chronic stable. Plan: Continue rosuvastatin. Assessment & Plan (08/26/2023 11:45 AM CANDY CUTTER MACHINE): Impression: Chronic and stable. Plan: Continue rosuvastatin Assessment & Plan (03/31/2023 9:30 AM CDT): Hyperlipidemia chronic and controlled. Continue Crestor. Assessment & Plan (07/15/2022 1:41 PM CANDY CUTTER MACHINE): Hyperlipidemia chronic and controlled. Continue Crestor. Assessment & Plan (06/27/2021 9:25 AM CANDY CUTTER MACHINE): Hyperlipidemia chronic and controlled. Continue Crestor. Assessment & Plan (08/30/2020 9:26 AM CANDY CUTTER MACHINE): Currently controlled. Continue current statin therapy Assessment & Plan (08/23/2020 10:19 AM CANDY CUTTER MACHINE): Currently controlled. Continue statin therapy Assessment & Plan (08/22/2019 11:44 AM CANDY CUTTER MACHINE): Patient states cholesterol levels are well controlled. She is tolerating statin therapy continue per primary care physician Coronary artery disease invo lving soboba coronary artery of soboba heart without angina pectoris 05/12/2017 History of [...] with atrial fibrillation: a report of the [employer] Task Force on Practice Guidelines [...] A) Assessment & Plan (08/30/2020 9:28 AM CANDY CUTTER MACHINE): Will hold Eliquis 2 days prior to surgery. 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 Stents remain patent on current duplex. Continue Eliquis and Plavix statin therapy and follow-up in 6 months with lower extremity arterial duplex with ABIs. Assessment & Plan (10/07/2024 11:20 AM CDT): [...] ulcerations. Assessment & Plan (08/26/2023 11:44 AM CANDY CUTTER MACHINE): Impression: Patient has had multiple endovascular and [...] proceed. Assessment & Plan (05/22/2023 9:32 AM CANDY CUTTER MACHINE): Bilateral lower extremity arterial occlusive disease with [...] duplex. Assessment & Plan (08/10/2022 9:42 PM CANDY CUTTER MACHINE): Patient is 2 week postop follow-up visit [...] duplex. Assessment & Plan (07/15/2022 1:37 PM CANDY CUTTER MACHINE): Patient has ongoing disabling claudication left lower extremity. Duplex findings suggest high-grade SFA stenosis. I have recommended left lower extremity angiogram with possible intervention. The procedure indications and all risks have been explained. She understands and agrees to proceed. Assessment & Plan (06/27/2021 9:24 AM CANDY CUTTER MACHINE): Patient continues to do well with no recurrence symptoms. Continue 6 month noninvasive study surveillance. Continue anti-platelet therapy and exercise. Assessment & Plan (08/30/2020 9:26 AM CANDY CUTTER MACHINE): Disabling claudication left lower extremity has worsened over the last 6 months. Have recommended left femoral endarterectomy with patch angioplasty the procedure, indications and all associated risks have been thoroughly discussed with the patient she understands and agrees to proceed Assessment & Plan (08/22/2019 11:42 AM CANDY CUTTER MACHINE): Patient has stable non disabling claudication of the left calf. No indication at this point to move forward with further workup or intervention. Continue exercise, risk factor modification and close surveillance. Atherosclerosis of soboba ar viktoriya of right lower extremity with [...] duplex. Assessment & Plan (08/23/2020 10:19 AM CANDY CUTTER MACHINE): Continues to do well with no recurrence symptoms. Stent is patent with normal perfusion right foot. 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 (Primary Dx); Mixed hyperlipidemia; Primary hypertension; Bilateral carotid artery stenosis 04/20/2025 12:37 PM CDT - 04/20/2025 11:59 PM CDT Hospital Encounter [facility] Medical Office Building 2 Vascular [address] [place] [address] 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 Discharge Disposition: Discharge to home or self care 04/20/2025 12:36 PM CDT - 04/20/2025 11:59 PM CDT Hospital Encounter [facility] Medical Office Building 2 Vascular [address] [place] [address] Carotid bruit, unspecified laterality Discharge Disposition: Discharge to home or self care 04/20/2025 12:36 PM CDT - 04/20/2025 11:59 PM CDT Hospital Encounter [facility] Medical Office Building 2 Vascular [address] [facility] [address] [place] [address] 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 Discharge Disposition: Discharge to home or self care 04/20/2025 Orders Only [facility] Vein Surgery [address] [place] [address] Markel Peralta MD 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 FEMORAL ENDARTERECTOMY 2020 Left LT com-fem endar [...] on file Legal Sex Female 3:57 AM CANDY CUTTER MACHINE Gender Identity Not on file Sexual Orientation Not on file Last Filed Vital Signs Vital Sign Reading Time Taken Comments Blood Pressure 190/78 04/20/2025 1:54 PM CDT Pulse 73 04/20/2025 1:54 PM CDT Temperature 36.8 C (98.2 F) 05/17/2024 3:30 PM CANDY CUTTER MACHINE Respiratory Rate 18 05/17/2024 3:30 PM CANDY CUTTER MACHINE Oxygen Saturation 97% 03/27/2025 2:35 PM CDT Inhaled Oxygen Concentration - - Weight 66.7 kg (147 lb) 04/20/2025 1:54 PM CDT Height 170.2 cm (5' 7) 04/20/2025 1:54 PM CDT Body Mass Index 23.02 04/20/2025 1:54 PM CDT Plan of Treatment Health Maintenance Due Date Last Done Comments Depression Screening 1945 Osteoporosis Screening-Bone Density Scan 1945 DTaP/Tdap/Td Vaccine (1 - Tdap) 09/10/1954 Hepatitis B Screening 09/10/1961 Pneumococcal vaccine 65+ (1 of 1 - PCV) 09/10/1993 Well Visit 65+ 09/10/2008 Zoster Vaccine (2 of 3) 06/08/2013 04/13/2013 Covid-19 Vaccine (3 - 2024-2 6 season) 2025 08/28/2020, 07/23/2020 Influenza Vaccine (#1) 2025 , 06/07/2019, 04/26/2018, Additional history exists Fall Risk Assessment 05/17/2025 05/17/2024 Medical Devices Implanted Type Area Nursing Specialist Device Identifier Shelf Expiration Date Model / Serial / Lot [employer] [id number] System 6-12fr Mvp Venous Closure Vascade - [id number] - [id number] Implanted:Qty: 1 on 12/18/2020 by Rui Valdez MD at [facility] Collagen [employer] 2022 [id number]-1 0U / [id number] / [id number] [employer] [id number] System 6-12fr Mvp Venous Closure Vascade - [id number] - [id number] Implanted:Qty: 1 on 12/18/2020 by Rui Valdez MD at [facility] [employer] 03/27/2022 [id number]-1 0U / [id number] / [id number] [employer] [id number] System 6-12fr Mvp Venous Closure Vascade - [id number] - [id number] Implanted:Qty: 1 on 12/18/2020 by Rui Valdez MD at [facility] [employer] 10/08/2022 [id number]-1 0U / [id number] / [id number] [employer] [id number] Vascade 6/7fr Bioabsorbable Vascular System Compression Collagen - [id number] - [id number] Implanted:Qty: 1 on 12/18/2020 by Rui Valdez MD at [facility] Coll[employer] 10/02/2022 [id number] 5U / [id number] / [id number] [employer] Long Synergy Xd 3.5mm 48mm System Coronary Stent Everolimus [id number] - S0 - [id number] Implanted:Qty: 1 on 05/16/2024 by Wilfredo Craig MD at [facility] Stent [employer] 11/02/2025 [id number] / 0 / [id number] [employer] Long Stent Drug Eluting S Megatron Mr 4.26p56sa [id number] - S0 - [id number] Implanted:Qty: 1 on 05/16/2024 by Wilfredo Craig MD at [facility] Stent [employer] 09/09/2025 [id number] / 0 / [id number] Progressive Care Stent System Weekend-a-gogo 3d Vascular 6x80mm [id number] - [id number] Implanted:Qty: 1 on 07/15/2022 by Markel Peralta MD at [facility] [employer] 03/27/2023 [id number] / / [id number] [employer] Vascular Device Clsr Perclose Prostyle Sut-Mediatd Closure-Repair Sys [id number] - [id number] Implanted:Qty: 1 on 07/15/2022 by Markel Peralta MD at [facility] [employer] 03/05/2024 [id number] / / [id number] Bard Peripheral Vascular Lifestent 6mm 6fr 200mm 135cm Self Expand Catheter Guidewire .035 [id number] - [id number] Implanted:Qty: 1 on 09/07/2023 by Markel Peralta MD at [facility] Peripheral Vascular 03/27/2025 [id number] / / [id number] [employer] Vascular Device Clsr Perclose Prostyle Sut-Mediatd Closure-Repair Sys [id number] - [id number] Implanted:Qty: 1 on 09/07/2023 by Markel Peralta MD at [facility] [employer] V[employer] 11/02/2024 [id number] / / [id number] Bard Peripheral Vascular Lifestent 6mm 6fr 120mm 130cm Self Expand Catheter Helical [id number] - [id number] Implanted:Qty: 1 on 09/07/2023 by Markel Peralta MD at [facility] Peripheral Vascular 10/14/2024 [id number] / / [id number] Procedures Procedure Name Priority Date/Time Associated Diagnosis Comments US FLORIAN Schedule Routine, Read Routine (OP Routine) 04/20/2025 1:53 PM CDT 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 US ARTERIAL DUPLEX LOWER EXTREMITY BILATERAL Schedule Routine, Read Routine (OP Routine) 04/20/2025 1:45 PM CDT 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 US CAROTIDS DUPLEX BILATERAL Schedule Routine, Read Routine (OP Routine) 04/20/2025 1:45 PM CDT Carotid bruit, unspecified laterality from Last 3 Months Results * US FLORIAN (04/20/2025 1:53 PM CDT) Anatomical Region Laterality Modality Vascular N/A Ultrasound 04/20/2025 12:5 2 PM CDT Narrative 04/21/2025 2:31 PM CDT Lower Extremity Arterial Doppler Report Patient Name: GLADYS ALVAREZ L : 1945 Study Date: 04/20/2025 12:52:00 PM Sex: F Coordinator Volunteer Services: Donna Cuellar RN/RVT Ref Provider: MARKEL PERALTA Quality: Adequate Order Provider: MARKEL PERALTA PROCEDURES: Arterial Report: Ankle - Brachial Index Doppler exam. 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 HISTORY: S/P ATHER/BA/STENT RT SFA & POP 09/07/23 S/P ATHER/BA/STENT LT SFA & POP, BA LT TPT 07/15/22 S/P ENDART LT COOKER MECHANIC 09/11/20 S/P STENT RT MARKO, ATHER/DCBA RT POP 03/05/17 S/P ENDART RT COOKER MECHANIC 10/10/15. COMPARISONS: No change compared to prior study. The previous exam was completed on 09/21/24. MEASUREMENTS: Right Value Left Value Rt Brachial Pressure 170 mmHg Lt Brachial Pressure 176 mmHg Rt STRUCTURAL BIOLOGIST Pressure 182 mmHg Lt STRUCTURAL BIOLOGIST Pressure 169 mmHg Rt DPA Pressure 173 mmHg Lt DPA Pressure 153 mmHg Rt PT FLORIAN Resting 1.03 Lt PT FLORIAN Resting 0.96 Rt DP FLORIAN Resting 0.98 Lt DP FLORIAN Resting 0.87 FINDINGS: Right Posterior Tibial Artery Analysis: The posterior tibial waveform is biphasic. Right Dorsalis Pedis Artery Analysis: The dorsalis pedis waveform is biphasic. Left Posterior Tibial Artery Analysis: The posterior tibial waveform is biphasic. Left Dorsalis Pedis Artery Analysis: The dorsalis pedis waveform is biphasic. - CONCLUSIONS: 1. Ankle-brachial index of 0.9-1.3 is within normal limits in the bilateral lower extremities. ATTESTATION: I have reviewed and interpreted the pertinent images and measurements of this study. I attest to the conclusions in the final report that is provided above. Electronically Signed By: Shiva Peralta MD 04/21/2025 1:25:50 PM CDT Procedure Note Shiva Peralta MD - 04/21/2025 Lower Extremity Arterial Doppler Report Patient Name: GLADYS ALVAREZ L : 1945 Study Date: 04/20/2025 12:52:00 PM Sex: F Coordinator Volunteer Services: Donna Cuellar RN/RVT Ref Provider: MARKEL PERALTA Quality: Adequate Order Provider: MARKEL PERALTA PROCEDURES: Arterial Report: Ankle - Brachial Index Doppler exam. INDICATIONS: I70.213 Atherosclerosis of soboba arteries of extremities withintermittent claudication, bilateral legs. HISTORY: S/P ATHER/BA/STENT RT SFA & POP 09/07/23 S/P ATHER/BA/STENT LT SFA & POP, BA LT TPT 07/15/22 S/P ENDART LT COOKER MECHANIC 09/11/20 S/P STENT RT MARKO, ATHER/DCBA RT POP 03/05/17 S/P ENDART RT COOKER MECHANIC 10/10/15. COMPARISONS: No change compared to prior study. The previous exam was completed on09/21/24. MEASUREMENTS: Right Value Left Value Rt Brachial Pressure 170 mmHg Lt Brachial Pressure 176 mmHg Rt STRUCTURAL BIOLOGIST Pressure 182 mmHg Lt STRUCTURAL BIOLOGIST Pressure 169 mmHg Rt DPA Pressure 173 mmHg Lt DPA Pressure 153 mmHg Rt PT FLORIAN Resting 1.03 Lt PT FLORIAN Resting 0.96 Rt DP FLORIAN Resting 0.98 Lt DP FLORIAN Resting 0.87 FINDINGS: Right Posterior Tibial Artery Analysis: The posterior tibial waveform is biphasic. Right Dorsalis Pedis Artery Analysis: The dorsalis pedis waveform is biphasic. Left Posterior Tibial Artery Analysis: The posterior tibial waveform is biphasic. Left Dorsalis Pedis Artery Analysis: The dorsalis pedis waveform is biphasic. - CONCLUSIONS: 1. Ankle-brachial index of 0.9-1.3 is within normal limits in thebilateral lower extremities. ATTESTATION: I have reviewed and interpreted the pertinent images and measurements ofthis study. I attest to the conclusions in the final report that is provided above. Electronically Signed By: Shiva Peralta MD 04/21/2025 1:25:50 PM CDT us Markel Peralta MD IMG US PROCEDURES Final Re sult * US Carotids Duplex Bilateral (04/20/2025 1:45 PM CDT) Anatomical Region Laterality Modality Vascular Bilateral Ultrasound 04/20/2025 1:34 PM CDT Narrative 04/21/2025 2:32 PM CDT Carotid Duplex Ultrasound Report Patient Name: GLADYS ALVAREZ L : 1945 (79y 7m) Study Date: 04/20/2025 1:34:15 PM Sex: F Coordinator Volunteer Services: DONNA CUELLAR Provider: MARKEL PERALTA Quality: Adequate Order Provider: MARKEL PERALTA PROCEDURES: Carotid Report: Carotid duplex examination of the extracranial arteries was performed using 2D, color and spectral Doppler. Blood Pressure: Right: 170 mmHg. Left: 176 mmHg. INDICATIONS: R09.89 Other specified symptoms and signs involving the circulatory and respiratory systems. HISTORY: F/U CAROTID STENOSIS - COMPARISONS: No change compared to prior study. The previous exam was completed on 10/03/2024 RT < 50% LT 50-69%. MEASUREMENTS: Right Value Left Value RT Prox CCA PSV 57 cm/sec LT Prox CCA PSV 64 cm/sec RT Prox CCA EDV 12 cm/sec LT Prox CCA EDV 14 cm/sec RT Distal CCA PSV 72 cm/sec LT Distal CCA PSV 73 cm/sec RT Distal CCA EDV 16 cm/sec LT Distal CCA EDV 19 cm/sec RT Prox ICA PSV 73 cm/sec LT Prox ICA PSV 146 cm/sec RT Prox ICA EDV 20 cm/sec LT Prox ICA EDV 33 cm/sec RT Mid ICA PSV 80 cm/sec LT Mid ICA PSV 112 cm/sec RT Mid ICA EDV 20 cm/sec LT Mid ICA EDV 24 cm/sec RT Distal ICA PSV 97 cm/sec LT Distal ICA PSV 105 cm/sec RT Distal ICA EDV 30 cm/sec LT Distal ICA EDV 30 cm/sec RT ECA Prx PSV 259 cm/sec LT ECA Prx PSV 155 cm/sec RT ICA/CCA 1.00 ratio LT ICA/CCA 2.00 ratio Rt Vert PSV 52 cm/sec Lt Vert PSV 80 cm/sec FINDINGS: Rt Common Carotid Artery: The plaque in the right CCA appears to be heterogeneous and smooth. Atherosclerotic changes of the right common carotid artery with no hemodynamically significant Doppler findings. Rt Internal Carotid Artery: The plaque in the right internal carotid artery appears to be heterogeneous, calcified and smooth. Atherosclerotic changes of the right internal carotid artery without hemodynamically significant Doppler findings. <50% stenosis. Rt External Carotid Artery: Patent right external carotid artery with evidence of atherosclerotic disease present. Rt Vertebral Artery: The right vertebral artery is patent with antegrade flow. Lt Common Carotid Artery: The plaque in the left CCA appears to be heterogeneous and irregular. Atherosclerotic changes of the left common carotid artery with no hemodynamically significant Doppler findings. Lt Internal Carotid Artery: The plaque in [...] that is provided above. Electronically Signed By: Shiva Peralta MD 04/21/2025 1:38:47 PM CDT Procedure Note Shiva Peralta MD - 04/21/2025 Carotid Duplex Ultrasound Report Patient Name: GLADYS ALVAREZ L : 1945 (79y 7m) Study Date: 04/20/2025 1:34:15 PM Sex: F Coordinator Volunteer Services: DONNA CUELLAR Provider: MARKEL PERALTA Quality: Adequate Order Provider: MARKEL PERALTA PROCEDURES: Carotid Report: Carotid duplex examination of the extracranial arterieswas performed using 2D, color and spectral Doppler. Blood Pressure: Right: 170 mmHg. Left: 176 mmHg. INDICATIONS: R09.89 Other specified symptoms and signs involving the circulatory andrespiratory systems. HISTORY: F/U CAROTID STENOSIS - COMPARISONS: No change compared to prior study. The previous exam was completed 10/03/2024 RT < 50% LT 50-69%. MEASUREMENTS: Right Value Left Value RT Prox CCA PSV 57 cm/sec LT Prox CCA PSV 64 cm/sec RT Prox CCA EDV 12 cm/sec LT Prox CCA EDV 14 cm/sec RT Distal CCA PSV 72 cm/sec LT Distal CCA PSV 73 cm/sec RT Distal CCA EDV 16 cm/sec LT Distal CCA EDV 19 cm/sec RT Prox ICA PSV 73 cm/sec LT Prox ICA PSV 146 cm/sec RT Prox ICA EDV 20 cm/sec LT Prox ICA EDV 33 cm/sec RT Mid ICA PSV 80 cm/sec LT Mid ICA PSV 112 cm/sec RT Mid ICA EDV 20 cm/sec LT Mid ICA EDV 24 cm/sec RT Distal ICA PSV 97 cm/sec LT Distal ICA PSV 105 cm/sec RT Distal ICA EDV 30 cm/sec LT Distal ICA EDV 30 cm/sec RT ECA Prx PSV 259 cm/sec LT ECA Prx PSV 155 cm/sec RT ICA/CCA 1.00 ratio LT ICA/CCA 2.00 ratio Rt Vert PSV 52 cm/sec Lt Vert PSV 80 cm/sec FINDINGS: Rt Common Carotid Artery: The plaque in the right CCA appears to beheterogeneous and smooth. Atherosclerotic changes of the right common carotid artery with no hemodynamically significant Doppler findings. Rt Internal Carotid Artery: The plaque in the right internal carotidartery appears to be heterogeneous, calcified and smooth. Atherosclerotic changes of the rightinternal carotid artery without hemodynamically significant Doppler findings. <50%stenosis. Rt External Carotid Artery: Patent right external carotid artery withevidence of atherosclerotic disease present. Rt Vertebral Artery: The right vertebral artery is patent with antegradeflow. Lt Common Carotid Artery: The plaque in the left CCA appears to beheterogeneous and irregular. Atherosclerotic changes of the left common carotid artery withno hemodynamically significant Doppler findings. Lt Internal Carotid Artery: The plaque in [...] internal carotid artery disease is consistent with eeaitkmo14-32% stenosis. 3. Normal, antegrade flow is noted in bilateral vertebral arteries. ATTESTATION: I have reviewed and interpreted the pertinent images and measurements ofthis study. I attest to the conclusions in the final report that is provided above. Electronically Signed By: Shiva Peralta MD 04/21/2025 1:38:47 PM CDT us Markel Peralta MD IM US PROCEDURES Final Re sult * US Arterial Duplex Lower Extremity Bilateral (04/20/2025 1:45 PM CDT) Anatomical Region Laterality Modality Vascular Bilateral Ultrasound 04/20/2025 12:4 7 PM CDT Narrative 04/21/2025 2:31 PM CDT Lower Extremity Arterial Duplex Report Patient Name: GLADYS ALVAREZ L : 1945 (79y 7m) Sex: F Study Date: 04/20/2025 12:47:04 PM Ht(Inch): Wt(Lb): BSA: Coordinator Volunteer Services: DONNA CUELLAR Provider: MARKEL PERALTA Quality: Adequate Ref Provider: MARKEL PERALTA PROCEDURES: Arterial Report: A non-invasive vascular imaging study of the right lower extremity arteries and stent was performed using B-mode ultrasound, color flow, and spectral Doppler. A non-invasive vascular imaging study of the left lower extremity arteries and stent was performed using B-mode ultrasound, color flow, and spectral Doppler. 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 HISTORY: S/P ATHER/BA/STENT RT SFA AND POP 09/07/2023 S/P ATHER/BA/STENT AND POP; BA LT TPT 07/15/2022 S/P ENDART LT [employer] 2020 S/P STENT RT MARKO ;ATHER/DCBART POP 03/05/2017 S/P ENDART RT [employer] 10/10/2015. COMPARISONS: The previous exam was completed on 09/21/2024. 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 Prx PSV 281.00 cm/sec Rt [employer]IC Dst PSV 106.21 cm/sec Lt Profunda Prx PSV 113.45 cm/sec Rt Profunda Prx PSV 87.08 cm/sec Lt SFA Prx PSV 102.91 cm/sec Rt SFA Prx PSV 55.56 cm/sec Lt SFA Mid PSV 140.22 cm/sec STENTS: Right Value Left Value Location mid-dist sfa Location distal sfa-pop Rt Stent Prx [place] PSV 52.00 cm/sec Lt Stent Prx [place] PSV 50.00 cm/sec Rt Stent Prx PSV 60.00 cm/sec Lt Stent Prx PSV 59.00 cm/sec Rt Stent Mid PSV 79.00 cm/sec Lt Stent Mid PSV 104.00 cm/sec Rt Stent Dst PSV 106.00 cm/sec Lt Stent Dst PSV 84.00 cm/sec Location 2 popliteal Lt Stent Dst [place] PSV 65.00 cm/sec Rt Stent 2 Prx PSV 69.00 cm/sec Rt Stent 2 Mid PSV 72.00 cm/sec Rt Stent 2 Dst PSV 82.00 cm/sec Rt Stent 2 Dst [place] PSV 125.00 cm/sec FINDINGS: Stent: The stent is located in the right mid-distal superficial femoral and popliteal artery. Patent lower extremity stent with no evidence of stenosis. Stent 2: The stent is located in the distal superficial femoral and popliteal artery. Patent lower extremity stent with no evidence of stenosis. CONCLUSION: 1. Right superficial femoral artery and popliteal artery stents are patent. No evidence of stenosis. 2. Left common femoral artery with moderate 50-75% stenosis. 3. Left superficial femoral artery stent is patent. ATTESTATION: I have reviewed and interpreted the pertinent images and measurements of this study. I attest to the conclusions in the final report that is provided above. Electronically Signed By: Shiva Peralta MD 04/21/2025 1:24:34 PM CDT Procedure Note Shiva Peralta MD - 04/21/2025 Lower Extremity Arterial Duplex Report Patient Name: GLADYS ALVAREZ L : 1945 (79y 7m) Sex: F Study Date: 04/20/2025 12:47:04 PM Ht(Inch): Wt(Lb): BSA: Coordinator Volunteer Services: DONNA CUELLAR Order Provider: MARKEL PERALTA Quality: Adequate Ref Provider: MARKEL PERALTA PROCEDURES: Arterial Report: A non-invasive vascular imaging study of the right lowerextremity arteries and stent was performed using B-mode ultrasound, color flow, andspectral Doppler. A non-invasive vascular imaging study of the left lower extremityarteries and stent was performed using B-mode ultrasound, color flow, and spectralDoppler. INDICATIONS: I70.213 Atherosclerosis of [place] arteries of extremities withintermittent claudication, bilateral legs. HISTORY: S/P ATHER/BA/STENT RT SFA AND POP 09/07/2023 S/P ATHER/BA/STENT AND POP; BA LT TPT 07/15/2022 S/P ENDART LT [employer] 2020 S/P STENT RT [place] ;ATHER/DCBART POP 03/05/2017 S/P ENDART RT [employer]IC 10/10/2015. COMPARISONS: The previous exam was completed on 09/21/2024. 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 Prx PSV 281.00 cm/sec Rt [employer]IC Dst PSV 106.21 cm/sec Lt Profunda Prx PSV 113.45 cm/sec Rt Profunda Prx PSV 87.08 cm/sec Lt SFA Prx PSV 102.91 cm/sec Rt SFA Prx PSV 55.56 cm/sec Lt SFA Mid PSV 140.22 cm/sec STENTS: Right Value Left Value Location mid-dist sfa Location distal sfa-pop Rt Stent Prx [place] PSV 52.00 cm/sec Lt Stent Prx [place] PSV 50.00cm/sec Rt Stent Prx PSV 60.00 cm/sec Lt Stent Prx PSV 59.00 cm/sec Rt Stent Mid PSV 79.00 cm/sec Lt Stent Mid PSV 104.00 cm/sec Rt Stent Dst PSV 106.00 cm/sec Lt Stent Dst PSV 84.00 cm/sec Location 2 popliteal Lt Stent Dst [place] PSV 65.00 cm/sec Rt Stent 2 Prx PSV 69.00 cm/sec Rt Stent 2 Mid PSV 72.00 cm/sec Rt Stent 2 Dst PSV 82.00 cm/sec Rt Stent 2 Dst [place] PSV 125.00 cm/sec FINDINGS: Stent: The stent is located in the right mid-distal superficial femoraland popliteal artery. Patent lower extremity stent with no evidence of stenosis. Stent 2: The stent is located in the distal superficial femoral andpopliteal artery. Patent lower extremity stent with no evidence of stenosis. CONCLUSION: 1. Right superficial femoral artery and popliteal artery stents arepatent. No evidence of stenosis. 2. Left common femoral artery with moderate 50-75% stenosis. 3. Left superficial femoral artery stent is patent. ATTESTATION: I have reviewed and interpreted the pertinent images and measurements ofthis study. I attest to the conclusions in the final report that is provided above. Electronically Signed By: Shiva Peralta MD 04/21/2025 1:24:34 PM CDT Markel Peralta MD [facility] PROCEDURES Final Re sult from Last 3 Months Insurance [employer] ADVANTAGE CHOICE PPO Advance Directives For more information, please contact: [phone] * Full Code (Latest Code Status on File) Date Activated Date Inactivated Comments 05/16/2024 4:04 PM 05/17/2024 8:34 PM Care Teams Used Car Lot Porter Relationship Specialty Start Date End Date Juan Whyte MD [address] [place] [address] PCP - General 10/03/16 Juan Mckeon MD [address] [place] [address] [address] [place] [address] Cardiology 12/09/16 Markel Peralta MD [address] [facility] [address] [facility] [address] [place] [address] Surgeon Vascular Surgery 02/08/19
--- OUTSIDE RECORDS SUMMARY | 2025-05-29 09:56 | XMS_ITS | Encounter Summary ---
Author Organization [facility] Facility Care Team Providers Care Disk Recoater Name Role Phone Juan Whyte MD Primary Care Provide r Juan Mckeon MD Unavailable [phone] Markel Peralta MD Unavailable [phone] Encounter Details Date Type Department Care Team (Latest Contact Info) Description 03/05/2017 Orders Only [facility] ProviderRosa Isela MD [address] [place] [id number] Social History Tobacco Use Types Packs/Day Years Used Date Smoking Tobacco: Light Smoker Comments:Smoking History Pac ks/day: 3 Cigarettes Alcohol Use Standard Drinks/Week Comments No 0 (1 standard drink = 0.6 oz pur e alcohol) Comments Unknown Sex and Gender Information Value Date Recorded Sex Assigned at Not on file 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 Gender Identity Not on file Sexual Orientation Not on file documented as of this encounter Functional Status documented as of this encounter Plan of [...] on filedocumented in this encounter Care Teams Disk Recoater Relationship Specialty Start Date End Date Juan Whyte MD [address] [facility] [place], [place] [id number] PCP - General 10/03/16 Juan Mckeon MD [address] [facility] [address] [place], [place] [id number] Cardiology 12/09/16 Markel Peralta MD [address] [facility] [address] [facility] [address] [place] [address] Surgeon Vascular Surgery 02/08/19 documented as of this encounter
--- OUTSIDE RECORDS SUMMARY | 2025-05-29 09:56 | XMS_ITS | Encounter Summary ---
Author Organization [facility] Facility Care Team Providers Care Substation Supervisor Name Role Phone Juan Whyte MD Primary Care Provide r Juan Mckeon MD Unavailable [phone] Markel Peralta MD Unavailable [phone] Encounter Details Date Type Department Care Team (Latest Contact Info) Description 11/25/2017 Orders Only [facility]INCONV ProviderRosa Isela MD [address] [place] [address] Social History Tobacco Use Types Packs/Day Years Used Date Smoking Tobacco: Former Cigarettes Q uit: 05/12/2016 Smokeless Tobacco: Never Comments:Smoking History Pac ks/day: 3 Cigarettes Alcohol Use Standard Drinks/Week Comments No 0 (1 standard drink = 0.6 oz pur e alcohol) Comments Unknown Sex and Gender Information Value Date Recorded Sex Assigned at Not on file 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
[2025-05-29 11:36] LABS: Alanine Aminotransferase 14 U/L (6-35); Albumin Level 3.7 g/dL (3.5-5.1); Alkaline Phosphatase 99 U/L (38-126); Anion Gap 5 mmol/L (4-12); Aspartate Amino Transferase 22 U/L (14-36); Bilirubin,Total 0.8 mg/dL (0.2-1.3); Blood Urea Nitrogen 13 mg/dL (7-17); Calcium 9.0 mg/dL (8.4-10.2); Carbon Dioxide 28 mmol/L (22-30); Chloride 99 mmol/L (98-107); Cholesterol 111 mg/dL (0-200); Estimated Glomerular Filt Rate > 60; Glucose 90 mg/dL (65-110); HDL Direct 56 mg/dL; Potassium 4.1 mmol/L (3.4-5.0); Sodium 132 mmol/L (137-145); Total Protein 6.5 g/dL (6.3-8.2); Triglycerides 56 mg/dL (<150)
[2025-05-29 12:06] LABS: Thyroid Stimulating Hormone Reflex 1.500 uIU/mL (0.465-4.68)
== END 2025-05-29 09:08 | disposition home or self-care (01) ==
LOC: ANHLAB 09:08
PROVIDERS: PCP Emergency Medicine; Visit Provider Emergency Medicine
DX: E78.5 Hyperlipidemia, unspecified (principal); E55.9 Vitamin D deficiency, unspecified; R53.83 Other fatigue
CPT/HCPCS: 36415; 80053; 80061; 82306; 84443

== ENCOUNTER 2025-06-28 15:19 | Observation (INO) | payer OTHER, SELFPAY ==
[2025-06-28] VITALS (17 sets, daily range): BP systolic 164–222; BP diastolic 65–99; PULSE 68–100; RESP 15–28; TEMP 36.4–36.8; O2SAT 89–98; BMI 23.4
--- NOTE | ~2025-06-28 | XR_ITS ---
XR chest 1V portable 06/28/2025 16:14 Indication: Shortness of breath Procedure: AP portable chest Comparison: 07/05/2024 Findings: Cardiomegaly with developing pulmonary edema. Calcified bilateral breast implants. No significant effusion or pneumothorax. Impression: 1: Developing pulmonary edema. Reviewed, dictated and finalized at location [facility] [employer] Impression: 1: Developing pulmonary edema.
--- OUTSIDE RECORDS SUMMARY | 2025-06-28 15:22 | XMS_ITS | Clinical Summary ---
Author Organization [facility] [address] Address [address] [place] [address] Care Team Providers Care Usability Specialist Name Role Phone Juan Whyte MD Primary Care Provide r Juan Mckeon MD Unavailable [phone] Markel Peralta MD Unavailable [phone] Allergies Active Allergy Reactions Criticality Noted Date Comments Nitrofurantoin Hives Medium 09/03/2020 Medications traMADol (ULTRAM) 50 mg tablet Take 1 tablet (50 mg total) by mouth every 6 (six) hours as needed 0 8 Active losartan (COZAAR) 100 mg tablet Take 1 tablet (100 mg total) by mouth daily after lunch 2 8 Active levothyroxine (SYNTHROID) 75 mcg tablet Take 1 tablet (75 mcg total) by mouth daily 4 Active clopidogreL (PLAVIX) 75 mg tablet TAKE 1 TABLET BY MOUTH EVERY DAY 90 tablet 3 5 Active sotaloL (BETAPACE) 80 mg tablet Take 0.5 tablets (40 mg total) by mouth 2 (two) times a day 90 tablet 3 5 Active isosorbide mononitrate ER (IMDUR) 30 mg 24 hr tabletIndicatio ns: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 25 tablet 3 5 Active rosuvastatin (CRESTOR) 10 mg tablet TAKE 1 TABLET BY MOUTH EVERY DAY 90 tablet 1 5 Active rosuvastatin (CRESTOR) 10 mg tablet TAKE 1 TABLET BY MOUTH EVERY DAY 90 tablet 5 025 Discontinued Active Problems Problem Noted Date Diagnosed Date [...] losartan. Assessment & Plan (08/26/2023 11:45 AM CERTIFIED MEDICAL ASSISTANT): Impression: Chronic stable. Plan: Continue amlodipine, losartan, isosorbide, Assessment & Plan (09/23/2022 2:18 PM CDT): Hypertension remains chronic and controlled. Continue current medical therapy Assessment & Plan (07/15/2022 1:37 PM CERTIFIED MEDICAL ASSISTANT): Hypertension chronic and controlled. Continue current medical therapy. Assessment & Plan (06/27/2021 9:25 AM CERTIFIED MEDICAL ASSISTANT): Hypertension chronic and controlled. 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 Continue dressing changes and plan for femoral endarterectomy. Assessment & Plan (08/23/2020 10:20 AM CERTIFIED MEDICAL ASSISTANT): New ischemic left great toe ulceration nonhealing. Patient has severe occlusive disease left lower extremity wound healing potential is poor. Have recommended left lower extremity angiogram possible intervention. The procedure and all associated risks have been thoroughly discussed with her in detail. She understands and agrees to proceed Tobacco abuse 08/23/2020 Assessment & Plan (08/30/2020 9:27 AM CERTIFIED MEDICAL ASSISTANT): Patient was again recommended to stop smoking different modalities were discussed. She hopes to quit within 3 months. Assessment & Plan (08/23/2020 10:23 AM CERTIFIED MEDICAL ASSISTANT): Patient unfortunately continues to smoke. We again [...] rosuvastatin. Assessment & Plan (08/26/2023 11:45 AM CERTIFIED MEDICAL ASSISTANT): Impression: Chronic and stable. Plan: Continue rosuvastatin Assessment & Plan (03/31/2023 9:30 AM CDT): Hyperlipidemia chronic and controlled. Continue Crestor. Assessment & Plan (07/15/2022 1:41 PM CERTIFIED MEDICAL ASSISTANT): Hyperlipidemia chronic and controlled. Continue Crestor. Assessment & Plan (06/27/2021 9:25 AM CERTIFIED MEDICAL ASSISTANT): Hyperlipidemia chronic and controlled. Continue Crestor. Assessment & Plan (08/30/2020 9:26 AM CERTIFIED MEDICAL ASSISTANT): Currently controlled. Continue current statin therapy Assessment & Plan (08/23/2020 10:19 AM CERTIFIED MEDICAL ASSISTANT): Currently controlled. Continue statin therapy Assessment & Plan (08/22/2019 11:44 AM CERTIFIED MEDICAL ASSISTANT): Patient states cholesterol levels are well controlled. 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 Assessment & Plan (08/26/2023 11:44 AM CERTIFIED MEDICAL ASSISTANT): Impression: Patient has had multiple endovascular and [...] proceed. Assessment & Plan (05/22/2023 9:32 AM CERTIFIED MEDICAL ASSISTANT): Bilateral lower extremity arterial occlusive disease with [...] duplex. Assessment & Plan (08/10/2022 9:42 PM CERTIFIED MEDICAL ASSISTANT): Patient is 2 week postop follow-up visit [...] duplex. Assessment & Plan (07/15/2022 1:37 PM CERTIFIED MEDICAL ASSISTANT): Patient has ongoing disabling claudication left lower extremity. Duplex findings suggest high-grade SFA stenosis. I have recommended left lower extremity angiogram with possible intervention. The procedure indications and all risks have been explained. She understands and agrees to proceed. Assessment & Plan (06/27/2021 9:24 AM CERTIFIED MEDICAL ASSISTANT): Patient continues to do well with no recurrence symptoms. Continue 6 month noninvasive study surveillance. Continue anti-platelet therapy and exercise. Assessment & Plan (08/30/2020 9:26 AM CERTIFIED MEDICAL ASSISTANT): Disabling claudication left lower extremity has worsened over the last 6 months. Have recommended left femoral endarterectomy with patch angioplasty the procedure, indications and all associated risks have been thoroughly discussed with the patient she understands and agrees to proceed Assessment & Plan (08/22/2019 11:42 AM CERTIFIED MEDICAL ASSISTANT): Patient has stable non disabling claudication of the left calf. No indication at this point to move forward with further workup or intervention. Continue exercise, risk factor modification and close surveillance. Atherosclerosis of squaxin ar viktoriya of right lower extremity with [...] duplex. Assessment & Plan (08/23/2020 10:19 AM CERTIFIED MEDICAL ASSISTANT): Continues to do well with no recurrence symptoms. Stent is patent with normal perfusion right foot. 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 FEMORAL ENDARTERECTOMY 2020 Left LT com-fem endar [...] on file Legal Sex Female 3:57 AM CERTIFIED MEDICAL ASSISTANT Gender Identity Not on file Sexual Orientation Not on file Last Filed Vital Signs Vital Sign Reading Time Taken Comments Blood Pressure 190/78 04/20/2025 1:54 PM CDT Pulse 73 04/20/2025 1:54 PM CDT Temperature 36.8 C (98.2 F) 05/17/2024 3:30 PM CERTIFIED MEDICAL ASSISTANT Respiratory Rate 18 05/17/2024 3:30 PM CERTIFIED MEDICAL ASSISTANT Oxygen Saturation 97% 03/27/2025 2:35 PM CDT [...] 05/17/2025 05/17/2024 Medical Devices Implanted Type Area Inspector And Sorter Device Identifier Shelf Expiration Date Model / Serial / Lot [employer] [id number] System 6-12fr Mvp Venous Closure Vascade - [id number] - [id number] Implanted:Qty: 1 on 12/18/2020 by Rui Valdez MD at [facility] Collagen [employer] 2022 800-612C-1 0U / [id number] / [id number] [employer] [id number] System 6-12fr Mvp Venous Closure Vascade - [id number] - [id number] Implanted:Qty: 1 on 12/18/2020 by Rui Valdez MD at [facility] Collagen [employer] 03/27/2022 800-612C-1 0U / [id number] / [id number] [employer] [id number] System 6-12fr Mvp Venous Closure Vascade - [id number] - [id number] Implanted:Qty: 1 on 12/18/2020 by Rui Valdez MD at [facility] Collagen [employer] 10/08/2022 800-612C-1 0U / [id number] / [id number] [employer] [id number] Vascade 6/7fr Bioabsorbable Vascular System Compression Collagen - [id number] - [id number] Implanted:Qty: 1 on 12/18/2020 by Rui Valdez MD at [facility] Collagen [employer] 10/02/2022 [id number] 5U / [id number] / [id number] [employer] Long Synergy Xd 3.5mm 48mm System Coronary Stent Everolimus [id number] - S0 - [id number] Implanted:Qty: 1 on 05/16/2024 by Wilfredo Craig MD at [facility] Stent [employer] Long 11/02/2025 [id number] / 0 / [id number] [employer] Long Stent Drug Eluting S Megatron Us Mr 4.69l87wc [id number] - S0 - [id number] Implanted:Qty: 1 on 05/16/2024 by Wilfredo Craig MD at [facility] Stent [employer] Long 09/09/2025 [id number] / 0 / [id number] [employer] Stent System Biomimics 3d Vascular 6x80mm [id number] - [id number] Implanted:Qty: 1 on 07/15/2022 by Markel Peralta MD at [facility] [employer] 03/27/2023 [id number] / / [id number] [employer] Vascular Device Clsr Perclose Prostyle Sut-Mediatd Closure-Repair Sys [id number] - [id number] Implanted:Qty: 1 on 07/15/2022 by Markel Peralta MD at [facility] [employer] Vascular 03/05/2024 [id number] / / [id number] Bard Peripheral Vascular Lifestent 6mm 6fr 200mm 135cm Self Expand Catheter Guidewire .035 [id number] - [id number] Implanted:Qty: 1 on 09/07/2023 by Markel Peralta MD at [facility] Peripheral Vascular 03/27/2025 [id number] / / [id number] [employer] Vascular Device Clsr Perclose Prostyle Sut-Mediatd Closure-Repair Sys [id number] - [id number] Implanted:Qty: 1 on 09/07/2023 by Markel Peralta MD at 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 VL US ARTERIAL DUPLEX LOWER EXTREMITY BILATERAL Schedule Routine, Read Routine (OP Routine) 04/20/2025 1:45 PM CDT 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 US CAROTIDS DUPLEX BILATERAL Schedule Routine, Read Routine (OP Routine) 04/20/2025 1:45 PM CDT Carotid bruit, unspecified laterality from Last 3 Months Results * US FLORIAN (04/20/2025 1:53 PM CDT) Anatomical Region Laterality Modality Vascular N/A Ultrasound 04/20/2025 12:5 2 PM CDT Narrative 04/21/2025 2:31 PM CDT Lower Extremity Arterial Doppler Report Patient Name: ANNA GLADYS, L : 1945 Study Date: 04/20/2025 12:52:00 PM Sex: F Airplane Refueler: Donna Cuellar RN/RVT Ref Provider: MARKEL PERALTA Quality: Adequate Order Provider: MARKEL PERALTA PROCEDURES: Arterial Report: Ankle - Brachial Index Doppler exam. INDICATIONS: I70.213 Atherosclerosis of squaxin arteries of extremities with intermittent claudication, bilateral legs. HISTORY: S/P ATHER/BA/STENT RT SFA & POP 09/07/23 S/P ATHER/BA/STENT LT SFA & POP, BA LT TPT 07/15/22 S/P [facility] 09/11/20 S/P STENT RT MARKO, ATHER/DCBA RT POP 03/05/17 S/P [facility] RT [facility] 10/10/15. COMPARISONS: No change compared to prior study. The previous exam was completed on 09/21/24. MEASUREMENTS: Right Value Left Value Rt Brachial Pressure 170 mmHg Lt Brachial Pressure 176 mmHg Rt [employer] Pressure 182 mmHg Lt [employer] Pressure 169 mmHg Rt DPA Pressure 173 [...] Study Date: 04/20/2025 12:52:00 PM Sex: F Airplane Refueler: Donna Cuellar RN/RVT Ref Provider: MARKEL PERALTA Quality: Adequate Order Provider: MARKEL PERALTA PROCEDURES: Arterial Report: Ankle - Brachial Index Doppler exam. INDICATIONS: I70.213 Atherosclerosis of squaxin arteries of extremities withintermittent claudication, bilateral legs. HISTORY: S/P ATHER/BA/STENT RT SFA & POP 09/07/23 S/P ATHER/BA/STENT LT SFA & POP, BA LT TPT 07/15/22 S/P [facility] 09/11/20 S/P STENT RT MARKO, ATHER/DCBA RT POP 03/05/17 S/P [facility] RT [facility] 10/10/15. COMPARISONS: No change compared to prior study. The previous exam was completed on09/21/24. MEASUREMENTS: Right Value Left Value Rt Brachial Pressure 170 mmHg Lt Brachial Pressure 176 mmHg Rt [employer] Pressure 182 mmHg Lt [employer] Pressure 169 mmHg Rt DPA Pressure 173 [...] Study Date: 04/20/2025 1:34:15 PM Sex: F Airplane Refueler: DONNA CUELLAR Provider: MARKEL PERALTA Quality: Adequate [...] Study Date: 04/20/2025 1:34:15 PM Sex: F Airplane Refueler: DONNA CUELLAR Provider: MARKEL PERALTA Quality: Adequate [...] internal carotid artery disease is consistent with gjiybnms15-47% stenosis. 3. Normal, antegrade flow is noted in bilateral vertebral arteries. ATTESTATION: I have reviewed and interpreted the pertinent images and measurements ofthis study. I attest to the conclusions in the final report that is provided above. Electronically Signed By: Shiva Peralta MD 04/21/2025 1:38:47 PM CDT Markel Peralta MD IM US PROCEDURES Final Re sult * US Arterial Duplex Lower Extremity Bilateral (04/20/2025 1:45 PM CDT) Anatomical Region Laterality Modality Vascular Bilateral Ultrasound 04/20/2025 12:4 7 PM CDT Narrative 04/21/2025 2:31 PM CDT Lower Extremity Arterial Duplex Report Patient Name: GLADYS ALVAREZ L : 1945 (79y 7m) Sex: F Study Date: 04/20/2025 12:47:04 PM Ht(Inch): Wt(Lb): BSA: Airplane Refueler: DONNA CUELLAR Provider: MARKEL PERALTA Quality: Adequate [...] and spectral Doppler. INDICATIONS: I70.213 Atherosclerosis of squaxin arteries of extremities with intermittent claudication, bilateral legs. HISTORY: S/P ATHER/BA/STENT RT SFA AND POP 09/07/2023 S/P ATHER/BA/STENT AND POP; BA LT TPT 07/15/2022 S/P [facility] 2020 S/P STENT RT MARKO ;ATHER/DCBART POP 03/05/2017 S/P [facility] 10/10/2015. COMPARISONS: The previous exam was completed on 09/21/2024. MEASUREMENTS: Right Value Left Value Rt [facility] SAL[facility] Prx PSV 110.00 cm/sec Lt [facility] Prx PSV 281.00 cm/sec Rt [facility] Dst PSV 106.21 cm/sec Lt Profunda Prx PSV 113.45 cm/sec Rt Profunda Prx PSV 87.08 cm/sec Lt SFA Prx PSV 102.91 cm/sec Rt SFA Prx PSV 55.56 cm/sec Lt SFA Mid PSV 140.22 cm/sec STENTS: Right Value Left Value Location mid-dist sfa Location distal sfa-pop Rt Stent Prx Belkofski PSV 52.00 cm/sec Lt Stent Prx Belkofski PSV 50.00 cm/sec Rt Stent Prx PSV 60.00 cm/sec Lt Stent Prx PSV 59.00 cm/sec Rt Stent Mid PSV 79.00 cm/sec Lt Stent Mid PSV 104.00 cm/sec Rt Stent Dst PSV 106.00 cm/sec Lt Stent Dst PSV 84.00 cm/sec Location 2 popliteal Lt Stent Dst Belkofski PSV 65.00 cm/sec Rt Stent 2 Prx PSV 69.00 cm/sec Rt Stent 2 Mid PSV 72.00 cm/sec Rt Stent 2 Dst PSV 82.00 cm/sec Rt Stent 2 Dst Belkofski PSV 125.00 cm/sec FINDINGS: Stent: The stent [...] MD 04/21/2025 1:24:34 PM CDT Procedure Note Sihva Peralta MD - 04/21/2025 Lower Extremity Arterial Duplex Report Patient Name: GLADYS ALVAREZ L : 1945 (79y 7m) Sex: F Study Date: 04/20/2025 12:47:04 PM Ht(Inch): Wt(Lb): BSA: Airplane Refueler: DONNA CUELLAR Provider: MARKEL PERALTA Quality: Adequate Ref Provider: MARKEL PERALTA PROCEDURES: Arterial Report: A non-invasive vascular imaging study of the right lowerextremity arteries and stent was performed using B-mode ultrasound, color flow, andspectral Doppler. A non-invasive vascular imaging study of the left lower extremityarteries and stent was performed using B-mode ultrasound, color flow, and spectralDoppler. INDICATIONS: I70.213 Atherosclerosis of squaxin arteries of extremities withintermittent claudication, bilateral legs. HISTORY: S/P ATHER/BA/STENT RT SFA AND POP 09/07/2023 S/P ATHER/BA/STENT AND POP; BA LT TPT 07/15/2022 S/P [facility] 2020 S/P STENT RT MARKO ;ATHER/DCBART POP 03/05/2017 S/P [facility] RT [facility] 10/10/2015. COMPARISONS: The previous exam was completed on 09/21/2024. MEASUREMENTS: Right Value Left Value Rt [facility] SAL[facility] Prx PSV 110.00 cm/sec Lt [facility] Prx PSV 281.00 cm/sec Rt [facility] Dst PSV 106.21 cm/sec Lt Profunda Prx PSV 113.45 cm/sec Rt Profunda Prx PSV 87.08 cm/sec Lt SFA Prx PSV 102.91 cm/sec Rt SFA Prx PSV 55.56 cm/sec Lt SFA Mid PSV 140.22 cm/sec STENTS: Right Value Left Value Location mid-dist sfa Location distal sfa-pop Rt Stent Prx Belkofski PSV 52.00 cm/sec Lt Stent Prx Belkofski PSV 50.00cm/sec Rt Stent Prx PSV 60.00 cm/sec Lt Stent Prx PSV 59.00 cm/sec Rt Stent Mid PSV 79.00 cm/sec Lt Stent Mid PSV 104.00 cm/sec Rt Stent Dst PSV 106.00 cm/sec Lt Stent Dst PSV 84.00 cm/sec Location 2 popliteal Lt Stent Dst Belkofski PSV 65.00 cm/sec Rt Stent 2 Prx PSV 69.00 cm/sec Rt Stent 2 Mid PSV 72.00 cm/sec Rt Stent 2 Dst PSV 82.00 cm/sec Rt Stent 2 Dst Belkofski PSV 125.00 cm/sec FINDINGS: Stent: The stent [...] 04/21/2025 1:24:34 PM CDT Markel Peralta MD [facility] Final Re sult from Last [address] [facility] ADVANTAGE CHOICE PPO Advance Directives For more information, please contact: [phone] * Full Code (Latest Code Status on File) Date Activated Date Inactivated Comments 05/16/2024 4:04 PM 05/17/2024 8:34 PM Care Teams Usability Specialist Relationship Specialty Start Date End Date Juan Whyte MD [address] [place] [address] PCP - General 10/03/16 Juan Mckeon MD [address] [place] [address] Cardiology 12/09/16 Markel Peralta MD [address] [place] [address] Surgeon Vascular Surgery 02/08/19
--- OUTSIDE RECORDS SUMMARY | 2025-06-28 15:22 | XMS_ITS | Encounter Summary ---
Author Organization [facility] Facility Care Team Providers Care Precinct Police Sergeant Name Role Phone Juan Whyte MD Primary Care Provide r Juan Mckeon MD Unavailable [phone] Markel Peralta MD Unavailable [phone] Encounter Details Date Type Department Care Team (Latest Contact Info) Description 11/25/2017 Orders Only [facility] ProviderRosa Isela MD [address] [place] [address] Social History Tobacco Use Types Packs/Day Years Used Date Smoking Tobacco: Former Cigarettes Q uit: 05/12/2016 Smokeless Tobacco: Never Comments:Smoking History Pac ks/day: 3 Cigarettes Alcohol Use Standard Drinks/Week Comments No 0 (1 standard drink = 0.6 oz pur e alcohol) Comments Unknown Sex and Gender Information Value Date Recorded Sex Assigned at Not on file 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
--- OUTSIDE RECORDS SUMMARY | 2025-06-28 15:22 | XMS_ITS | Encounter Summary ---
Author Organization [facility] Facility Care Team Providers Care Hand Splitter Name Role Phone Juan Whyte MD Primary Care Provide r Juan Mckeon MD Unavailable [phone] Markel Peralta MD Unavailable [phone] Encounter Details Date Type Department Care Team (Latest Contact Info) Description 03/05/2017 Orders Only [facility] ProviderRosa Isela MD [address] [place] [address] Social History Tobacco Use Types Packs/Day Years Used Date Smoking Tobacco: Light Smoker Comments:Smoking History Pac ks/day: 3 Cigarettes Alcohol Use Standard Drinks/Week Comments No 0 (1 standard drink = 0.6 oz pur e alcohol) Comments Unknown Sex and Gender Information Value Date Recorded Sex Assigned at Not on file 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
--- NOTE | 2025-06-28 15:32 | ECG_ITS ---
Test Date: 2025-06-28 15:57:20 Measurements Intervals [place] Rate: 70 P: 71 NV: 177 QRS: 15 QRSD: 98 T: 22 QT: 344 QTc: 374 Interpretive Statements SINUS RHYTHM ANTEROSEPTAL INFARCT, AGE INDETERMINATE BASELINE ARTIFACT- I, II, III, AVR, AVL, AVF, V1, V4, V6 ABNORMAL ECG Compared to ECG 07/02/2024 18:56:07 No significant changes Electronically Signed On 06-28-2025 18:59:07 COMPUTER PROGRAMMER ANALYST by Raymond Hamlin D.O.
[2025-06-28 16:04] LABS: Hematocrit 40.5 % (37.0-47.0); Hemoglobin 13.9 g/dL (12.0-15.0); Immature Granulocyte Percent A 0.3 % (0-0.5); Lymphocytes Absolute Auto 0.54 K/mm3 (0.9-3.2); Mean Corpuscular HGB Conc 34.3 g/dl (32-36); Mean Corpuscular Hemoglobin 31.7 pg (26-34); Mean Corpuscular Volume 92.5 fl (80-100); Nucleated Red Blood Cells Absolute Auto 0.000 K/mm3 (0.0-0.012); Nucleated Red Blood Cells Perc 0.0 % (0.0-0.2); Platelet Count Result 195 k/mm3 (150-375); Red Blood Count 4.38 M/mm3 (4.2-5.4); White Blood Count 13.8 K/mm3 (4.5-10.0)
[2025-06-28 16:14] LABS: Alanine Aminotransferase 19 U/L (6-35); Albumin Level 3.7 g/dL (3.5-5.1); Alkaline Phosphatase 88 U/L (38-126); Anion Gap 5 mmol/L (4-12); Aspartate Amino Transferase 31 U/L (14-36); Bilirubin,Total 0.8 mg/dL (0.2-1.3); Blood Urea Nitrogen 15 mg/dL (7-17); Calcium 8.8 mg/dL (8.4-10.2); Carbon Dioxide 28 mmol/L (22-30); Chloride 94 mmol/L (98-107); Estimated CRCL calculation 51 ml/min; Estimated Glomerular Filt Rate > 60; Glucose 101 mg/dL (65-110); Potassium 3.4 mmol/L (3.4-5.0); Sodium 127 mmol/L (137-145); Total Protein 6.7 g/dL (6.3-8.2)
[2025-06-28 16:23] LABS: NT Pro B Type Natriuretic Pept 4830 pg/mL (19.9-100)
[2025-06-28 16:39] LABS: Influenza A QL RT-PCR Positive (Negative); Influenza B QL RT-PCR Negative (Negative); RSV RNA, RT-PCR Negative (Negative); SARS-CoV-2 RNA PCR Negative (Negative)
--- NOTE | 2025-06-28 17:15 | ED.GENADULT ---
HPI - General Adult General Chief complaint: Shortness of Breath/Dyspnea Stated complaint: sob x a couple of hours wheezy, urgent care flu a? Time Seen by Provider: 06/28/25 15:30 History of Present Illness HPI narrative: 79-year-old female present to the emergency department for evaluation for worsening exertional shortness of breath. Patient began feeling ill on Thursday and was diagnosed with flu on Thursday and had worsening symptoms today. Patient does not normal have an O2 requirement was saturating at 89% on 2 L. patient was treated with breathing treatment and did improved to 96% on 2 L. Patient does have history of bacterial pneumonia. Patient is a smoker. Patient did not get her flu shot this year. Related Data Home Medications ?Medication ?Instructions ?Recorded ?Confirmed ?Last Taken ?Type apixaban 5 mg tablet (Eliquis) 5 mg PO BID 05/14/19 06/07/25 07/01/24 History clopidogrel 75 mg tablet (Plavix) 75 mg PO DAILY 05/14/19 06/07/25 07/01/24 History isosorbide mononitrate 30 mg 60 mg PO DAILY 09/07/20 06/07/25 07/01/24 History tablet,extended release 24 hr rosuvastatin 10 mg tablet 10 mg PO QHS 09/07/20 06/07/25 07/01/24 History amlodipine 10 mg tablet 10 mg PO DAILY 04/30/21 06/07/25 07/01/24 History sotalol 80 mg tablet 40 mg PO BID 10/29/21 06/07/25 07/01/24 History nitroglycerin 0.4 mg sublingual 0.4 mg sublingual Q5M PRN chest 08/11/22 06/07/25 Unknown History tablet pain Allergies Allergy/AdvReac Type Severity Reaction Status Date / Time nitrofurantoin Allergy Mild Hives Verified 06/07/25 13:26 Review of Systems Review of Systems: All systems reviewed & are unremarkable except as noted in HPI and below PMFSH Past Medical History Medical History (Reviewed 06/07/25 @ 13:26 by Oriana Mosley [facility]) Pre-op testing Hypothyroidism (acquired) Conjunctivitis Pneumonia Pneumonia UTI (urinary tract infection) Chronic back pain Atypical chest pain Emphysema, unspecified Spinal stenosis of lumbar region without neurogenic claudication Tear of meniscus of right knee Tobacco abuse Synovial cyst of popliteal space [Noel], right knee Right anterior knee pain Patient had no falls in past year PAD (peripheral artery disease) Other obesity due to excess calories NC, acute, non ST segment elevation 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 current use of antithrombotics/antiplatelets History of smoking 30 or more pack years Hematuria, unspecified Gastroesophageal reflux disease without esophagitis Dysuria Colon cancer screening Chronic diastolic heart failure Chronic a-fib CAD in [place] artery Arterial occlusive disease HTN (hypertension) HLD (hyperlipidemia) Hypothyroidism (acquired) PVD (peripheral vascular disease) ASHD (arteriosclerotic heart disease) Surgical History Surgical History (Reviewed 06/07/25 @ 13:26 by Oriana Mosley [facility]) H/O thyroidectomy H/O kidney removal H/O heart artery stent History of vascular surgery Rt Leg Family History Family History (Reviewed 06/07/25 @ 13:26 by Oriana Mosley [facility]) Mother Family history of Parkinson's disease Patient's mother is Father Family history of heart disease in male family member before age 55, Onset Age: 82 Patient's father is Family history of cardiovascular disease, Onset Age: 81 Family history of kidney disease Social History Social History (Reviewed 06/07/25 @ 13:26 by Oriana Mosley [facility]) Smoking packs per day: 0.5 Smoking cigarettes per day: 10.0 Smoking status: Current every day smoker Tobacco type: cigarettes Alcohol intake: never Substance use: never Substance use type: does not use Lack of Transportation: No Lack of Food: Never True Current Housing: I Have Housing Concerned About Future Housing: No Difficulty Paying Gas/Electric Bills: No Difficulty Paying for Meds: No Currently Unemployed: No Education: High School Diploma/GED Difficulty w/ Childcare or Family Care: No Spiritual care concerns: No Exam Narrative: APPEARANCE: Ill-appearing HEAD: normocephalic, atraumatic. EYES: PERRLA/EOMI, conjunctivae clear. NOSE: Normal no drainage EARS:TMS clear with good light reflex. THROAT: Pharynx clear, no exudate. NECK: Supple. No adenopathy, no masses. RESPIRATORY: Airway patent, respirations nonlabored. Clear to auscultation bilaterally, no rales, rhonchi, wheezing. CARDIOVASCULAR: Regular rate and rhythm without murmurs rubs or gallops. ABDOMINAL: Soft, nontender, nondistended, normal bowel sounds MUSCULOSKELETAL: Moves all extremities. Strength/ROM intact, No edema, No calf tenderness. NEURO: Alert. Cranial nerves II through XII intact. Good gait. Good coordination SKIN: Warm, dry. Normal Color Course Vital Signs Vital signs: Vital Signs Temperature 98.2 F 06/28/25 15:32 Pulse Rate 89 06/28/25 15:32 Respiratory Rate 20 06/28/25 15:32 Blood Pressure 222/75 H 06/28/25 15:32 Pulse Oximetry 89 L 06/28/25 15:32 Oxygen Delivery Room Air 06/28/25 15:32 Temperature 98.2 F 06/28/25 15:32 Pulse Rate 98 06/28/25 19:38 Respiratory Rate 22 H 06/28/25 19:38 Blood Pressure 197/76 H 06/28/25 19:38 Pulse Oximetry 98 06/28/25 19:38 Oxygen Delivery Nasal Cannula 06/28/25 16:02 Oxygen Flow Rate 2 06/28/25 16:02 [facility] Narrative Medical decision making narrative: 79-year-old female present to the emergency department for evaluation for worsening shortness of breath. Patient does have history of factor pneumonia. Patient was recently diagnosed with influenza A. Patient is hypoxic in the emergency department. Patient is afebrile but does have a leukocytosis of 13.8. Patient is influenza A positive. Patient does have an elevated proBNP of 4830. Chest x-ray does show evidence of pulmonary edema. Due to patient's underlying history of lung disease and likely headed developing a bacterial pneumonia she was also started on Rocephin and azithromycin. Patient was started on Tamiflu. Case will be discussed with the hospitalist patient will be admitted to [facility]. Differential Diagnosis Differential Diagnosis: COVID, RSV, influenza, pneumonia, COPD Lab Data [facility] Lab Attestation statement: I personally reviewed the patient's lab results. 06/28/25 15:58 06/28/25 15:58 Labs: Lab Results 06/28/25 06/28/25 Range/Units 15:58 18:31 WBC 13.8 H (4.5-10.0) K/mm3 RBC 4.38 (4.2-5.4) M/mm3 Hgb 13.9 (12.0-15.0) g/dL Hct 40.5 (37.0-47.0) % MCV 92.5 (80-100) fl MCH 31.7 (26-34) pg MCHC 34.3 (32-36) g/dl RDW 13.0 (11.5-14.5) % Plt Count 195 (150-375) k/mm3 MPV 9.7 (7.4-10.4) fl Immature Gran % (Auto) 0.3 (0-0.5) % Neut % (Auto) 87.6 H (45.5-73.1) % Lymph % (Auto) 3.9 L (18.3-44.2) % [place] % (Auto) 8.1 (2.6-8.5) % Eos % (Auto) 0.0 (0-4.4) % Baso % (Auto) 0.1 L (0.2-1.2) % Lymph # (Auto) 0.54 L (0.9-3.2) K/mm3 [place] # (Auto) 1.1 H (0.1-0.6) K/mm3 Eos # (Auto) 0.0 (0-0.3) K/mm3 Baso # (Auto) 0.0 (0.0-0.1) K/mm3 Abs Immat Gran (auto) 0.04 H (0.00-0.031) K/mm3 Absolute Neuts (auto) 12.1 H (1.3-6.7) K/mm3 Absolute Nucleated RBC 0.000 (0.0-0.012) K/mm3 Nucleated RBC % 0.0 (0.0-0.2) % Sodium 127 L (137-145) mmol/L Potassium 3.4 (3.4-5.0) mmol/L Chloride 94 L (98-107) mmol/L Carbon Dioxide 28 (22-30) mmol/L Anion Gap 5 (4-12) mmol/L BUN 15 (7-17) mg/dL Creatinine 0.72 (0.7-1.0) mg/dL Estim Creat Clear Calc 51 ml/min Estimated GFR > 60 (59 - ) Glucose 101 (65-110) mg/dL Calcium 8.8 (8.4-10.2) mg/dL Total Bilirubin 0.8 (0.2-1.3) mg/dL AST 31 (14-36) U/L ALT 19 (6-35) U/L Alkaline Phosphatase 88 (38-126) U/L NT-Pro-B Natriuret Pep 4830 H (19.9-100) pg/mL Total Protein 6.7 (6.3-8.2) g/dL Albumin 3.7 (3.5-5.1) g/dL Urine Color Yellow (Yellow) Urine Appearance Clear (Clear) Urine pH 6.5 (5.0-9.0) Ur Specific [place] 1.011 (1.001-1.035) Urine Protein 2+ H (Negative) mg/dL Urine Glucose (UA) Negative (Negative) mg/dL Urine Ketones Negative (Negative) mg/dL Ur Blood (Man) 1+ H (Negative) Urine Nitrate Negative (Negative) Urine Bilirubin Negative (Negative) Urine Urobilinogen 0.2 (<2.0) mg/dL Leukocyte Esterase Rfl Negative (Negative) RAE/UL Urine RBC 3-5 H (0-2) /hpf Urine WBC 0-5 (0-3) /hpf Ur Squamous Epith Cells None seen (Few) /hpf Urine Bacteria None seen /hpf Urine Casts 0-2 Influenza A (RT-PCR) Positive A (Negative) Influenza B (RT-PCR) Negative (Negative) RSV (RT-PCR) Negative (Negative) SARS-CoV-2 RNA (RT-PCR) Negative (Negative) Imaging Data Radiologist's impression: ITS Impressions Chest X-Ray 06/28/25 16:27 Impression: 1: Developing pulmonary edema. Discharge Plan Discharge Clinical Impression: Pneumonia, Influenza A, CHF (congestive heart failure) Patient Disposition: Still a Patient Condition: Serious Patient Language: Ghanaian Prescriptions: No Action clopidogrel [Plavix] 75 mg Tablet 75 mg PO DAILY Eliquis 5 mg Tablet 5 mg PO BID isosorbide mononitrate 30 mg tablet extended release 24 hr 60 mg PO DAILY rosuvastatin 10 mg tablet 10 mg PO QHS nitroglycerin 0.4 mg tablet, sublingual 0.4 mg sublingual Q5M PRN (Reason: chest pain) Rx Instructions: do not exceed 3 doses per episode triamcinolone acetonide 0.1 % cream See Rx Instructions .ROUTE .COMPLEX PRN (Reason: pain) Qty: 80 2RF Rx Instructions: APPLY 1 APPLICATION TOPICALLY THREE TIMES A DAY PRN; tramadol 50 mg tablet 50 mg PO Q6H PRN (Reason: pain) Qty: 30 2RF amlodipine 10 mg tablet 10 mg PO DAILY sotalol 80 mg tablet 40 mg PO BID losartan 100 mg tablet See Rx Instructions .ROUTE .COMPLEX Qty: 90 2RF Dose Instruction: TAKE 1 TABLET BY MOUTH EVERY DAY Rx Instructions: TAKE 1 TABLET BY MOUTH EVERY DAY levothyroxine 75 mcg tablet See Rx Instructions .ROUTE .COMPLEX Qty: 90 2RF Dose Instruction: TAKE 1 TABLET BY MOUTH EVERY DAY Rx Instructions: TAKE 1 TABLET BY MOUTH EVERY DAY Follow-up/Referrals: Juan Whyte MD [Primary Care Provider, Internal Medicine]
[2025-06-28] MEDS: cefTRIAXone 1 GM in SODIUM CHLORIDE 0.9% IV 50 ML 100 ML IVPB (18:26)
[2025-06-28] MEDS: OSELTAMIVIR PHOSPHATE 30 MG CAPSULE PO (18:26)
[2025-06-28 19:05] LABS: Add Urine Microscopic? YES; Appearance Urine Clear (Clear); Glucose Urine UA Negative (Negative); Leukocyte Esterase Ur Negative LEU/UL (Negative); Nitrate Urine Negative (Negative); Non Pathogenic Casts 0-2; Specific Grav Ur 1.011 (1.001-1.035)
[2025-06-28] MEDS: AZITHROMYCIN IV 500 MG in SODIUM CHLORIDE 0.9% IV 250 ML IVPB ×2 (19:38→21:45)
--- NOTE | 2025-06-28 19:51 | WPCEDHO ---
ED Hand Off Checklist All vitals saved:y IV Site documented:y All med administrations documented:y I will give the oral bp meds prior to bringing her up. Triage Note Triage Note Pt to ED via EMS c/o SOB starting 06/28/25 15:32 today. Reports was dx with flu A at and sent home with tamiflu yesterday. States today feels worse. roll hauler reports low O2 saturation in the 80s. Pt denies hx of COPD, asthma. States hx of HTN, did take some of her meds today. Allergies nitrofurantoin Allergy (Mild, Verified 06/07/25 13:26) Hives Family History (Last Reviewed 06/07/25 @ 13:26 by Oriana Mosley, [facility]) Mother Family history of Parkinson's disease Patient's mother is Father Family history of heart disease in male family member before age 55 Patient's father is Family history of cardiovascular disease Family history of kidney disease Administered/Completed Medications Discontinued Medications Hydralazine HCl (Hydralazine Hcl 20 Mg/Ml Vial) 10 mg IV PUSH ONCE ONE Stop: 06/28/25 18:57 Last Admin: 06/28/25 19:02 Dose: 10 mg Documented By: MIRIAM Ceftriaxone Sodium 1 gm/ (Sodium Chloride) 50 mls @ 100 mls/hr IVPB ONCE STA Stop: 06/28/25 17:39 Last Infusion: 06/28/25 19:00 Dose: Infused Documented By: Admin: 06/28/25 18:26 Dose: 100 mls/hr Documented By: MIRIAM Azithromycin 500 mg/ Sodium (Chloride) 250 mls @ 250 mls/hr IVPB ONCE STA Stop: 06/28/25 18:09 Last Admin: 06/28/25 19:38 Dose: 250 mls/hr Documented By: MIRIAM Methylprednisolone Sodium Succinate (Methylprednisolone Sod Succ 40 Mg Vial) 40 mg IV PUSH ONCE STA Stop: 06/28/25 17:11 Last Admin: 06/28/25 18:26 Dose: 40 mg Documented By: MIRIAM Oseltamivir Phosphate (Oseltamivir Phosphate 30 Mg Capsule) 30 mg PO ONCE ONE Stop: 06/28/25 17:21 Last Admin: 06/28/25 18:26 Dose: 30 mg Documented By: MIRIAM Interventions/Assessments IV / Saline Lock, Insert Start: 06/28/25 15:20 Freq: Status: Active Protocol: Document 06/28/25 16:02 MLI (Rec: 06/28/25 16:05 MLI [id number]) IV Assessment Peripheral Access Left Antecubital IV Catheter Access Initiated IV Insertion Date 06/28/25 IV Insertion Time 16:03 Catheter Gauge 18 IV Insertion 1 Attempts Ultrasound Used for No Placement IV Site Assessment WNL IV Care and WNL Maintenance PA: Cardiovascular Assessment Start: 06/28/25 15:20 Freq: Status: Active Protocol: Document 06/28/25 16:02 MLI (Rec: 06/28/25 16:05 MLI [id number]) Cardiovascular Assessment Cardiovascular Dyspnea Symptoms Skin Description Normal Color Rhythm/Strength Monitor EKG Rythm Sinus Rhythm Capillary Refill Bilateral Upper Extremity Capillary Refill Normal/Less than 2 Seconds PA: Respiratory Assessment Start: 06/28/25 15:20 Freq: Status: Active Protocol: Document 06/28/25 16:02 MLI (Rec: 06/28/25 16:05 MLI [id number]) Respiratory Assessment Symptoms Cough,Shortness of Breath at Rest,Shortness of Breath With Exertion Effort Normal Pattern Regular Depth Normal Chest Expansion Symmetrical Adult Capillary Normal/Less than 2 Seconds Refill Cough Description Productive Cough Frequency Intermittent Sputum Production/ Spontaneous Expectoration Suction Method Oxygen Delivery Oxygen Delivery Nasal Cannula Oxygen Flow Rate 2 Pulse Oximetry (90- 96 100) Last Vital Signs Temperature 98.2 F 06/28/25 15:32 Pulse Rate 98 06/28/25 19:38 Respiratory Rate 22 H 06/28/25 19:38 Pulse Oximetry 98 06/28/25 19:38 Blood Pressure 197/76 H 06/28/25 19:38 Blood Pressure Mean 116 06/28/25 19:38 Oxygen Delivery Nasal Cannula 06/28/25 16:02 Oxygen Flow Rate 2 06/28/25 16:02 Weight 65.4 kg 06/28/25 15:32 Last Result - Abnormals Only WBC 13.8 K/mm3 (4.5-10.0) H 06/28/25 15:58 Neut % (Auto) 87.6 % (45.5-73.1) H 06/28/25 15:58 Lymph % (Auto) 3.9 % (18.3-44.2) L 06/28/25 15:58 Baso % (Auto) 0.1 % (0.2-1.2) L 06/28/25 15:58 Lymph # (Auto) 0.54 K/mm3 (0.9-3.2) L 06/28/25 15:58 [place] # (Auto) 1.1 K/mm3 (0.1-0.6) H 06/28/25 15:58 Abs Immat Gran (auto) 0.04 K/mm3 (0.00-0.031) H 06/28/25 15:58 Absolute Neuts (auto) 12.1 K/mm3 (1.3-6.7) H 06/28/25 15:58 Sodium 127 mmol/L (137-145) L 06/28/25 15:58 Chloride 94 mmol/L (98-107) L 06/28/25 15:58 NT-Pro-B Natriuret Pep 4830 pg/mL (19.9-100) H 06/28/25 15:58 Urine Protein 2+ mg/dL (Negative) H 06/28/25 18:31 Ur Blood (Man) 1+ (Negative) H 06/28/25 18:31 Urine RBC 3-5 /hpf (0-2) H 06/28/25 18:31 Influenza A (RT-PCR) Positive (Negative) A 06/28/25 15:58 Most Recent Suicide Severity Rating Suicide Severity Rating NO RISK INDICATED 06/28/25 15:32
[2025-06-28] MEDS: ISOSORBIDE MONONITRATE 60 MG TAB.ER.24H PO (19:57)
[2025-06-28] MEDS: ALBUTEROL SULFATE NEB 2.5 MG/3 ML INH INHALATION (20:03)
--- NOTE | 2025-06-28 20:30 | ADMGEN ---
This patient, Gladys Alvarez, was admitted to Medical Room 241-01. Patient/family oriented to hospital policies and general routines including ID bracelet, bed and alarms, visiting hours, pain management, procedures, bathroom and other care routines, personal items, smoking policy, room service/diet, and visiting hours. Information on how to activate the Rapid Response Team has been discussed. Patient/Family are encouraged to report perceived risks to care and to ask questions if they do not understand what they are told or what they should do.
--- NOTE | 2025-06-28 21:28 | PM.IMHP2 ---
H&P: HPI History of Present Illness Date/Time: 06/28/25 21:28 Chief Complaint: Shortness of breath Narrative: Gladys Alvarez is an 79-year-old female hx hypothroidism, emphysema, smoker, pneumonia, who presented to the emergency department for worsening exertional shortness of breath. She began feeling ill on Thursday. She first noticed she was fatigued and had leg pain. That night she had a subjective fever with chills, woke up and clothes were wet so she thinks she may have had a fever. She was diagnosed with the flu at an urgent care on Thursday and reports she was given a steroid shot. She has shortness of breath that worsened today. She does not normally use oxygen, but had a saturation of 89% on 2 L, improved to 96% after breathing treatment. Chest X-ray 06/28 showed developing pulmonary edema. She reports she hasn't been drinking today but no nausea/vomiting or diarrhea. She has a productive cough with yellow sputum. She's noticed feeling mildly short of breath this week, but yesterday and today she had more shortness of breath, felt short of breath walking short distances. Labs showed a sodium of 127, WBC 13.8 in the setting of recent steroids. She was given ceftriaxone azithromycin and albuterol. Amlodipine 10 mg. And was started on IV Solu-Medrol 60. Tamiflu She reports her breathing has improved since admission but is still audibly wheezing exam, looks comfortable PMFSH Past Medical History Medical History (Reviewed 06/07/25 @ 13:26 by Oriana Mosley [facility]) Pre-op testing Hypothyroidism (acquired) Conjunctivitis Pneumonia Pneumonia UTI (urinary tract infection) Chronic back pain Atypical chest pain Emphysema, unspecified Spinal stenosis of lumbar region without neurogenic claudication Tear of meniscus of right knee Tobacco abuse Synovial cyst of popliteal space [Noel], right knee Right anterior knee pain Patient had no falls in past year PAD (peripheral artery disease) Other obesity due to excess calories CT, acute, non ST segment elevation alf current use of antithrombotics/antiplatelets History of smoking 30 or more pack years Hematuria, unspecified Gastroesophageal reflux disease without esophagitis Dysuria Colon cancer screening Chronic diastolic heart failure Chronic a-fib CAD in [place] artery Arterial occlusive disease HTN (hypertension) HLD (hyperlipidemia) Hypothyroidism (acquired) PVD (peripheral vascular disease) ASHD (arteriosclerotic heart disease) Surgical History Surgical History H/O thyroidectomy H/O kidney removal H/O heart artery stent History of vascular surgery Rt Leg Family History Family History Mother Family history of Parkinson's disease Patient's mother is Father Family history of heart disease in male family member before age 55, Onset Age: 82 Patient's father is Family history of cardiovascular disease, Onset Age: 81 Family history of kidney disease Social History Social History (Reviewed 06/07/25 @ 13:26 by Oriana Mosley [facility]) Smoking packs per day: 0.5 Smoking cigarettes per day: 10.0 Smoking status: Current every day smoker Tobacco type: cigarettes Alcohol intake: never Substance use: never Substance use type: does not use Lack of Transportation: No Lack of Food: Never True Current Housing: I Have Housing Concerned About Future Housing: No Difficulty Paying Gas/Electric Bills: No Difficulty Paying for Meds: No Currently Unemployed: No Education: High School Diploma/GED Difficulty w/ Childcare or Family Care: No Spiritual care concerns: No Meds Home Medications and Allergies Home Medications ?Medication ?Instructions ?Recorded ?Confirmed ?Type apixaban 5 mg tablet (Eliquis) 5 mg PO BID 05/14/19 06/28/25 History clopidogrel 75 mg tablet (Plavix) 75 mg PO DAILY 05/14/19 06/28/25 History isosorbide mononitrate 30 mg 60 mg PO DAILY 09/07/20 06/28/25 History tablet,extended release 24 hr rosuvastatin 10 mg tablet 10 mg PO QHS 09/07/20 06/28/25 History amlodipine 10 mg tablet 10 mg PO DAILY 04/30/21 06/28/25 History sotalol 80 mg tablet 40 mg PO BID 10/29/21 06/28/25 History nitroglycerin 0.4 mg sublingual 0.4 mg sublingual Q5M PRN chest 08/11/22 06/28/25 History tablet pain losartan 100 mg tablet See Rx Instructions .Route 10/10/24 06/28/25 Rx .COMPLEX #90 tabs levothyroxine 75 mcg tablet See Rx Instructions .Route 05/01/25 06/28/25 Rx .COMPLEX #90 tabs tramadol 50 mg tablet 50 mg PO Q6H PRN pain #30 tabs 05/30/25 06/28/25 Rx Allergies Allergy/AdvReac Type Severity Reaction Status Date / Time nitrofurantoin Allergy Mild Hives Verified 06/28/25 21:03 Vital Signs Vital Signs - 24 hr 06/28/25 15:32 06/28/25 15:35 06/28/25 15:38 Temperature 98.2 F Pulse Rate 89 92 Respiratory Rate 20 17 Blood Pressure 222/75 H Pulse Oximetry 89 L 92 93 Oxygen Delivery Room Air Nasal Cannula Oxygen Flow Rate 2 06/28/25 15:45 06/28/25 16:01 06/28/25 16:02 Temperature Pulse Rate 75 74 Respiratory Rate 15 21 H Blood Pressure 191/82 H Pulse Oximetry 98 96 Oxygen Delivery Nasal Cannula Oxygen Flow Rate 2 06/28/25 16:02 06/28/25 16:31 06/28/25 17:01 Temperature Pulse Rate 72 68 85 Respiratory Rate 20 22 H 22 H Blood Pressure 191/82 H 196/76 H 211/99 H Pulse Oximetry 96 96 Oxygen Delivery Oxygen Flow Rate 06/28/25 18:00 06/28/25 18:31 06/28/25 19:00 Temperature Pulse Rate 84 100 83 Respiratory Rate 18 21 H 22 H Blood Pressure 214/78 H 202/95 H 208/89 H Pulse Oximetry 97 96 98 Oxygen Delivery Oxygen Flow Rate 06/28/25 19:38 06/28/25 20:07 06/28/25 20:10 Temperature Pulse Rate 98 89 77 Respiratory Rate 22 H 28 H 24 H Blood Pressure 197/76 H Pulse Oximetry 98 Oxygen Delivery Oxygen Flow Rate Exam Narrative: General - Awake and alert. No acute distress Eyes - PERRLA, EOM intact ENT - No thrush, No erythema Neck - No noticeable or palpable swelling Lymph Nodes - No lymphadenopathy Cardiovascular - RRR no m/r/g, no JVD Lungs: Audible wheezing, no use of accessory muscles Skin - Skin warm and dry, no wounds or rashes Abdomen - Normal bowel sounds, abdomen soft and nontender Extremities - No edema, cyanosis or clubbing Musculoskeletal - 5/5 strength, normal range of motion, no swollen or erythematous joints. Neurological ? Alert and oriented x 3, CN 2-12 grossly intact. Psych: Normal mood and affect Results Labs Labs: Short CBC 06/28/25 Range/Units 15:58 WBC 13.8 H (4.5-10.0) K/mm3 Hgb 13.9 (12.0-15.0) g/dL Hct 40.5 (37.0-47.0) % Plt Count 195 (150-375) k/mm3 BMP 06/28/25 15:58 Sodium 127 L Potassium 3.4 Chloride 94 L Carbon Dioxide 28 BUN 15 Creatinine 0.72 Glucose 101 Calcium 8.8 Liver Function 06/28/25 Range/Units 15:58 Total Bilirubin 0.8 (0.2-1.3) mg/dL AST 31 (14-36) U/L ALT 19 (6-35) U/L Alkaline Phosphatase 88 (38-126) U/L Albumin 3.7 (3.5-5.1) g/dL Urine 06/28/25 Range/Units 18:31 Urine Color Yellow (Yellow) Urine Appearance Clear (Clear) Urine pH 6.5 (5.0-9.0) Ur Specific [place] 1.011 (1.001-1.035) Urine Protein 2+ H (Negative) mg/dL Urine Glucose (UA) Negative (Negative) mg/dL Quality VTE Prophylaxis VTE prophylaxis: pharmacologic ordered (Home apixaban) Assessment and Plan Assessment and plan (1) Acute respiratory failure with hypoxia: Code(s): J96.01 - Acute respiratory failure with hypoxia Status: Acute Assessment and Plan: Likely 2/2 influenza. Wheezing on exam. Feels breathing treatments are helpful. Takes apixaban so low risk for PE --Wean O2 for sats >92 percent --Continue breathing treatments, add atrovent and continue albuterol q6 --Hold steroids for now with influenza --Consider pulmonary consult if worsening (2) Chronic a-fib: Code(s): I48.20 - Chronic atrial fibrillation, unspecified Status: Acute Assessment and Plan: Continue sotolol 40mg BID and apixaban 5mg BID (3) Influenza A: Code(s): J10.1 - Influenza due to other identified influenza virus with other respiratory manifestations Status: Acute Assessment and Plan: Influenza A positive --Stop solumedrol with influenza. Higher mortality and better to avoid if possible. Other treatments for respiratory failure as noted --Continue tamiflu, dose reduced for CKD --PT/OT for fatigue/weakness --Schedule guaifenesin BID for productive cough (4) Reactive airway disease with wheezing: Code(s): J45.909 - Unspecified asthma, uncomplicated Status: Acute Assessment and Plan: Hx emphesema ,not on home inhalers but former smoker. Likely copd exacerbation but PFT's not available On 2L O2 --Continue ceftiraxone --Change azithromycin to doxycycline 100 BID since also on sotolol -- Consider pulmonary consult if worsening --Holding off on steroids for now since treating influenza (5) CHF (congestive heart failure): Code(s): I50.9 - Heart failure, unspecified Status: Acute Assessment and Plan: NTproBNP elevated to 4830 with new shortness of breath --Pulmonary edema on chest x-ray --Consider diuresis in AM, but not drinking much in the ED and feels breathing improved so held off tonight --TTE --Follow creatinine Time Spent with Patient Time with patient: 45 - 74 minutes Hospitalist MIPS Advance Care Plan I have confirmed that the patient's Advanced Care Plan is present, code status is documented, or surrogate decision maker is listed in patient medical record.: Yes Medication Reconciliation I have utilized all available resources to obtain, update and review the patients current medications (includes all prescriptions, OTC, herbals, cannabis, and nutritional supplements).: Yes
[2025-06-28] MEDS: ROSUVASTATIN 10 MG TABLET PO (23:20)
[2025-06-28] MEDS: APIXABAN 5 MG TABLET PO (23:20)
[2025-06-28] MEDS: guaiFENesin 12 HR 600 MG TABCR 1200 MG PO (23:24)
[2025-06-29] VITALS (16 sets, daily range): BP systolic 143–152; BP diastolic 53–55; PULSE 58–82; RESP 14–22; TEMP 36.4–36.8; O2SAT 93–98
[2025-06-29] MEDS: ALBUTEROL SULFATE NEB 2.5 MG/3 ML INH INHALATION ×3 (01:37→14:19)
[2025-06-29] MEDS: IPRATROPIUM BR 0.02% INH SOLN 0.5 MG/2.5 ML VIAL INHALATION ×3 (01:37→14:19)
[2025-06-29 05:41] LABS: Hematocrit 34.2 % (37.0-47.0); Hemoglobin 11.8 g/dL (12.0-15.0); Immature Granulocyte Percent A 0.4 % (0-0.5); Lymphocytes Absolute Auto 0.51 K/mm3 (0.9-3.2); Mean Corpuscular HGB Conc 34.5 g/dl (32-36); Mean Corpuscular Hemoglobin 32.0 pg (26-34); Mean Corpuscular Volume 92.7 fl (80-100); Nucleated Red Blood Cells Absolute Auto 0.000 K/mm3 (0.0-0.012); Nucleated Red Blood Cells Perc 0.0 % (0.0-0.2); Platelet Count Result 200 k/mm3 (150-375); Red Blood Count 3.69 M/mm3 (4.2-5.4); White Blood Count 12.4 K/mm3 (4.5-10.0)
[2025-06-29 06:24] LABS: Anion Gap 7 mmol/L (4-12); Blood Urea Nitrogen 20 mg/dL (7-17); Calcium 8.2 mg/dL (8.4-10.2); Carbon Dioxide 23 mmol/L (22-30); Chloride 98 mmol/L (98-107); Estimated CRCL calculation 47 ml/min; Estimated Glomerular Filt Rate > 60; Glucose 98 mg/dL (65-110); Magnesium 1.6 mg/dL (1.6-2.3); Potassium 3.7 mmol/L (3.4-5.0); Sodium 128 mmol/L (137-145)
[2025-06-29] MEDS: LEVOTHYROXINE SODIUM 75 MCG TABLET BY MOUTH (06:25)
--- NOTE | 2025-06-29 07:27 | P.PNIM_ITS ---
Assessment and Plan Assessment and Plan (1) Acute respiratory failure with hypoxia: Code(s): J96.01 - Acute respiratory failure with hypoxia Status: Acute Assessment and Plan: - spO2 89% on RA, no home oxygen requirement. Required up to 2L NC. - Likely 2/2 influenza. Wheezing on exam on admission. Feels breathing treatments are helpful. Takes apixaban so low risk for PE -Wean O2 for sats >92 percent -Continue breathing treatments, add atrovent and continue albuterol q6 -Hold steroids for now with influenza -Consider pulmonary consult if worsening - pulmonary hygiene - weaned to RA with rest and ambulation (2) Influenza A: Code(s): J10.1 - Influenza due to other identified influenza virus with other respiratory manifestations Status: Acute Assessment and Plan: - Influenza A positive -Stop solumedrol with influenza. Higher mortality and better to avoid if possible. Other treatments for respiratory failure as noted -Continue Tamiflu, dose reduced for CKD -PT/OT for fatigue/weakness -Schedule guaifenesin BID for productive cough (3) Chronic a-fib: Code(s): I48.20 - Chronic atrial fibrillation, unspecified Status: Acute Assessment and Plan: -Continue sotolol 40mg BID and apixaban 5mg BID (4) Reactive airway disease with wheezing: Code(s): J45.909 - Unspecified asthma, uncomplicated Status: Acute Assessment and Plan: Hx emphysema ,not on home inhalers but former smoker. Likely copd exacerbation but PFT's not available - On 2L O2 -Continue ceftriaxone -Change azithromycin to doxycycline 100 BID since also on sotolol -Consider pulmonary consult if worsening -Holding off on steroids for now since treating influenza (5) CHF (congestive heart failure): Code(s): I50.9 - Heart failure, unspecified Status: Acute Assessment and Plan: NTproBNP elevated to 4830 with new shortness of breath -Pulmonary edema on chest x-ray -Consider diuresis in AM, but not drinking much in the ED and feels breathing improved so held off tonight -TTE -Follow creatinine (6) Hyponatremia: Code(s): E87.1 - Hypo-osmolality and hyponatremia Status: Acute Assessment and Plan: - Na 128 - received IV lasix x1, repeat BMP to monitor response (7) Pneumonia: Code(s): J18.9 - Pneumonia, unspecified organism Status: Acute Assessment and Plan: - CXR with concerns for pulmonary edema, but given productive cough, leukocytosis and elevated procal, may be more consistent with bacterial pneumonia - continue Rocephin and doxycycline Plan Dispo: home Code status: full code DVT prophylaxis: Eliquis Medical Record Review I have reviewed the following patient records and this information was taken into consideration when formulating the assessment and plan.: previous labs Subjective Date/time seen: 06/29/25 07:27 Interval history: Patient seen and examined at bedside. Breathing improved, still with dry cough. Denies chest pain. Review of Systems Review of Systems: All systems reviewed & are unremarkable except as noted in HPI and below Exam Narrative: General: NAD Eyes: EOMI ENT: neck supple Cardiovascular: Regular rate and rhythm Respiratory: bibasilar rales, respirations even and unlabored on 2L NC Gastrointestinal: Soft, non tender Genitourinary: no suprapubic tenderness Musculoskeletal: No edema Skin: warm, dry Neuro: Alert. Psych: Mood appropriate Objective Data Vital Signs Vital Signs: Vital Signs - 24 hr 06/28/25 15:32 06/28/25 15:35 06/28/25 15:38 Temperature 98.2 F Pulse Rate 89 92 Respiratory Rate 20 17 Blood Pressure 222/75 H Pulse Oximetry 89 L 92 93 Oxygen Delivery Room Air Nasal Cannula Oxygen Flow Rate 2 06/28/25 15:45 06/28/25 16:01 06/28/25 16:02 Temperature Pulse Rate 75 74 Respiratory Rate 15 21 H Blood Pressure 191/82 H Pulse Oximetry 98 96 Oxygen Delivery Nasal Cannula Oxygen Flow Rate 2 06/28/25 16:02 06/28/25 16:31 06/28/25 17:01 Temperature Pulse Rate 72 68 85 Respiratory Rate 20 22 H 22 H Blood Pressure 191/82 H 196/76 H 211/99 H Pulse Oximetry 96 96 Oxygen Delivery Oxygen Flow Rate 06/28/25 18:00 06/28/25 18:31 06/28/25 19:00 Temperature Pulse Rate 84 100 83 Respiratory Rate 18 21 H 22 H Blood Pressure 214/78 H 202/95 H 208/89 H Pulse Oximetry 97 96 98 Oxygen Delivery Oxygen Flow Rate 06/28/25 19:38 06/28/25 20:07 06/28/25 20:10 Temperature Pulse Rate 98 89 77 Respiratory Rate 22 H 28 H 24 H Blood Pressure 197/76 H Pulse Oximetry 98 Oxygen Delivery Oxygen Flow Rate 06/28/25 22:00 06/28/25 22:05 06/28/25 23:20 Temperature 97.6 F Pulse Rate 80 77 74 Respiratory Rate 18 24 H Blood Pressure 164/65 H Pulse Oximetry 96 98 Oxygen Delivery Nasal Cannula Oxygen Flow Rate 2 06/29/25 00:00 06/29/25 01:38 06/29/25 01:50 Temperature Pulse Rate 74 82 78 Respiratory Rate 22 H 20 Blood Pressure Pulse Oximetry Oxygen Delivery Oxygen Flow Rate 06/29/25 01:54 06/29/25 04:00 06/29/25 06:00 Temperature 97.5 F L Pulse Rate 58 L 66 Respiratory Rate 18 Blood Pressure 152/55 H Pulse Oximetry 97 98 Oxygen Delivery Nasal Cannula Oxygen Flow Rate 2 Intake/Output Intake/Output: Intake & Output 06/26/25 06/27/25 06/28/25 06/29/25 23:59 23:59 23:59 23:59 Intake Total 50 Output Total 300 Balance 50 -300 Meds/Results Medications: Active Medications Generic Name Dose Route Start Last Admin Trade Name Freq PRN Reason Stop Dose Admin Albuterol 2.5 mg 06/28/25 20:00 06/29/25 01:37 Albuterol Sulfate Neb 2.5 Mg/3 Ml Inh INHALATION 2.5 mg Q6HRT SHIRLEY Administration Amlodipine Besylate 10 mg 06/29/25 09:00 Amlodipine Besylate 10 Mg Tablet PO DAILY SHIRLEY Apixaban 5 mg 06/28/25 23:00 06/28/25 23:20 Apixaban 5 Mg Tablet PO 5 mg Q12HR SHIRLEY Administration Clopidogrel Bisulfate 75 mg 06/29/25 09:00 Clopidogrel Bisulfate 75 Mg Tablet PO DAILY SHIRLEY Doxycycline Hyclate 100 mg 06/29/25 09:00 Doxycycline Hyclate 100 Mg Tablet PO 07/04/25 08:59 Q12HR [facility] Guaifenesin 1,200 mg 06/28/25 23:20 06/28/25 23:24 Guaifenesin 12 Hr 600 Mg Tabcr PO 1,200 mg Q12HR SHIRLEY Administration Ceftriaxone Sodium 1 gm/ 50 mls @ 100 mls/hr 06/29/25 18:00 Sodium Chloride IVPB Q24H [facility]LEY Ipratropium [place] 0.5 mg 06/29/25 02:00 06/29/25 01:37 Ipratropium Br 0.02% Inh Soln 0.5 Mg/2.5 Ml Vial INHALATION 0.5 mg Q6HRT SHIRLEY Administration Isosorbide Mononitrate 60 mg 06/29/25 09:00 Isosorbide Mononitrate 60 Mg Tab.Er.24h PO DAILY [facility]LEY Levothyroxine Sodium 75 mcg 06/29/25 06:30 06/29/25 06:25 Levothyroxine Sodium 75 Mcg Tablet BY MOUTH 75 mcg DAILY@0630 [facility]IRLEY Administration Losartan Potassium 100 mg 06/29/25 09:00 Losartan Potassium 100 Mg Tablet PO DAILY [facility] Nitroglycerin 0.4 mg 06/28/25 22:47 Nitroglycerin Sl 0.4 Mg Tablet SUBLINGUAL Q5M PRN Chest Pain Oseltamivir Phosphate 30 mg 06/29/25 09:00 Oseltamivir Phosphate 30 Mg Capsule PO 07/03/25 09:01 Q12HR [facility] Perflutren Lipid Microsphere 0 ml 06/28/25 23:33 Perflutren Lipid Microspheres 1.5 Ml Vial Diluted To 10 Ml Total Volume IV PUSH 07/01/25 23:33 ONCE PRN adequate visualization Protocol Rosuvastatin Calcium 10 mg 06/28/25 22:55 06/28/25 23:20 Rosuvastatin 10 Mg Tablet PO 10 mg QHS SHIRLEY Administration Sotalol HCl 40 mg 06/28/25 22:55 06/28/25 23:20 Sotalol Hcl 40 Mg Tablet PO 40 mg Q12HR [facility] Administration Tramadol HCl 50 mg 06/28/25 22:47 Tramadol Hcl (*Crx) 50 Mg Tablet PO Q6H PRN PAIN RATED 4-6 Radiology Results: ITS Impressions Chest X-Ray 06/28/25 16:27 Impression: 1: Developing pulmonary edema. Labs Labs: Laboratory Results - last 24 hr 06/28/25 06/28/25 06/29/25 15:58 18:31 04:35 WBC 13.8 H 12.4 H RBC 4.38 3.69 L Hgb 13.9 11.8 L Hct 40.5 34.2 L MCV 92.5 92.7 MCH 31.7 32.0 MCHC 34.3 34.5 RDW 13.0 13.2 Plt Count 195 200 MPV 9.7 11.0 H Immature Gran % (Auto) 0.3 0.4 Neut % (Auto) 87.6 H 86.8 H Lymph % (Auto) 3.9 L 4.1 L [place] % (Auto) 8.1 8.6 H Eos % (Auto) 0.0 0.0 Baso % (Auto) 0.1 L 0.1 L Lymph # (Auto) 0.54 L 0.51 L [place] # (Auto) 1.1 H 1.1 H Eos # (Auto) 0.0 0.0 Baso # (Auto) 0.0 0.0 Abs Immat Gran (auto) 0.04 H 0.05 H Absolute Neuts (auto) 12.1 H 10.7 H Absolute Nucleated RBC 0.000 0.000 Nucleated RBC % 0.0 0.0 Sodium 127 L 128 L Potassium 3.4 3.7 Chloride 94 L 98 Carbon Dioxide 28 23 Anion Gap 5 7 BUN 15 20 H Creatinine 0.72 0.79 Estim Creat Clear Calc 51 47 Estimated GFR > 60 > 60 Glucose 101 98 Calcium 8.8 8.2 L Magnesium 1.6 Total Bilirubin 0.8 AST 31 ALT 19 Alkaline Phosphatase 88 NT-Pro-B Natriuret Pep 4830 H Total Protein 6.7 Albumin 3.7 Urine Color Yellow Urine Appearance Clear Urine pH 6.5 Ur Specific [place] 1.011 Urine Protein 2+ H Urine Glucose (UA) Negative Urine Ketones Negative Ur Blood (Man) 1+ H Urine Nitrate Negative Urine Bilirubin Negative Urine Urobilinogen 0.2 Leukocyte Esterase Rfl Negative Urine RBC 3-5 H Urine WBC 0-5 Ur Squamous Epith Cells None seen Urine Bacteria None seen Urine Casts 0-2 Influenza A (RT-PCR) Positive A Influenza B (RT-PCR) Negative RSV (RT-PCR) Negative SARS-CoV-2 RNA (RT-PCR) Negative
[2025-06-29] MEDS: LOSARTAN POTASSIUM 100 MG TABLET PO (09:41)
[2025-06-29] MEDS: guaiFENesin 12 HR 600 MG TABCR 1200 MG PO (09:41)
[2025-06-29] MEDS: APIXABAN 5 MG TABLET PO (09:42)
[2025-06-29] MEDS: ISOSORBIDE MONONITRATE 60 MG TAB.ER.24H PO (09:42)
[2025-06-29] MEDS: DOXYCYCLINE HYCLATE 100 MG TABLET PO (09:42)
[2025-06-29] MEDS: OSELTAMIVIR PHOSPHATE 30 MG CAPSULE PO (09:42)
[2025-06-29] MEDS: CLOPIDOGREL BISULFATE 75 MG TABLET PO (09:42)
[2025-06-29 09:53] LABS: Procalcitonin 0.5 ng/mL
[2025-06-29] MEDS: FUROSEMIDE INJ 40 MG/4 ML VIAL 20 MG IV PUSH (09:57)
--- NOTE | 2025-06-29 13:43 | P.DS_ITS ---
DS: Admitting Diagnosis Discharge Date 06/29/25 Admitting Diagnosis - influenza A - acute respiratory failure with hypoxia DS: Discharge Diagnosis Discharge Diagnosis (1) Acute respiratory failure with hypoxia: Code(s): J96.01 - Acute respiratory failure with hypoxia Status: Acute (2) Influenza A: Code(s): J10.1 - Influenza due to other identified influenza virus with other respiratory manifestations Status: Acute (3) Chronic a-fib: Code(s): I48.20 - Chronic atrial fibrillation, unspecified Status: Acute (4) Reactive airway disease with wheezing: Code(s): J45.909 - Unspecified asthma, uncomplicated Status: Acute (5) CHF (congestive heart failure): Code(s): I50.9 - Heart failure, unspecified Status: Acute (6) Hyponatremia: Code(s): E87.1 - Hypo-osmolality and hyponatremia Status: Acute (7) Pneumonia: Code(s): J18.9 - Pneumonia, unspecified organism Status: Acute DS: Summary Hospital Course Reason for hospitalization: - influenza A - acute respiratory failure with hypoxia Hospital Course: Gladys Alvarez is an 79-year-old female with a history of chronic atrial fibrillation on apixaban, chronic diastolic heart failure, emphysema/COPD, CAD, hypertension, hyperlipidemia, and hypothyroidism who was admitted on 06/28/25 for acute hypoxic respiratory failure in the setting of Influenza A infection with concern for superimposed bacterial pneumonia and mild CHF exacerbation. She initially presented with acute shortness of breath and wheezing, with oxygen saturation of 89% on room air, requiring up to 2 L nasal cannula. Chest X-ray demonstrated developing pulmonary edema, and labs were notable for leukocytosis, elevated NT-proBNP to 4830, and hyponatremia. She was treated with supportive care including supplemental oxygen, bronchodilator therapy, pulmonary hygiene, and antiviral therapy with oseltamivir (dose-adjusted for renal function). Given concern for bacterial pneumonia, she received ceftriaxone and was transitioned to oral Augmentin and doxycycline to complete a total 5-day course, along with completion of Tamiflu. Steroids were held due to active influenza. Her respiratory status steadily improved, and she was successfully weaned to room air at rest and with ambulation. Heart failure symptoms improved without need for ongoing diuresis, and renal function remained stable. Echocardiogram was ordered however could not be performed on day of discharge and patient adamant about being discharged due to the holiday. Encouraged close outpatient follow-up with her ingot header for outpatient echo. Hyponatremia remained stable at 128 and was felt to be chronic and asymptomatic; the patient was encouraged to maintain adequate oral intake. She remained hemodynamically stable, tolerated medications well, and had no chest pain or further hypoxia. She is discharged home in stable condition with instructions to complete her prescribed courses of Augmentin, doxycycline, and Tamiflu, continue home medications including apixaban and sotalol, repeat a BMP in 5?7 days, and follow up with her primary care provider. Status at Discharge Overall status at discharge: patient is progressing back to baseline Time Spent with Patient Time attestation: Total time spent providing and/or coordinating discharge services: Time spent: Greater than 30 minutes Exam Narrative: General: NAD Eyes: EOMI ENT: neck supple Cardiovascular: Regular rate and rhythm Respiratory: respirations even and unlabored on RA Gastrointestinal: Soft, non tender Genitourinary: no suprapubic tenderness Musculoskeletal: No edema Skin: warm, dry Neuro: Alert. Psych: Mood appropriate DS: Data Data Completed and Pending Completed studies during hospitalization: ITS Impressions Chest X-Ray 06/28/25 16:27 Impression: 1: Developing pulmonary edema. Labs on day of discharge: Labs from last 24 hours 06/29/25 15:13 Sodium 128 L Potassium 3.4 Chloride 97 L Carbon Dioxide 26 Anion Gap 5 BUN 24 H Creatinine 0.83 Estim Creat Clear Calc 45 Estimated GFR > 60 Glucose 86 Calcium 8.1 L Preliminary micro results at discharge 06/28/25 17:42 Blood Culture - Preliminary Blood 06/28/25 17:42 Blood Culture - Preliminary Blood Discharge Plan Discharge Attending physician on discharge: Halima Cary Consulting providers: Lucy Moulton Discharging Clinician: Lucy Moulton Patient Disposition: Home Activity: as tolerated Diet: regular Discharge Instructions: Discharge Instructions ? Influenza A with Possible Superimposed Bacterial Pneumonia Diagnosis and Treatment * You were treated for?influenza A?with concern for a?superimposed bacterial pneumonia. * Continue oseltamivir (Tamiflu)?and?antibiotics exactly as prescribed?until the full course is completed, even if you are feeling better. A new prescription was sent with a decreased dose due to your kidney function. * Take medications with food if needed to reduce stomach upset. Home Care * Rest as much as possible and gradually increase activity as tolerated. * Maintain good hydration. * Use acetaminophen as directed for fever, body aches, or chest discomfort (avoid exceeding recommended doses). * Practice good hand hygiene and mask use if coughing to reduce spread to others. Follow-Up * Cardiology follow-up is important.?Your BNP was elevated, which can be associated with cardiac strain. * Schedule a?cardiology appointment for an echocardiogram?as soon as possible to further evaluate heart function. * Follow up with your primary care provider within?1?2 weeks, or sooner if symptoms are not improving. Have lab work repeated in 5-7 days to recheck your sodium level which was low in the hospital. Return to the Emergency Department or Seek Urgent Care if You Develop * Worsening shortness of breath, trouble breathing at rest, or new oxygen needs * Chest pain, pressure, palpitations, or fainting * Persistent or high fevers despite treatment * Confusion, severe weakness, or inability to keep down fluids or medications * Worsening cough, increasing sputum, or coughing up blood * Swelling of the legs, rapid weight gain, or worsening fatigue If you have questions about your medications or symptoms, contact your care team promptly. Patient Instructions: Antibiotic Form Patient Language: Kyrgyz Stand Alone Forms: General Discharge Information Follow-up/Referrals: Juan Mckeon MD [Physician, Cardiology] - Call for Appointment Referral Note: have repeat echocardiogram arranged as outpatient Juan Whyte MD [Primary Care Provider, Internal Medicine] - Call for Appointment Referral Note: 5-7 days for hospital follow-up. Repeat BMP in 5 days to recheck sodium level. Discharge Medications: New doxycycline hyclate 100 mg Tablet 100 mg PO Q12HR 4 Days Qty: 8 0RF oseltamivir [Tamiflu] 30 mg Capsule 30 mg PO Q12HR 4 Days Qty: 8 0RF guaifenesin [Mucus Relief ER] 600 mg Tablet Extended Release 12hr 1,200 mg PO Q12HR 7 Days Qty: 28 0RF albuterol sulfate [Ventolin HFA] 90 mcg/actuation HFA aerosol inhaler 2 puff inhalation QID PRN (Reason: shortness of breath or wheezing) Qty: 8.5 0RF amoxicillin-pot clavulanate 875-125 mg tablet 1 tablet PO Q12H Qty: 8 0RF Continued clopidogrel [Plavix] 75 mg Tablet 75 mg PO DAILY Eliquis 5 mg Tablet 5 mg PO BID isosorbide mononitrate 30 mg tablet extended release 24 hr 60 mg PO DAILY rosuvastatin 10 mg tablet 10 mg PO QHS nitroglycerin 0.4 mg tablet, sublingual 0.4 mg sublingual Q5M PRN (Reason: chest pain) Rx Instructions: do not exceed 3 doses per episode tramadol 50 mg tablet 50 mg PO Q6H PRN (Reason: pain) Qty: 30 2RF amlodipine 10 mg tablet 10 mg PO DAILY sotalol 80 mg tablet 40 mg PO BID losartan 100 mg tablet See Rx Instructions .ROUTE .COMPLEX Qty: 90 2RF Dose Instruction: TAKE 1 TABLET BY MOUTH EVERY DAY Rx Instructions: TAKE 1 TABLET BY MOUTH EVERY DAY levothyroxine 75 mcg tablet See Rx Instructions .ROUTE .COMPLEX Qty: 90 2RF Dose Instruction: TAKE 1 TABLET BY MOUTH EVERY DAY Rx Instructions: TAKE 1 TABLET BY MOUTH EVERY DAY Other Ambulatory Orders: Basic Metabolic Panel (Routine) Timeframe: 5 Days Location: Determined by Patient Ordered By: Lucy Moulton Date of admission: 06/28/25 17:43 Primary Care Provider: Juan Whyte Admitting Provider: Bebeto Rodriguez Attending physician on admission: Bebeto Rodriguez Condition: Stable
[2025-06-29 15:37] LABS: Anion Gap 5 mmol/L (4-12); Blood Urea Nitrogen 24 mg/dL (7-17); Calcium 8.1 mg/dL (8.4-10.2); Carbon Dioxide 26 mmol/L (22-30); Chloride 97 mmol/L (98-107); Estimated CRCL calculation 45 ml/min; Estimated Glomerular Filt Rate > 60; Glucose 86 mg/dL (65-110); Potassium 3.4 mmol/L (3.4-5.0); Sodium 128 mmol/L (137-145)
== END 2025-06-29 17:42 | disposition home or self-care (01) ==
LOC: ANHED 19:51 → ANH2MED 06-29 06:37
PROVIDERS: Nurse Practitioner Acute Care; Physician Assistant; Admitting Provider Internal Medicine; Emergency Provider Emergency Medicine; PCP Emergency Medicine; Visit Provider Internal Medicine
DX: J10.00 Influenza due to other identified influenza virus with unspecified type of pneumonia (principal); J18.9 Pneumonia, unspecified organism; J96.01 Acute respiratory failure with hypoxia; J43.9 Emphysema, unspecified; E87.1 Hypo-osmolality and hyponatremia; I11.0 Hypertensive heart disease with heart failure; I50.32 Chronic diastolic (congestive) heart failure; I48.20 Chronic atrial fibrillation, unspecified; I73.9 Peripheral vascular disease, unspecified; I25.10 Atherosclerotic heart disease of native coronary artery without angina pectoris; E78.5 Hyperlipidemia, unspecified; K21.9 Gastro-esophageal reflux disease without esophagitis; M54.50 Low back pain, unspecified; I25.2 Old myocardial infarction; M48.061 Spinal stenosis, lumbar region without neurogenic claudication; E89.0 Postprocedural hypothyroidism; F17.210 Nicotine dependence, cigarettes, uncomplicated; Z20.822 Contact with and (suspected) exposure to COVID-19; Z87.01 Personal history of pneumonia (recurrent); Z79.01 Long term (current) use of anticoagulants; Z79.891 Long term (current) use of opiate analgesic; Z79.02 Long term (current) use of antithrombotics/antiplatelets; Z95.5 Presence of coronary angioplasty implant and graft; Z90.09 Acquired absence of other part of head and neck; Z90.5 Acquired absence of kidney; Z82.49 Family history of ischemic heart disease and other diseases of the circulatory system
CPT/HCPCS: 36415; 71045; 80048; 80053; 81001; 83735; 83880; 84145; 85025; 87040; 87637; 93005; 94640; 94667; 96365; 96375; 99285; A9270; G0378; J0360; J0456; J0696; J1938; J2919; J7050